=== PATIENT | male | born 1945 | race Caucasian/White ===

== ENCOUNTER 2017-02-19 13:39 | Emergency (ER) | payer OTHER ==
[~2017-02-19] VITALS: Ht 172.7 cm; Wt 68.8 kg
[2017-02-19 14:01] VITALS: TEMP 36.7; Ht 172.7 cm; Wt 68.8 kg
[2017-02-19] MEDS ORDERED: SODIUM CHLORIDE 0.9% 1000ML 1,000 ML IV STA (14:40)
[2017-02-19] MEDS ORDERED: OPTIRAY 320 IV PRN (15:00)
[2017-02-19 15:07] LABS: BASO % 0.2 %; BASO ABS # 0.03 K/uL (0-0.2); COMPLETE YES; EOS % 0.7 %; HEMATOCRIT 40.8 % (42-52); IG% 0.3 %; LYMPH % 10.8 %; LYMPH ABS # 1.54 K/uL (1.2-3.4); MEAN CELL VOLUME 79.7 fL (80-100); MEAN CORPUSCULAR HEMOGLOBIN 27.5 pg (25-34); MEAN CORPUSCULAR HGB CONC 34.6 g/dl (32-36); MEAN PLATELET VOLUME 8.5 fL (7.4-10.4); MONO % 6.1 %; NEUT % 81.9 %; PLATELET COUNT 393 K/uL (130-400); RED BLOOD COUNT 5.12 M/uL (4.7-6.1); WHITE BLOOD COUNT 14.32 K/uL (4.8-10.8)
--- NOTE | 2017-02-19 15:07 | DIAGNOSTIC IMAGING REPORT ---
CHEST ONE VIEW PORTABLE CLINICAL HISTORY: 71 years-old Male presenting with EVALUATE ALTERED MENTAL STATUS/WEAKNESS. TECHNIQUE: Portable upright AP view of the chest was obtained. COMPARISON: None. FINDINGS: Cardiomediastinal silhouette normal. Rounded opacity in the left upper lung measuring over 8 cm in diameter. Abnormal elevation of the left hemidiaphragm. No large pleural effusion or pneumothorax. Osseous structures normal. Upper abdomen normal. IMPRESSION: 1. 8 cm masslike opacity in the left upper lung. A vascular etiology is not excluded. Further evaluation with contrast-enhanced chest CT recommended. The report will be called/faxed according to standard departmental protocol. Electronically signed by: Pipe Alvarado M.D. 02/19/2017 3:06 PM Dictated Date/Time: 02/19/2017 3:04 PM
[2017-02-19] MEDS ORDERED: GLC/500 PO (15:12)
[2017-02-19] MEDS ORDERED: ATOR10TA82 PO (15:12)
[2017-02-19 15:17] LABS: INR 1.1 (0.9-1.1); PARTIAL THROMBOPLASTIN RATIO 1.2
[2017-02-19 15:25] LABS: ALT/SGPT 43 U/L (12-78); BLOOD UREA NITROGEN 15 mg/dl (7-18); BUN/CREATININE RATIO 14.8 (10-20); CALCIUM 9.7 mg/dl (8.5-10.1); CARBON DIOXIDE 29 mmol/L (21-32); CHLORIDE 96 mmol/L (98-107); CREATININE 0.98 mg/dl (0.60-1.40); GLUCOSE 133 mg/dl (70-99); MAGNESIUM 2.1 mg/dl (1.8-2.4); POTASSIUM 3.3 mmol/L (3.5-5.1); SODIUM 133 mmol/L (136-145)
[2017-02-19] MEDS ORDERED: PATIENT'S ALLERGY INFO NEEDS ENTERED SCH (15:30)
[2017-02-19 15:34] LABS: ALKALINE PHOSPHATASE 123 U/L (45-117); AST/SGOT 32 U/L (15-37); CKMB/CK RATIO 0.5 (0-3.0)
[2017-02-19 15:38] LABS: URINE APPEARANCE CLOUDY (CLEAR); URINE BILIRUBIN NEG (NEG); URINE COLOR YELLOW; URINE NITRITE NEG (NEG); URINE PH 7.5 (4.5-7.5); UROBILINOGEN NEG (NEG); ZZUR CULT IF INDIC CLEAN CATCH NO
[2017-02-19 15:39] LABS: MANUAL MICROSCOPIC REQUIRED? NO; REVIEW REQ? YES
--- NOTE | 2017-02-19 16:19 | DIAGNOSTIC IMAGING REPORT ---
(CHEST FOR PE) ANGIO WITH CLINICAL HISTORY: 71 years-old Male presenting with ^cough, sob, smoker, weakness. TECHNIQUE: Multidetector CT angiography of the chest was performed after administration of intravenous contrast. 3-D volumetric and/or maximum intensity projection (MIP) images were subsequently reconstructed for review. IV contrast: 94 mL of Optiray 320. A dose lowering technique was used consistent with the principles of ALARA (as low as reasonably achievable). COMPARISON: Chest x-ray performed earlier the same day. CT DOSE (mGy.cm): The estimated cumulative dose is 289.23 mGy.cm. 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 Pulmonary vasculature: The study is adequate for assessment of the pulmonary vascular tree. No filling defect within the pulmonary arteries to suggest embolus. Compression of the anterior branch of the left upper lobe pulmonary artery as it traverses the large left upper lobe mass. Main pulmonary artery is not enlarged. No flattening of the interventricular septum. No intracardiac intracardiac filling defect. No reflux of contrast into the hepatic veins. Remaining chest: On soft tissue windows, normal thyroid and thoracic inlet. Multiple enlarged mediastinal lymph nodes in the aortopulmonary, prevascular, and subcarinal regions. Suspected enlarged bilateral hilar lymph nodes. Atherosclerosis of the aorta. Normal heart size. Coronary artery calcification. Trace left pleural effusion. No pericardial effusion. Upper abdomen normal. On lung windows, 8.2 cm mass in the left upper lobe. This abuts the overlying anterior pleura resulting in a bulging margin. This abuts the major fissure. This encases and narrows the anterior branch of the left upper lobe. This abuts the mediastinum and appears to directly invade the pericardial fat. This abuts the right hilum and obstructs the left upper lobe bronchus and narrows the lingular bronchus. Background moderate apical predominant emphysema. Mild diffuse bronchial wall thickening. No additional pulmonary nodule or mass. Dependent changes in the bilateral lower lobes likely atelectasis. On bone windows, normal osseous structures. IMPRESSION: 1. A 8.2 cm left upper lobe mass, which may invade the overlying pleura, mediastinum, and left hilum. Mediastinal and potentially bilateral hilar lymphadenopathy. No additional sites of disease in the lungs. Further details including bronchial and arterial obstruction as above. 2. No evidence of pulmonary embolus. Electronically signed by: Pipe Alvarado M.D. 02/19/2017 4:18 PM Dictated Date/Time: 02/19/2017 4:09 PM
--- NOTE | 2017-02-19 16:49 | EMERGENCY ROOM VISIT NOTE ---
History Report prepared by Ruth: Sundeep Mckeon Under the Supervision of: Dr. Jone Quiroz D.O. First contact with patient: 14:29 Chief Complaint: WEAKNESS Stated Complaint: WEAK, TIRED, LOSS OF APPETITE Nursing Triage Summary: patient c/o generalized tiredness, decreased appetite for past month. patient went to PCP for high blood pressure last week. PCP gave him another BP med. unsure what pill. family states he has lost about 10 pounds within this last month History of Present Illness The patient is a 71 year old male who presents to the Emergency Room with complaints of generalized weakness, fatigue, loss of appetite, and cough that began 1 month ago. He states that he quit smoking 1 month ago. Per the patient' s friend, the patient has had low energy, left shoulder pain, and a recent 10 lb weight loss within a time span of month. The patient states he is concerned for Lyme Disease because he has been hunting recently and knows several friends with Lyme Disease. Of note, the patient has a history of diabetes mellitus. Source of History: patient Onset: 1 month ago Position: other (global) Timing: constant Associated Symptoms: + cough, + fatigue, + weakness Note: Pt reports left shoulder pain, loss of appetite, and 10 lb weight loss. Review of Systems See HPI for pertinent positives & negatives. A total of 10 systems reviewed and were otherwise negative. Past Medical & Surgical Medical Problems: (1) Diabetes Social History Smoking Status: Current Every Day Smoker Housing Status: lives with friends Current/Historical Medications Scheduled Atorvastatin (Lipitor), 10 MG PO DAILY Metformin Hcl (Glucophage), Unknown Dose PO BID Physical Exam Vital Signs Date Time Temp Pulse Resp B/P (MAP) Pulse Ox O2 Delivery O2 Flow Rate FiO2 02/19/17 16:19 97 26 150/77 94 Room Air 02/19/17 15:30 97 30 158/81 94 Room Air 02/19/17 15:07 104 02/19/17 14:55 103 22 162/88 93 Room Air 02/19/17 14:34 114 18 161/107 96 Room Air 02/19/17 14:01 36.7 124 22 155/82 96 Room Air Physical Exam CONSTITUTIONAL/VITAL SIGNS: Reviewed / noted above. GENERAL: Non-toxic in appearance. INTEGUMENTARY: Warm, dry, and [place]. HEAD: Normocephalic. EYES: without scleral icterus or trauma. ENT/OROPHARYNX: clear and moist. LYMPHADENOPATHY/NECK: Is supple without lymphadenopathy or meningismus. RESPIRATORY: Lungs clear and equal. CARDIOVASCULAR: Regular rate and rhythm. GI/ABDOMEN: Soft and nontender. No organomegaly or pulsatile mass. No rebound or guarding. Normal bowel sounds. EXTREMITIES: Warm and well perfused. BACK: No CVA tenderness. NEUROLOGICAL: Intact without focal deficits. PSYCHIATRIC: normal affect. MUSCULOSKELETAL: Normally developed with good muscle tone. Medical Decision & Procedures ER Provider Diagnostic Interpretation: Radiology results as stated below per my review and radiologist interpretation: CHEST ONE VIEW PORTABLE CLINICAL HISTORY: 71 years-old Male presenting with EVALUATE ALTERED MENTAL STATUS/WEAKNESS. TECHNIQUE: Portable upright AP view of the chest was obtained. COMPARISON: None. FINDINGS: Cardiomediastinal silhouette normal. Rounded opacity in the left upper lung measuring over 8 cm in diameter. Abnormal elevation of the left hemidiaphragm. No large pleural effusion or pneumothorax. Osseous structures normal. Upper abdomen normal. IMPRESSION: 1. 8 cm masslike opacity in the left upper lung. A vascular etiology is not excluded. Further evaluation with contrast-enhanced chest CT recommended. The report will be called/faxed according to standard departmental protocol. Electronically signed by: Pipe Alvarado M.D. 02/19/2017 3:06 PM Dictated Date/Time: 02/19/2017 3:04 PM (CHEST FOR PE) ANGIO WITH CLINICAL HISTORY: 71 years-old Male presenting with ^cough, sob, smoker, weakness. TECHNIQUE: Multidetector CT angiography of the chest was performed after administration of intravenous contrast. 3-D volumetric and/or maximum intensity projection (MIP) images were subsequently reconstructed for review. IV contrast: 94 mL of Optiray 320. A dose lowering technique was used consistent with the principles of ALARA (as low as reasonably achievable). COMPARISON: Chest x-ray performed earlier the same day. CT DOSE (mGy.cm): The estimated cumulative dose is 289.23 mGy.cm. 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 Pulmonary vasculature: The study is adequate for assessment of the pulmonary vascular tree. No filling defect within the pulmonary arteries to suggest embolus. Compression of the anterior branch of the left upper lobe pulmonary artery as it traverses the large left upper lobe mass. Main pulmonary artery is not enlarged. No flattening of the interventricular septum. No intracardiac intracardiac filling defect. No reflux of contrast into the hepatic veins. Remaining chest: On soft tissue windows, normal thyroid and thoracic inlet. Multiple enlarged mediastinal lymph nodes in the aortopulmonary, prevascular, and subcarinal regions. Suspected enlarged bilateral hilar lymph nodes. Atherosclerosis of the aorta. Normal heart size. Coronary artery calcification. Trace left pleural effusion. No pericardial effusion. Upper abdomen normal. On lung windows, 8.2 cm mass in the left upper lobe. This abuts the overlying anterior pleura resulting in a bulging margin. This abuts the major fissure. This encases and narrows the anterior branch of the left upper lobe. This abuts the mediastinum and appears to directly invade the pericardial fat. This abuts the right hilum and obstructs the left upper lobe bronchus and narrows the lingular bronchus. Background moderate apical predominant emphysema. Mild diffuse bronchial wall thickening. No additional pulmonary nodule or mass. Dependent changes in the bilateral lower lobes likely atelectasis. On bone windows, normal osseous structures. IMPRESSION: 1. A 8.2 cm left upper lobe mass, which may invade the overlying pleura, mediastinum, and left hilum. Mediastinal and potentially bilateral hilar lymphadenopathy. No additional sites of disease in the lungs. Further details including bronchial and arterial obstruction as above. 2. No evidence of pulmonary embolus. Electronically signed by: Pipe Alvarado M.D. 02/19/2017 4:18 PM Dictated Date/Time: 02/19/2017 4:09 PM Laboratory Results 02/19/17 14:52 Red Blood Count 5.12, Mean Corpuscular Volume 79.7, Mean Corpuscular Hemoglobin 27.5, Mean Corpuscular Hemoglobin Concent 34.6, Mean Platelet Volume 8.5, Neutrophils (%) (Auto) 81.9, Lymphocytes (%) (Auto) 10.8, Monocytes (%) (Auto) 6.1, Eosinophils (%) (Auto) 0.7, Basophils (%) (Auto) 0.2, Neutrophils # (Auto) 11.74, Lymphocytes # (Auto) 1.54, Monocytes # (Auto) 0.87, Eosinophils # (Auto) 0.10, Basophils # (Auto) 0.03 02/19/17 14:52 Test 02/19/17 14:48 12/25/17 14:52 Urine Color YELLOW Urine Appearance CLOUDY (CLEAR) Urine pH 7.5 (4.5-7.5) Urine Specific [place] 1.020 (1.000-1.030) Urine Protein NEG (NEG) Urine Glucose (UA) NEG (NEG) Urine Ketones NEG (NEG) Urine Occult Blood 2+ (NEG) Urine Nitrite NEG (NEG) Urine Bilirubin NEG (NEG) Urine Urobilinogen NEG (NEG) Urine Leukocyte Esterase NEG (NEG) Urine WBC (Auto) 1-5 /hpf (0-5) Urine RBC (Auto) 10-30 /hpf (0-4) Urine Hyaline Casts (Auto) 1-5 /lpf (0-5) Urine Epithelial Cells (Auto) 10-20 /lpf (0-5) Urine Bacteria (Auto) NEG (NEG) Urine Crystals CALCIUM OXALATE (NONE White Blood Count 14.32 K/uL (4.8-10.8) Red Blood Count 5.12 M/uL (4.7-6.1) Hemoglobin 14.1 g/dL (14.0-18.0) Hematocrit 40.8 % (42-52) Mean Corpuscular Volume 79.7 fL (80-100) Mean Corpuscular Hemoglobin 27.5 pg (25-34) Mean Corpuscular Hemoglobin Concent 34.6 g/dl (32-36) Platelet Count 393 K/uL (130-400) Mean Platelet Volume 8.5 fL (7.4-10.4) Neutrophils (%) (Auto) 81.9 % Lymphocytes (%) (Auto) 10.8 % Monocytes (%) (Auto) 6.1 % Eosinophils (%) (Auto) 0.7 % Basophils (%) (Auto) 0.2 % Neutrophils # (Auto) 11.74 K/uL (1.4-6.5) Lymphocytes # (Auto) 1.54 K/uL (1.2-3.4) Monocytes # (Auto) 0.87 K/uL (0.11-0.59) Eosinophils # (Auto) 0.10 K/uL (0-0.5) Basophils # (Auto) 0.03 K/uL (0-0.2) RDW Standard Deviation 39.8 fL (36.4-46.3) RDW Coefficient of Variation 13.8 % (11.5-14.5) Immature Granulocyte % (Auto) 0.3 % Immature Granulocyte # (Auto) 0.04 K/uL (0.00-0.02) Prothrombin Time 12.0 SECONDS (9.0-12.0) Prothromb Time International Ratio 1.1 (0.9-1.1) Activated Partial Thromboplast Time 31.5 SECONDS (21.0-31.0) Partial Thromboplastin Ratio 1.2 Anion Gap 8.0 mmol/L (3-11) Est Creatinine Clear Calc Drug Dose 65.9 ml/min Estimated GFR () 88.9 Estimated GFR (Non- 76.7 BUN/Creatinine Ratio 14.8 (10-20) Calcium Level 9.7 mg/dl (8.5-10.1) Magnesium Level 2.1 mg/dl (1.8-2.4) Total Bilirubin 0.5 mg/dl (0.2-1) Direct Bilirubin 0.2 mg/dl (0-0.2) Aspartate Amino Transf (AST/SGOT) 32 U/L (15-37) Alanine Aminotransferase (ALT/SGPT) 43 U/L (12-78) Alkaline Phosphatase 123 U/L (45-117) Total Creatine Kinase 309 U/L (39-308) Creatine Kinase MB 1.4 ng/ml (0.5-3.6) Creatine Kinase MB Ratio 0.5 (0-3.0) Troponin I < 0.015 ng/ml (0-0.045) Total Protein 7.8 gm/dl (6.4-8.2) Albumin 3.2 gm/dl (3.4-5.0) Lipase 97 U/L (73-393) Thyroid Stimulating Hormone (TSH) 2.490 uIu/ml (0.300-4.500) Laboratory results as stated above per my review. Medications Administered Medications (Trade) Dose Ordered Sig/Vicenta Route Start Time Stop Time Status Last Admin Dose Admin Sodium Chloride 1,000 ml @ 999 mls/hr Q1H1M STAT IV 02/19/17 14:40 02/19/17 15:40 DC 02/19/17 15:05 999 MLS/HR ECG Indication: weakness Rate (beats per minute): 106 Rhythm: sinus tachycardia Findings: no ectopy, other (no acute injury) ED Course 1429: Previous medical records were reviewed. The patient was evaluated in room B8. A complete history and physical examination was performed. 1440: Sodium Chloride 1000 ml @ 999 mls/hr IV. 1500: Optiray 320 100 ml IV. 1641: On reevaluation, the patient is doing well. I discussed the results and findings with the patient. He verbalized agreement of the treatment plan. The patient was discharged home. Medical Decision Differential includes acute coronary syndrome, myocardial infarction, CVA, TIA, anemia, infection, pneumonia, UTI, pyelonephritis, poor nutrition, dehydration, electrolyte disturbance,hypoglycemia. This is a 71-year-old male who presents to the ED with a chief complaint of feeling tired, decreased appetite, nonproductive cough for the past month. The patient has also noticed some weight loss of about 10 pounds over the last month. He came in for evaluation with his friend. The patient states that he lives alone. His physical exam was unremarkable. He does report being a previous smoker but quit about 5 weeks ago. A chest x-ray and CT scan of the chest reveals a 8.2 cm left upper lung mass. Complete metabolic panel was unremarkable. Troponin was negative. White blood cell count was 14. Patient is not significantly anemic. The patient also did report some left shoulder pain. His symptoms are likely related to the left upper lung mass which could be related to cancer as the patient is a smoker. The patient was referred back to his PCP for outpatient follow-up and referral for further evaluation of the mass in the left upper lung. Clinically appears to be stable and I don't feel he needs admitted to the hospital at this time. Medication Reconcilliation Current Medication List: was personally reviewed by me Blood Pressure Screening Patient's blood pressure: Elevated blood pressure Blood pressure disposition: Referred to PCP Impression Primary Impression: Mass of left lung Additional Impression: Weakness Scribe Attestation The scribe's documentation has been prepared under my direction and personally reviewed by me in its entirety. I confirm that the note above accurately reflects all work, treatment, procedures, and medical decision making performed by me. Departure Information Dispostion Home / Self-Care Referrals Nathaniel Dawson M.D. (PCP) Patient Instructions My [facility] Additional Instructions Follow-up with your family doctor this week for recheck. You have a mass in the left upper lung that is likely the cause of your symptoms. Further evaluation is needed of this by specialist in order to determine the nature of the mass. Call tomorrow for an appointment. Follow-up with your doctor for further care and evaluation in 1-2 days. Return to the emergency department for worsening or new symptoms or any concerns. You have been examined and treated today on an emergency basis only. This is not a substitute for, or an effort to provide, complete comprehensive medical care. It is impossible to recognize and treat all injuries or illnesses in a single emergency department visit. It is therefore important that you follow up closely with your doctor. Call as soon as possible for an appointment. Problem Qualifiers
[2017-02-19 17:06] VITALS: BP 159/85; PULSE 99; O2SAT 95
[2017-02-19] MEDS ORDERED: bp medication PO (17:17)
== END 2017-02-19 17:05 | disposition home or self-care (01) ==
LOC: C.EDB 13:41
DX: R53.1 Weakness (principal); R91.8 Other nonspecific abnormal finding of lung field; R00.0 Tachycardia, unspecified; E11.9 Type 2 diabetes mellitus without complications; F17.200 Nicotine dependence, unspecified, uncomplicated; Z79.84 Long term (current) use of oral hypoglycemic drugs; Z79.899 Other long term (current) drug therapy

== ENCOUNTER → 2017-03-02 | Outpatient (CLI) | payer OTHER ==
[~2017-03-02] MED LIST: ATOR10TA82 PO; GADAVIST IV PRN; GLC/500 PO; bp medication PO
[2017-03-02 10:24] LABS: INR 1.1 (0.9-1.1); PTT PATIENT 33.6 SECONDS (21.0-31.0)
--- NOTE | 2017-03-02 10:42 | DIAGNOSTIC IMAGING REPORT ---
BRAIN COMBO CLINICAL HISTORY: 71 years-old Male presenting with R91.8 Lung [id number]. TECHNIQUE: Multisequence, multiplanar MR imaging of the brain was performed before and after the administration of intravenous contrast. IV contrast: 6.5 mL of Gadavist. COMPARISON: None. FINDINGS: Proportional ventricular and sulcal prominence, likely age-related parenchymal volume loss. Limited periventricular and subcortical white matter T2/FLAIR hyperintensity, nonspecific but likely indicative of chronic small vessel ischemic change. Old lacunar infarct in the left basal ganglia suspected. No mass effect or midline shift. No restricted diffusion to suggest acute ischemia. No hemorrhage. No extra-axial fluid collection. T2 skull base flow voids preserved. No abnormal parenchymal enhancement. Bone marrow signal intensity within the calvarium within normal limits. IMPRESSION: 1. No acute intracranial pathology. No abnormal enhancement. Electronically signed by: Pipe Alvarado M.D. 03/02/2017 10:41 AM Dictated Date/Time: 03/02/2017 10:35 AM
== END | disposition home or self-care (01) ==
LOC: C.MRI 09:23
PROVIDERS: ATTEND Surgery
DX: R91.8 Other nonspecific abnormal finding of lung field (principal)

== ENCOUNTER → 2017-03-05 | Day surgery (SDC) | payer OTHER ==
[2017-03-05] VITALS (7 sets, daily range): BP systolic 102–133; BP diastolic 67–81; PULSE 92–105; TEMP 36.2–36.7; O2SAT 95–98; Ht 170.2 cm; Wt 68.3 kg
[~2017-03-05] VITALS: Ht 170.2 cm; Wt 68.3 kg
[~2017-03-05] MED LIST changes: +ACETAMINOPHEN 500 MG TAB PO PRN; -GADAVIST IV PRN
--- NOTE | 2017-03-05 11:55 | Discharge Instructions ---
Discharge Instructions Procedure Procedure Date: Mar 05, 2017. Reason for visit: Left Lung Mass. Discharge Discharge Date: Mar 05, 2017. Discharge Diagnosis: same Instructions Activity Recommendations: No limitations Return to School/Work: no limitations Recommended Home Diet: Resume Previous Diet Provider Instructions: ACTIVITY RECOMMENDATIONS: * Rest today. * Resume regular activity in one day. MEDICATIONS: * May take Tylenol or Ibuprofen as needed for pain. DIET: * Resume previous diet. SPECIAL CARE INSTRUCTIONS: Call your doctor if: * Temperature above 101 degrees F. * Pain not relieved by pain medicine ordered. * Increased drainage or redness from incision. * Notify your doctor with any questions or concerns. Call your doctor or go to the nearest Emergency Department if you experience: * Increased chest pain or shortness of breath. FOLLOW UP VISIT: Follow-up with Referring Physician as scheduled. Allergies Uncoded Allergies: UNKNOWN ABX (Allergy, Unknown, RASH, 02/19/17) Elizabeth Diaz Recommendations: Call your doctor if: * Temperature above 101 degrees * Pain not relieved by pain medicine ordered * There is increased drainage or redness from any incision * You have any unanswered questions or concerns. Your Doctors Instructions noted above were prepared by provider Mitchel Tellez. Patient Signature Section: Patient Instructions Signature Page Lisbeth Villegas Patient (or Guardian) Signature/Date: I have read and understand the instructions given to me by my caregivers. Caregiver/RN/Doctor Signature/Date: The above-named patient and/or guardian has received patient instructions on this date. + Original Patient Signature Page (only) stays with chart. Please make copy for patient.
--- NOTE | 2017-03-05 12:11 | DIAGNOSTIC IMAGING REPORT ---
CT-GUIDED FINE-NEEDLE ASPIRATION OF A LEFT UPPER LOBE LUNG MASS CLINICAL HISTORY: Left upper lobe mass. PROCEDURE: Written informed consent was obtained. Preliminary imaging of the left upper chest was performed to determine a safe needle needle entry site. The left upper chest was prepped and draped in the usual sterile fashion. 1% lidocaine was used for local anesthesia. A total of 2 passes using 22-gauge x 9 cm Enmanuel needle were made through the left upper lobe mass using CT guidance. Specimens were given to the on-site pathologist who determined adequate tissue for diagnosis. Post procedure imaging showed no immediate complications. Specifically, no pneumothorax. The patient tolerated the procedure well. IMPRESSION: CT-guided fine-needle aspiration of a left upper lobe mass with specimens given to pathology. No immediate complications. Electronically signed by: Mitchel Tellez M.D. 03/05/2017 12:10 PM Dictated Date/Time: 03/05/2017 12:07 PM
--- NOTE | 2017-03-05 12:32 | DIAGNOSTIC IMAGING REPORT ---
CHEST INSPIRAT/EXPIRAT HISTORY: left lung mass post biopsy COMPARISON: Chest 02/19/2017. FINDINGS: The 8 cm left upper lobe mass is again noted. No pneumothorax. No pleural effusions. The heart is normal in size. The right lung is clear. IMPRESSION: Redemonstration of the 8 cm left upper lobe mass. No pneumothorax. Electronically signed by: Mitchel Tellez M.D. 03/05/2017 12:31 PM Dictated Date/Time: 03/05/2017 12:30 PM
== END | disposition home or self-care (01) ==
LOC: C.ACU 08:03
PROVIDERS: ATTEND Surgery
DX: C34.12 Malignant neoplasm of upper lobe, left bronchus or lung (principal)

== ENCOUNTER → 2017-03-07 | Outpatient (CLI) | payer OTHER ==
[~2017-03-07] MED LIST changes: -ACETAMINOPHEN 500 MG TAB PO PRN
--- NOTE | 2017-03-07 10:02 | DIAGNOSTIC IMAGING REPORT ---
PET/CT CLINICAL HISTORY: Pulmonary lesion. COMPARISON STUDY: Chest CT dated 02/19/2017. TECHNIQUE: One hour following the IV administration of 13.94 mCi of F-18 FDG, PET/CT examination was performed from the orbital meatal line through the bony pelvis. Noncontrast CT is performed for the purposes of anatomic correlation and attenuation correction. Note that this does not reflect a diagnostic CT examination. Images were reviewed on a separate [employer] independent workstation. Fused images were obtained. Standard uptake values reported are maximum values within the region of interest expressed in gm/mL. FINDINGS: PET FINDINGS: Head and neck: There is expected physiologic activity within the visualized brain parenchyma at the skull base and the salivary glands. Thorax: Evaluation of the thorax demonstrates expected physiologic myocardial activity. There is an approximately 8 x 7 x 7 cm mass lesion in the left suprahilar region. This abuts and appears to invade the left hilum and the mediastinum, and abuts the thoracic aorta. Foci of central low-attenuation within the mass suggests central necrosis. This mass lesion is markedly FDG avid with a maximum SUV of 21.9. No additional pulmonary lesion is clearly identified. At least 2 enlarged prevascular nodes are seen on image #81. These measure up to 1.3 cm in short axis. These demonstrate only faint FDG activity with a maximum SUV of 2.2. Abdomen and pelvis: There is expected activity within the liver, spleen, kidneys, renal collecting system, and bladder. Low-level bowel activity is likely within physical limits. Unenhanced CT images: Partially imaged brain parenchyma the skull base is within normal limits. The bony orbits are intact and the orbital contents are normal as imaged. The visualized paranasal sinuses are clear. A small left mastoid effusion is noted. The salivary and thyroid glands are normal in appearance. No cervical lymphadenopathy is seen. There is atherosclerotic calcification of the thoracic aorta which is normal in caliber. The heart is normal in size and there is trace pericardial effusion. The coronary arteries are calcified. Emphysema is observed. There is no airspace consolidation typical for pneumonia or pleural effusion. See above under PET findings for assessment of a pulmonary mass lesion. There is no right hilar or axillary lymphadenopathy. The unenhanced liver, gallbladder, spleen, adrenal glands, and pancreas are grossly normal. The kidneys demonstrate cortical atrophy and are without hydronephrosis. There are left renal calculi which measure up to 10 mm. There is advanced atherosclerotic calcification of the abdominal aorta. An aneurysm of the distal abdominal aorta measures 4.2 x 4.4 cm. There is ectasia of the iliac arteries which measure up to 1.8 cm. No bowel obstruction is identified. A normal appendix is identified. No intraperitoneal free air or abdominal ascites is seen. There is no abdominal, pelvic, retroperitoneal, or inguinal lymphadenopathy. The prostate gland is enlarged and heterogeneous, measuring up to 5.5 cm in transverse diameter. There are bladder calculi. The bladder wall is thickened and trabeculated consistent with chronic outlet obstruction. The skeletal structures are osteopenic. Degenerative change is noted throughout the spine. Postoperative change is present in the lumbar region. No lytic or blastic lesion is clearly seen. IMPRESSION: 1. There is approximately 8 cm FDG avid mass in the left suprahilar region as detailed above. This should be considered lung cancer until proven otherwise. 2. There are pathologically enlarged and minimally FDG avid prevascular lymph nodes. These are highly concerning for metastatic involvement. 3. There is no evidence of extrathoracic metastatic disease. 4. Emphysema. 5. There is a 4.2 x 4.4 cm infrarenal abdominal aortic aneurysm. 6. Left-sided nephrolithiasis. 7. Additional findings as above. Electronically signed by: Riley Wheeler M.D. 03/07/2017 10:00 AM Dictated Date/Time: 03/07/2017 9:49 AM
== END | disposition home or self-care (01) ==
LOC: C.PET 07:00
PROVIDERS: ATTEND Surgery
DX: R91.1 Solitary pulmonary nodule (principal); I71.4 Abdominal aortic aneurysm, without rupture; N20.0 Calculus of kidney

== ENCOUNTER 2017-04-09 06:43 | Day surgery (SDC) | payer OTHER ==
[2017-04-05 10:56] VITALS: BMI 21.0
[~2017-04-09] VITALS: Ht 167.6 cm; Wt 60.0 kg
[~2017-04-09 06:43] MED LIST changes: +ATOR-24 PO; -ATOR10TA82 PO; +CEFAZOLIN IV 2,000 MG in SYRINGE 0 ML IV SCH; +DXM/4 PO; +LACTATED RINGER'S 1000ML 1,000 ML IV SCH; +LATA0.5S OPR; +LISI-729 PO; +ONDA8TAB6 PO; +PATIENT'S HEIGHT AND/OR WEIGHT NEEDED SCH; +PROC1TAB5 PO; +TRAM-10 PO; -bp medication PO
[2017-04-09 07:19] VITALS: BP 128/70; PULSE 111; TEMP 36.4; O2SAT 96; Ht 167.6 cm; Wt 60.0 kg
[2017-04-09] MEDS ORDERED: FENTANYL CITRATE INJ 50 MCG/1 ML 2 ML VIAL ONE (07:39)
[2017-04-09] MEDS ORDERED: MIDAZOLAM HCL 1 MG/ML 2ML VIAL ONE (07:39)
[2017-04-09] MEDS ORDERED: CEFAZOLIN SOD 2000MG/15 ML IV PUSH IV ONE (07:44)
--- NOTE | 2017-04-09 07:56 | History & Physical Bridge Note ---
H&P Re-Evaluation Bridge Note: I have examined the patient, reviewed the History & Physical and in the interval since the performance of the History & Physical I have noted the following changes of clinical significance: No changes noted
[2017-04-09] MEDS ORDERED: EpHEDrine SULFATE INJ 50 MG/ML AMP IV PRN (08:00)
[2017-04-09] MEDS ORDERED: ATROPINE SULFATE 0.1 MG/ML 5ML SYR IV PRN (08:00)
[2017-04-09] MEDS ORDERED: LIDOCAINE HCL 1% 20 ML VIAL ONE (08:07)
[2017-04-09] MEDS ORDERED: ONDANSETRON INJ 2 MG/ML 2 ML VIAL ONE (08:50)
[2017-04-09] MEDS ORDERED: PROPOFOL IV EMULSION 10 MG/ML 20 ML VIAL IV ONE (08:50)
[2017-04-09] MEDS ORDERED: SODIUM CHLORIDE 0.9% 1000ML 1,000 ML IV SCH (09:16)
--- NOTE | 2017-04-09 09:16 | [facility] Post Operative Brief Note ---
Immediate Operative Summary Operative Date Apr 09, 2017. 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 Adolph Steele Technical Aid Surgeon(s) none Estimated Blood Loss 5ml Findings Consistent with Post-Op Diagnosis Specimens none per surgeon Drains None Anesthesia Type MAC Complication(s) none
--- NOTE | 2017-04-09 09:20 | Discharge Instructions ---
Discharge Instructions Date of Service Apr 09, 2017. Admission Reason for Admission: Circulatory System Disorder Discharge Discharge Diagnosis / Problem: Same Discharge Goals Goal(s): Improve disease control Activity Recommendations Activity Limitations: per Instructions/Follow-up section Lifting Limitations: no more than 10 pounds (with left arm for 7 days) MEDICATIONS: Resume previous medications unless instructed otherwise by your surgeon. * Ibuprofen 600 mg every 6 hours with food * Tylenol 650 mg every 4 hours, as needed for pain SPECIAL CARE INSTRUCTIONS: * Your A-port may be used immediately. * May shower in 24 hours. Let water run over area and pat dry. * Leave op-site dressing on for 3 days and then remove. * Call the surgeon's office with any questions or concerns - (ex. temperature higher than 101 degrees F, excessive bleeding or pain). FOLLOW UP VISIT: If not already scheduled, please call the office to schedule a two week follow- up appointment. Office number . Current Hospital Diet Patient's current hospital diet: Discharge Diet Recommended Diet: Regular Diet Procedures Procedures Performed: Placement of A-Port Tunneled Central Venous Catheter with Port, Right Subclavian Vein Pending Studies Studies pending at discharge: no Medical Emergencies . Who to Call and When: Medical Emergencies: If at any time you feel your situation is an emergency, please call 911 immediately. . Non-Emergent Contact Non-Emergency issues call your: Primary Care Provider, Surgeon Call Non-Emergent contact if: your pain is worsening, wound has increased redness, wound has increased pain . "Provider Documentation" section prepared by Adolph Steele. . VTE Core Measure Inpt VTE Proph given/why not?: Treatment not indicated
[2017-04-09] MEDS ORDERED: OXYCODONE/ACETAMINOPHEN 5-325 TAB PO PRN (09:30)
[2017-04-09] MEDS ORDERED: ONDANSETRON INJ 2 MG/ML 2 ML VIAL IV PRN (09:30)
--- NOTE | 2017-04-09 09:55 | DIAGNOSTIC IMAGING REPORT ---
CHEST ONE VIEW PORTABLE HISTORY: s/p placement of Aport COMPARISON: Chest 03/05/2017. FINDINGS: Interval placement of a right subclavian Port-A-Cath. The tip terminates in the expected location of the right brachiocephalic/SVC junction. The right lung remains clear. No pneumothorax. No pleural effusions. Stable volume loss within the left hemithorax. The heart is normal in size. Left upper lobe mass is again noted. This demonstrates a small area of central cavitation. IMPRESSION: 1. Interval placement of a right subclavian Port-A-Cath. The tip terminates in the expected location of the brachiocephalic/SVC junction. No pneumothorax. 2. Left upper lobe mass is again noted and demonstrates a small area of central cavitation. Electronically signed by: Mitchel Tellez M.D. 04/09/2017 9:54 AM Dictated Date/Time: 04/09/2017 9:52 AM
[2017-04-09 10:00] VITALS: BP 84/62; PULSE 99; TEMP 36.7; O2SAT 99
--- NOTE | 2017-04-09 10:14 | OPERATIVE REPORT ---
DATE OF OPERATION: 04/09/2017 PREOPERATIVE DIAGNOSIS: Need for long-term central venous access. POSTOPERATIVE DIAGNOSIS: Same. PROCEDURE: Placement of A-port, tunneled central venous access catheter with port. SURGEON: Adolph Steele MD FINDINGS: The tip of the catheter was placed near the junction of the right atrium and the superior vena cava. There was good blood return and it was easily flushed without leaking. TECHNIQUE: The patient was given intravenous sedation and the area was prepped and draped in the usual sterile fashion. The skin and subcutaneous tissue in the right infraclavicular area were anesthetized with 1% Xylocaine without epinephrine. The right subclavian vein was entered on the first attempt; however, in passing the wire, I could not get it to enter the superior vena cava. It continued to traverse superiorly into the right internal jugular. The wire was removed. A more lateral approach was then taken and the vein was again entered on the first attempt. At this time, the wire was passed with ease with the tip entering the right atrium as confirmed by fluoroscopy. A small incision was made at the exit site of the wire and a subcutaneous pocket was performed to create a soft turn in the catheter. The site for the port was chosen and the skin and subcutaneous tissue superior to that area were anesthetized with 1% Xylocaine without epinephrine. A skin incision was made and was carried down through the subcutaneous tissue to the prepectoral fascia. A prepectoral pocket was created inferior to the incision and the port fit nicely. The introducer sheath device was then passed over the wire under fluoroscopic guidance. The introducer and wire were removed and the catheter was passed through the sheath. The tip of the catheter was seen to enter the right atrium. The sheath was peeled. The catheter was then tunneled and using fluoroscopy, it was sized. The catheter was then cut and attached to the port with ease. The port was accessed and there was good blood return and it was easily flushed. The port was secured to the prepectoral fascia using interrupted 2-0 Prolene sutures. The port incision was closed with a running 2-0 Vicryl in the deep subcutaneous tissue, running 3-0 Vicryl in the superficial subcutaneous tissue and a running 4-0 Monocryl in a subcuticular fashion for the skin. The infraclavicular incision was closed with an interrupted subcuticular suture of 4-0 Monocryl. The skin was cleansed, dried, benzoin placed, Steri-Strips applied. A dressing was placed. The estimated blood loss was 5 mL. Sponge, needle and instrument counts were correct prior to closure. The patient tolerated the surgical procedure without complication and was transferred to recovery. I attest to the content of the Intraoperative Record and any orders documented therein. Any exception s are noted below.
[2017-04-09 10:20] VITALS: BP 110/76; PULSE 111; TEMP 36.7; O2SAT 99
[2017-04-09 10:35] VITALS: BP 112/75; PULSE 94; TEMP 36.7; O2SAT 96
--- NOTE | 2017-04-09 10:57 | Anesthesiology Progress Note ---
Anesthesia Post Op Note Date & Time Apr 09, 2017 at 10:56 Vital Signs Pain Intensity: 0 Vital Signs Past 12 Hours Date Time Temp Pulse Resp B/P (MAP) Pulse Ox O2 Delivery O2 Flow Rate FiO2 04/09/17 09:50 36.2 90 16 93/65 95 Room Air 04/09/17 09:35 36.2 91 16 101/70 95 Room Air 04/09/17 09:25 91 14 122/74 98 Oxymask 7 04/09/17 09:17 36.7 94 14 120/75 98 Oxymask 7 04/09/17 07:19 36.4 111 22 128/70 (89) 96 Room Air Notes Mental Status: alert / awake / arousable, participated in evaluation Pt Amnestic to Procedure: Yes Nausea / Vomiting: adequately controlled Pain: adequately controlled Airway Patency, RR, SpO2: stable & adequate BP & HR: stable & adequate Hydration State: stable & adequate Anesthetic Complications: no major complications apparent
[2017-04-09] MEDS ORDERED: IBUPROFEN 600 MG TAB PO SCH (13:00)
== END 2017-04-09 10:55 | disposition home or self-care (01) ==
LOC: C.ACU 06:43
PROVIDERS: ATTEND Surgery
DX: C34.92 Malignant neoplasm of unspecified part of left bronchus or lung (principal); E11.9 Type 2 diabetes mellitus without complications; E78.5 Hyperlipidemia, unspecified; Z79.84 Long term (current) use of oral hypoglycemic drugs; Z79.899 Other long term (current) drug therapy; Z87.891 Personal history of nicotine dependence

== ENCOUNTER 2017-04-12 12:05 | Emergency (ER) | payer OTHER ==
[~2017-04-12] VITALS: Ht 167.6 cm; Wt 60.0 kg
[~2017-04-12 12:05] MED LIST changes: -DOCU-94 PO
[2017-04-12 12:09] VITALS: TEMP 36.4; Ht 167.6 cm; Wt 60.0 kg
[2017-04-12] MEDS ORDERED: SODIUM CHLORIDE 0.9% 1000ML 1,000 ML IV STA (12:30)
[2017-04-12] MEDS ORDERED: SODIUM CHLORIDE 0.9% 500ML 500 ML IV STA (12:52)
--- NOTE | 2017-04-12 13:11 | DIAGNOSTIC IMAGING REPORT ---
CHEST ONE VIEW PORTABLE CLINICAL HISTORY: Weakness. COMPARISON STUDY: PET CT March 07, 2017 and chest radiograph April 09, 2017. FINDINGS: A right subclavian [id number] is in place. Left upper lobe mass is again noted. Possible focus of cavitation within this lesion is again noted. Elevation of the left hemidiaphragm is unchanged. There is no evidence for pulmonary edema. A 1.8 cm nodular density within right midlung is noted. IMPRESSION: 1. Redemonstration of a large left upper lobe mass with possible focus of cavitation. 2. Elevation of the left hemidiaphragm which could be related to phrenic nerve involvement. 3. 1.8 cm nodular density within the right midlung. Electronically signed by: Gregorio Green M.D. 04/12/2017 1:09 PM Dictated Date/Time: 04/12/2017 1:06 PM
[2017-04-12 13:16] LABS: EOS % 0.1 %; EOS ABS # 0.01 K/uL (0-0.5); HEMATOCRIT 36.4 % (42-52); HEMOGLOBIN 12.5 g/dL (14.0-18.0); LYMPH % 4.4 %; LYMPH ABS # 0.88 K/uL (1.2-3.4); MEAN CORPUSCULAR HEMOGLOBIN 27.1 pg (25-34); MEAN CORPUSCULAR HGB CONC 34.3 g/dl (32-36); MEAN PLATELET VOLUME 8.8 fL (7.4-10.4); MONO % 4.2 %; MONO ABS # 0.84 K/uL (0.11-0.59); NEUT % 90.8 %; NEUT ABS # 18.04 K/uL (1.4-6.5); PLATELET COUNT 400 K/uL (130-400); RED CELL DISTRIBUTION WIDTH SD 42.7 fL (36.4-46.3); WHITE BLOOD COUNT 19.87 K/uL (4.8-10.8)
[2017-04-12 13:31] LABS: INR 1.1 (0.9-1.1); PTT PATIENT 31.5 SECONDS (21.0-31.0)
[2017-04-12 13:32] LABS: ALBUMIN 2.5 gm/dl (3.4-5.0); ALT/SGPT 63 U/L (12-78); BLOOD UREA NITROGEN 18 mg/dl (7-18); CALCIUM 9.9 mg/dl (8.5-10.1); CARBON DIOXIDE 25 mmol/L (21-32); CREATININE 0.86 mg/dl (0.60-1.40); GLUCOSE 139 mg/dl (70-99); POTASSIUM 3.8 mmol/L (3.5-5.1); SODIUM 128 mmol/L (136-145)
[2017-04-12] MEDS ORDERED: DOCU-94 PO (13:38)
[2017-04-12 13:43] LABS: ALKALINE PHOSPHATASE 104 U/L (45-117); AST/SGOT 26 U/L (15-37); TOTAL PROTEIN 6.7 gm/dl (6.4-8.2)
[2017-04-12 15:05] VITALS: O2SAT 98
[2017-04-12 16:52] VITALS: PULSE 97
[2017-04-12 17:36] VITALS: BP 131/83; O2SAT 98
--- NOTE | 2017-04-12 22:05 | EMERGENCY ROOM VISIT NOTE ---
History Report prepared by Ruth: Eran Guzmán Under the Supervision of: Dr. Chema Diggs M.D. First contact with patient: 12:29 Chief Complaint: SYNCOPE (NEAR SYNCOPE) Stated Complaint: ALMOST [facility]ASS[facility] OUT, DIZZ[facility] History of Present Illness The patient is a 72 year old male who presents to the Emergency Room with complaints of a resolved near syncopal episode that occurred this morning. The patient states has been doing chemotherapy for his history of lung cancer, with his last treatment two days ago. The patient is accompanied his son who states the patient has been nauseous for a couple of days. He reports that he gave the patient Compazine for his nausea this morning. He reports that he went in for an x-ray today for a sniff test. His son states that after the test, the patient experienced tachycardia and dizziness causing him to experience a near- syncopal episode. The patient states that he is not back to normal at this moment, but states he is better than he previously was. His son states the patient has been eating and drinking normal some days, but admits the patient has had days where has had not been keeping up with food and fluids. The patient reports that he has also been experiencing a mild cough. The patient denies LOC, headache, fevers, chills, diaphoresis, visual changes, neck pain, chest pain, breathing difficulties, nausea, vomiting, abdominal pain, back pain , leg pain or swelling, melena, hematochezia, urinary symptoms, numbness, weakness, lymphadenopathy, rash, or other complaints. Source of History: patient, family Onset: this morning Position: other (global) Quality: other (global) Timing: resolved Associated Symptoms: + cough, + nausea Review of Systems See HPI for pertinent positives and negatives. A total of ten systems were reviewed and were otherwise negative. Past Medical & Surgical Medical Problems: (1) AAA (abdominal aortic aneurysm) (2) Diabetes (3) Glaucoma Family History Patient reports no known family medical history. Social History Smoking Status: Former Smoker Housing Status: lives with friends Occupation Status: retired Current/Historical Medications Scheduled Atorvastatin (Lipitor), 40 TAB PO HS Dexamethasone (Decadron), 4 TAB PO UD Docusate Sodium (Colace), 1 CAP PO QAM Latanoprost (Xalatan 0.005% Oph Benita), 1 DROPS OPR HS Lisinopril (Zestril), 5 MG PO HS Metformin Hcl (Glucophage), 500 MG PO BID Prochlorperazine Maleate (Compazine), 10 MG PO Q6H Scheduled PRN Ondansetron Hcl (Zofran), 8 MG PO Q8 PRN for Nausea Tramadol (Ultram), 50 MG PO Q6 PRN for Pain Allergies Coded Allergies: Clindamycin (Verified Allergy, Intermediate, Rash all over body , 04/12/17) Physical Exam Vital Signs Date Time Temp Pulse Resp B/P (MAP) Pulse Ox O2 Delivery O2 Flow Rate FiO2 04/12/17 17:36 131/83 98 04/12/17 16:52 97 04/12/17 16:01 95 20 104/93 96 Room Air 04/12/17 16:00 95 97 Room Air 112 04/12/17 15:05 98 Room Air 04/12/17 14:18 90 116/74 108 105/63 115 101/58 04/12/17 13:27 101 115/67 04/12/17 12:45 108 04/12/17 12:09 36.4 121 20 116/67 94 Room Air Physical Exam GENERAL: Awake, alert, well-appearing, in no distress HENT: Normocephalic, atraumatic. Dry mucous membranes. EYES: Normal conjunctiva. Sclera non-icteric. NECK: Supple. No nuchal rigidity. FROM. No masses. RESPIRATORY: Clear to auscultation. No wheezes. CARDIAC: Borderline tachycardic. Normal rhythm. No murmurs. No rubs. Extremities warm and well perfused. Pulses equal. No JVD. GI: Soft, non-distended. No tenderness to palpation. No rebound or guarding. No masses. RECTAL: Deferred. MUSCULOSKELETAL: Atraumatic. Chest examination reveals no tenderness. Port in right upper chest. Port in right upper chest. The back is symmetrical on inspection without obvious abnormality. There is no CVA tenderness to palpation. No joint edema. LOWER EXTREMITIES: Calves are equal size bilaterally and non-tender. No edema. No discoloration. NEURO: Normal sensorium. No sensory or motor deficits noted. SKIN: No rash or jaundice noted. Medical Decision & Procedures ER Provider Diagnostic Interpretation: X-ray: Per my interpretation, radiologist review. CHEST ONE VIEW PORTABLE CLINICAL HISTORY: Weakness. COMPARISON STUDY: PET CT March 07, 2017 and chest radiograph April 09, 2017. FINDINGS: A right subclavian [id number] is in place. Left upper lobe mass is again noted. Possible focus of cavitation within this lesion is again noted. Elevation of the left hemidiaphragm is unchanged. There is no evidence for pulmonary edema. A 1.8 cm nodular density within right midlung is noted. IMPRESSION: 1. Redemonstration of a large left upper lobe mass with possible focus of cavitation. 2. Elevation of the left hemidiaphragm which could be related to phrenic nerve involvement. 3. 1.8 cm nodular density within the right midlung. Electronically signed by: Gregorio Green M.D. 04/12/2017 1:09 PM Dictated Date/Time: 04/12/2017 1:06 PM Laboratory Results 04/12/17 12:40 Red Blood Count 4.61, Mean Corpuscular Volume 79.0, Mean Corpuscular Hemoglobin 27.1, Mean Corpuscular Hemoglobin Concent 34.3, Mean Platelet Volume 8.8, Neutrophils (%) (Auto) 90.8, Lymphocytes (%) (Auto) 4.4, Monocytes (%) (Auto) 4.2, Eosinophils (%) (Auto) 0.1, Basophils (%) (Auto) 0.0, Neutrophils # (Auto) 18.04, Lymphocytes # (Auto) 0.88, Monocytes # (Auto) 0.84, Eosinophils # (Auto) 0.01, Basophils # (Auto) 0.00 04/12/17 12:40 Test 04/12/17 12:40 04/12/17 14:52 White Blood Count 19.87 K/uL (4.8-10.8) Red Blood Count 4.61 M/uL (4.7-6.1) Hemoglobin 12.5 g/dL (14.0-18.0) Hematocrit 36.4 % (42-52) Mean Corpuscular Volume 79.0 fL (80-100) Mean Corpuscular Hemoglobin 27.1 pg (25-34) Mean Corpuscular Hemoglobin Concent 34.3 g/dl (32-36) Platelet Count 400 K/uL (130-400) Mean Platelet Volume 8.8 fL (7.4-10.4) Neutrophils (%) (Auto) 90.8 % Lymphocytes (%) (Auto) 4.4 % Monocytes (%) (Auto) 4.2 % Eosinophils (%) (Auto) 0.1 % Basophils (%) (Auto) 0.0 % Neutrophils # (Auto) 18.04 K/uL (1.4-6.5) Lymphocytes # (Auto) 0.88 K/uL (1.2-3.4) Monocytes # (Auto) 0.84 K/uL (0.11-0.59) Eosinophils # (Auto) 0.01 K/uL (0-0.5) Basophils # (Auto) 0.00 K/uL (0-0.2) RDW Standard Deviation 42.7 fL (36.4-46.3) RDW Coefficient of Variation 15.0 % (11.5-14.5) Immature Granulocyte % (Auto) 0.5 % Immature Granulocyte # (Auto) 0.10 K/uL (0.00-0.02) Prothrombin Time 11.4 SECONDS (9.0-12.0) Prothromb Time International Ratio 1.1 (0.9-1.1) Activated Partial Thromboplast Time 31.5 SECONDS (21.0-31.0) Partial Thromboplastin Ratio 1.2 Anion Gap 11.0 mmol/L (3-11) Est Creatinine Clear Calc Drug Dose 64.9 ml/min Estimated GFR () 99.7 Estimated GFR (Non- 86.0 BUN/Creatinine Ratio 20.6 (10-20) Calcium Level 9.9 mg/dl (8.5-10.1) Magnesium Level 2.1 mg/dl (1.8-2.4) Total Bilirubin 0.7 mg/dl (0.2-1) Direct Bilirubin 0.2 mg/dl (0-0.2) Aspartate Amino Transf (AST/SGOT) 26 U/L (15-37) Alanine Aminotransferase (ALT/SGPT) 63 U/L (12-78) Alkaline Phosphatase 104 U/L (45-117) Total Creatine Kinase 35 U/L (39-308) Creatine Kinase MB 1.0 ng/ml (0.5-3.6) Creatine Kinase MB Ratio 2.9 (0-3.0) Troponin I < 0.015 ng/ml (0-0.045) Total Protein 6.7 gm/dl (6.4-8.2) Albumin 2.5 gm/dl (3.4-5.0) Thyroid Stimulating Hormone (TSH) 3.200 uIu/ml (0.300-4.500) Urine Color YELLOW Urine Appearance CLEAR (CLEAR) Urine pH 7.0 (4.5-7.5) Urine Specific Floyd 1.013 (1.000-1.030) Urine Protein NEG (NEG) Urine Glucose (UA) NEG (NEG) Urine Ketones NEG (NEG) Urine Occult Blood 2+ (NEG) Urine Nitrite NEG (NEG) Urine Bilirubin NEG (NEG) Urine Urobilinogen NEG (NEG) Urine Leukocyte Esterase NEG (NEG) Urine WBC (Auto) 1-5 /hpf (0-5) Urine RBC (Auto) >30 /hpf (0-4) Urine Hyaline Casts (Auto) 1-5 /lpf (0-5) Urine Epithelial Cells (Auto) 10-20 /lpf (0-5) Urine Bacteria (Auto) NEG (NEG) Laboratory results reviewed by me Medications Administered Medications (Trade) Dose Ordered Sig/Vicenta Route Start Time Stop Time Status Last Admin Dose Admin Sodium Chloride 1,000 ml @ 125 mls/hr Q8H STAT IV 04/12/17 12:30 04/12/17 18:05 DC 04/12/17 13:40 125 MLS/HR Sodium Chloride 500 ml @ 999 mls/hr Q31M STAT IV 04/12/17 12:52 04/12/17 13:22 DC 04/12/17 13:21 999 MLS/HR ECG Per My Interpretation Indication: syncope (near) Rate (beats per minute): 100 Rhythm: normal sinus Findings: no acute ischemic change, no ectopy, other (Normal intervals) ED Course 1230: Ordered Sodium Chloride 1000 ml @ 125 mls/hr IV. 1247: The patient was evaluated in room B09. A complete history and physical exam was performed. 1252: Ordered Sodium Chloride 500 ml @ 999 mls/hr IV. 1602: I reevaluated the patient and he passed ambulatory trial. I will page his oncologist. 1645: I discussed the patients case with Dr. Wagner, [facility]. He suggests that the patient follows up with him tomorrow. 1705: I reevaluated the patient. Discussed results and discharge instructions: He verbalized understanding and agreement. The patient is ready for discharge. Medical Decision Prior records/ancillary studies reviewed and summarized above. Nursing notes reviewed and agree them. Additional history obtained from family.. The patient's history was concerning for near syncope and recent treatment for cancer Differential diagnosis: Etiologies such as dehydration, complication of chemotherapy, metabolic, infection, hypo/hyperglycemia, electrolyte abnormalities, cardiac sources, intracerebral event, toxicologic, neurologic, complication of his cancer, pulmonary sources as well as others were entertained. Physical examination: As above. ER treatment provided: IV Lock Saline hydration On reassessment the patient felt better. The patient was ambulated and did well. Diagnostics interpretation by me: ECG: No acute ischemia or dysrhythmia. The labs revealed a moderate leukocytosis on CBC. This was increased slightly from outpatient testing( which was almost 15k prior to the chemotherapy and steroids). Of note the patient had received several rounds of Decadron with his chemotherapy. This would likely account for the findings per oncology. Chemistry panel and other blood work was unremarkable he said for mild dehydration and hyponatremia. His hyponatremia is slightly worse than his outpatient testing five days ago. Urinalysis negative. Imaging studies: Chest x-ray as above. Left upper lobe mass. Noted on prior. Slight cavitation noted which was present on prior. Consultation: A consultation was placed with the oncologist controller operations and hr manager, Dr. Wagner. Reviewed the patient's findings, presentation, and diagnostic results. He agreed with conservative management and outpatient follow-up. He asked for the patient to contact the clinic tomorrow morning at 8:30 and a recheck and repeat blood work would be performed. The patient was ambulated. He did well with this. He had no return of his symptoms. The patient and family felt comfortable. By the evaluation outlined above other emergent etiologies such as those listed in the differential, as well as others, were deemed relatively unlikely. The patient was educated about the findings as listed above. All questions were answered and the patient was pleased with the treatment. Return instructions were outlined and the patient was discharged in stable condition. The patient was referred oncology tomorrow morning for follow-up for a recheck of the current condition. Medication Reconcilliation Current Medication List: was personally reviewed by me Blood Pressure Screening Patient's blood pressure: Normal blood pressure Consults Time Called: 1604 Consulting Physician: Dr. Wagner, [facility] Returned Call: [phone] I discussed the patients case with Dr. Wagner, [facility]. He suggests that the patient follows up with him tomorrow. Impression Primary Impression: Near syncope Additional Impressions: Hyponatremia Primary cancer of left upper lobe of lung Scribe Attestation The scribe's documentation has been prepared under my direction and personally reviewed by me in its entirety. I confirm that the note above accurately reflects all work, treatment, procedures, and medical decision making performed by me. Departure Information Dispostion Home / Self-Care Referrals Nathaniel Dawson M.D. (PCP) Forms HOME CARE DOCUMENTATION FORM, IMPORTANT VISIT INFORMATION Patient Instructions My [facility] Additional Instructions Continue current medications. Increase salt in your diet. Rest and drink plenty fluids. Call Dr. Marx's office tomorrow at oncology for an appointment for a recheck of your labs. Your sodium was low today in the Emergency Room and Dr. Wagner was aware. He recommended calling tomorrow morning at 8:30 to set an appointment. Return to the ER for pain, weakness, headache, passing out, difficulty breathing , fevers, numbness, tingling, worsening of your condition, or as needed. Problem Qualifiers
== END 2017-04-12 17:39 | disposition home or self-care (01) ==
LOC: C.EDB 12:07
DX: R55 Syncope and collapse (principal); E87.1 Hypo-osmolality and hyponatremia; C34.12 Malignant neoplasm of upper lobe, left bronchus or lung; I71.4 Abdominal aortic aneurysm, without rupture; E11.9 Type 2 diabetes mellitus without complications; H40.9 Unspecified glaucoma; Z79.84 Long term (current) use of oral hypoglycemic drugs; Z95.828 Presence of other vascular implants and grafts

== ENCOUNTER → 2017-04-12 | Outpatient (CLI) | payer OTHER ==
[~2017-04-12] MED LIST changes: -CEFAZOLIN IV 2,000 MG in SYRINGE 0 ML IV SCH; +DOCU-94 PO; -LACTATED RINGER'S 1000ML 1,000 ML IV SCH; -PATIENT'S HEIGHT AND/OR WEIGHT NEEDED SCH
--- NOTE | 2017-04-13 09:31 | DIAGNOSTIC IMAGING REPORT ---
SNIFF TEST CLINICAL HISTORY: 72 years-old Male presenting with C34.90 Non-small cell lung [id number]. TECHNIQUE: Video fluoroscopic evaluation of the hemidiaphragms was performed (sniff chest). COMPARISON: 03/02/2017. FINDINGS: A Mediport is visualized with the tip in the SVC. Elevation of the left hemidiaphragm. At rest, the right hemidiaphragm is at the T9 posterior rib level. The left hemidiaphragm is at the T8 posterior rib level. Upon forced inspiration, expected excursion of the right hemidiaphragm. On for aspiration, the right hemidiaphragm is located at the T10 posterior rib level. No significant downward excursion of the left hemidiaphragm, which remains at the T8 posterior rib level. Fluoroscopy dosage (mGy): Not available. Fluoroscopy time: 0.1 minutes. Number of fluoroscopic spot images: 0. IMPRESSION: 1. Absence of normal movement of the left hemidiaphragm consistent with findings on prior exam. 2. Normal excursion of the right hemidiaphragm with inspiration. Electronically signed by: Pipe Alvarado M.D. 04/13/2017 9:30 AM Dictated Date/Time: 04/13/2017 9:02 AM
== END | disposition home or self-care (01) ==
LOC: C.RAD 04-09 07:08
PROVIDERS: ATTEND Physician Assistant
DX: C34.90 Malignant neoplasm of unspecified part of unspecified bronchus or lung (principal)

== ENCOUNTER 2017-05-06 23:58 | Inpatient (IN) | payer OTHER ==
[~2017-05-06] VITALS: Ht 167.6 cm; Wt 55.2 kg
[~2017-05-06 23:58] MED LIST changes: +DOCU-94 PO; +FNTTP25; +ONDA-170 PO; -ONDA8TAB6 PO
[2017-05-07] VITALS (8 sets, daily range): BP systolic 98–121; BP diastolic 60–71; PULSE 77–117; TEMP 36.2–37.2; O2SAT 95–99; Ht 167.6 cm; Wt 55.2 kg
--- NOTE | 2017-05-07 00:26 | EMERGENCY ROOM VISIT NOTE ---
History Report prepared by Ruth: Nils Alfaro Under the Supervision of: Dr. Pinky Land D.O. First contact with patient: 00:14 Chief Complaint: FLANK PAIN Stated Complaint: PAIN IN SIDE/BACK, LEFT SIDE ABOVE HIP History of Present Illness The patient is a 72 year old male who presents to the Emergency Room with complaints of constant left flank pain beginning at 2100 tonight. The patient states that his pain is located under his ribs on his left side. He notes that he has not experienced similar pain before. Per son, the patient experienced abdominal pain last night. He reports that the patient was given Zofran and compazine before going to sleep. He states that the patient woke up this morning and felt fine. He notes that the patient was able to eat normally today. The patient reports that he fell down today in the kitchen because he felt weak and dizzy. He states that he fell forward but did not hit his abdomen on the ground. The patient denies any SOB, nausea, vomiting, CP, and changes to his bowel movements. He notes that his last bowel movement was today and that it was normal. The patient reports that he was diagnosed with lung cancer two months ago and is currently being treated with chemotherapy and radiation. He denies any history of abdominal surgery. Per son, the patient was given tramadol at 2230 this evening. Source of History: patient Onset: 2100 tonight Position: other (left flank pain) Timing: constant Modifying Factors (Relieving): other (Zofran and compazine) Associated Symptoms: No chest pain, No SOB, No nausea, No vomiting Note: The patient denies any changes to his bowel movements. Review of Systems See HPI for pertinent positives & negatives. A total of 10 systems reviewed and were otherwise negative. Past Medical & Surgical Medical Problems: (1) AAA (abdominal aortic aneurysm) (2) Diabetes (3) Glaucoma (4) Lung cancer (5) Primary cancer of left upper lobe of lung (6) Sacral decubitus ulcer, stage II (7) Ureteral colic Surgical Problems: (1) History of back surgery (2) History of tonsillectomy (3) Status post right knee surgery Family History Cancer Diabetes mellitus Gallbladder disease Heart disease Social History Smoking Status: Former Smoker Marital Status: Housing Status: lives with friends Occupation Status: retired Current/Historical Medications Scheduled Atorvastatin (Lipitor), 40 MG PO HS Dexamethasone (Decadron), 4 TAB PO UD Docusate Sodium (Colace), 1 CAP PO QAM Dronabinol (Dronabinol), 2.5 MG PO BID Fentanyl (Fentanyl), PATCH Q72H Latanoprost (Xalatan 0.005% Oph Benita), 1 DROPS OPR HS Lisinopril (Zestril), 5 MG PO HS Metformin Hcl (Glucophage), 500 MG PO BID Prochlorperazine Maleate (Compazine), 10 MG PO Q6H Scheduled PRN Glipizide (Glipizide), 10 MG PO DAILY PRN for decadron use with chemo Ondansetron Hcl (Zofran), 8 MG PO Q8 PRN for Nausea Tramadol (Ultram), 50 MG PO Q6 PRN for Pain Allergies Coded Allergies: Clindamycin (Verified Allergy, Intermediate, Rash all over body , 05/07/17) Physical Exam Vital Signs Date Time Temp Pulse Resp B/P (MAP) Pulse Ox O2 Delivery O2 Flow Rate FiO2 05/07/17 03:31 84 17 114/71 93 Room Air 05/07/17 01:38 83 16 107/63 98 Room Air 05/07/17 00:03 36.4 108 20 89/56 98 Room Air Physical Exam HEENT: Head - normocephalic and atraumatic Pupils are equal, round, and reactive to light. Extraocular eye muscles are intact, and sclera are anicteric. Nose - moist nasal mucosa without discharge. Mouth - moist buccal mucosa. Oropharynx is nonerythematous and there is no tonsillar exudate or edema noted. Neck: Supple; no JVD, nuchal rigidity, cervical lymphadenopathy. Heart: Regular rate and rhythm. There is a normal S1 and S2 with no murmurs, clicks, or gallops appreciated. Lungs: Clear to auscultation bilaterally with no wheezes, rales, or rhonchi. Abdomen: Soft, nondistended, with good bowel sounds. There are no palpable pulsatile masses or hepatosplenomegaly. There is no guarding, rigidity, or rebound noted. Pain to palpation in LUQ. Extremities: No evidence of cyanosis, clubbing, or edema. There are easily palpable peripheral pulses. Skin: warm and dry with poor turgor and no rashes, pale Medical Decision & Procedures ER Provider Diagnostic Interpretation: Radiology results as stated below per my review and the radiologist's interpretation: CT ABDOMEN & PELVIS With Contrast: The infrared abdominal aorta measures up to 3.6cm with 40% noncalcified mural thrombus. Severe atherosclerosis of the remaining visualized vessels. Moderate hydronephrosis secondary to a 1cm stone in the mid ureter. Right collecting system is unremarkable. No suspicious osseous lesions. Appendix is normal. No bowel obstruction. Radiologist: David Ruiz MD. Laboratory Results 05/07/17 00:30 Red Blood Count 3.85, Mean Corpuscular Volume 80.0, Mean Corpuscular Hemoglobin 27.0, Mean Corpuscular Hemoglobin Concent 33.8, Mean Platelet Volume 8.5, Neutrophils (%) (Auto) 83.9, Lymphocytes (%) (Auto) 6.8, Monocytes (%) (Auto) 7.9, Eosinophils (%) (Auto) 0.8, Basophils (%) (Auto) 0.3, Neutrophils # (Auto) 2.98, Lymphocytes # (Auto) 0.24, Monocytes # (Auto) 0.28, Eosinophils # (Auto) 0.03, Basophils # (Auto) 0.01 Test 05/07/17 00:30 05/07/17 03:25 White Blood Count 3.55 K/uL (4.8-10.8) Red Blood Count 3.85 M/uL (4.7-6.1) Hemoglobin 10.4 g/dL (14.0-18.0) Hematocrit 30.8 % (42-52) Mean Corpuscular Volume 80.0 fL (80-100) Mean Corpuscular Hemoglobin 27.0 pg (25-34) Mean Corpuscular Hemoglobin Concent 33.8 g/dl (32-36) Platelet Count 254 K/uL (130-400) Mean Platelet Volume 8.5 fL (7.4-10.4) Neutrophils (%) (Auto) 83.9 % Lymphocytes (%) (Auto) 6.8 % Monocytes (%) (Auto) 7.9 % Eosinophils (%) (Auto) 0.8 % Basophils (%) (Auto) 0.3 % Neutrophils # (Auto) 2.98 K/uL (1.4-6.5) Lymphocytes # (Auto) 0.24 K/uL (1.2-3.4) Monocytes # (Auto) 0.28 K/uL (0.11-0.59) Eosinophils # (Auto) 0.03 K/uL (0-0.5) Basophils # (Auto) 0.01 K/uL (0-0.2) RDW Standard Deviation 45.1 fL (36.4-46.3) RDW Coefficient of Variation 15.9 % (11.5-14.5) Immature Granulocyte % (Auto) 0.3 % Immature Granulocyte # (Auto) 0.01 K/uL (0.00-0.02) Est Creatinine Clear Calc Drug Dose 52.5 ml/min Total Bilirubin 0.5 mg/dl (0.2-1) Direct Bilirubin 0.2 mg/dl (0-0.2) Aspartate Amino Transf (AST/SGOT) 16 U/L (15-37) Alanine Aminotransferase (ALT/SGPT) 31 U/L (12-78) Alkaline Phosphatase 113 U/L (45-117) Total Protein 6.1 gm/dl (6.4-8.2) Albumin 2.2 gm/dl (3.4-5.0) Lipase 119 U/L (73-393) Urine Color YELLOW Urine Appearance CLEAR (CLEAR) Urine pH 6.0 (4.5-7.5) Urine Specific [place] 1.037 (1.000-1.030) Urine Protein NEG (NEG) Urine Glucose (UA) NEG (NEG) Urine Ketones NEG (NEG) Urine Occult Blood 2+ (NEG) Urine Nitrite NEG (NEG) Urine Bilirubin NEG (NEG) Urine Urobilinogen NEG (NEG) Urine Leukocyte Esterase NEG (NEG) Urine WBC (Auto) 1-5 /hpf (0-5) Urine RBC (Auto) >30 /hpf (0-4) Urine Hyaline Casts (Auto) 1-5 /lpf (0-5) Urine Epithelial Cells (Auto) 10-20 /lpf (0-5) Urine Bacteria (Auto) NEG (NEG) Laboratory results per my review. Medications Administered Medications (Trade) Dose Ordered Sig/Vicenta Route Start Time Stop Time Status Last Admin Dose Admin Sodium Chloride 1,000 ml @ 999 mls/hr Q1H1M STAT IV 05/07/17 01:36 05/07/17 02:36 DC 05/07/17 01:42 999 MLS/HR Hydromorphone HCl (Dilaudid Inj) 0.5 mg NOW STAT IV 05/07/17 01:40 05/07/17 01:41 DC 05/07/17 01:45 0.5 MG Hydromorphone HCl (Dilaudid Inj) 0.5 mg NOW STAT IV 05/07/17 02:35 05/07/17 02:36 DC 05/07/17 02:42 0.5 MG Sodium Chloride 1,000 ml @ 125 mls/hr Q8H IV 05/07/17 03:30 05/07/17 19:29 05/07/17 05:10 125 MLS/HR Procedure 0136: Sodium Chloride 1000 ml @ 999 mls/hr IV. 0140: Dilaudid Inj 0.5mg IV 0235: Dilaudid Inj 0.5mg IV ED Course 0016: The patient was evaluated in room A9. A complete history and physical examination were performed. Nursing notes and previous electronic medical records were reviewed. IV lock was established and labs were drawn as above. 0136: Sodium Chloride 1000 ml @ 999 mls/hr IV. 0140: Dilaudid Inj 0.5mg IV. The patient went for CT scan of the abdomen/ pelvis which showed an obvious left sided ureteral stone and hydronephrosis. 0234: I rechecked the patient. He states that the Dilaudid helped with his pain for a little, but notes that he is having more pain. 0235: Dilaudid Inj 0.5mg IV 0236: Upon reevaluation, I discussed findings and results with him. He verbalized agreement of the treatment plan. I spoke with Dr. Marquez of the [facility]. The patient will be evaluated for further management and care. Medical Decision The patient is a 72 year old male who presents to the Emergency Room with complaints of constant left flank pain beginning at 2100 tonight. Differential diagnoses include: metastatic cancer, SBO, colitis, gastritis, and ulcerative disease. Lab Results Show: White blood cells 3.5. Hemoglobin 10.4. BUN 23. Creatinine 0.9. Sodium low at 129. Glucose 167. LFTs and lipase are normal. This is a 72-year-old male patient with a history of lung cancer who is receiving chemotherapy and radiation. The patient developed a sudden onset of left-sided flank pain. CT scan confirms there is a 1 cm left mid ureteral stone with hydronephrosis. This most likely represents the cause of his pain. I was concerned about the patient's low sodium level. This could be the cause of the patient's increased weakness and increased falls. I discussed the case with the [facility] Hospitalist and they will evaluate for further management. Medication Reconcilliation Current Medication List: was personally reviewed by me Blood Pressure Screening Patient's blood pressure: Normal blood pressure Blood pressure disposition: Did not require urgent referral Consults Time Called: 0235 [facility] Returned Call: [phone] Discussed the patient's case. The patient will be evaluated for further management. Impression Primary Impression: Left ureteral calculus Additional Impressions: Hyponatremia Dehydration Scribe Attestation The scribe's documentation has been prepared under my direction and personally reviewed by me in its entirety. I confirm that the note above accurately reflects all work, treatment, procedures, and medical decision making performed by me. Departure Information Dispostion Being Evaluated By Hospitalist Referrals No Doctor, Assigned (PCP) Patient Instructions My [facility] Problem Qualifiers
[2017-05-07] MEDS ORDERED: OPTIRAY 320 IV PRN (00:45)
[2017-05-07 01:05] LABS: BASO % 0.3 %; BASO ABS # 0.01 K/uL (0-0.2); EOS % 0.8 %; EOS ABS # 0.03 K/uL (0-0.5); HEMATOCRIT 30.8 % (42-52); HEMOGLOBIN 10.4 g/dL (14.0-18.0); IG# 0.01 K/uL (0.00-0.02); LYMPH % 6.8 %; LYMPH ABS # 0.24 K/uL (1.2-3.4); MEAN CORPUSCULAR HGB CONC 33.8 g/dl (32-36); MEAN PLATELET VOLUME 8.5 fL (7.4-10.4); MONO % 7.9 %; MONO ABS # 0.28 K/uL (0.11-0.59); NEUT % 83.9 %; NEUT ABS # 2.98 K/uL (1.4-6.5); PLATELET COUNT 254 K/uL (130-400); RED CELL DISTRIBUTION WIDTH CV 15.9 % (11.5-14.5); RED CELL DISTRIBUTION WIDTH SD 45.1 fL (36.4-46.3); WHITE BLOOD COUNT 3.55 K/uL (4.8-10.8)
[2017-05-07 01:24] LABS: ALBUMIN 2.2 gm/dl (3.4-5.0); CALCIUM 8.7 mg/dl (8.5-10.1); CREATININE 0.99 mg/dl (0.60-1.40); POTASSIUM 3.5 mmol/L (3.5-5.1)
[2017-05-07 01:27] LABS: TOTAL PROTEIN 6.1 gm/dl (6.4-8.2)
[2017-05-07] MEDS ORDERED: SODIUM CHLORIDE 0.9% 1000ML 1,000 ML IV STA (01:36)
[2017-05-07] MEDS ORDERED: HYDROmorphone INJ 0.5 MG/0.5 ML SYR IV STA ×3 (01:40→03:50)
[2017-05-07] MEDS ORDERED: GLUCOSE 40% GEL 15 GM TUBE PO PRN (03:30)
[2017-05-07] MEDS ORDERED: TAMSULOSIN HCL 0.4 MG CAP PO ONE (03:30)
[2017-05-07] MEDS ORDERED: DEXTROSE 50% 50 ML SYR IV PRN (03:30)
[2017-05-07] MEDS ORDERED: ONDANSETRON INJ 2 MG/ML 2 ML VIAL IV PRN (03:30)
[2017-05-07] MEDS ORDERED: POLYETHYLENE (MIRALAX) 17 GM PACK PO PRN (03:30)
[2017-05-07] MEDS ORDERED: GLUCOSE 10 TABS/TUBE PO PRN (03:30)
[2017-05-07] MEDS ORDERED: ACETAMINOPHEN 325 MG TAB PO PRN (03:30)
[2017-05-07] MEDS ORDERED: GLUCAGON FOR INJ 1 MG VIAL SQ PRN (03:30)
[2017-05-07] MEDS ORDERED: GLC5 PO (03:36)
[2017-05-07] MEDS ORDERED: DRON2.5C10 PO (03:36)
[2017-05-07] MEDS ORDERED: LPT40 PO (03:38)
[2017-05-07] MEDS ORDERED: PROCHLORPERAZINE MALEATE 10 MG TAB PO PRN (03:45)
[2017-05-07] MEDS ORDERED: TRAMADOL HCL 50 MG TAB PO PRN (03:45)
--- NOTE | 2017-05-07 04:00 | History and Physical ---
History & Physical Date & Time of Service: May 07, 2017 at 03:39 Chief Complaint: Pain In Side/Back, Left Side Above Hip Primary Care Physician: Nathaniel Dawson M.D. History of Present Illness Source: patient, family, clinic records, hospital records The patient is a 72-year-old man with lung cancer currently on chemotherapy and radiation who presents to the ER with constant left flank pain beginning around 9 PM tonight. The patient did note some abdominal pain 24 hours prior to that but I taken some Zofran, Compazine before going to bed, woke up. He was able to eat normally today. He did note that he was weak and fell in his kitchen without any loss of consciousness or hitting anything. He has reported some weakness and dizziness patient denies any shortness of breath, nausea, vomiting , chest pain, changes to his bowel movements. He does note some chronic coughing and was a smoker up until 3 months ago with no changes reported in coughing or sputum production or shortness of breath. Denies any sick contacts. He was diagnosed with lung cancer 2 months ago and is currently on chemotherapy with the last dose of paclitaxel and carboplatin on 05/01. He is on daily radiation under the care of Dr. Benson Wagner. In the ER he was slightly hypotensive with a systolic pressure of 89 which responded well to 1 L of fluids. Workup with CT scan of the abdomen reveals a 1 cm mid ureteral stone on the left side with hydronephrosis. Urinalysis is currently pending. Patient denies any UTI symptoms. The patient denies any history of ureteral stones in the past. The patient does report that he is not drinking enough water and his son corroborates this who is at bedside. He does also note a sacral ulcer for which she is seeing wound care. Past Medical/Surgical History Medical Problems: (1) AAA (abdominal aortic aneurysm) Status: Chronic (2) Diabetes Status: Chronic (3) Glaucoma Status: Chronic (4) Primary cancer of left upper lobe of lung Permanent Comment: Weakness and fatigue Finding of a left upper lobe lung mass Status post bronchoscopy and biopsy 03/05/2017 Non-small cell lung cancer Clinical stage T4 N2 M0 Status: Chronic (5) Sacral decubitus ulcer, stage II Status: Chronic Surgical Problems: (1) History of back surgery Status: Chronic (2) Status post right knee surgery Status: Chronic Family History Cancer Diabetes mellitus Gallbladder disease Heart disease Social History Smoking Status: Former Smoker (Quit 3 months ago) Smokeless Tobacco Use: Unknown Alcohol Use: none Drug Use: none Marital Status: Housing status: lives with family (Lives with daughter) Occupational Status: retired Allergies Coded Allergies: Clindamycin (Verified Allergy, Intermediate, Rash all over body , 05/07/17) Home Medications Scheduled Atorvastatin (Lipitor), 40 MG PO HS Dexamethasone (Decadron), 4 TAB PO UD Docusate Sodium (Colace), 1 CAP PO QAM Dronabinol (Dronabinol), 2.5 MG PO BID Fentanyl (Fentanyl), PATCH Q72H Latanoprost (Xalatan 0.005% Oph Benita), 1 DROPS OPR HS Lisinopril (Zestril), 5 MG PO HS Metformin Hcl (Glucophage), 500 MG PO BID Prochlorperazine Maleate (Compazine), 10 MG PO Q6H Scheduled PRN Glipizide (Glipizide), 10 MG PO DAILY PRN for decadron use with chemo Ondansetron Hcl (Zofran), 8 MG PO Q8 PRN for Nausea Tramadol (Ultram), 50 MG PO Q6 PRN for Pain Review of Systems At least 10 systems reviewed and negative except as indicated in HPI Physical Exam Vital Signs Date Time Temp Pulse Resp B/P (MAP) Pulse Ox O2 Delivery O2 Flow Rate FiO2 05/07/17 03:31 84 17 114/71 93 Room Air 05/07/17 01:38 83 16 107/63 98 Room Air 05/07/17 00:03 36.4 108 20 89/56 98 Room Air General Appearance: no apparent distress, + cachetic Head: normocephalic, atraumatic Eyes: normal inspection, PERRL, sclerae normal ENT: TMs normal, pharynx normal, + pertinent finding (Mucous membranes dry) Neck: supple, trachea midline Respiratory/Chest: chest non-tender, normal breath sounds, no respiratory distress, no accessory muscle use, + rhonchi (Coarse rhonchi throughout all lung bowen, no wheezing) Cardiovascular: regular rate, rhythm, no edema, no gallop, no JVD, no murmur, normal peripheral pulses Abdomen/GI: normal bowel sounds, non tender, soft, no organomegaly Back: normal inspection, + left CVA tenderness Extremities/Musculoskelatal: normal inspection, no calf tenderness, no pedal edema, normal range of motion Neurologic/Psych: 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 tested, alert, normal mood/affect, oriented x 3 Skin: + pertinent finding (Stage II sacral decubitus ulcer present on arrival) Diagnostics Laboratory Results 05/07/17 00:30 Red Blood Count 3.85, Mean Corpuscular Volume 80.0, Mean Corpuscular Hemoglobin 27.0, Mean Corpuscular Hemoglobin Concent 33.8, Mean Platelet Volume 8.5, Neutrophils (%) (Auto) 83.9, Lymphocytes (%) (Auto) 6.8, Monocytes (%) (Auto) 7.9, Eosinophils (%) (Auto) 0.8, Basophils (%) (Auto) 0.3, Neutrophils # (Auto) 2.98, Lymphocytes # (Auto) 0.24, Monocytes # (Auto) 0.28, Eosinophils # (Auto) 0.03, Basophils # (Auto) 0.01 05/07/17 00:30 Test 05/07/17 00:30 05/07/17 03:25 05/07/17 03:26 White Blood Count 3.55 K/uL (4.8-10.8) Red Blood Count 3.85 M/uL (4.7-6.1) Hemoglobin 10.4 g/dL (14.0-18.0) Hematocrit 30.8 % (42-52) Mean Corpuscular Volume 80.0 fL (80-100) Mean Corpuscular Hemoglobin 27.0 pg (25-34) Mean Corpuscular Hemoglobin Concent 33.8 g/dl (32-36) Platelet Count 254 K/uL (130-400) Mean Platelet Volume 8.5 fL (7.4-10.4) Neutrophils (%) (Auto) 83.9 % Lymphocytes (%) (Auto) 6.8 % Monocytes (%) (Auto) 7.9 % Eosinophils (%) (Auto) 0.8 % Basophils (%) (Auto) 0.3 % Neutrophils # (Auto) 2.98 K/uL (1.4-6.5) Lymphocytes # (Auto) 0.24 K/uL (1.2-3.4) Monocytes # (Auto) 0.28 K/uL (0.11-0.59) Eosinophils # (Auto) 0.03 K/uL (0-0.5) Basophils # (Auto) 0.01 K/uL (0-0.2) RDW Standard Deviation 45.1 fL (36.4-46.3) RDW Coefficient of Variation 15.9 % (11.5-14.5) Immature Granulocyte % (Auto) 0.3 % Immature Granulocyte # (Auto) 0.01 K/uL (0.00-0.02) Anion Gap 12.0 mmol/L (3-11) Est Creatinine Clear Calc Drug Dose 52.5 ml/min Estimated GFR () 87.2 Estimated GFR (Non- 75.2 BUN/Creatinine Ratio 23.1 (10-20) Calcium Level 8.7 mg/dl (8.5-10.1) Total Bilirubin 0.5 mg/dl (0.2-1) Direct Bilirubin 0.2 mg/dl (0-0.2) Aspartate Amino Transf (AST/SGOT) 16 U/L (15-37) Alanine Aminotransferase (ALT/SGPT) 31 U/L (12-78) Alkaline Phosphatase 113 U/L (45-117) Total Protein 6.1 gm/dl (6.4-8.2) Albumin 2.2 gm/dl (3.4-5.0) Lipase 119 U/L (73-393) Results Past 24 Hours Test 05/07/17 00:30 05/07/17 02:36 05/07/17 03:26 Range/Units White Blood Count 3.55 4.8-10.8 K/uL Red Blood Count 3.85 4.7-6.1 M/uL Hemoglobin 10.4 14.0-18.0 g/dL Hematocrit 30.8 42-52 % Mean Corpuscular Volume 80.0 80-100 fL Mean Corpuscular Hemoglobin 27.0 25-34 pg Mean Corpuscular Hemoglobin Concent 33.8 32-36 g/dl Platelet Count 254 130-400 K/uL Mean Platelet Volume 8.5 7.4-10.4 fL Neutrophils (%) (Auto) 83.9 % Lymphocytes (%) (Auto) 6.8 % Monocytes (%) (Auto) 7.9 % Eosinophils (%) (Auto) 0.8 % Basophils (%) (Auto) 0.3 % Neutrophils # (Auto) 2.98 1.4-6.5 K/uL Lymphocytes # (Auto) 0.24 1.2-3.4 K/uL Monocytes # (Auto) 0.28 0.11-0.59 K/uL Eosinophils # (Auto) 0.03 0-0.5 K/uL Basophils # (Auto) 0.01 0-0.2 K/uL RDW Standard Deviation 45.1 36.4-46.3 fL RDW Coefficient of Variation 15.9 11.5-14.5 % Immature Granulocyte % (Auto) 0.3 % Immature Granulocyte # (Auto) 0.01 0.00-0.02 K/uL Sodium Level 129 136-145 mmol/L Potassium Level 3.5 3.5-5.1 mmol/L Chloride Level 94 98-107 mmol/L Carbon Dioxide Level 23 21-32 mmol/L Anion Gap 12.0 3-11 mmol/L Blood Urea Nitrogen 23 7-18 mg/dl Creatinine 0.99 0.60-1.40 mg/dl Est Creatinine Clear Calc Drug Dose 52.5 ml/min Estimated GFR () 87.2 Estimated GFR (Non- 75.2 BUN/Creatinine Ratio 23.1 10-20 Random Glucose 167 70-99 mg/dl Calcium Level 8.7 8.5-10.1 mg/dl Total Bilirubin 0.5 0.2-1 mg/dl Direct Bilirubin 0.2 0-0.2 mg/dl Aspartate Amino Transf (AST/SGOT) 16 15-37 U/L Alanine Aminotransferase (ALT/SGPT) 31 12-78 U/L Alkaline Phosphatase 113 45-117 U/L Total Protein 6.1 6.4-8.2 gm/dl Albumin 2.2 3.4-5.0 gm/dl Lipase 119 73-393 U/L Diagnostic Radiology CT abdomen and pelvis with contrast: The infrarenal abdominal aorta measures moderate hydronephrosis secondary to 1 cm stone in the mid ureter; no bowel obstruction EKG EKG pending Impression Assessment and Plan 72-year-old male presents with left flank pain and is status post fall without consciousness secondary to weakness and dizziness. 1. Ureteral colic in mid ureter, constant left flank pain with positive CVA tenderness. Urinalysis is pending without UTI symptoms. Start Flomax, and consult urology, continue IV fluids as patient not keeping up with p.o. fluid intake. 2. Weakness and dizziness-likely secondary to dehydrated, cachectic state while undergoing chemotherapy and radiation. Patient also has coarse rhonchi in lungs. Chest x-ray is pending and flu PCR also pending. Continue IV fluids and supportive care. PT/OT ordered. Hypotension on admission to ER therefore will hold lisinopril for now. 3. Hypertension-hold lisinopril as above 4. Non-small cell lung cancer-currently on paclitaxel, carboplatin, XRT. Last chemo dose was 05/01. Daily radiation due tomorrow. Will consult radiation oncology to discuss with patient about continuing therapy while inpatient. 5. AAA-40% noncalcified mural thrombus. Discussed with hematology regarding management. DVT prophylaxis with Lovenox for now. 6. Diabetes type 2-A1c ordered, continue insulin sliding scale with carb coverage and Lantus 5 units twice daily while inpatient. Hold metformin. 7. History of smoking 8. Chronic pain-continue fentanyl patch 9. Repeat PRP after IV fluid administration 10. Anemia-likely secondary to chemo 11. Leukopenia-likely secondary to chemo 12. Stage II decubitus ulcer-Aquacel and OPTi foam in place, wound care consulted. DVT prophylaxis-Lovenox Full code as discussed with patient and his son on admission Disposition-Leigh Marquez DO [facility] hospitalist Resuscitation Status VTE Prophylaxis Will order VTE Prophylaxis: Yes
[2017-05-07] MEDS: SODIUM CHLORIDE 0.9% 1000ML 1,000 ML IV SCH ×2 (05:10→12:50)
[2017-05-07 05:33] LABS: INFLUENZA A PCR Neg for Influ A (NEG); INFLUENZA B PCR Neg for Influ B (NEG)
[2017-05-07] MEDS ORDERED: INFLUENZA VIRUS QUAD VACCINE 0.5 ML SYR IM. ONE (06:00)
[2017-05-07] MEDS ORDERED: INFLUENZA ADMINISTRATION CHARGE ONE (06:00)
[2017-05-07 06:45] LABS: CALCIUM 8.6 mg/dl (8.5-10.1); CREATININE 1.02 mg/dl (0.60-1.40); POTASSIUM 3.7 mmol/L (3.5-5.1)
[2017-05-07 06:46] LABS: INR 1.1 (0.9-1.1)
--- NOTE | 2017-05-07 06:52 | DIAGNOSTIC IMAGING REPORT ---
CHEST ONE VIEW PORTABLE CLINICAL HISTORY: coarse rhonchi on lung exam, h/o lung ca, prior smoker, no hypox dyspnea COMPARISON STUDY: 04/12/2017 FINDINGS: Unchanging left apical mass. Unchanging nodular density right midlung. No focal infiltrate. Central catheter in superior vena cava. Chronic elevation left hemidiaphragm. IMPRESSION: Chronic change. Unchanging parenchymal nodularity and masslike change as discussed. No acute process. The above report was generated using voice recognition software. It may contain grammatical, syntax or spelling errors. Electronically signed by: Adolph Smart M.D. 05/07/2017 6:51 AM Dictated Date/Time: 05/07/2017 6:50 AM
--- NOTE | 2017-05-07 07:12 | DIAGNOSTIC IMAGING REPORT ---
CT OF THE ABDOMEN AND PELVIS WITH CONTRAST CLINICAL HISTORY: Left upper quadrant abdominal pain. History of lung cancer. COMPARISON STUDY: Head CT March 07, 2017 per TECHNIQUE: Following IV administration of 92 mL of Optiray-320, axial images of the abdomen and pelvis were obtained from the lung bases to the proximal femurs. Images were reviewed in the axial, sagittal, and coronal planes. IV contrast was administered without complication. A dose lowering technique was utilized adhering to the principles of ALARA. CT DOSE: 286.28 mGy.cm FINDINGS: Visualized portions of the lower lungs demonstrate an ill-defined 1.7 cm right lower lobe nodular opacity shown on image 26 of 471. There is also an ill-defined 8 mm subpleural nodule within the right lower lobe shown on image 33 and an additional 5 mm right lower lobe subpleural nodule. These are new since PET/CT of March 07, 2017. The liver, spleen, adrenal glands and pancreas are unremarkable. Note is made of moderate left hydronephrosis due to a 1.4 x 1 cm proximal left ureteral calculus. There is mild left perinephric fluid. A few left lower pole renal calculi measure up to 4 mm. There is a small bladder calculus. A 4.3 cm infrarenal abdominal aortic aneurysm is unchanged since prior PET/CT of March 07, 2017. There is no evidence for rupture. This extensive atherosclerotic plaque. There is no right hydronephrosis. No abdominal or pelvic lymphadenopathy is present. No suspicious osseous lesions are noted. There is no evidence for a bowel obstruction. A 1.1 cm left adrenal nodule is likely similar to prior PET/CT. A 1 cm lesion within the upper pole the right kidney is too small to characterize. There are postoperative findings within the spine. IMPRESSION: 1. Moderate left hydronephrosis due to a 1.4 x 1 cm proximal left ureteral calculus. 2. Several right lower lobe ill-defined pulmonary nodules which measure up to 1.7 cm. These are new since PET/CT of March 07, 2017 and may be infectious or neoplastic in etiology. A chest CT in one month is recommended. 3. Left-sided nephrolithiasis and small bladder calculi. 4. No change in a 4.3 cm infrarenal abdominal aortic aneurysm since prior PET/CT. No rupture. 5. Indeterminate 1 cm right renal lesion which is too small to characterize. Electronically signed by: Gregorio Green M.D. 05/07/2017 7:10 AM Dictated Date/Time: 05/07/2017 6:52 AM
[2017-05-07] MEDS: HYDROmorphone INJ 0.5 MG/0.5 ML SYR IV PRN (07:15)
[2017-05-07] MEDS: FENTANYL PATCH REMOVE & WASTE SCH (08:59)
--- NOTE | 2017-05-07 09:04 | Progress Note ---
Medicine Progress Note Date & Time of Visit: May 07, 2017 at 08:55. Subjective seen resting in bed, sleeping, easily rousable tired from all the events yesterday states he feels slightly better PRN analgesics relieving left flank pain no problems with urination denies fever/chills, nausea no dyspnea, increased cough, sputum no other symptoms Objective Last 8 Hrs Date Time Temp Pulse Resp B/P (MAP) Pulse Ox O2 Delivery O2 Flow Rate FiO2 05/07/17 07:58 36.4 78 18 111/67 (82) 96 Room Air 05/07/17 04:40 36.4 77 18 121/68 95 Room Air 05/07/17 04:23 56 20 101/57 95 Room Air 05/07/17 03:31 84 17 114/71 93 Room Air 05/07/17 01:38 83 16 107/63 98 Room Air Physical Exam: General- oriented x 3, not in distress, speaks in sentences with no effort Head- atraumatic Eyes- anicteric ENT- oropharynx clear Neck- supple, no JVD, no adenopathy, no thyromegaly Lungs- clear breath sounds bilaterally no rales/wheezes Heart- regular rhythm; no murmur, normal rate Abdomen- normal bowel sounds, soft, nontender no CVA tenderness Extremities- no pretibial edema, no calf tenderness; peripheral pulses intact Neuro- alert, oriented x 3; PERRL, EOMI; no facial palsy; no dysarthria; motor 5 /5 bilaterally; sensation 100% no other gross focal deficits Skin- warm & dry Laboratory Results: Last 24 Hours Test 05/07/17 00:30 05/07/17 03:25 05/07/17 04:20 05/07/17 06:06 White Blood Count 3.55 K/uL Red Blood Count 3.85 M/uL Hemoglobin 10.4 g/dL Hematocrit 30.8 % Mean Corpuscular Volume 80.0 fL Mean Corpuscular Hemoglobin 27.0 pg Mean Corpuscular Hemoglobin Concent 33.8 g/dl Platelet Count 254 K/uL Mean Platelet Volume 8.5 fL Neutrophils (%) (Auto) 83.9 % Lymphocytes (%) (Auto) 6.8 % Monocytes (%) (Auto) 7.9 % Eosinophils (%) (Auto) 0.8 % Basophils (%) (Auto) 0.3 % Neutrophils # (Auto) 2.98 K/uL Lymphocytes # (Auto) 0.24 K/uL Monocytes # (Auto) 0.28 K/uL Eosinophils # (Auto) 0.03 K/uL Basophils # (Auto) 0.01 K/uL RDW Standard Deviation 45.1 fL RDW Coefficient of Variation 15.9 % Immature Granulocyte % (Auto) 0.3 % Immature Granulocyte # (Auto) 0.01 K/uL Sodium Level 129 mmol/L Potassium Level 3.5 mmol/L Chloride Level 94 mmol/L Carbon Dioxide Level 23 mmol/L Anion Gap 12.0 mmol/L Blood Urea Nitrogen 23 mg/dl Creatinine 0.99 mg/dl Est Creatinine Clear Calc Drug Dose 52.5 ml/min Estimated GFR () 87.2 Estimated GFR (Non- 75.2 BUN/Creatinine Ratio 23.1 Random Glucose 167 mg/dl Calcium Level 8.7 mg/dl Total Bilirubin 0.5 mg/dl Direct Bilirubin 0.2 mg/dl Aspartate Amino Transf (AST/SGOT) 16 U/L Alanine Aminotransferase (ALT/SGPT) 31 U/L Alkaline Phosphatase 113 U/L Total Protein 6.1 gm/dl Albumin 2.2 gm/dl Lipase 119 U/L Urine Color YELLOW Urine Appearance CLEAR Urine pH 6.0 Urine Specific [place] 1.037 Urine Protein NEG Urine Glucose (UA) NEG Urine Ketones NEG Urine Occult Blood 2+ Urine Nitrite NEG Urine Bilirubin NEG Urine Urobilinogen NEG Urine Leukocyte Esterase NEG Urine WBC (Auto) 1-5 /hpf Urine RBC (Auto) >30 /hpf Urine Hyaline Casts (Auto) 1-5 /lpf Urine Epithelial Cells (Auto) 10-20 /lpf Urine Bacteria (Auto) NEG Influenza Type A (RT-PCR) Neg for Influ A Influenza Type B (RT-PCR) Neg for Influ B Prothrombin Time 11.3 SECONDS Prothromb Time International Ratio 1.1 Test 05/07/17 06:07 05/07/17 07:47 Sodium Level 127 mmol/L Potassium Level 3.7 mmol/L Chloride Level 95 mmol/L Carbon Dioxide Level 26 mmol/L Anion Gap 6.0 mmol/L Blood Urea Nitrogen 20 mg/dl Creatinine 1.02 mg/dl Est Creatinine Clear Calc Drug Dose 51.9 ml/min Estimated GFR () 84.1 Estimated GFR (Non- 72.6 BUN/Creatinine Ratio 19.8 Random Glucose 172 mg/dl Estimated Average Glucose 154 mg/dl Hemoglobin A1c 7.0 % Calcium Level 8.6 mg/dl Magnesium Level 1.8 mg/dl Hepatitis C Antibody Screen NEG Bedside Glucose 151 mg/dl Assessment & Plan 72-year-old male presents with left flank pain and is status post fall without consciousness secondary to weakness and dizziness. 1. LEFT URETERAL CALCULUS WITH HYDRONEPHROSIS - renal function stable UA not indicative of UTI Urine cultures pending - Flomax started IV NSS - Urology consulted PRN Dilaudid 2. s/p Fall secondary Weakness and dizziness - BP marginal on admission poor oral intake the past few days - BP improving on IV fluids Lisinopril held 3. Hypertension-hold lisinopril as above 4. Non-small cell lung cancer -currently on paclitaxel, carboplatin, XRT. - Last chemo dose was 05/01. - 4 more days of radiation therapy pending recommend to hold off on radiation therapy today due to patient's dehydration , marginal BP--> discussed with Dr. Benson Wagner patient scheduled for chemo tomorrow, will inform Dr. Marx 5. AAA-40% noncalcified mural thrombus. Discussed with hematology regarding management. DVT prophylaxis with Lovenox for now. 6. Diabetes type 2-A1c 7.1 - continue insulin sliding scale with carb coverage and Lantus 5 units twice daily while inpatient. Hold metformin. 7. History of smoking 8. Chronic pain-continue fentanyl patch 9. Repeat PRP after IV fluid administration 10. Anemia-likely secondary to chemo 11. Leukopenia-likely secondary to chemo 12. Stage II decubitus ulcer-Aquacel and OPTi foam in place, wound care consulted. DVT prophylaxis-Lovenox Full code as discussed with patient and his son on admission Disposition anticipate d/c home when medically stable PT/OT Current Inpatient Medications: Current Inpatient Medications Medications (Trade) Dose Ordered Sig/Vicenta Route Start Time Stop Time Status Last Admin Dose Admin Ioversol (Optiray 320) 100 ml UD PRN IV 05/07/17 00:45 05/11/17 00:44 Enoxaparin Sodium (Lovenox Inj) 40 mg DAILY@0800 SQ 05/07/17 08:00 06/06/17 07:59 Acetaminophen (Tylenol Tab) 650 mg Q4H PRN PO 05/07/17 03:30 06/06/17 03:29 Polyethylene (Miralax Powder Packet) 17 gm DAILY PRN PO 05/07/17 03:30 06/06/17 03:29 Ondansetron HCl (Zofran Inj) 4 mg Q6H PRN IV 05/07/17 03:30 06/06/17 03:29 Insulin Glargine (Lantus Solostar Pen) 5 units Q12 SC 05/07/17 09:00 06/06/17 08:59 Insulin Aspart (novoLOG ASPART) SLIDING SCALE If C... ACHS SC 05/07/17 06:30 06/06/17 06:59 Glucose (Glucose 40% Gel) 15-30 GRAMS 15 GRAMS... UD PRN PO 05/07/17 03:30 06/06/17 03:29 Glucose (Glucose Chew Tab) 4-8 Tablets 4 Tabl... UD PRN PO 05/07/17 03:30 06/06/17 03:29 Dextrose (Dextrose 50% 50ML Syringe) 25-50ML OF 50% DW IV FOR... UD PRN IV 05/07/17 03:30 06/06/17 03:29 Glucagon (Glucagon Inj) 1 mg UD PRN SQ 05/07/17 03:30 06/06/17 03:29 Sodium Chloride 1,000 ml @ 125 mls/hr Q8H IV 05/07/17 03:30 05/07/17 19:29 05/07/17 05:10 125 MLS/HR Tamsulosin HCl (Flomax Cap) 0.4 mg HS PO 05/07/17 21:00 06/06/17 20:59 Docusate Sodium (coLACE CAP) 100 mg QAM PO 05/07/17 08:00 06/06/17 08:59 Dronabinol (Marinol Cap) 2.5 mg BID PO 05/07/17 08:00 06/06/17 08:59 Fentanyl (Duragesic Patch) 25 mcg Q72H TD 05/07/17 09:00 05/21/17 08:59 Latanoprost (Xalatan Oph Soln) 1 drops HS OPR 05/07/17 21:00 06/06/17 20:59 Ondansetron HCl (Zofran Tab) 8 mg Q8 PRN PO 05/07/17 03:45 06/06/17 03:44 Prochlorperazine Maleate (Compazine Tab) 10 mg Q6H PRN PO 05/07/17 03:45 06/06/17 03:44 Tramadol HCl (Ultram Tab) 50 mg Q6 PRN PO 05/07/17 03:45 06/06/17 03:44 Atorvastatin Calcium (Lipitor Tab) 40 mg HS PO 05/07/17 21:00 06/06/17 20:59 Oxycodone HCl (Roxicodone Immediate Rel Tab) 5 mg Q4H PRN PO 05/07/17 04:00 05/21/17 03:59 Hydromorphone HCl (Dilaudid Inj) 0.5 mg Q4H PRN IV 05/07/17 04:00 05/21/17 03:59 05/07/17 07:15 0.5 MG Miscellaneous (Fentanyl Patch Remove & Waste) 1 ea Q3D@0859 N/A 05/07/17 08:59 06/06/17 08:58 Miscellaneous Information (Check Fentanyl Patch Placement) 1 ea QS N/A 05/07/17 08:00 06/06/17 07:59
[2017-05-07] MEDS: CHECK FENTANYL PATCH PLACEMENT SCH ×3 (09:28→20:26)
[2017-05-07] MEDS: FENTANYL 25 MCG/HR TDSY TD SCH (09:28)
[2017-05-07] MEDS: DRONABINOL 2.5 MG CAP PO SCH ×2 (09:29→20:24)
[2017-05-07] MEDS: DOCUSATE SODIUM 100 MG CAP PO SCH (09:30)
[2017-05-07] MEDS: BOOST VANILLA PO SCH ×3 (09:30→13:46)
[2017-05-07] MEDS: ENOXAPARIN 40 MG/0.4 ML SYR SQ SCH (09:30)
[2017-05-07] MEDS: ONDANSETRON 8 MG TAB PO PRN (09:31)
[2017-05-07] MEDS: INSULIN ASPART 100 UNITS/ML 3 ML PEN SC SCH ×4 (09:32→20:26)
[2017-05-07] MEDS: OXYCODONE HCL IR 5 MG TAB (IMMEDIATE RELEASE) PO PRN ×2 (09:37→20:43)
[2017-05-07] MEDS: INSULIN GLARGINE SOLOSTAR 100 UNITS/ML 3 ML PEN SC SCH ×2 (09:37→20:26)
--- NOTE | 2017-05-07 16:52 | Radiation Oncology Progress Nt ---
Radiation Oncology Progress Nt Date of Service Date of Service: May 07, 2017. Reason For Admission Dehydration/Poor Oral Intake Kidney stone Requesting Physician Dr. Sibley Diagnosis (1) Primary cancer of left upper lobe of lung Weakness and fatigue Finding of a left upper lobe lung mass Status post bronchoscopy and biopsy 03/05/2017 Non-small cell lung cancer Clinical stage T4 N2 M0 Last Edited By: Linda Hill on Mar 27, 2017 11:33 Subjective Pt evaluation today including: conversation with inpatient team, chart review, lab review, review of studies, review of inpatient medication list Radiation Therapy Has patient started Radiation: Yes Number of Treatments Received: 19 Number of Treatments Planned: 23 Current Chemotherapy: Yes Objective Vital Signs Date Time Temp Pulse Resp B/P (MAP) Pulse Ox O2 Delivery O2 Flow Rate FiO2 05/07/17 15:56 36.2 101 18 107/66 (80) 99 Room Air 05/07/17 15:46 36.3 85 20 116/71 (86) 98 Room Air 05/07/17 11:22 36.4 91 22 98/60 (73) 99 Room Air 05/07/17 09:00 Room Air 05/07/17 07:58 36.4 78 18 111/67 (82) 96 Room Air 05/07/17 04:40 36.4 77 18 121/68 95 Room Air 05/07/17 04:23 56 20 101/57 95 Room Air 05/07/17 03:31 84 17 114/71 93 Room Air 05/07/17 01:38 83 16 107/63 98 Room Air 05/07/17 00:03 36.4 108 20 89/56 98 Room Air Laboratory Results Last 24 Hours Test 05/07/17 00:30 05/07/17 03:25 05/07/17 04:20 05/07/17 06:06 White Blood Count 3.55 K/uL Red Blood Count 3.85 M/uL Hemoglobin 10.4 g/dL Hematocrit 30.8 % Mean Corpuscular Volume 80.0 fL Mean Corpuscular Hemoglobin 27.0 pg Mean Corpuscular Hemoglobin Concent 33.8 g/dl Platelet Count 254 K/uL Mean Platelet Volume 8.5 fL Neutrophils (%) (Auto) 83.9 % Lymphocytes (%) (Auto) 6.8 % Monocytes (%) (Auto) 7.9 % Eosinophils (%) (Auto) 0.8 % Basophils (%) (Auto) 0.3 % Neutrophils # (Auto) 2.98 K/uL Lymphocytes # (Auto) 0.24 K/uL Monocytes # (Auto) 0.28 K/uL Eosinophils # (Auto) 0.03 K/uL Basophils # (Auto) 0.01 K/uL RDW Standard Deviation 45.1 fL RDW Coefficient of Variation 15.9 % Immature Granulocyte % (Auto) 0.3 % Immature Granulocyte # (Auto) 0.01 K/uL Sodium Level 129 mmol/L Potassium Level 3.5 mmol/L Chloride Level 94 mmol/L Carbon Dioxide Level 23 mmol/L Anion Gap 12.0 mmol/L Blood Urea Nitrogen 23 mg/dl Creatinine 0.99 mg/dl Est Creatinine Clear Calc Drug Dose 52.5 ml/min Estimated GFR () 87.2 Estimated GFR (Non- 75.2 BUN/Creatinine Ratio 23.1 Random Glucose 167 mg/dl Calcium Level 8.7 mg/dl Total Bilirubin 0.5 mg/dl Direct Bilirubin 0.2 mg/dl Aspartate Amino Transf (AST/SGOT) 16 U/L Alanine Aminotransferase (ALT/SGPT) 31 U/L Alkaline Phosphatase 113 U/L Total Protein 6.1 gm/dl Albumin 2.2 gm/dl Lipase 119 U/L Urine Color YELLOW Urine Appearance CLEAR Urine pH 6.0 Urine Specific [place] 1.037 Urine Protein NEG Urine Glucose (UA) NEG Urine Ketones NEG Urine Occult Blood 2+ Urine Nitrite NEG Urine Bilirubin NEG Urine Urobilinogen NEG Urine Leukocyte Esterase NEG Urine WBC (Auto) 1-5 /hpf Urine RBC (Auto) >30 /hpf Urine Hyaline Casts (Auto) 1-5 /lpf Urine Epithelial Cells (Auto) 10-20 /lpf Urine Bacteria (Auto) NEG Influenza Type A (RT-PCR) Neg for Influ A Influenza Type B (RT-PCR) Neg for Influ B Prothrombin Time 11.3 SECONDS Prothromb Time International Ratio 1.1 Test 05/07/17 06:07 05/07/17 07:47 05/07/17 10:20 05/07/17 11:45 Sodium Level 127 mmol/L 129 mmol/L Potassium Level 3.7 mmol/L Chloride Level 95 mmol/L Carbon Dioxide Level 26 mmol/L Anion Gap 6.0 mmol/L Blood Urea Nitrogen 20 mg/dl Creatinine 1.02 mg/dl Est Creatinine Clear Calc Drug Dose 51.9 ml/min Estimated GFR () 84.1 Estimated GFR (Non- 72.6 BUN/Creatinine Ratio 19.8 Random Glucose 172 mg/dl Estimated Average Glucose 154 mg/dl Hemoglobin A1c 7.0 % Calcium Level 8.6 mg/dl Magnesium Level 1.8 mg/dl Hepatitis C Antibody Screen NEG Bedside Glucose 151 mg/dl 177 mg/dl Assessment and Plan We have discussed the patients care with the primary hospital service. The patients reason for admission is unrelated to radiation therapy. The primary hospital service has recommended the patient's treatment be held today due to dehydration. The primary team will communicate with us when it is safe to restart radiation therapy based on how he is doing. Please call us with any further questions or concerns or if the patients condition changes during her hospital admission.
[2017-05-07] MEDS: TAMSULOSIN HCL 0.4 MG CAP PO SCH (20:24)
[2017-05-07] MEDS: ATORVASTATIN 40 MG TAB PO SCH (20:24)
[2017-05-07] MEDS: BOOST GLUCOSE CONTROL PO SCH (20:27)
[2017-05-07] MEDS: LATANOPROST 0.005% OP SOLN 2.5 ML BTL OPR SCH (20:29)
[2017-05-08] VITALS (15 sets, daily range): BP systolic 107–141; BP diastolic 61–80; PULSE 79–112; TEMP 36.3–37.2; O2SAT 91–100
[2017-05-08] MEDS: HYDROmorphone INJ 0.5 MG/0.5 ML SYR IV PRN (03:00)
[2017-05-08] MEDS: DOCUSATE SODIUM 100 MG CAP PO SCH (08:45)
[2017-05-08] MEDS: ENOXAPARIN 40 MG/0.4 ML SYR SQ SCH (08:46)
[2017-05-08] MEDS: CHECK FENTANYL PATCH PLACEMENT SCH ×2 (08:47→16:00)
[2017-05-08] MEDS: INSULIN ASPART 100 UNITS/ML 3 ML PEN SC SCH ×4 (08:48→21:39)
[2017-05-08] MEDS: DRONABINOL 2.5 MG CAP PO SCH ×2 (08:55→20:59)
[2017-05-08] MEDS: BOOST GLUCOSE CONTROL PO SCH ×3 (08:56→20:59)
[2017-05-08] MEDS: INSULIN GLARGINE SOLOSTAR 100 UNITS/ML 3 ML PEN SC SCH ×2 (08:57→21:39)
[2017-05-08 09:45] LABS: BASO % 0.2 %; BASO ABS # 0.01 K/uL (0-0.2); EOS % 0.2 %; EOS ABS # 0.01 K/uL (0-0.5); HEMATOCRIT 26.3 % (42-52); HEMOGLOBIN 8.9 g/dL (14.0-18.0); IG# 0.02 K/uL (0.00-0.02); LYMPH % 4.3 %; LYMPH ABS # 0.23 K/uL (1.2-3.4); MEAN CELL VOLUME 79.2 fL (80-100); MEAN CORPUSCULAR HEMOGLOBIN 26.8 pg (25-34); MEAN CORPUSCULAR HGB CONC 33.8 g/dl (32-36); MEAN PLATELET VOLUME 8.1 fL (7.4-10.4); MONO % 5.6 %; NEUT % 89.3 %; NEUT ABS # 4.79 K/uL (1.4-6.5); PLATELET COUNT 197 K/uL (130-400); RED CELL DISTRIBUTION WIDTH CV 16.4 % (11.5-14.5); RED CELL DISTRIBUTION WIDTH SD 45.5 fL (36.4-46.3); WHITE BLOOD COUNT 5.36 K/uL (4.8-10.8)
[2017-05-08 09:48] LABS: CREATININE 0.89 mg/dl (0.60-1.40); POTASSIUM 3.6 mmol/L (3.5-5.1)
[2017-05-08 09:49] LABS: CALCIUM 8.6 mg/dl (8.5-10.1)
[2017-05-08] MEDS: SODIUM CHLORIDE 0.9% 1000ML 1,000 ML IV SCH (10:56)
--- NOTE | 2017-05-08 11:41 | Progress Note ---
Medicine Progress Note Date & Time of Visit: May 08, 2017 at 11:31. Subjective seen resting in bed, comfortable states he feels slightly better than yesterday states he has been coughing a little bit more than normal, no sputum was noted to be somewhat confused earlier today, oriented x 3, answers appropriately for me on my exam left sided flank pain improving denies hematuria appetite improving tolerating diet no other symptoms Objective Last 8 Hrs Date Time Temp Pulse Resp B/P (MAP) Pulse Ox O2 Delivery O2 Flow Rate FiO2 05/08/17 11:25 36.6 84 16 110/71 (84) 96 Room Air 05/08/17 07:36 36.9 100 17 116/62 (80) 98 Room Air Physical Exam: General- oriented x 3, not in distress, speaks in sentences with no effort Eyes- anicteric ENT- oropharynx clear Neck- supple, no JVD Lungs- clear breath sounds bilaterally , no rales, no wheezing Heart- regular rhythm; no murmur, normal rate Abdomen- normal bowel sounds, soft, nontender no CVA tenderness Extremities- no pretibial edema, no calf tenderness Neuro- alert, oriented x 3; no gross focal deficits Skin- warm & dry Laboratory Results: Last 24 Hours Test 05/07/17 11:45 05/07/17 16:37 05/07/17 20:14 05/08/17 07:55 Bedside Glucose 177 mg/dl 140 mg/dl 164 mg/dl 127 mg/dl Test 05/08/17 09:19 05/08/17 09:22 05/08/17 11:15 Sodium Level 129 mmol/L Potassium Level 3.6 mmol/L Chloride Level 95 mmol/L Carbon Dioxide Level 27 mmol/L Anion Gap 7.0 mmol/L Blood Urea Nitrogen 10 mg/dl Creatinine 0.89 mg/dl Est Creatinine Clear Calc Drug Dose 58.4 ml/min Estimated GFR () 98.3 Estimated GFR (Non- 84.8 BUN/Creatinine Ratio 11.2 Random Glucose 181 mg/dl Calcium Level 8.6 mg/dl White Blood Count 5.36 K/uL Red Blood Count 3.32 M/uL Hemoglobin 8.9 g/dL Hematocrit 26.3 % Mean Corpuscular Volume 79.2 fL Mean Corpuscular Hemoglobin 26.8 pg Mean Corpuscular Hemoglobin Concent 33.8 g/dl Platelet Count 197 K/uL Mean Platelet Volume 8.1 fL Neutrophils (%) (Auto) 89.3 % Lymphocytes (%) (Auto) 4.3 % Monocytes (%) (Auto) 5.6 % Eosinophils (%) (Auto) 0.2 % Basophils (%) (Auto) 0.2 % Neutrophils # (Auto) 4.79 K/uL Lymphocytes # (Auto) 0.23 K/uL Monocytes # (Auto) 0.30 K/uL Eosinophils # (Auto) 0.01 K/uL Basophils # (Auto) 0.01 K/uL RDW Standard Deviation 45.5 fL RDW Coefficient of Variation 16.4 % Immature Granulocyte % (Auto) 0.4 % Immature Granulocyte # (Auto) 0.02 K/uL Toxic Granulation 1+ Acanthocytes 1+ Assessment & Plan 72-year-old male presents with left flank pain and is status post fall without consciousness secondary to weakness and dizziness. 1. LEFT URETERAL CALCULUS WITH HYDRONEPHROSIS - renal function stable UA not indicative of UTI Urine cultures pending - Flomax started IV NSS - Urology consulted hold PRN Dilaudid as patient was reported to have some confusion this morning 2. s/p Fall secondary Weakness and dizziness - BP marginal on admission poor oral intake the past few days - BP improving on IV fluids Lisinopril held - PT/OT r/o PNEUMONIA - Lung CA patient on chemo, radiation - reports slight increased in cough check CXR, Procalcitonin 3. Hypertension-hold lisinopril as above 4. Non-small cell lung cancer -currently on paclitaxel, carboplatin, XRT. - Last chemo dose was 05/01. - 4 more days of radiation therapy pending recommend to hold off on radiation therapy due to patient's status--> r/o Pneumonia, also fo possible Ureteral Stent Placement today patient scheduled for chemo, will inform Dr. Marx 5. AAA -40% noncalcified mural thrombus. Discussed with hematology regarding management. DVT prophylaxis with Lovenox for now. - not seen on CT 6. Diabetes type 2-A1c 7.1 - continue insulin sliding scale with carb coverage and Lantus 5 units twice daily while inpatient. Hold metformin. 7. History of smoking 8. Chronic pain-continue fentanyl patch 10. Anemia-likely secondary to chemo 11. Leukopenia-likely secondary to chemo 12. Stage II decubitus ulcer -Aquacel and OPTi foam in place, wound care consulted. DVT prophylaxis-Lovenox Full code as discussed with patient and his son on admission Disposition anticipate d/c home when medically stable PT/OT Current Inpatient Medications: Current Inpatient Medications Medications (Trade) Dose Ordered Sig/Vicenta Route Start Time Stop Time Status Last Admin Dose Admin Ioversol (Optiray 320) 100 ml UD PRN IV 05/07/17 00:45 05/11/17 00:44 Enoxaparin Sodium (Lovenox Inj) 40 mg DAILY@0800 SQ 05/07/17 08:00 06/06/17 07:59 05/08/17 08:46 40 MG Acetaminophen (Tylenol Tab) 650 mg Q4H PRN PO 05/07/17 03:30 06/06/17 03:29 Polyethylene (Miralax Powder Packet) 17 gm DAILY PRN PO 05/07/17 03:30 06/06/17 03:29 Ondansetron HCl (Zofran Inj) 4 mg Q6H PRN IV 05/07/17 03:30 06/06/17 03:29 05/07/17 12:14 4 MG Insulin Glargine (Lantus Solostar Pen) 5 units Q12 SC 05/07/17 09:00 06/06/17 08:59 05/08/17 08:57 5 UNITS Insulin Aspart (novoLOG ASPART) SLIDING SCALE If C... ACHS SC 05/07/17 06:30 06/06/17 06:59 Glucose (Glucose 40% Gel) 15-30 GRAMS 15 GRAMS... UD PRN PO 05/07/17 03:30 06/06/17 03:29 Glucose (Glucose Chew Tab) 4-8 Tablets 4 Tabl... UD PRN PO 05/07/17 03:30 06/06/17 03:29 Dextrose (Dextrose 50% 50ML Syringe) 25-50ML OF 50% DW IV FOR... UD PRN IV 05/07/17 03:30 06/06/17 03:29 Glucagon (Glucagon Inj) 1 mg UD PRN SQ 05/07/17 03:30 06/06/17 03:29 Tamsulosin HCl (Flomax Cap) 0.4 mg HS PO 05/07/17 21:00 06/06/17 20:59 05/07/17 20:24 0.4 MG Docusate Sodium (coLACE CAP) 100 mg QAM PO 05/07/17 08:00 06/06/17 08:59 05/08/17 08:45 100 MG Dronabinol (Marinol Cap) 2.5 mg BID PO 05/07/17 08:00 06/06/17 08:59 05/08/17 08:55 2.5 MG Fentanyl (Duragesic Patch) 25 mcg Q72H TD 05/07/17 09:00 05/21/17 08:59 05/07/17 09:28 25 MCG Latanoprost (Xalatan Oph Soln) 1 drops HS OPR 05/07/17 21:00 06/06/17 20:59 Ondansetron HCl (Zofran Tab) 8 mg Q8 PRN PO 05/07/17 03:45 06/06/17 03:44 05/07/17 09:31 8 MG Prochlorperazine Maleate (Compazine Tab) 10 mg Q6H PRN PO 05/07/17 03:45 06/06/17 03:44 Tramadol HCl (Ultram Tab) 50 mg Q6 PRN PO 05/07/17 03:45 06/06/17 03:44 Atorvastatin Calcium (Lipitor Tab) 40 mg HS PO 05/07/17 21:00 06/06/17 20:59 05/07/17 20:24 40 MG Oxycodone HCl (Roxicodone Immediate Rel Tab) 5 mg Q4H PRN PO 05/07/17 04:00 05/21/17 03:59 05/07/17 20:43 5 MG Miscellaneous (Fentanyl Patch Remove & Waste) 1 ea Q3D@0859 N/A 05/07/17 08:59 06/06/17 08:58 Miscellaneous Information (Check Fentanyl Patch Placement) 1 ea QS N/A 05/07/17 08:00 06/06/17 07:59 05/08/17 08:47 1 EA Enteral Nutritional Formula (Boost Glucose Control) 1 can TID PO 05/07/17 20:00 06/06/17 19:59 05/08/17 08:56 1 CAN Sodium Chloride 1,000 ml @ 75 mls/hr [id number] IV 05/08/17 10:15 06/07/17 10:14 05/08/17 10:56 75 MLS/HR Ipratropium [place] (Atrovent 0.02% 0.5MG/2.5ML Neb) 0.5 mg QIDR INH 05/08/17 12:00 06/07/17 11:59 Levalbuterol (Xopenex 1.25MG/ 0.5ML Neb) 1.25 mg QIDR INH 05/08/17 12:00 06/07/17 11:59
--- NOTE | 2017-05-08 11:59 | DIAGNOSTIC IMAGING REPORT ---
CHEST ONE VIEW PORTABLE HISTORY: 72 years-old Male R/O PNEUMONIA acute cough with history of lung cancer. COMPARISON: Chest radiograph 05/07/2017, 04/12/2017, 04/09/2017, PET CT 03/07/2017 TECHNIQUE: Portable AP view of the chest FINDINGS: Right internal jugular Ofqojf-[id number] catheter appears unchanged. Mass of the left upper lobe with adjacent linear interstitial opacities appears unchanged. Mass measures up to approximately 4.4 cm in length. Left hemidiaphragmatic elevation is unchanged. The right lung is generally clear. No pneumothorax, pleural effusion or new focal airspace consolidation. Degenerative changes noted throughout the shoulders and spine. IMPRESSION: 1. Unchanged masslike opacity of the left upper lobe. 2. No acute process identified. The above report was generated using voice recognition software. It may contain grammatical, syntax or spelling errors. Electronically signed by: Kilo Kim M.D. 05/08/2017 11:57 AM Dictated Date/Time: 05/08/2017 11:55 AM
[2017-05-08] MEDS ORDERED: LEVALBUTEROL/IPRATROPIUM NEB INH SCH (12:00)
--- NOTE | 2017-05-08 13:14 | Urology Consultation ---
History General Date of Service: May 08, 2017. Chief Complaint: left flank pain Primary Care Physician: Nathaniel Dawson M.D. Pt seen a urologist before?: No History of Present Illness 72 yo male with lung cancer admitted for left flank pain. Pt found to have a 1.4cm proximal left ureteral stone on CT. Denies ever passing a stone in the past. Does not recall every seeing a urologist previously as well. He reports his pain has improved today. Pt denies dysuria or hematuria. He does c/o nausea, but currently receiving chemo for his lung cancer. He is currently afebrile. White count has normalized since admission. Cr is 0.89 today. Imaging Imaging: CT Laboratory Last 24 Hours Test 05/07/17 16:37 05/07/17 20:14 05/08/17 07:55 05/08/17 09:19 Bedside Glucose 140 mg/dl 164 mg/dl 127 mg/dl Sodium Level 129 mmol/L Potassium Level 3.6 mmol/L Chloride Level 95 mmol/L Carbon Dioxide Level 27 mmol/L Anion Gap 7.0 mmol/L Blood Urea Nitrogen 10 mg/dl Creatinine 0.89 mg/dl Est Creatinine Clear Calc Drug Dose 58.4 ml/min Estimated GFR () 98.3 Estimated GFR (Non- 84.8 BUN/Creatinine Ratio 11.2 Random Glucose 181 mg/dl Calcium Level 8.6 mg/dl Test 05/08/17 09:22 05/08/17 11:37 05/08/17 11:44 White Blood Count 5.36 K/uL Red Blood Count 3.32 M/uL Hemoglobin 8.9 g/dL Hematocrit 26.3 % Mean Corpuscular Volume 79.2 fL Mean Corpuscular Hemoglobin 26.8 pg Mean Corpuscular Hemoglobin Concent 33.8 g/dl Platelet Count 197 K/uL Mean Platelet Volume 8.1 fL Neutrophils (%) (Auto) 89.3 % Lymphocytes (%) (Auto) 4.3 % Monocytes (%) (Auto) 5.6 % Eosinophils (%) (Auto) 0.2 % Basophils (%) (Auto) 0.2 % Neutrophils # (Auto) 4.79 K/uL Lymphocytes # (Auto) 0.23 K/uL Monocytes # (Auto) 0.30 K/uL Eosinophils # (Auto) 0.01 K/uL Basophils # (Auto) 0.01 K/uL RDW Standard Deviation 45.5 fL RDW Coefficient of Variation 16.4 % Immature Granulocyte % (Auto) 0.4 % Immature Granulocyte # (Auto) 0.02 K/uL Toxic Granulation 1+ Acanthocytes 1+ Procalcitonin 0.14 ng/ml Bedside Glucose 164 mg/dl Problem List Medical Problems: (1) Dehydration Status: Acute (2) Hyponatremia Status: Acute (3) Left ureteral calculus Status: Acute (4) Mass of left lung Status: Acute (5) Weakness Status: Acute Past History cancer - lung, diabetes, other (AAA, glaucoma ) Past Surgical History: orthopedic surgery (right knee surgery), spinal surgery Family History Cancer Diabetes mellitus Gallbladder disease Heart disease Social History Hx Tobacco Use In Past Year?: Yes (cigarettes 1 ppd x 40-50 years) Smoking: other (former smoker- quit 3 months ago) Alcohol: never Drug use: none Marital status: Housing status: lives with family (Lives with daughter) Occupation status: retired History of MDRO No Allergies Coded Allergies: Clindamycin (Verified Allergy, Intermediate, Rash all over body , 05/07/17) Medications Home Medications: Home Meds and Scripts Medications Dose Route/Sig Max Daily Dose Days Date Category Dose Instructions Lipitor (Atorvastatin Calcium) 40 Mg Tab 40 Mg PO HS 05/07/17 Reported Dronabinol 2.5 Mg Cap 2.5 Mg PO BID 05/07/17 Reported Glipizide 5 Mg Tab 10 Mg PO DAILY PRN 05/07/17 Reported Fentanyl 25 Mcg Tdsy Patch Q72H 04/30/17 Reported Colace (Docusate Sodium) 100 Mg Cap 1 Cap PO QAM 04/12/17 Reported Xalatan 0.005% Oph Benita (Latanoprost) 0.005 % Benita 1 Drops OPR HS 03/27/17 Reported Decadron (Dexamethasone) 4 Mg Tab 4 Tab PO UD 03/27/17 Reported 3 tablets night before and morning of chemo Zofran (Ondansetron HCl) 8 Mg Tab 8 Mg PO Q8 PRN 03/27/17 Reported Compazine (Prochlorperazine Maleate) 10 Mg Tab 10 Mg PO Q6H 03/27/17 Reported Ultram (Tramadol HCl) 50 Mg Tab 50 Mg PO Q6 PRN 03/27/17 Reported Glucophage (Metformin Hcl) 500 Mg Tab 500 Mg PO BID 03/27/17 Reported Zestril (Lisinopril) 5 Mg Tab 5 Mg PO HS 03/27/17 Reported Inpatient Medications: Current Inpatient Medications Medications (Trade) Dose Ordered Sig/Vicenta Route Start Time Stop Time Status Last Admin Dose Admin Ioversol (Optiray 320) 100 ml UD PRN IV 05/07/17 00:45 05/11/17 00:44 Enoxaparin Sodium (Lovenox Inj) 40 mg DAILY@0800 SQ 05/07/17 08:00 06/06/17 07:59 05/08/17 08:46 40 MG Acetaminophen (Tylenol Tab) 650 mg Q4H PRN PO 05/07/17 03:30 06/06/17 03:29 Polyethylene (Miralax Powder Packet) 17 gm DAILY PRN PO 05/07/17 03:30 06/06/17 03:29 Ondansetron HCl (Zofran Inj) 4 mg Q6H PRN IV 05/07/17 03:30 06/06/17 03:29 05/07/17 12:14 4 MG Insulin Glargine (Lantus Solostar Pen) 5 units Q12 SC 05/07/17 09:00 06/06/17 08:59 05/08/17 08:57 5 UNITS Insulin Aspart (novoLOG ASPART) SLIDING SCALE If C... ACHS SC 05/07/17 06:30 06/06/17 06:59 Glucose (Glucose 40% Gel) 15-30 GRAMS 15 GRAMS... UD PRN PO 05/07/17 03:30 06/06/17 03:29 Glucose (Glucose Chew Tab) 4-8 Tablets 4 Tabl... UD PRN PO 05/07/17 03:30 06/06/17 03:29 Dextrose (Dextrose 50% 50ML Syringe) 25-50ML OF 50% DW IV FOR... UD PRN IV 05/07/17 03:30 06/06/17 03:29 Glucagon (Glucagon Inj) 1 mg UD PRN SQ 05/07/17 03:30 06/06/17 03:29 Tamsulosin HCl (Flomax Cap) 0.4 mg HS PO 05/07/17 21:00 06/06/17 20:59 05/07/17 20:24 0.4 MG Docusate Sodium (coLACE CAP) 100 mg QAM PO 05/07/17 08:00 06/06/17 08:59 05/08/17 08:45 100 MG Dronabinol (Marinol Cap) 2.5 mg BID PO 05/07/17 08:00 06/06/17 08:59 05/08/17 08:55 2.5 MG Fentanyl (Duragesic Patch) 25 mcg Q72H TD 05/07/17 09:00 05/21/17 08:59 05/07/17 09:28 25 MCG Latanoprost (Xalatan Oph Soln) 1 drops HS OPR 05/07/17 21:00 06/06/17 20:59 Ondansetron HCl (Zofran Tab) 8 mg Q8 PRN PO 05/07/17 03:45 06/06/17 03:44 05/07/17 09:31 8 MG Prochlorperazine Maleate (Compazine Tab) 10 mg Q6H PRN PO 05/07/17 03:45 06/06/17 03:44 Tramadol HCl (Ultram Tab) 50 mg Q6 PRN PO 05/07/17 03:45 06/06/17 03:44 Atorvastatin Calcium (Lipitor Tab) 40 mg HS PO 05/07/17 21:00 06/06/17 20:59 05/07/17 20:24 40 MG Oxycodone HCl (Roxicodone Immediate Rel Tab) 5 mg Q4H PRN PO 05/07/17 04:00 05/21/17 03:59 05/07/17 20:43 5 MG Miscellaneous (Fentanyl Patch Remove & Waste) 1 ea Q3D@0859 N/A 05/07/17 08:59 06/06/17 08:58 Miscellaneous Information (Check Fentanyl Patch Placement) 1 ea QS N/A 05/07/17 08:00 06/06/17 07:59 05/08/17 08:47 1 EA Enteral Nutritional Formula (Boost Glucose Control) 1 can TID PO 05/07/17 20:00 06/06/17 19:59 05/08/17 08:56 1 CAN Sodium Chloride 1,000 ml @ 75 mls/hr [id number] IV 05/08/17 10:15 06/07/17 10:14 05/08/17 10:56 75 MLS/HR Ipratropium [place] (Atrovent 0.02% 0.5MG/2.5ML Neb) 0.5 mg QIDR INH 05/08/17 12:00 06/07/17 11:59 Levalbuterol (Xopenex 1.25MG/ 0.5ML Neb) 1.25 mg QIDR INH 05/08/17 12:00 06/07/17 11:59 Review of Systems Review of Systems Constitutional: No fever, No chills Eyes: No double vision Neurological: No dizzy Endocrine: No excessive thirst Gastrointestinal: + nausea, No abdominal pain, No vomiting Cardiovascular: No chest pain Respiratory: No shortness of breath Skin: No rash Musculoskeletal: + arthritis Male : No painful urination, No blood in urine Physical Exam Vital Signs: Vital Signs Past 12 Hours Date Time Temp Pulse Resp B/P (MAP) Pulse Ox O2 Delivery O2 Flow Rate FiO2 05/08/17 11:25 36.6 84 16 110/71 (84) 96 Room Air 05/08/17 08:20 Room Air 05/08/17 07:36 36.9 100 17 116/62 (80) 98 Room Air 05/08/17 03:12 36.6 112 20 107/66 (80) 97 Room Air Physical Exam: General Appearance: no apparent distress Eyes: bilateral eyes normal inspection ENT: hearing grossly normal Neck: no JVD Respiratory/Chest: no respiratory distress, no accessory muscle use Cardiovascular: no JVD Extremities: normal inspection Neurologic/Psychiatric: alert, normal mood/affect, oriented x 3 Skin: normal color Assessment & Plan Assessment & Plan Treatment Planned: cystoscopy w/ stent A/P: 1.4cm proximal left ureteral stone AFVSS. Stone too large to pass on own. I have recommend cysto with left ureteral stent placement today. Risks and benefits of the procedure discussed with the pt and his son. All questions answered. Will plan for definitive stone management as an outpatient. Thanks for the consult. Will continue to follow along with primary service.
[2017-05-08] MEDS ORDERED: CIPROFLOXACIN 400MG / 200ML D5W IV ONE (13:15)
[2017-05-08] MEDS: IPRATROPIUM BROMIDE NEB SOLN 0.02% 2.5 ML VIAL INH SCH ×2 (15:28→19:20)
[2017-05-08] MEDS: LEVALBUTEROL 1.25MG/0.5ML NEB INH SCH ×2 (15:29→19:20)
[2017-05-08] MEDS ORDERED: ATROPINE SULFATE 0.1 MG/ML 5ML SYR IV PRN (15:45)
[2017-05-08] MEDS ORDERED: FENTANYL CITRATE INJ 50 MCG/1 ML 2 ML VIAL IV PRN (15:45)
[2017-05-08] MEDS ORDERED: EpHEDrine SULFATE INJ 50 MG/ML AMP IV PRN (15:45)
[2017-05-08] MEDS ORDERED: PROPOFOL IV EMULSION 10 MG/ML 20 ML VIAL IV ONE (16:58)
[2017-05-08] MEDS ORDERED: MIDAZOLAM HCL 1 MG/ML 2ML VIAL ONE (16:58)
[2017-05-08] MEDS ORDERED: FENTANYL CITRATE INJ 50 MCG/1 ML 2 ML VIAL ONE (16:58)
[2017-05-08] MEDS ORDERED: LIDOCAINE HCL 2% 2 ML VIAL (20MG/ML) ONE (16:58)
[2017-05-08] MEDS ORDERED: Cysto-Conray II 17.2% 250ML BOTTLE ONE (17:18)
--- NOTE | 2017-05-08 17:54 | [facility] Operative Report ---
Operative Report Operative Date May 08, 2017. Pre-Operative Diagnosis Nephrolithiasis, hydronephrosis Post-Operative Diagnosis Nephrolithiasis, hydronephrosis Procedure(s) Performed Cystoscopy, left ureteral stent placement6 British by 2232 cm Surgeon [employer] Supervisor Surgeon(s) None Estimated Blood Loss 0 cc Findings Left ureteral stone poorly visualized under fluoroscopy Anesthesia Type MAC Complication(s) none Disposition yes Recovery Room / PACU (Stable) Indications Left flank pain and hydronephrosis Description of Procedure The patient was identified in the preoperative holding area, appropriate informed consents reviewed and completed and he was transported to the operating suite. Upon arrival he received appropriate preoperative antibiotics in the form of ciprofloxacin. Adequate sedation was achieved, and he was placed in dorsal lithotomy position where he was sterilely prepped and draped in standard fashion. I began the case by passing a 22 British cystoscope and 30 lens. Inspection of the urethra revealed no abnormalities. His prostate was small. Inspection of the bladder revealed healthy appearing bladder without mucosal abnormalities. Ureteral orifices were in orthotopic position. I then cannulated the left ureteral orifice and advanced a sensor wire to the level of the kidney. Of note, his stone was not well visualized under fluoroscopy although resistance was felt just above the top level of his prior spinal surgery and implants. Subsequently placed a 6 British by 22-32 cm double-J ureteral stent seeing a good curl in the kidney as well as the bladder. Bladder subsequently decompressed and the case concluded. He was taken to the PACU in stable condition. I attest to the content of the Intraoperative Record and any orders documented therein. Any exceptions are noted below.
[2017-05-08] MEDS ORDERED: ESMOLOL HCL 10 MG/ML 10 ML VIAL ONE (18:03)
[2017-05-08] MEDS ORDERED: ONDANSETRON INJ 2 MG/ML 2 ML VIAL ONE (18:03)
--- NOTE | 2017-05-08 19:33 | DIAGNOSTIC IMAGING REPORT ---
RETROGRADE INCLUDES KUB HISTORY: LT CYSTO/STENT FLUOROSCOPY TIME: 5 seconds. FINDINGS: 4 fluoroscopic spot images were submitted for review. Initial images demonstrate a ureteroscope in the bladder and cannulation of the left ureteral orifice. A guidewire is placed in the left ureter. This is followed by placement of a left ureteral stent. The proximal portion of the stent is in good position. The distal stent is not identified. Posterior fusion hardware noted within the lower lumbar spine. IMPRESSION: Fluoroscopy provided for left ureteral stent placement. Electronically signed by: Mitchel Tellez M.D. 05/08/2017 7:32 PM Dictated Date/Time: 05/08/2017 7:30 PM
--- NOTE | 2017-05-08 19:48 | Anesthesiology Progress Note ---
Anesthesia Post Op Note Date & Time May 08, 2017 at 19:48 Vital Signs Pain Intensity: 0.0 Vital Signs Past 12 Hours Date Time Temp Pulse Resp B/P (MAP) Pulse Ox O2 Delivery O2 Flow Rate FiO2 05/08/17 19:45 36.8 102 18 141/80 (100) 99 Nasal Cannula 2.0 05/08/17 19:20 82 16 96 Room Air 05/08/17 19:07 36.3 79 18 110/64 (79) 100 Nasal Cannula 2.0 05/08/17 19:00 95 Nasal Cannula 3.0 05/08/17 18:48 95 Nasal Cannula 3.0 05/08/17 18:35 36.8 80 18 110/72 (85) 95 Nasal Cannula 3.0 05/08/17 18:15 36.6 95 18 117/67 97 Nasal Cannula 3 05/08/17 18:05 105 18 102/65 99 Oxymask 8 05/08/17 17:58 36.7 95 16 90/57 99 Oxymask 8 05/08/17 15:54 37.2 101 95 135/74 (94) 95 Room Air 05/08/17 15:41 80 20 129/74 (92) 99 Room Air 05/08/17 15:29 79 16 95 Room Air 05/08/17 15:22 37.0 103 17 126/77 (93) 91 Room Air 05/08/17 11:25 36.6 84 16 110/71 (84) 96 Room Air 05/08/17 08:20 Room Air Notes Mental Status: alert / awake / arousable, participated in evaluation Pt Amnestic to Procedure: Yes Nausea / Vomiting: adequately controlled Pain: adequately controlled Airway Patency, RR, SpO2: stable & adequate BP & HR: stable & adequate Hydration State: stable & adequate Anesthetic Complications: no major complications apparent
[2017-05-08] MEDS: TAMSULOSIN HCL 0.4 MG CAP PO SCH (20:58)
[2017-05-08] MEDS: ATORVASTATIN 40 MG TAB PO SCH (20:58)
[2017-05-08] MEDS: LATANOPROST 0.005% OP SOLN 2.5 ML BTL OPR SCH (21:00)
[2017-05-09] VITALS (14 sets, daily range): BP systolic 98–123; BP diastolic 62–72; PULSE 88–100; TEMP 36.3–36.9; O2SAT 95–99
[2017-05-09] MEDS: SODIUM CHLORIDE 0.9% 1000ML 1,000 ML IV SCH (01:32)
[2017-05-09 05:59] LABS: BASO % 0.2 %; BASO ABS # 0.01 K/uL (0-0.2); EOS % 0.4 %; EOS ABS # 0.02 K/uL (0-0.5); HEMATOCRIT 23.6 % (42-52); HEMOGLOBIN 8.1 g/dL (14.0-18.0); IG# 0.02 K/uL (0.00-0.02); LYMPH % 6.3 %; LYMPH ABS # 0.29 K/uL (1.2-3.4); MEAN CELL VOLUME 79.2 fL (80-100); MEAN CORPUSCULAR HEMOGLOBIN 27.2 pg (25-34); MEAN CORPUSCULAR HGB CONC 34.3 g/dl (32-36); MEAN PLATELET VOLUME 7.9 fL (7.4-10.4); MONO % 6.9 %; MONO ABS # 0.32 K/uL (0.11-0.59); NEUT % 85.8 %; NEUT ABS # 3.98 K/uL (1.4-6.5); PLATELET COUNT 165 K/uL (130-400); RED CELL DISTRIBUTION WIDTH CV 16.4 % (11.5-14.5); RED CELL DISTRIBUTION WIDTH SD 45.5 fL (36.4-46.3); WHITE BLOOD COUNT 4.64 K/uL (4.8-10.8)
[2017-05-09] MEDS: INSULIN ASPART 100 UNITS/ML 3 ML PEN SC SCH ×4 (06:30→20:44)
[2017-05-09 06:33] LABS: CREATININE 0.58 mg/dl (0.60-1.40); POTASSIUM 3.3 mmol/L (3.5-5.1)
[2017-05-09] MEDS: LEVALBUTEROL 1.25MG/0.5ML NEB INH SCH ×4 (07:07→18:52)
[2017-05-09] MEDS: IPRATROPIUM BROMIDE NEB SOLN 0.02% 2.5 ML VIAL INH SCH ×4 (07:07→18:51)
[2017-05-09] MEDS: CHECK FENTANYL PATCH PLACEMENT SCH ×3 (08:00→16:00)
[2017-05-09] MEDS: DOCUSATE SODIUM 100 MG CAP PO SCH (08:23)
[2017-05-09] MEDS: BOOST GLUCOSE CONTROL PO SCH ×3 (08:23→20:43)
[2017-05-09] MEDS: DRONABINOL 2.5 MG CAP PO SCH ×2 (08:24→20:43)
[2017-05-09] MEDS: ENOXAPARIN 40 MG/0.4 ML SYR SQ SCH (08:27)
[2017-05-09] MEDS: ONDANSETRON 8 MG TAB PO PRN (08:28)
[2017-05-09] MEDS: INSULIN GLARGINE SOLOSTAR 100 UNITS/ML 3 ML PEN SC SCH ×2 (08:54→20:46)
--- NOTE | 2017-05-09 09:14 | Progress Note ---
Subjective Date of Service: May 09, 2017. Subjective Pt evaluation today including: conversation w/ patient, chart review, lab review Voiding: no voiding problems 72 yo male s/p left ureteral stent placement for 1.4cm left ureteral stone. Pt denies pain this morning. Denies dysuria, hematuria, or difficulty voiding. He continues to c/o nausea. UC&S pending. Problem List Medical Problems: (1) Dehydration Status: Acute (2) Hyponatremia Status: Acute (3) Left ureteral calculus Status: Acute (4) Mass of left lung Status: Acute (5) Weakness Status: Acute Review of Systems Constitutional: No fever, No chills Respiratory: No shortness of breath Cardiac: No chest pain Abdomen: + nausea, No pain, No vomiting Male : No dysuria, No hematuria Heme: No abnormal bleeding/bruising Objective Vital Signs Date Time Temp Pulse Resp B/P (MAP) Pulse Ox O2 Delivery O2 Flow Rate FiO2 05/09/17 07:44 98 Room Air 05/09/17 07:30 36.6 98 18 122/72 (89) 98 Room Air 05/09/17 07:07 92 16 95 Room Air 05/09/17 04:00 36.8 99 18 117/70 (86) 95 Room Air 05/09/17 00:00 99 Room Air 05/08/17 23:20 37.2 112 20 119/67 (84) 94 Room Air 05/08/17 20:45 36.8 106 18 116/61 (79) 99 Room Air 05/08/17 19:45 36.8 102 18 141/80 (100) 99 Nasal Cannula 2.0 05/08/17 19:20 82 16 96 Room Air 05/08/17 19:07 36.3 79 18 110/64 (79) 100 Nasal Cannula 2.0 05/08/17 19:00 95 Nasal Cannula 3.0 05/08/17 18:48 95 Nasal Cannula 3.0 05/08/17 18:35 36.8 80 18 110/72 (85) 95 Nasal Cannula 3.0 05/08/17 18:15 36.6 95 18 117/67 97 Nasal Cannula 3 05/08/17 18:05 105 18 102/65 99 Oxymask 8 05/08/17 17:58 36.7 95 16 90/57 99 Oxymask 8 05/08/17 15:54 37.2 101 95 135/74 (94) 95 Room Air 05/08/17 15:41 80 20 129/74 (92) 99 Room Air 05/08/17 15:29 79 16 95 Room Air 05/08/17 15:22 37.0 103 17 126/77 (93) 91 Room Air 05/08/17 11:25 36.6 84 16 110/71 (84) 96 Room Air Physical Exam General Appearance: no apparent distress Eyes: normal inspection ENT: hearing grossly normal Neck: no JVD Respiratory/Chest: no respiratory distress, no accessory muscle use Cardiovascular: no JVD Extremities: normal inspection Neurologic/Psychiatric: alert, normal mood/affect, oriented x 3 Skin: normal color Laboratory Results Last 24 Hours Test 05/08/17 09:19 05/08/17 09:22 05/08/17 11:37 05/08/17 11:44 Sodium Level 129 mmol/L Potassium Level 3.6 mmol/L Chloride Level 95 mmol/L Carbon Dioxide Level 27 mmol/L Anion Gap 7.0 mmol/L Blood Urea Nitrogen 10 mg/dl Creatinine 0.89 mg/dl Est Creatinine Clear Calc Drug Dose 58.4 ml/min Estimated GFR () 98.3 Estimated GFR (Non- 84.8 BUN/Creatinine Ratio 11.2 Random Glucose 181 mg/dl Calcium Level 8.6 mg/dl White Blood Count 5.36 K/uL Red Blood Count 3.32 M/uL Hemoglobin 8.9 g/dL Hematocrit 26.3 % Mean Corpuscular Volume 79.2 fL Mean Corpuscular Hemoglobin 26.8 pg Mean Corpuscular Hemoglobin Concent 33.8 g/dl Platelet Count 197 K/uL Mean Platelet Volume 8.1 fL Neutrophils (%) (Auto) 89.3 % Lymphocytes (%) (Auto) 4.3 % Monocytes (%) (Auto) 5.6 % Eosinophils (%) (Auto) 0.2 % Basophils (%) (Auto) 0.2 % Neutrophils # (Auto) 4.79 K/uL Lymphocytes # (Auto) 0.23 K/uL Monocytes # (Auto) 0.30 K/uL Eosinophils # (Auto) 0.01 K/uL Basophils # (Auto) 0.01 K/uL RDW Standard Deviation 45.5 fL RDW Coefficient of Variation 16.4 % Immature Granulocyte % (Auto) 0.4 % Immature Granulocyte # (Auto) 0.02 K/uL Toxic Granulation 1+ Acanthocytes 1+ Procalcitonin 0.14 ng/ml Bedside Glucose 164 mg/dl Test 05/08/17 18:00 05/08/17 20:14 05/09/17 05:42 05/09/17 07:32 Bedside Glucose 185 mg/dl 246 mg/dl 141 mg/dl White Blood Count 4.64 K/uL Red Blood Count 2.98 M/uL Hemoglobin 8.1 g/dL Hematocrit 23.6 % Mean Corpuscular Volume 79.2 fL Mean Corpuscular Hemoglobin 27.2 pg Mean Corpuscular Hemoglobin Concent 34.3 g/dl Platelet Count 165 K/uL Mean Platelet Volume 7.9 fL Neutrophils (%) (Auto) 85.8 % Lymphocytes (%) (Auto) 6.3 % Monocytes (%) (Auto) 6.9 % Eosinophils (%) (Auto) 0.4 % Basophils (%) (Auto) 0.2 % Neutrophils # (Auto) 3.98 K/uL Lymphocytes # (Auto) 0.29 K/uL Monocytes # (Auto) 0.32 K/uL Eosinophils # (Auto) 0.02 K/uL Basophils # (Auto) 0.01 K/uL RDW Standard Deviation 45.5 fL RDW Coefficient of Variation 16.4 % Immature Granulocyte % (Auto) 0.4 % Immature Granulocyte # (Auto) 0.02 K/uL Toxic Granulation 1+ Anisocytosis PRESENT Sodium Level 130 mmol/L Potassium Level 3.3 mmol/L Chloride Level 97 mmol/L Carbon Dioxide Level 27 mmol/L Anion Gap 7.0 mmol/L Blood Urea Nitrogen 8 mg/dl Creatinine 0.58 mg/dl Est Creatinine Clear Calc Drug Dose 89.2 ml/min Estimated GFR () 117.2 Estimated GFR (Non- 101.1 BUN/Creatinine Ratio 13.0 Random Glucose 128 mg/dl Calcium Level 8.0 mg/dl Assessment and Plan POD #1 s/p left ureteral stent placement AFVSS. Pt doing well post-op. Will plan for definitive stone management as an outpatient. Stone not well visualized on fluoroscopy during stent placement. May not be a candidate for ESWL. Will recheck a KUB today. Pt may need outpatient URS. Pt OK to proceed with chemo for lung cancer as per primary service. No further management at this time. Will arrange for outpatient f/u with Dr. Wood. Recall PRN issues. Thanks for allowing us to participate in this pt 's care.
[2017-05-09] MEDS ORDERED: DOCUSATE SODIUM/SENNA 50/8.6MG TAB PO SCH (09:45)
--- NOTE | 2017-05-09 09:45 | Progress Note ---
Medicine Progress Note Date & Time of Visit: May 09, 2017 at 09:38. Subjective seen resting in bed states he feels nauseated this morning, worsened with eating a few bites/small sips this morning given Zofran PO and Marinol no left flank pain, hematuria no fever/chills no chest pain, shortness of breath, cough no other symptoms Objective Last 8 Hrs Date Time Temp Pulse Resp B/P (MAP) Pulse Ox O2 Delivery O2 Flow Rate FiO2 05/09/17 07:44 98 Room Air 05/09/17 07:30 36.6 98 18 122/72 (89) 98 Room Air 05/09/17 07:07 92 16 95 Room Air 05/09/17 04:00 36.8 99 18 117/70 (86) 95 Room Air Physical Exam: General- oriented x 3, not in distress, speaks in sentences with no effort Eyes- anicteric ENT- oropharynx clear Neck- no JVD Lungs- mild rhonchi b/l bases Heart- regular rhythm; no murmur, normal rate Abdomen- normal bowel sounds, soft, nontender no CVA tenderness Extremities- no pretibial edema, no calf tenderness Neuro- alert, oriented x 3; no gross focal deficits Skin- warm & dry Laboratory Results: Last 24 Hours Test 05/08/17 11:37 05/08/17 11:44 05/08/17 18:00 05/08/17 20:14 Procalcitonin 0.14 ng/ml Bedside Glucose 164 mg/dl 185 mg/dl 246 mg/dl Test 05/09/17 05:42 05/09/17 07:32 05/09/17 09:19 White Blood Count 4.64 K/uL Red Blood Count 2.98 M/uL Hemoglobin 8.1 g/dL Hematocrit 23.6 % Mean Corpuscular Volume 79.2 fL Mean Corpuscular Hemoglobin 27.2 pg Mean Corpuscular Hemoglobin Concent 34.3 g/dl Platelet Count 165 K/uL Mean Platelet Volume 7.9 fL Neutrophils (%) (Auto) 85.8 % Lymphocytes (%) (Auto) 6.3 % Monocytes (%) (Auto) 6.9 % Eosinophils (%) (Auto) 0.4 % Basophils (%) (Auto) 0.2 % Neutrophils # (Auto) 3.98 K/uL Lymphocytes # (Auto) 0.29 K/uL Monocytes # (Auto) 0.32 K/uL Eosinophils # (Auto) 0.02 K/uL Basophils # (Auto) 0.01 K/uL RDW Standard Deviation 45.5 fL RDW Coefficient of Variation 16.4 % Immature Granulocyte % (Auto) 0.4 % Immature Granulocyte # (Auto) 0.02 K/uL Toxic Granulation 1+ Anisocytosis PRESENT Sodium Level 130 mmol/L Potassium Level 3.3 mmol/L Chloride Level 97 mmol/L Carbon Dioxide Level 27 mmol/L Anion Gap 7.0 mmol/L Blood Urea Nitrogen 8 mg/dl Creatinine 0.58 mg/dl Est Creatinine Clear Calc Drug Dose 89.2 ml/min Estimated GFR () 117.2 Estimated GFR (Non- 101.1 BUN/Creatinine Ratio 13.0 Random Glucose 128 mg/dl Calcium Level 8.0 mg/dl Bedside Glucose 141 mg/dl Date/Time Source Procedure Growth Status 05/08/17 23:10 Urine , Clean Catch Urine Culture Pending Received Assessment & Plan 72-year-old male presents with left flank pain and is status post fall without consciousness secondary to weakness and dizziness. 1. LEFT URETERAL CALCULUS WITH HYDRONEPHROSIS - renal function stable UA not indicative of UTI Urine cultures pending - Flomax started IV NSS - Urology consulted s/p Left Ureteral Stent placement by Dr. Wood 05/08/[address] Wood as outpatient for definitive stone management 2. s/p Fall secondary Weakness and dizziness - BP marginal on admission poor oral intake the past few days - BP improving on IV fluids Lisinopril held - PT/OT: recommend return home PNEUMONIA ruled out - Lung CA patient on chemo, radiation - cxr: no pneumonia procalcitonin negative 3. (+) NAUSEA - from anesthesia, stent placement? constipation? - (+) flatus no BM x 2 days - PRN antiemetics start Senokot S ANEMIA likely from Chemo Hg 8 monitor, maintain Hg > 8 Hypertension-hold lisinopril as above Non-small cell lung cancer -currently on paclitaxel, carboplatin, XRT. - Last chemo dose was 05/01. - 4 more days of radiation therapy pending recommend to hold off on radiation therapy due to patient's status--> nausea, has not had breakfast this morning patient scheduled for chemo, will inform Dr. Marx AAA -40% noncalcified mural thrombus. Discussed with hematology regarding management. DVT prophylaxis with Lovenox for now. - not seen on CT Diabetes type 2-A1c 7.1 - continue insulin sliding scale with carb coverage and Lantus 5 units twice daily while inpatient. Hold metformin. History of smoking Chronic pain-continue fentanyl patch Leukopenia-likely secondary to chemo Stage II decubitus ulcer -Aquacel and OPTi foam in place, wound care consulted. DVT prophylaxis-Lovenox Full code as discussed with patient and his son on admission Disposition anticipate d/c home when medically stable Current Inpatient Medications: Current Inpatient Medications Medications (Trade) Dose Ordered Sig/Vicenta Route Start Time Stop Time Status Last Admin Dose Admin Ioversol (Optiray 320) 100 ml UD PRN IV 05/07/17 00:45 05/11/17 00:44 Enoxaparin Sodium (Lovenox Inj) 40 mg DAILY@0800 SQ 05/07/17 08:00 06/06/17 07:59 05/09/17 08:27 40 MG Acetaminophen (Tylenol Tab) 650 mg Q4H PRN PO 05/07/17 03:30 06/06/17 03:29 Polyethylene (Miralax Powder Packet) 17 gm DAILY PRN PO 05/07/17 03:30 06/06/17 03:29 Ondansetron HCl (Zofran Inj) 4 mg Q6H PRN IV 05/07/17 03:30 06/06/17 03:29 05/07/17 12:14 4 MG Insulin Glargine (Lantus Solostar Pen) 5 units Q12 SC 05/07/17 09:00 06/06/17 08:59 05/09/17 08:54 5 UNITS Insulin Aspart (novoLOG ASPART) SLIDING SCALE If C... ACHS SC 05/07/17 06:30 06/06/17 06:59 05/08/17 21:39 1 UNITS Glucose (Glucose 40% Gel) 15-30 GRAMS 15 GRAMS... UD PRN PO 05/07/17 03:30 06/06/17 03:29 Glucose (Glucose Chew Tab) 4-8 Tablets 4 Tabl... UD PRN PO 05/07/17 03:30 06/06/17 03:29 Dextrose (Dextrose 50% 50ML Syringe) 25-50ML OF 50% DW IV FOR... UD PRN IV 05/07/17 03:30 06/06/17 03:29 Glucagon (Glucagon Inj) 1 mg UD PRN SQ 05/07/17 03:30 06/06/17 03:29 Tamsulosin HCl (Flomax Cap) 0.4 mg HS PO 05/07/17 21:00 06/06/17 20:59 05/08/17 20:58 0.4 MG Docusate Sodium (coLACE CAP) 100 mg QAM PO 05/07/17 08:00 06/06/17 08:59 05/09/17 08:23 100 MG Dronabinol (Marinol Cap) 2.5 mg BID PO 05/07/17 08:00 06/06/17 08:59 05/09/17 08:24 2.5 MG Fentanyl (Duragesic Patch) 25 mcg Q72H TD 05/07/17 09:00 05/21/17 08:59 05/07/17 09:28 25 MCG Latanoprost (Xalatan Oph Soln) 1 drops HS OPR 05/07/17 21:00 06/06/17 20:59 05/08/17 21:00 1 DROPS Ondansetron HCl (Zofran Tab) 8 mg Q8 PRN PO 05/07/17 03:45 06/06/17 03:44 05/09/17 08:28 8 MG Prochlorperazine Maleate (Compazine Tab) 10 mg Q6H PRN PO 05/07/17 03:45 06/06/17 03:44 Tramadol HCl (Ultram Tab) 50 mg Q6 PRN PO 05/07/17 03:45 06/06/17 03:44 Atorvastatin Calcium (Lipitor Tab) 40 mg HS PO 05/07/17 21:00 06/06/17 20:59 05/08/17 20:58 40 MG Oxycodone HCl (Roxicodone Immediate Rel Tab) 5 mg Q4H PRN PO 05/07/17 04:00 05/21/17 03:59 05/07/17 20:43 5 MG Miscellaneous (Fentanyl Patch Remove & Waste) 1 ea Q3D@0859 N/A 05/07/17 08:59 06/06/17 08:58 Miscellaneous Information (Check Fentanyl Patch Placement) 1 ea QS N/A 05/07/17 08:00 06/06/17 07:59 05/09/17 08:00 1 EA Enteral Nutritional Formula (Boost Glucose Control) 1 can TID PO 05/07/17 20:00 06/06/17 19:59 05/09/17 08:23 1 CAN Sodium Chloride 1,000 ml @ 75 mls/hr [id number] IV 05/08/17 10:15 06/07/17 10:14 05/09/17 01:32 75 MLS/HR Ipratropium [place] (Atrovent 0.02% 0.5MG/2.5ML Neb) 0.5 mg QIDR INH 05/08/17 12:00 06/07/17 11:59 05/09/17 07:07 0.5 MG Levalbuterol (Xopenex 1.25MG/ 0.5ML Neb) 1.25 mg QIDR INH 05/08/17 12:00 06/07/17 11:59 05/09/17 07:07 1.25 MG Potassium Chloride (Klor-Con M10) 40 meq 1000 ONCE PO 05/09/17 10:00 05/09/17 10:01
[2017-05-09] MEDS ORDERED: POTASSIUM CHLORIDE 10 MEQ TABCR PO ONE (10:00)
--- NOTE | 2017-05-09 11:43 | DIAGNOSTIC IMAGING REPORT ---
[facility]UB CLINICAL HISTORY: stent placement stent position COMPARISON STUDY: No previous studies for comparison. FINDINGS: Left ureteral stent placed in good position. The calculus produces described is now at the mid ureteral level. It measures 1.3 x 0.5 cm. It is at the level of L4 of the lumbar spine. IMPRESSION: Left ureteral stent placement in good position. 1.3 x 0.5 cm calculus immediately adjacent to the left ureteral stent at the level of L4. The above report was generated using voice recognition software. It may contain grammatical, syntax or spelling errors. Electronically signed by: Adolph Smart M.D. 05/09/2017 11:41 AM Dictated Date/Time: 05/09/2017 11:40 AM
[2017-05-09] MEDS: NSS + 20MEQ KCL 1000ML 1,000 ML IV SCH (11:44)
--- NOTE | 2017-05-09 12:09 | Clinical Documentation Query ---
AINSLEY Guo : CLINICAL DOCUMENTATION QUERY Patient is a 72 year old male admitted for evaluation of left flank pain. Patient currently undergoing chemotherapy and radiation for lung cancer diagnosed two months ago. Per EMR documentation, body weight 03/02/17 was 68 kg. Weight this a.m. of 55.6 kg. Loss of 12.4 kg over this interval represents > 18% of his initial body weight. He has been complaining of nausea with poor oral intake, vomiting, and early satiety, and has been treated with IVF, dietary consultation, Boost/Muscle milk supplements, Marinol and Zofran. In your clinical opinion is this patient being managed for: ( ) Severe protein-calorie malnutrition ( ) Not Agree ( ) Other explanation of clinical findings (Please Explain) ( ) Unable to determine (Please Define) (X ) Need to Discuss: Can we refer this case to the nutrionist to verify if the patient meets the criteria for the definition of severe protein calorie malnutrition? Thanks The medical record reflects the following clinical findings, treatment, and risk factors. Clinical Indicators: As above Treatment: As above Risk Factors: Cancer, chemotherapy, medications Please clarify and document your clinical opinion in the progress notes and discharge summary. Terms such as "probable", "suspected", "likely", "questionable", "possible", or "still to be ruled out" are acceptable. IF IN AGREEMENT, YOU MUST DOCUMENT ABOVE DIAGNOSTIC STATEMENT IN DAILY PROGRESS NOTES AND DISCHARGE SUMMARY. This document is not part of the patient's record. Thank You, Jason Roy, MESHA [phone]
[2017-05-09] MEDS: TAMSULOSIN HCL 0.4 MG CAP PO SCH (20:44)
[2017-05-09] MEDS: LATANOPROST 0.005% OP SOLN 2.5 ML BTL OPR SCH (20:44)
[2017-05-10] VITALS (7 sets, daily range): BP systolic 111–132; BP diastolic 63–83; PULSE 93–117; TEMP 36.3–36.9; O2SAT 96–99
[2017-05-10] MEDS: NSS + 20MEQ KCL 1000ML 1,000 ML IV SCH (00:10)
[2017-05-10] MEDS: CHECK FENTANYL PATCH PLACEMENT SCH ×3 (00:10→17:20)
[2017-05-10 05:52] LABS: EOS % 0.8 %; EOS ABS # 0.02 K/uL (0-0.5); HEMATOCRIT 23.8 % (42-52); HEMOGLOBIN 7.9 g/dL (14.0-18.0); IG# 0.01 K/uL (0.00-0.02); LYMPH % 7.6 %; MEAN CELL VOLUME 81.2 fL (80-100); MEAN CORPUSCULAR HGB CONC 33.2 g/dl (32-36); MEAN PLATELET VOLUME 7.8 fL (7.4-10.4); MONO % 9.8 %; MONO ABS # 0.26 K/uL (0.11-0.59); NEUT % 81.4 %; NEUT ABS # 2.15 K/uL (1.4-6.5); PLATELET COUNT 186 K/uL (130-400); RED CELL DISTRIBUTION WIDTH CV 16.8 % (11.5-14.5); RED CELL DISTRIBUTION WIDTH SD 47.9 fL (36.4-46.3); WHITE BLOOD COUNT 2.64 K/uL (4.8-10.8)
[2017-05-10 06:29] LABS: CALCIUM 8.1 mg/dl (8.5-10.1); CREATININE 0.56 mg/dl (0.60-1.40); POTASSIUM 3.6 mmol/L (3.5-5.1)
[2017-05-10] MEDS: LEVALBUTEROL 1.25MG/0.5ML NEB INH SCH (07:39)
[2017-05-10] MEDS: IPRATROPIUM BROMIDE NEB SOLN 0.02% 2.5 ML VIAL INH SCH (07:39)
[2017-05-10] MEDS: DOCUSATE SODIUM 100 MG CAP PO SCH (08:13)
[2017-05-10] MEDS: DOCUSATE SODIUM/SENNA 50/8.6MG TAB PO SCH (08:13)
[2017-05-10] MEDS: ENOXAPARIN 40 MG/0.4 ML SYR SQ SCH (08:14)
[2017-05-10] MEDS: DRONABINOL 2.5 MG CAP PO SCH ×2 (08:26→21:39)
[2017-05-10] MEDS: FENTANYL 25 MCG/HR TDSY TD SCH (08:27)
[2017-05-10] MEDS: FENTANYL PATCH REMOVE & WASTE SCH (08:28)
[2017-05-10] MEDS: BOOST GLUCOSE CONTROL PO SCH ×3 (08:28→21:41)
[2017-05-10] MEDS: INSULIN ASPART 100 UNITS/ML 3 ML PEN SC SCH ×4 (08:33→21:42)
[2017-05-10] MEDS: INSULIN GLARGINE SOLOSTAR 100 UNITS/ML 3 ML PEN SC SCH ×2 (08:34→21:51)
--- NOTE | 2017-05-10 09:40 | Clinical Documentation Query ---
Dr. HAYNES, [facility] : CLINICAL DOCUMENTATION QUERY Patient is a 72 year old male admitted for evaluation of left flank pain. Patient currently undergoing chemotherapy and radiation for lung cancer diagnosed two months ago. Per EMR documentation, body weight 03/02/17 was 68 kg. Weight this a.m.of 55.6 kg. Loss of 12.4 kg over this interval represents > 18% of his initial body weight. He has been complaining of nausea with poor oral intake, vomiting, and early satiety, and has been treated with IVF, dietary consultation, Boost/Muscle milk supplements, Marinol and Zofran. In your clinical opinion is this patient being managed for: ( x ) Severe protein-calorie malnutrition ( ) Not Agree ( ) Other explanation of clinical findings (Please Explain) ( ) Unable to determine (Please Define) ( ) Need to Discuss The medical record reflects the following clinical findings, treatment, and risk factors. Clinical Indicators: As above Treatment: As above Risk Factors: Cancer, chemotherapy, medications Please clarify and document your clinical opinion in the progress notes and discharge summary. Terms such as "probable", "suspected", "likely", "questionable", "possible", or "still to be ruled out" are acceptable. IF IN AGREEMENT, YOU MUST DOCUMENT ABOVE DIAGNOSTIC STATEMENT IN DAILY PROGRESS NOTES AND DISCHARGE SUMMARY. This document is not part of the patient's record. Thank You, Jason Roy RN [phone]
--- NOTE | 2017-05-10 10:14 | Progress Note ---
Medicine Progress Note Date & Time of Visit: May 10, 2017 at 10:05. Subjective seen resting in bed, comfortable states he feels better today able to tolerate breakfast well no nausea, abdominal pain ambulates in the room with no problems denies other symptoms sates he is ok for radiation today Objective Last 8 Hrs Date Time Temp Pulse Resp B/P (MAP) Pulse Ox O2 Delivery O2 Flow Rate FiO2 05/10/17 07:39 36.4 95 20 132/83 (99) 96 Room Air 05/10/17 07:39 93 16 98 Room Air 05/10/17 03:54 36.6 95 20 126/72 (90) 98 Room Air Physical Exam: General- oriented x 3, not in distress, speaks in sentences with no effort Eyes- anicteric Neck- no JVD Lungs- mild rhonchi right base, clear on the left, no wheezintg Heart- regular rhythm; no murmur, normal rate Abdomen- normal bowel sounds, soft, nontender no CVA tenderness Extremities- no pretibial edema, no calf tenderness Neuro- alert, oriented x 3; no gross focal deficits Skin- warm & dry Laboratory Results: Last 24 Hours Test 05/09/17 11:18 05/09/17 16:44 05/09/17 20:25 05/10/17 05:36 Bedside Glucose 182 mg/dl 160 mg/dl 129 mg/dl White Blood Count 2.64 K/uL Red Blood Count 2.93 M/uL Hemoglobin 7.9 g/dL Hematocrit 23.8 % Mean Corpuscular Volume 81.2 fL Mean Corpuscular Hemoglobin 27.0 pg Mean Corpuscular Hemoglobin Concent 33.2 g/dl Platelet Count 186 K/uL Mean Platelet Volume 7.8 fL Neutrophils (%) (Auto) 81.4 % Lymphocytes (%) (Auto) 7.6 % Monocytes (%) (Auto) 9.8 % Eosinophils (%) (Auto) 0.8 % Basophils (%) (Auto) 0.0 % Neutrophils # (Auto) 2.15 K/uL Lymphocytes # (Auto) 0.20 K/uL Monocytes # (Auto) 0.26 K/uL Eosinophils # (Auto) 0.02 K/uL Basophils # (Auto) 0.00 K/uL RDW Standard Deviation 47.9 fL RDW Coefficient of Variation 16.8 % Immature Granulocyte % (Auto) 0.4 % Immature Granulocyte # (Auto) 0.01 K/uL Toxic Granulation 1+ Large Platelets 1+ Sodium Level 132 mmol/L Potassium Level 3.6 mmol/L Chloride Level 99 mmol/L Carbon Dioxide Level 26 mmol/L Anion Gap 7.0 mmol/L Blood Urea Nitrogen 5 mg/dl Creatinine 0.56 mg/dl Est Creatinine Clear Calc Drug Dose 95.5 ml/min Estimated GFR () 118.9 Estimated GFR (Non- 102.6 BUN/Creatinine Ratio 8.2 Random Glucose 140 mg/dl Calcium Level 8.1 mg/dl Test 05/10/17 07:50 Bedside Glucose 141 mg/dl Assessment & Plan 72-year-old male presents with left flank pain and is status post fall without consciousness secondary to weakness and dizziness. LEFT URETERAL CALCULUS WITH HYDRONEPHROSIS - renal function stable UA not indicative of UTI Urine cultures negative - Flomax started IV NSS given - Urology Dr. Wood s/p Left Ureteral Stent placement by Dr. Wood 05/08/[address] Wood as outpatient for definitive stone management - d/c on Flomax encourage to increase daily fluid intake s/p Fall secondary Weakness and dizziness - BP marginal on admission poor oral intake at home prior to admission - BP improved after IV fluids Lisinopril held - PT/OT: recommend return home PNEUMONIA ruled out - Lung CA patient on chemo, radiation - cxr: no pneumonia procalcitonin negative NAUSEA, RESOLVED - from anesthesia, stent placement? - (+) flatus no BM X 3 DAYS - PRN antiemetics started Senokot S add Lactulose PRN ANEMIA likely from Chemo Hg 7.9 asymptomatic monitor, maintain Hg~ 8 Hypertension -hold lisinopril as above Non-small cell lung cancer -currently on paclitaxel, carboplatin, XRT. - Last chemo dose was 05/01. - 4 more days of radiation therapy left radiation held during admission due to weakness, dehydration, nausea feeling better today, may proceed with Radiation, discussed with Dr. Wagner patient scheduled for chemo, informed Dr. Marx AAA -40% noncalcified mural thrombus. Discussed with hematology regarding management. DVT prophylaxis with Lovenox for now. - not seen on CT abdomen Diabetes type 2-A1c 7.1 - continue insulin sliding scale with carb coverage and Lantus 5 units twice daily while inpatient. Hold metformin. History of smoking Chronic pain-continue fentanyl patch Leukopenia-likely secondary to chemo Stage II decubitus ulcer -Aquacel and OPTi foam in place, wound care consulted. DVT prophylaxis-Lovenox Full code as discussed with patient and his son on admission Disposition anticipate d/c home tomorrow after radiation therapy ff up with PCP in 3-5 days ff up with Urologist Dr. Wood in 1 week for Ureteral Stent management ff up with Radiation Oncology as scheduled ff up with Dr. Marx for Chemo as scheduled Current Inpatient Medications: Current Inpatient Medications Medications (Trade) Dose Ordered Sig/Vicenta Route Start Time Stop Time Status Last Admin Dose Admin Ioversol (Optiray 320) 100 ml UD PRN IV 05/07/17 00:45 05/11/17 00:44 Enoxaparin Sodium (Lovenox Inj) 40 mg DAILY@0800 SQ 05/07/17 08:00 06/06/17 07:59 05/10/17 08:14 40 MG Acetaminophen (Tylenol Tab) 650 mg Q4H PRN PO 05/07/17 03:30 06/06/17 03:29 Polyethylene (Miralax Powder Packet) 17 gm DAILY PRN PO 05/07/17 03:30 06/06/17 03:29 Ondansetron HCl (Zofran Inj) 4 mg Q6H PRN IV 05/07/17 03:30 06/06/17 03:29 05/07/17 12:14 4 MG Insulin Glargine (Lantus Solostar Pen) 5 units Q12 SC 05/07/17 09:00 06/06/17 08:59 05/10/17 08:34 5 UNITS Insulin Aspart (novoLOG ASPART) SLIDING SCALE If C... ACHS SC 05/07/17 06:30 06/06/17 06:59 05/10/17 08:33 1 UNITS Glucose (Glucose 40% Gel) 15-30 GRAMS 15 GRAMS... UD PRN PO 05/07/17 03:30 06/06/17 03:29 Glucose (Glucose Chew Tab) 4-8 Tablets 4 Tabl... UD PRN PO 05/07/17 03:30 06/06/17 03:29 Dextrose (Dextrose 50% 50ML Syringe) 25-50ML OF 50% DW IV FOR... UD PRN IV 05/07/17 03:30 06/06/17 03:29 Glucagon (Glucagon Inj) 1 mg UD PRN SQ 05/07/17 03:30 06/06/17 03:29 Tamsulosin HCl (Flomax Cap) 0.4 mg HS PO 05/07/17 21:00 06/06/17 20:59 05/09/17 20:44 0.4 MG Docusate Sodium (coLACE CAP) 100 mg QAM PO 05/07/17 08:00 06/06/17 08:59 05/10/17 08:13 100 MG Dronabinol (Marinol Cap) 2.5 mg BID PO 05/07/17 08:00 06/06/17 08:59 05/10/17 08:26 2.5 MG Fentanyl (Duragesic Patch) 25 mcg Q72H TD 05/07/17 09:00 05/21/17 08:59 05/10/17 08:27 25 MCG Latanoprost (Xalatan Oph Soln) 1 drops HS OPR 05/07/17 21:00 06/06/17 20:59 05/09/17 20:44 1 DROPS Ondansetron HCl (Zofran Tab) 8 mg Q8 PRN PO 05/07/17 03:45 06/06/17 03:44 05/09/17 08:28 8 MG Prochlorperazine Maleate (Compazine Tab) 10 mg Q6H PRN PO 05/07/17 03:45 06/06/17 03:44 Tramadol HCl (Ultram Tab) 50 mg Q6 PRN PO 05/07/17 03:45 06/06/17 03:44 Oxycodone HCl (Roxicodone Immediate Rel Tab) 5 mg Q4H PRN PO 05/07/17 04:00 05/21/17 03:59 05/07/17 20:43 5 MG Miscellaneous (Fentanyl Patch Remove & Waste) 1 ea Q3D@0859 N/A 05/07/17 08:59 06/06/17 08:58 05/10/17 08:28 1 EA Miscellaneous Information (Check Fentanyl Patch Placement) 1 ea QS N/A 05/07/17 08:00 06/06/17 07:59 05/10/17 08:29 1 EA Enteral Nutritional Formula (Boost Glucose Control) 1 can TID PO 05/07/17 20:00 06/06/17 19:59 05/10/17 08:28 1 CAN Ipratropium [place] (Atrovent 0.02% 0.5MG/2.5ML Neb) 0.5 mg QIDR INH 05/08/17 12:00 06/07/17 11:59 05/10/17 07:39 0.5 MG Levalbuterol (Xopenex 1.25MG/ 0.5ML Neb) 1.25 mg QIDR INH 05/08/17 12:00 06/07/17 11:59 05/10/17 07:39 1.25 MG Senna/Docusate Sodium (Senokot S Tab) 1 tab QAM PO 05/10/17 08:00 06/09/17 07:59 05/10/17 08:13 1 TAB Senna/Docusate Sodium (Senokot S Tab) 1 tab ONE PO 05/09/17 09:45 06/08/17 09:44 Potassium Chloride/Sodium Chloride 1,000 ml @ 75 mls/hr [id number] IV 05/09/17 10:00 06/08/17 09:59 05/10/17 00:10 75 MLS/HR Heparin Sodium (Porcine) (Heparin 100 Unit/ml 5ml Flush) 5 ml PRN PRN FLUSH 05/09/17 20:30 06/08/17 20:29
[2017-05-10] MEDS ORDERED: LACTULOSE SYRUP 10 GM/15 ML BTL 473 ML PO PRN (10:15)
[2017-05-10] MEDS ORDERED: LEVALBUTEROL 1.25MG/0.5ML NEB INH PRN (10:30)
[2017-05-10] MEDS ORDERED: IPRATROPIUM BROMIDE NEB SOLN 0.02% 2.5 ML VIAL INH PRN (10:30)
[2017-05-10] MEDS: IPRATROPIUM BROMIDE HFA INHALER INH SCH ×2 (17:21→21:42)
[2017-05-10] MEDS: LEValbuterol HFA 15GM INHALER INH SCH ×2 (17:21→21:42)
[2017-05-10] MEDS: TAMSULOSIN HCL 0.4 MG CAP PO SCH (21:41)
[2017-05-10] MEDS: LATANOPROST 0.005% OP SOLN 2.5 ML BTL OPR SCH (21:43)
[2017-05-11] VITALS (7 sets, daily range): BP systolic 110–128; BP diastolic 64–84; PULSE 89–120; TEMP 36.4–36.9; O2SAT 92–100
[2017-05-11] MEDS: CHECK FENTANYL PATCH PLACEMENT SCH ×2 (00:01→07:54)
[2017-05-11 05:56] LABS: BASO % 0.8 %; BASO ABS # 0.02 K/uL (0-0.2); EOS % 1.3 %; EOS ABS # 0.03 K/uL (0-0.5); HEMATOCRIT 24.9 % (42-52); HEMOGLOBIN 8.5 g/dL (14.0-18.0); LYMPH % 10.4 %; LYMPH ABS # 0.25 K/uL (1.2-3.4); MEAN CELL VOLUME 80.1 fL (80-100); MEAN CORPUSCULAR HEMOGLOBIN 27.3 pg (25-34); MEAN CORPUSCULAR HGB CONC 34.1 g/dl (32-36); MONO % 11.3 %; MONO ABS # 0.27 K/uL (0.11-0.59); NEUT % 76.2 %; NEUT ABS # 1.83 K/uL (1.4-6.5); PLATELET COUNT 182 K/uL (130-400); RED CELL DISTRIBUTION WIDTH CV 16.9 % (11.5-14.5); RED CELL DISTRIBUTION WIDTH SD 47.7 fL (36.4-46.3)
[2017-05-11] MEDS: INSULIN ASPART 100 UNITS/ML 3 ML PEN SC SCH ×2 (06:30→11:00)
[2017-05-11 06:37] LABS: CALCIUM 8.2 mg/dl (8.5-10.1); CREATININE 0.45 mg/dl (0.60-1.40); POTASSIUM 3.3 mmol/L (3.5-5.1)
[2017-05-11] MEDS: IPRATROPIUM BROMIDE HFA INHALER INH SCH ×2 (07:49→11:40)
[2017-05-11] MEDS: LEValbuterol HFA 15GM INHALER INH SCH ×2 (07:51→11:38)
[2017-05-11] MEDS: DRONABINOL 2.5 MG CAP PO SCH (07:55)
[2017-05-11] MEDS: BOOST GLUCOSE CONTROL PO SCH ×2 (07:55→13:44)
[2017-05-11] MEDS: DOCUSATE SODIUM/SENNA 50/8.6MG TAB PO SCH (07:56)
[2017-05-11] MEDS: ENOXAPARIN 40 MG/0.4 ML SYR SQ SCH (07:58)
[2017-05-11] MEDS: INSULIN GLARGINE SOLOSTAR 100 UNITS/ML 3 ML PEN SC SCH (08:04)
[2017-05-11] MEDS: ONDANSETRON 8 MG TAB PO PRN (09:05)
[2017-05-11] MEDS ORDERED: POTASSIUM CHLORIDE 10 MEQ TABCR PO STA (12:04)
--- NOTE | 2017-05-11 12:31 | Progress Note ---
Internal Med Progress Note Date of Service: May 11, 2017. Provider Documentation: SUBJECTIVE: Seen and examined at bedside Had radiation therapy today No new complaints Family at bedside Denies SOB, chest pain, dizziness OBJECTIVE: Vital Signs-as noted below Physical Exam: General Appearance:thin, no apparent distress Head: normocephalic, Atraumatic Eyes: normal inspection, EOMI, PERRL Neck: supple, Trachea midline Respiratory/Chest: Normal breath sounds, scattered rhonchi Cardiovascular: S1, S2, No murmur, +Tachycardia Abdomen/GI:Soft, Non tender, Bowel sounds present Extremities/Musculoskelatal:normal inspection, no edema Neurologic/Psych:AAOX3, grossly no focal neurological deficits Skin: normal color, warm Lab data as noted below. ASSESSMENT & PLAN: Patient is a 72 yr male presents with left flank pain and is status post fall without consciousness secondary to weakness and dizziness. L Ureteral Calculus with Hydronephrosis s/p Left Ureteral Stent placement by Dr. Wood 05/08/17 Normal renal function Urine culture:negative Continue Flomax IV fluids discontinued Appreciate Urology Dr. Wood help needs follow up with Urology as outpatient Encouraged to increase oral fluid intake s/p Fall secondary Weakness and dizziness poor oral intake at home prior to admission Lisinopril held PT/OT: recommend return home PNEUMONIA ruled out Lung CA patient on chemo, radiation cxr: no pneumonia procalcitonin negative Anemia likely from Chemo, anemia of chronic disease Hg 8.5 today asymptomatic Hypokalemia: Replace and Monitor HTN: lisinopril held Non-small cell lung cancer currently on paclitaxel, carboplatin, XRT. Last chemo dose was 05/01. 3 more days of radiation therapy left radiation held during admission due to weakness, dehydration, nausea Had radiation therapy yesterday and today Patient scheduled for chemo with Dr. Marx as outpatient AAA 40% noncalcified mural thrombus. Discussed with hematology regarding management. DVT prophylaxis with Lovenox for now. not seen on CT abdomen DM II: A1C: 7.1 continue ISS, Lantus 5 units BID Hold metformin. History of smoking Chronic pain-continue fentanyl patch Leukopenia-likely secondary to chemo Stage II decubitus ulcer Aquacel and Opti foam in place wound care following DVT px: Lovenox SQ Code Status: Full code Disposition Plan to discharge home today Follow up with your PCP on 05/17/17 at 1:00pm Follow up with your Urologist as scheduled Follow up with your Oncologist for Chemotherapy Follow up with your Radiation Oncologist for radiation therapy Seek immediate medical attention if your symptoms reoccur or worsen Vital Signs: Date Time Temp Pulse Resp B/P (MAP) Pulse Ox O2 Delivery O2 Flow Rate FiO2 05/11/17 11:33 36.6 108 16 110/68 (82) 100 Room Air 05/11/17 08:16 92 Room Air 05/11/17 07:46 36.4 120 16 128/84 (99) 92 Room Air 05/11/17 04:44 36.6 102 18 117/74 (88) 96 Room Air 05/11/17 00:05 36.9 89 18 114/64 (81) 96 Room Air 05/11/17 00:00 Room Air 05/10/17 20:00 Room Air 05/10/17 19:26 36.9 95 18 111/63 (79) 96 Room Air 05/10/17 16:31 Room Air 05/10/17 14:07 36.4 117 20 122/82 99 Lab Results: Results Past 24 Hours Test 05/10/17 16:37 05/10/17 20:13 05/11/17 05:38 05/11/17 07:31 Range/Units Bedside Glucose 124 163 140 70-99 mg/dl White Blood Count 2.40 4.8-10.8 K/uL Red Blood Count 3.11 4.7-6.1 M/uL Hemoglobin 8.5 14.0-18.0 g/dL Hematocrit 24.9 42-52 % Mean Corpuscular Volume 80.1 80-100 fL Mean Corpuscular Hemoglobin 27.3 25-34 pg Mean Corpuscular Hemoglobin Concent 34.1 32-36 g/dl Platelet Count 182 130-400 K/uL Mean Platelet Volume 8.0 7.4-10.4 fL Neutrophils (%) (Auto) 76.2 % Lymphocytes (%) (Auto) 10.4 % Monocytes (%) (Auto) 11.3 % Eosinophils (%) (Auto) 1.3 % Basophils (%) (Auto) 0.8 % Neutrophils # (Auto) 1.83 1.4-6.5 K/uL Lymphocytes # (Auto) 0.25 1.2-3.4 K/uL Monocytes # (Auto) 0.27 0.11-0.59 K/uL Eosinophils # (Auto) 0.03 0-0.5 K/uL Basophils # (Auto) 0.02 0-0.2 K/uL RDW Standard Deviation 47.7 36.4-46.3 fL RDW Coefficient of Variation 16.9 11.5-14.5 % Immature Granulocyte % (Auto) 0.0 % Immature Granulocyte # (Auto) 0.00 0.00-0.02 K/uL Acanthocytes 1+ Sodium Level 132 136-145 mmol/L Potassium Level 3.3 3.5-5.1 mmol/L Chloride Level 99 98-107 mmol/L Carbon Dioxide Level 26 21-32 mmol/L Anion Gap 7.0 3-11 mmol/L Blood Urea Nitrogen 4 7-18 mg/dl Creatinine 0.45 0.60-1.40 mg/dl Est Creatinine Clear Calc Drug Dose 117.7 ml/min Estimated GFR () 130.1 Estimated GFR (Non- 112.3 BUN/Creatinine Ratio 9.4 10-20 Random Glucose 126 70-99 mg/dl Calcium Level 8.2 8.5-10.1 mg/dl Test 05/11/17 11:28 Range/Units Bedside Glucose 196 70-99 mg/dl
[2017-05-11] MEDS ORDERED: FLM4 PO (12:33)
[2017-05-11] MEDS ORDERED: MRLP17X PO (12:33)
--- NOTE | 2017-05-11 12:35 | Discharge Summary ---
Discharge Summary Date of Service May 11, 2017. Discharge Summary Admission Date: May 07, 2017 at 03:33 Discharge Date: May 11, 2017 Discharge Disposition: Home Principal Diagnosis: Ureteral Colic Procedures: CT ABD: 1. Moderate left hydronephrosis due to a 1.4 x 1 cm proximal left ureteral calculus. 2. Several right lower lobe ill-defined pulmonary nodules which measure up to 1.7 cm. These are new since PET/CT of March 07, 2017 and may be infectious or neoplastic in etiology. A chest CT in one month is recommended. 3. Left-sided nephrolithiasis and small bladder calculi. 4. No change in a 4.3 cm infrarenal abdominal aortic aneurysm since prior PET/CT. No rupture. 5. Indeterminate 1 cm right renal lesion which is too small to characterize. CXR: Chronic change. Unchanging parenchymal nodularity and masslike change as discussed. No acute process Retrograde Pyelogram: Fluoroscopy provided for left ureteral stent placement. Consultations: Urology, Radiation Oncology Pending Studies/Follow-Up: Follow up with your PCP on 05/17/17 at 1:00pm Follow up with your Urologist as scheduled Follow up with your Oncologist for Chemotherapy Follow up with your Radiation Oncologist for radiation therapy Seek immediate medical attention if your symptoms reoccur or worsen Medication Reconciliation New Medications: Polyethylene (Miralax) 17 Gm Pow 17 GM PO DAILY PRN for Constipation for 14 Days, #14 EA Tamsulosin HCl (Tamsulosin HCl) 0.4 Mg Cap 0.4 MG PO HS for 30 Days, #30 CAP 1 Refill Continued Medications: Atorvastatin (Lipitor) 40 Mg Tab 40 MG PO HS, TAB Dexamethasone (Decadron) 4 Mg Tab 4 TAB PO UD 3 tablets night before and morning of chemo Docusate Sodium (Colace) 100 Mg Cap 1 CAP PO QAM Dronabinol (Dronabinol) 2.5 Mg Cap 2.5 MG PO BID, CAP Fentanyl (Fentanyl) 25 Mcg Tdsy PATCH Q72H Glipizide (Glipizide) 5 Mg Tab 10 MG PO DAILY PRN for decadron use with chemo Latanoprost (Xalatan 0.005% Oph Benita) 0.005 % Benita 1 DROPS OPR HS Lisinopril (Zestril) 5 Mg Tab 5 MG PO HS Metformin Hcl (Glucophage) 500 Mg Tab 500 MG PO BID Ondansetron Hcl (Zofran) 8 Mg Tab 8 MG PO Q8 PRN for Nausea Prochlorperazine Maleate (Compazine) 10 Mg Tab 10 MG PO Q6H Tramadol (Ultram) 50 Mg Tab 50 MG PO Q6 PRN for Pain Admission Information HPI (per Admitting provider): The patient is a 72-year-old man with lung cancer currently on chemotherapy and radiation who presents to the ER with constant left flank pain beginning around 9 PM tonight. The patient did note some abdominal pain 24 hours prior to that but I taken some Zofran, Compazine before going to bed, woke up. He was able to eat normally today. He did note that he was weak and fell in his kitchen without any loss of consciousness or hitting anything. He has reported some weakness and dizziness patient denies any shortness of breath, nausea, vomiting , chest pain, changes to his bowel movements. He does note some chronic coughing and was a smoker up until 3 months ago with no changes reported in coughing or sputum production or shortness of breath. Denies any sick contacts. He was diagnosed with lung cancer 2 months ago and is currently on chemotherapy with the last dose of paclitaxel and carboplatin on 05/01. He is on daily radiation under the care of Dr. Benson Wagner. In the ER he was slightly hypotensive with a systolic pressure of 89 which responded well to 1 L of fluids. Workup with CT scan of the abdomen reveals a 1 cm mid ureteral stone on the left side with hydronephrosis. Urinalysis is currently pending. Patient denies any UTI symptoms. The patient denies any history of ureteral stones in the past. The patient does report that he is not drinking enough water and his son corroborates this who is at bedside. He does also note a sacral ulcer for which she is seeing wound care. Physical Exam (per Admitting): General Appearance: no apparent distress, + cachetic Head: normocephalic, atraumatic Eyes: normal inspection, PERRL, sclerae normal ENT: TMs normal, pharynx normal, + pertinent finding (Mucous membranes dry) Neck: supple, trachea midline Respiratory/Chest: chest non-tender, normal breath sounds, no respiratory distress, no accessory muscle use, + rhonchi (Coarse rhonchi throughout all lung bowen, no wheezing) Cardiovascular: regular rate, rhythm, no edema, no gallop, no JVD, no murmur , normal peripheral pulses Abdomen/GI: normal bowel sounds, non tender, soft, no organomegaly Back: normal inspection, + left CVA tenderness Extremities/Musculoskelatal: normal inspection, no calf tenderness, no pedal edema, normal range of motion Neurologic/Psych: plant pathologist II-XII nml as tested, alert, normal mood/affect, oriented x 3 Skin: + pertinent finding (Stage II sacral decubitus ulcer present on arrival) Hospital Course Patient is a 72 yr male presents with left flank pain and is status post fall without consciousness secondary to weakness and dizziness. L Ureteral Calculus with Hydronephrosis s/p Left Ureteral Stent placement by Dr. Wood 05/08/17 Normal renal function Urine culture:negative Continue Flomax IV fluids discontinued Appreciate Urology Dr. Wood help needs follow up with Urology as outpatient Encouraged to increase oral fluid intake s/p Fall secondary Weakness and dizziness poor oral intake at home prior to admission Lisinopril held PT/OT: recommend return home PNEUMONIA ruled out Lung CA patient on chemo, radiation cxr: no pneumonia procalcitonin negative Anemia likely from Chemo, anemia of chronic disease Hg 8.5 today asymptomatic Hypokalemia: Replace and Monitor HTN: lisinopril held Non-small cell lung cancer currently on paclitaxel, carboplatin, XRT. Last chemo dose was 3/6. 3 more days of radiation therapy left radiation held during admission due to weakness, dehydration, nausea Had radiation therapy yesterday and today Patient scheduled for chemo with Dr. Marx as outpatient AAA 40% noncalcified mural thrombus. Discussed with hematology regarding management. DVT prophylaxis with Lovenox for now. not seen on CT abdomen DM II: A1C: 7.1 continue ISS, Lantus 5 units BID Hold metformin. History of smoking Chronic pain-continue fentanyl patch Leukopenia-likely secondary to chemo Stage II decubitus ulcer Aquacel and Opti foam in place wound care following DVT px: Lovenox SQ Code Status: Full code Disposition Plan to discharge home today Follow up with your PCP on 05/17/17 at 1:00pm Follow up with your Urologist as scheduled Follow up with your Oncologist for Chemotherapy Follow up with your Radiation Oncologist for radiation therapy Seek immediate medical attention if your symptoms reoccur or worsen Total time spent on discharge = 36 minutes This includes examination of the patient, discharge planning, medication reconciliation, and communication with other providers. Discharge Instructions Discharge Instructions Date of Service May 11, 2017. Admission Reason for Admission: Ureteral Colic Discharge Discharge Diagnosis / Problem: Ureteral Colic Discharge Goals Goal(s): Decrease discomfort, Improve function Activity Recommendations Activity Limitations: resume your previous activity Exercise/Sports Limitations: as tolerated . Instructions / Follow-Up Instructions / Follow-Up Follow up with your PCP on 05/17/17 at 1:00pm Follow up with your Urologist as scheduled Follow up with your Oncologist for Chemotherapy Follow up with your Radiation Oncologist for radiation therapy Seek immediate medical attention if your symptoms reoccur or worsen Current Hospital Diet Patient's current hospital diet: Regular Diet Discharge Diet Recommended Diet: Regular Diet Procedures Procedures Performed: Cystoscopy, left ureteral stent placement6 Latvian by 2232 cm Pending Studies Studies pending at discharge: no Laboratory Results Hemoglobin A1c Test 05/07/17 06:07 Range/Units Estimated Average Glucose 154 mg/dl Hemoglobin A1c 7.0 H 4.5-5.6 % Medical Emergencies . Who to Call and When: Medical Emergencies: If at any time you feel your situation is an emergency, please call 911 immediately. . Non-Emergent Contact Non-Emergency issues call your: Primary Care Provider, Oncologist, Urologist Call Non-Emergent contact if: you have a fever, your pain is not controlled, your pain is worsening, your pain is unusual for you, your pain is concerning you, you have any medication questions Seek immediate medical attention if your symptoms reoccur or worsen . . "Provider Documentation" section prepared by Luisito Reyes. . <Electronically signed by Luisito Reyes MD> Signed: 05/11/17 0556 Signed: The status of this report is Signed * If report status is Draft, the document has not been finalized by the responsible provider.
[2017-05-12] MEDS ORDERED: TAMS0.4C38 PO (23:36)
[2017-05-12] MEDS ORDERED: POLY335019 PO (23:37)
== END 2017-05-11 14:48 | disposition home or self-care (01) | DRG 694 ==
LOC: C.EDB 05-07 → C.4E 05-07 03:33 → EDBEDREQ 05-07 03:39 → ENRESERV 05-07 03:56
PROVIDERS: ADMIT Hospitalist; ATTEND Internal Medicine
PROC: 0T778DZ Dilation of Left Ureter with Intraluminal Device, Via Natural or Artificial Opening Endoscopic (ICD-10-PCS; principal; 2017-05-08 17:00)
DX: N13.2 Hydronephrosis with renal and ureteral calculous obstruction (principal); C34.12 Malignant neoplasm of upper lobe, left bronchus or lung; E87.1 Hypo-osmolality and hyponatremia; L89.152 Pressure ulcer of sacral region, stage 2; E11.9 Type 2 diabetes mellitus without complications; E86.0 Dehydration; I10 Essential (primary) hypertension; R42 Dizziness and giddiness; R53.1 Weakness; G89.29 Other chronic pain; D70.1 Agranulocytosis secondary to cancer chemotherapy; D64.81 Anemia due to antineoplastic chemotherapy; I71.4 Abdominal aortic aneurysm, without rupture; Z79.84 Long term (current) use of oral hypoglycemic drugs; Z79.899 Other long term (current) drug therapy; Z87.891 Personal history of nicotine dependence; Z88.1 Allergy status to other antibiotic agents; Z92.3 Personal history of irradiation; Z91.81 History of falling; T45.1X5A Adverse effect of antineoplastic and immunosuppressive drugs, initial encounter

== ENCOUNTER 2017-05-12 23:03 | Inpatient (IN) | payer OTHER ==
[~2017-05-12] VITALS: Ht 167.6 cm; Wt 54.5 kg
[~2017-05-12 23:03] MED LIST changes: -ATOR-24 PO; +DRON2.5C10 PO; +FLM4 PO; +GLC5 PO; +LPT40 PO; +MRLP17X PO
[2017-05-12] MEDS ORDERED: TAMS0.4C38 PO (23:36)
[2017-05-12] MEDS ORDERED: POLY335019 PO (23:37)
[2017-05-13] VITALS (15 sets, daily range): BP systolic 80–109; BP diastolic 52–62; PULSE 89–137; TEMP 36.3–36.8; O2SAT 93–100; Ht 167.6 cm; Wt 54.5 kg
[2017-05-13 00:17] LABS: HEMATOCRIT 27.7 % (42-52); HEMOGLOBIN 9.5 g/dL (14.0-18.0); MEAN CORPUSCULAR HEMOGLOBIN 27.8 pg (25-34); MEAN CORPUSCULAR HGB CONC 34.3 g/dl (32-36); MEAN PLATELET VOLUME 7.8 fL (7.4-10.4); PLATELET COUNT 190 K/uL (130-400); RED CELL DISTRIBUTION WIDTH CV 17.1 % (11.5-14.5); RED CELL DISTRIBUTION WIDTH SD 48.4 fL (36.4-46.3); WHITE BLOOD COUNT 4.65 K/uL (4.8-10.8)
[2017-05-13] MEDS ORDERED: SODIUM CHLORIDE 0.9% 500ML 500 ML IV STA (00:32)
[2017-05-13 00:41] LABS: ALKALINE PHOSPHATASE 92 U/L (45-117); ALT/SGPT 34 U/L (12-78); AST/SGOT 19 U/L (15-37); BLOOD UREA NITROGEN 11 mg/dl (7-18); CALCIUM 8.4 mg/dl (8.5-10.1); CARBON DIOXIDE 25 mmol/L (21-32); CREATININE 0.94 mg/dl (0.60-1.40); GLUCOSE 132 mg/dl (70-99); POTASSIUM 3.3 mmol/L (3.5-5.1); SODIUM 132 mmol/L (136-145); TOTAL PROTEIN 5.6 gm/dl (6.4-8.2)
[2017-05-13 00:46] LABS: BASO % 0.2 %; BASO ABS # 0.01 K/uL (0-0.2); IG# 0.03 K/uL (0.00-0.02); LYMPH % 9.2 %; LYMPH ABS # 0.43 K/uL (1.2-3.4); MONO % 9.2 %; MONO ABS # 0.43 K/uL (0.11-0.59); NEUT % 80.8 %; NEUT ABS # 3.75 K/uL (1.4-6.5)
[2017-05-13] MEDS ORDERED: OPTIRAY 320 IV PRN (02:00)
[2017-05-13] MEDS ORDERED: SODIUM CHLORIDE 0.9% 1000ML 1,000 ML IV STA (02:48)
[2017-05-13] MEDS ORDERED: HEPARIN 25000 UNIT/500 ML D5W ONE (02:59)
[2017-05-13] MEDS ORDERED: HEPARIN SOD 5000 UNIT/0.5 ML CARP ONE (03:00)
[2017-05-13] MEDS ORDERED: POTASSIUM CHLORIDE 10 MEQ TABCR PO STA ×2 (03:02→21:18)
[2017-05-13 03:22] LABS: LIPASE 65 U/L (73-393)
[2017-05-13] MEDS: HEPARIN 25,000 UNIT/500ML D5W 500 ML IV SCH (03:30)
[2017-05-13 03:32] LABS: INR 1.2 (0.9-1.1); PTT PATIENT 35.4 SECONDS (21.0-31.0)
[2017-05-13] MEDS ORDERED: LEVALBUTEROL/IPRATROPIUM NEB INH STA (04:23)
[2017-05-13] MEDS ORDERED: HEPARIN IV LOW DOSE NO BOLUS STA (04:28)
[2017-05-13] MEDS ORDERED: LEVALBUTEROL/IPRATROPIUM NEB INH PRN (04:30)
[2017-05-13] MEDS ORDERED: GLUCOSE 10 TABS/TUBE PO PRN (04:45)
[2017-05-13] MEDS ORDERED: GLUCAGON FOR INJ 1 MG VIAL SQ PRN (04:45)
[2017-05-13] MEDS ORDERED: GLUCOSE 40% GEL 15 GM TUBE PO PRN (04:45)
[2017-05-13] MEDS ORDERED: DEXTROSE 50% 50 ML SYR IV PRN (04:45)
[2017-05-13] MEDS ORDERED: FENTANYL 25 MCG/HR TDSY TD SCH (04:45)
[2017-05-13] MEDS ORDERED: NSS + 20MEQ KCL 1000ML 1,000 ML IV ONE ×3 (04:45→22:00)
[2017-05-13] MEDS ORDERED: TRAMADOL HCL 50 MG TAB PO PRN (04:45)
[2017-05-13] MEDS ORDERED: METHYLPREDNISOLONE IV 20 MG in SYRINGE 0 ML IV STA (04:48)
[2017-05-13] MEDS ORDERED: LEVALBUTEROL 1.25MG/0.5ML NEB INH STA (04:50)
[2017-05-13] MEDS ORDERED: IPRATROPIUM BROMIDE NEB SOLN 0.02% 2.5 ML VIAL INH STA (04:50)
--- NOTE | 2017-05-13 05:11 | EMERGENCY ROOM VISIT NOTE ---
History Report prepared by Ruth: Dee Grant Under the Supervision of: Dr. Pinky Land D.O. First contact with patient: 23:06 Chief Complaint: SHORTNESS OF BREATH Stated Complaint: SOB,TROUBLE WALKING,STOMACH ISSUE History of Present Illness The patient is a 72 year old male who presents to the Emergency Room with complaints of worsening shortness of breath starting last night. The patient's son states that as the day went on today it got worse and worse. He states that the patient does not normally wear oxygen at home. The son states that they were just discharged yesterday. The patient's son complains of the patient coughing and not eating well. The patient denies abdominal pain. The son notes that the patient was supposed to have chemo Sunday, but missed it since he was admitted. The patient was discharged yesterday from the hospital for ureteral colic. Source of History: patient Onset: last night Position: other (global) Quality: other (shortness of breath) Timing: worsening Associated Symptoms: + cough, No abdominal pain Note: The patient's son complains of the patient not eating well. Review of Systems See HPI for pertinent positives & negatives. A total of 10 systems reviewed and were otherwise negative. Past Medical & Surgical Medical Problems: (1) AAA (abdominal aortic aneurysm) (2) Diabetes (3) Glaucoma (4) Lung cancer (5) Primary cancer of left upper lobe of lung (6) Respiratory failure, acute (7) Sacral decubitus ulcer, stage II (8) Ureteral colic Surgical Problems: (1) History of back surgery (2) History of tonsillectomy (3) Status post right knee surgery Family History Cancer Diabetes mellitus Gallbladder disease Heart disease Social History Smoking Status: Former Smoker Drug Use: none Marital Status: Housing Status: lives with friends Occupation Status: retired Current/Historical Medications Scheduled Atorvastatin (Lipitor), 40 MG PO HS Dexamethasone (Decadron), 4 TAB PO UD Docusate Sodium (Colace), 100 MG PO QAM Dronabinol (Dronabinol), 2.5 MG PO BID Fentanyl (Fentanyl), PATCH Q72H Latanoprost (Xalatan 0.005% Oph Benita), 1 DROPS OPR HS Lisinopril (Zestril), 5 MG PO HS Metformin Hcl (Glucophage), 500 MG PO BID Prochlorperazine Maleate (Compazine), 10 MG PO Q6H Tamsulosin Hcl (Flomax), 0.4 MG PO HS Scheduled PRN Glipizide (Glipizide), 10 MG PO DAILY PRN for decadron use with chemo Ondansetron Hcl (Zofran), 8 MG PO Q8 PRN for Nausea Polyethylene Glycol 3350 (Miralax), 17 GM PO DAILY PRN for Constipation Tramadol (Ultram), 50 MG PO Q6 PRN for Pain Allergies Coded Allergies: Clindamycin (Verified Allergy, Intermediate, Rash all over body , 05/07/17) Physical Exam Vital Signs Date Time Temp Pulse Resp B/P (MAP) Pulse Ox O2 Delivery O2 Flow Rate FiO2 05/13/17 00:31 37.0 125 30 90/59 95 Nasal Cannula 3.0 05/12/17 23:34 90 Room Air 05/12/17 23:30 125 05/12/17 23:14 36.8 90 24 71/46 96 Room Air Physical Exam HEENT: Head - normocephalic and atraumatic Pupils are equal, round, and reactive to light. Extraocular eye muscles are intact, and sclera are anicteric. Nose - moist nasal mucosa without discharge. Mouth - dry buccal mucosa. Oropharynx is nonerythematous and there is no tonsillar exudate or edema noted. Neck: Supple; no JVD, nuchal rigidity, cervical lymphadenopathy. Heart: Tachycardic rate and regular rhythm. There is a normal S1 and S2 with no murmurs, clicks, or gallops appreciated. Lungs: Diminished breath sounds at the left lung base. Clear to auscultation bilaterally with no wheezes, rales, or rhonchi. Abdomen: Soft, completely nontender, nondistended, with good bowel sounds. There are no palpable pulsatile masses or hepatosplenomegaly. There is no guarding, rigidity, or rebound noted. Extremities: No evidence of cyanosis, clubbing, or edema. There are easily palpable peripheral pulses. Skin: Pale, hot and dry with poor turgor and no rashes. Medical Decision & Procedures ER Provider Diagnostic Interpretation: Radiology results as stated below per my review and the radiologist's interpretation: CHEST X-RAY: The results were interpreted by me. Left upper lobe mass with some mild vascular congestion. No pleural effusions. CTA CHEST: Irregular soft tissue gas concerning for malignancy involving the area of the AP window. This extends the adjacent residual left upper lobe anteriorly with cavitary component. There is marked narrowing of the left main pulmonary artery by the mass which potentially invades the left main pulmonary artery, Intraluminal embolus either representing bland or tumor thrombus in the proximal pulmonary artery branch associated with the left. Lower lobe for example in image 95 series 2. Centrilobular emphysema most prominent at the right upper lobe. Cavitary nodule at the posterior aspect of the right lower lobe measuring 2 cm. Several confluent nodules involving the right upper and lower lobe. Differential includes infection or tumor. Radiologist: Alex Desai MD Study ready at 02:29 and initial results transmitted at 02:46. Laboratory Results 05/13/17 00:07 Red Blood Count 3.42, Mean Corpuscular Volume 81.0, Mean Corpuscular Hemoglobin 27.8, Mean Corpuscular Hemoglobin Concent 34.3, Mean Platelet Volume 7.8, Neutrophils (%) (Auto) 80.8, Lymphocytes (%) (Auto) 9.2, Monocytes (%) (Auto) 9.2, Eosinophils (%) (Auto) 0.0, Basophils (%) (Auto) 0.2, Neutrophils # (Auto) 3.75, Lymphocytes # (Auto) 0.43, Monocytes # (Auto) 0.43, Eosinophils # (Auto) 0.00, Basophils # (Auto) 0.01 05/13/17 00:07 Test 05/13/17 00:07 05/13/17 01:56 05/13/17 04:39 White Blood Count 4.65 K/uL (4.8-10.8) Red Blood Count 3.42 M/uL (4.7-6.1) Hemoglobin 9.5 g/dL (14.0-18.0) Hematocrit 27.7 % (42-52) Mean Corpuscular Volume 81.0 fL (80-100) Mean Corpuscular Hemoglobin 27.8 pg (25-34) Mean Corpuscular Hemoglobin Concent 34.3 g/dl (32-36) Platelet Count 190 K/uL (130-400) Mean Platelet Volume 7.8 fL (7.4-10.4) Neutrophils (%) (Auto) 80.8 % Lymphocytes (%) (Auto) 9.2 % Monocytes (%) (Auto) 9.2 % Eosinophils (%) (Auto) 0.0 % Basophils (%) (Auto) 0.2 % Neutrophils # (Auto) 3.75 K/uL (1.4-6.5) Lymphocytes # (Auto) 0.43 K/uL (1.2-3.4) Monocytes # (Auto) 0.43 K/uL (0.11-0.59) Eosinophils # (Auto) 0.00 K/uL (0-0.5) Basophils # (Auto) 0.01 K/uL (0-0.2) RDW Standard Deviation 48.4 fL (36.4-46.3) RDW Coefficient of Variation 17.1 % (11.5-14.5) Immature Granulocyte % (Auto) 0.6 % Immature Granulocyte # (Auto) 0.03 K/uL (0.00-0.02) Acanthocytes 1+ Prothrombin Time 12.8 SECONDS (9.0-12.0) Prothromb Time International Ratio 1.2 (0.9-1.1) Activated Partial Thromboplast Time 35.4 SECONDS (21.0-31.0) Partial Thromboplastin Ratio 1.4 Anion Gap 10.0 mmol/L (3-11) Est Creatinine Clear Calc Drug Dose 56.7 ml/min Estimated GFR () 92.9 Estimated GFR (Non- 80.1 BUN/Creatinine Ratio 11.8 (10-20) Calcium Level 8.4 mg/dl (8.5-10.1) Magnesium Level 1.7 mg/dl (1.8-2.4) Total Bilirubin 0.4 mg/dl (0.2-1) Aspartate Amino Transf (AST/SGOT) 19 U/L (15-37) Alanine Aminotransferase (ALT/SGPT) 34 U/L (12-78) Alkaline Phosphatase 92 U/L (45-117) Troponin I < 0.015 ng/ml (0-0.045) Pro-B-Type Natriuretic Peptide 924 pg/ml (0-900) Total Protein 5.6 gm/dl (6.4-8.2) Albumin 2.0 gm/dl (3.4-5.0) Globulin 3.6 gm/dl (2.5-4.0) Albumin/Globulin Ratio 0.6 (0.9-2) Lipase 65 U/L (73-393) Urine Color RED Urine Appearance TURBID (CLEAR) Urine pH 6.0 (4.5-7.5) Urine Specific Ransom 1.017 (1.000-1.030) Urine Protein 3+ (NEG) Urine Glucose (UA) NEG (NEG) Urine Ketones NEG (NEG) Urine Occult Blood 2+ (NEG) Urine Nitrite NEG (NEG) Urine Bilirubin NEG (NEG) Urine Urobilinogen NEG (NEG) Urine Leukocyte Esterase SMALL (NEG) Urine WBC (Auto) 10-30 /hpf (0-5) Urine RBC (Auto) >30 /hpf (0-4) Urine Hyaline Casts (Auto) 5-10 /lpf (0-5) Urine Epithelial Cells (Auto) >30 /lpf (0-5) Urine Bacteria (Auto) NEG (NEG) Urine Renal Epithelial Cells /lpf (0-5) Urine Yeast (Auto) (NONE PRSENT) Arterial Blood pH 7.44 (7.35-7.45) Arterial Blood Partial Pressure CO2 37 mmHg (35-46) Arterial Blood Partial Pressure O2 111 mm/Hg (80-95) Arterial Blood HCO3 25 mmol/L (19-24) Arterial Blood Oxygen Saturation 97.2 % (90-95) Arterial Blood Base Excess 0.6 mEq/L (-9-1.8) Arterial Blood Gas Delivery 3L Marcus Test POS (POS) Lactic Acid Level 0.7 mmol/L (0.4-2.0) Laboratory results per my review. Medications Administered Medications (Trade) Dose Ordered Sig/Vicenta Route Start Time Stop Time Status Last Admin Dose Admin Sodium Chloride 500 ml @ 999 mls/hr Q31M STAT IV 05/13/17 00:32 05/13/17 01:02 DC 05/13/17 00:44 999 MLS/HR Sodium Chloride 1,000 ml @ 125 mls/hr Q8H STAT IV 05/13/17 02:48 05/13/17 10:47 05/13/17 02:48 125 MLS/HR Heparin Sodium/ Dextrose (Heparin 25,000 Unit/500ml D5W) 25,000 unit STK-MED ONCE .ROUTE 05/13/17 02:59 05/13/17 03:00 DC 05/13/17 03:06 25,000 UNIT Heparin Sodium (Porcine) (Heparin Sq 5000 Unit/0.5ml) 5,000 unit STK-MED ONCE .ROUTE 05/13/17 03:00 05/13/17 03:01 DC 05/13/17 03:00 5,000 UNIT Potassium Chloride (Klor-Con M10) 40 meq NOW STAT PO 05/13/17 03:02 05/13/17 03:05 DC 05/13/17 04:57 40 MEQ Methylprednisolone Sodium Succinate 20 mg/Syringe 0.32 ml @ 1.5 mls/min NOW STAT IV 05/13/17 04:48 05/13/17 04:50 DC 05/13/17 04:57 1.5 MLS/MIN Procedure 0032: Ordered NSS 500 ml @ 999 mls/hr IV. 0247: Ordered Heparin Sodium/Dextrose 1 ea IV. 0248: Ordered NSS 1000 ml @ 125 mls/hr IV. ECG Per My Interpretation Indication: SOB/dyspnea Rate (beats per minute): 140 Rhythm: sinus tachycardia Findings: no acute ischemic change (no obvious), other (poor basleine due to artifact) ED Course 2343: Past medical records reviewed. The patient was evaluated in room A3. A complete history and physical exam was performed. The patient was observed on a drawer in plain loom and pulse oximeter. He had a 12-lead EKG as described above. His port was accessed. 0030: I reevaluated the patient and his repeat blood pressure is 90/59. 0032: Ordered NSS 500 ml @ 999 mls/hr IV. 0138: I reevaluated the patient and he was sleeping. I let him know about the need for a CTA. 0247: Ordered Heparin Sodium/Dextrose 1 ea IV. 0248: I reevaluated the patient and updated him on his test results. 0248: Ordered NSS 1000 ml @ 125 mls/hr IV. 0250: Discussed the patient's case with Dr. Lazaro Gerardo Hospitalist. The patient will be evaluated for further management. Medical Decision The patient is a 72 year old male who presents to the Emergency Room with complaints of worsening shortness of breath starting last night. Differential diagnoses include pneumothorax, pleural effusion, pneumonia, CHF, PE. LABS: White count 4.6 Hemoglobin 9.5 which is baseline Platelet count 190 Normal renal function Glucose 132 INR 1.2 PTT 35.4 This is a 72-year-old male patient presents to the emergency department with worsening shortness of breath since earlier today. Patient has a history of lung cancer. He was recently discharged from the hospital after a kidney stone on the left. The patient's son denies a previous history of shortness of breath or the need for oxygen. Patient went for CT scan of the chest which revealed evidence of a left-sided pulmonary embolism which was thought to be thrombus versus tumor thrombus. O2 saturations remained stable while here in the emergency department. The patient was given a heparin bolus and started on IV heparin drip. Medication Reconcilliation Current Medication List: was personally reviewed by me Blood Pressure Screening Patient's blood pressure: Low blood pressure Will be further monitored by the hospitalist. Consults Time Called: 024 Consulting Physician: Dr. Lazaro Gerardo Hospitalist Returned Call: 0250 Discussed the patient's case with Dr. Lazaro Gerardo [facility]. The patient will be evaluated for further management. Impression Primary Impression: Pulmonary embolism Scribe Attestation The scribe's documentation has been prepared under my direction and personally reviewed by me in its entirety. I confirm that the note above accurately reflects all work, treatment, procedures, and medical decision making performed by me. Departure Information Dispostion Being Evaluated By Hospitalist Nathaniel Self M.D. (PCP) Patient Instructions My [facility] Problem Qualifiers Primary Impression: Pulmonary embolism Pulmonary embolism type: other Chronicity: acute Acute cor pulmonale presence: without acute cor pulmonale Qualified Codes: I26.99 - Other pulmonary embolism without acute cor pulmonale
[2017-05-13 05:58] LABS: HEMATOCRIT 26.3 % (42-52); HEMOGLOBIN 8.8 g/dL (14.0-18.0)
--- NOTE | 2017-05-13 06:00 | DIAGNOSTIC IMAGING REPORT ---
CHEST 2 VIEWS ROUTINE HISTORY: 72 years-old Male sob acute shortness of breath COMPARISON: Chest radiograph 05/08/2017, CTA chest of same day TECHNIQUE: AP and lateral views of the chest FINDINGS: Left hemidiaphragmatic elevation redemonstrated. Masslike opacity of the medial left upper lobe redemonstrated suggestive medial cavitation measuring up to 5.5 cm in craniocaudal dimension. Right internal jugular [id number] catheter is unchanged. Atherosclerosis of the aorta. Cardiac silhouette is within normal limits. Emphysema with chronic interstitial coarsening. There is a 1.8 cm cavitary lesion of the right midlung. Bones of the chest appear grossly intact. Fusion hardware of the lumbar spine partially imaged. IMPRESSION: 1. Masslike opacity of the medial left upper lobe redemonstrated with central cavitation. Additionally, there is a cavitary nodule of the right midlung. These findings are better seen and discussed on CTA chest of same day. 2. Emphysema. The above report was generated using voice recognition software. It may contain grammatical, syntax or spelling errors. Electronically signed by: Kilo Kim M.D. 05/13/2017 5:59 AM Dictated Date/Time: 05/13/2017 5:56 AM
--- NOTE | 2017-05-13 06:14 | HISTORY & PHYSICAL EXAMINATION ---
DATE OF ADMISSION: 05/13/2017 PRIMARY CARE PHYSICIAN: Nathaniel Dawson MD. CHIEF COMPLAINT: Shortness of breath. HISTORY OF PRESENT ILLNESS: History obtained from patient, son, and records. Medical history significant for nonsmall cell lung cancer stage IIIB, ongoing chemoradiation, hypertension, AAA, DM2 on oral meds, past tobacco abuse, urolithiasis, chronic anemia (baseline hemoglobin 8-12), chronic cancer pain on Fentanyl patch. Chronic hyponatremia. Recent confinement last week for L ureteral colic. CT showed moderate left hydronephrosis, 1.4 x 1 cm proximal left ureter calculus, several right lower lobe. Recent pulmonary nodules measuring 1.7 cm new since PET CT February 2017. Patient underwent cystoscopy with left ureteral stent placement by [facility] last May 08. As per operative note, stone was not well visualized under fluoroscopy although resistance was felt just above the spinal surgery implants. Since discharge, persistent hematuria, no unusual flank pain, no fever no chills. At home, blood pressure noted to be kind of low. About 2 nights ago, the patient noted increasing shortness of breath, no cough symptoms. No chest pain, no hemoptysis, no leg pain. At the Emergency Room, CT angio initial read showed left-sided pulmonary embolism, new, greater narrowing of the left main pulmonary artery associated tumor, interval multiple pulmonary nodules involving the upper right lung suspicious for metastatic disease, intraluminal tumor thrombus proximal pulmonary artery, emphysema right upper lobe, cavitary nodule right lower lobe. IV heparin started in the ER. MEDICAL HISTORY: As above. Lung cancer found January 2017. SURGERIES: He has had A-port placement, tonsillectomy, adenectomy, knee cartilage. HOME MEDICATIONS: Lisinopril , atorvastatin, latanoprost, metformin, Compazine, MiraLax, Zofran, Glucophage, Xalatan, tramadol, Flomax, fentanyl patch, glipizide, dronabinol, Colace, Decadron, Lipitor. ALLERGIES: CLINDAMYCIN. FAMILY HISTORY: Cancer and heart disease. PERSONAL AND SOCIAL HISTORY: Past tobacco abuse. No chronic intake of alcoholic beverages. 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 REVIEW OF SYSTEMS: As per HPI. All 10 systems reviewed. All other ROS negative. PHYSICAL EXAMINATION: VITAL SIGNS: Blood pressure was noted to be 71/46, later 100/70, pulse rate 125, RR 30, temperature 36.7, sats 90 on room air, later 95 on 3 liters. GENERAL: Noted to be in respiratory distress. Chronically ill. SKIN: Pallor, warm. HEENT: Alopecia. Pale palpebral conjunctiva.. No ptosis. Dry mucosa. NECK: Supple, nontender. CHEST: Expiratory wheezes. No tenderness. A-port in place on the right. HEART: Tachycardic. No murmur. ABDOMEN: Soft, nontender. EXTREMITIES: No edema, no tenderness. No gross deformity. NEUROLOGIC: Coherent. No gross focality. LABORATORY DATA: Hemoglobin was noted to be 9.5, hematocrit 37.7, white cell count 4.6, platelets 190. Sodium 132, potassium 3.3, chloride 97, CO2 of 25, BUN 11, creatinine 0.9, glucose was noted to be 132. Hemoglobin A1c from April [address] as above. EKG as per my interpretation, rate 140, sinus tachycardia, T wave flattening inferior leads. ASSESSMENT: 1. Acute hypoxemic respiratory failure multifactorial : chronic obstructive pulmonary disease exacerbation (emphysematous lungs on CT, past tobacco abuse, no previous COPD diagnosis) secondary to to acute pulmonary embolism. hx NSCLC ongoing chemoradiation. (progressive disease on recent imaging) ro LE DVT source 2. Hypertension, blood pressure has been on the lower side at home secondary to hypovolemia ro right ventricular strain BP improved after IV fluids in the ER. 3. Hypokalemia secondary to home DM med 4. Recent urologic stent placement. Persistent hematuria since procedure. 5. Chronic cancer pain on narcotics 6. DM2 on oral meds, well controlled as of recent A1c. 7. PVD 8. Chronic hyponatremia, possible SIADH 9. anemia, possibly due to chemo Hg improved from recent confinement PLAN: PCU baseline ABG. nebs, steroids for COPD exacerbation. low dose IV heparin for PE given hematuria. LE Venous Dopplers TTE RE hypotension, RV strain from PE Hematology consult RE recommendations for long-term anticoagulation, hx active malignancy. (Patient known to Dr. Marx.) Urology consult RE persistent postop hematuria, follow up evaluation (Patient known to Dr. Wood.) IVF, continue to hold home ACEI for now given low BP; hold/decrease Fentanyl patch dose if with troublesome hypotension replace potassium ISS BG goal 140-180. DVT prophylaxis, Heparin. Full code. Patient's son Kal Villegas requesting updated from providers at [phone]. Case discussed with Dr. Garland ([facility] urologist business travel consultant). Okay with heparin for now. May need to stop Heparin if bleeding continues causing hemodynamic instability. Possible IVC filter placement if pharmacologic anticoagulation to be held. [facility]
[2017-05-13] MEDS ORDERED: INSULIN GLARGINE SOLOSTAR 100 UNITS/ML 3 ML PEN SC ONE ×2 (06:30→19:52)
[2017-05-13] MEDS ORDERED: INSULIN ASPART 100 UNITS/ML 3 ML PEN SC ONE (06:30)
[2017-05-13] MEDS ORDERED: POLYETHYLENE (MIRALAX) 17 GM PACK PO PRN (06:30)
[2017-05-13] MEDS: LEVALBUTEROL 1.25MG/0.5ML NEB INH SCH ×3 (06:59→19:09)
[2017-05-13] MEDS: IPRATROPIUM BROMIDE NEB SOLN 0.02% 2.5 ML VIAL INH SCH ×3 (06:59→19:09)
[2017-05-13] MEDS ORDERED: MAGNESIUM SULFATE 1GM / D5W 1 GM in PREMIXED IN D5W 100 ML IV ONE ×2 (07:00→21:30)
--- NOTE | 2017-05-13 08:39 | Progress Note ---
Internal Med Progress Note Date of Service: May 13, 2017. Provider Documentation: SUBJECTIVE: Seen and examined at bedside Denies chest pain, SOB, dizziness Feels tired Nausea improved Still has hematuria Reports chronic cough No other complaints BP better while on IV fluids Family at bedside Poor historian, most information obtained from patient's son OBJECTIVE: Vital Signs-as noted below Physical Exam: General Appearance:chronic ill appearing, thin, no apparent distress Head: normocephalic, Atraumatic Eyes: normal inspection, EOMI, PERRL Neck: supple, Trachea midline Respiratory/Chest: Normal breath sounds, scattered wheezes Cardiovascular: S1, S2, +Tachycardia, No murmur Abdomen/GI:Soft, Non tender, Bowel sounds present Extremities/Musculoskelatal:normal inspection, no edema Neurologic/Psych:AAOX3, grossly no focal neurological deficits Skin: normal color, warm Lab data as noted below. ASSESSMENT & PLAN: Acute Pulmonary Embolism Acute Hypoxic respiratory failure Possible COPD exacerbation CTA:pending CXR: suggestive of emphysematous changes Masslike opacity of the medial left upper lobe redemonstrated with central cavitation. Additionally, there is a cavitary nodule of the right midlung Continue IV heparin ECHO pending Venous doppler pending Oxygen support PRN Continue Nebs, Prednisone Monitor Hb closely given h/o hematuria Transfuse PRBCs as needed Needs terminal operator anticoagulation IV fluids PRN May need IVC filter if bleeding is persistent Hypokalemia: Hypomagnesemia: Poor oral intake replace and monitor Non-small cell lung cancer currently on paclitaxel, carboplatin, XRT. Last chemo dose was 05/01. Had radiation therapy during prior admission Oncology Consulted H/O AAA 40% noncalcified mural thrombus. monitor Leukopenia: Likely secondary to chemo Stage II decubitus ulcer wound care consulted H/O HTN: Currently Hypotensive Hold Lisinopril IV fluids PRN Fentanyl on hold Hematuria: s/p Left Ureteral Stent placement by Dr. Wood 05/08/17 Monitor Hb Urology Consulted DM II: Last A1C:7.0 Hold PO meds Continue ISS, Lantus Monitor BGs Chronic Anemia: Multifactorial: Anemia of chronic disease, Secondary to Chemo, hematuria Monitor Hb Transfuse PRBCs PRN Chronic cancer pain on narcotics Will resume Fentanyl when BP improves DVT Px: on IV Heparin Code Status: Full code. Disposition: Monitor in Telemetry Patient's son Kal Villegas requesting updated from providers at [phone]. Vital Signs: Date Time Temp Pulse Resp B/P (MAP) Pulse Ox O2 Delivery O2 Flow Rate FiO2 05/13/17 06:59 103 20 95 Nasal Cannula 3.0 05/13/17 06:03 100 20 97 Nasal Cannula 3.0 05/13/17 05:30 129 22 117/91 97 05/13/17 05:20 36.4 137 20 80/52 95 Nasal Cannula 3.0 05/13/17 00:31 37.0 125 30 90/59 95 Nasal Cannula 3.0 05/12/17 23:34 90 Room Air 05/12/17 23:30 125 05/12/17 23:14 36.8 90 24 71/46 96 Room Air Lab Results: Results Past 24 Hours Test 05/13/17 00:07 05/13/17 01:56 05/13/17 04:39 05/13/17 05:46 Range/Units White Blood Count 4.65 4.8-10.8 K/uL Red Blood Count 3.42 4.7-6.1 M/uL Hemoglobin 9.5 8.8 14.0-18.0 g/dL Hematocrit 27.7 26.3 42-52 % Mean Corpuscular Volume 81.0 80-100 fL Mean Corpuscular Hemoglobin 27.8 25-34 pg Mean Corpuscular Hemoglobin Concent 34.3 32-36 g/dl Platelet Count 190 130-400 K/uL Mean Platelet Volume 7.8 7.4-10.4 fL Neutrophils (%) (Auto) 80.8 % Lymphocytes (%) (Auto) 9.2 % Monocytes (%) (Auto) 9.2 % Eosinophils (%) (Auto) 0.0 % Basophils (%) (Auto) 0.2 % Neutrophils # (Auto) 3.75 1.4-6.5 K/uL Lymphocytes # (Auto) 0.43 1.2-3.4 K/uL Monocytes # (Auto) 0.43 0.11-0.59 K/uL Eosinophils # (Auto) 0.00 0-0.5 K/uL Basophils # (Auto) 0.01 0-0.2 K/uL RDW Standard Deviation 48.4 36.4-46.3 fL RDW Coefficient of Variation 17.1 11.5-14.5 % Immature Granulocyte % (Auto) 0.6 % Immature Granulocyte # (Auto) 0.03 0.00-0.02 K/uL Acanthocytes 1+ Prothrombin Time 12.8 9.0-12.0 SECONDS Prothromb Time International Ratio 1.2 0.9-1.1 Activated Partial Thromboplast Time 35.4 21.0-31.0 SECONDS Partial Thromboplastin Ratio 1.4 Sodium Level 132 136-145 mmol/L Potassium Level 3.3 3.5-5.1 mmol/L Chloride Level 97 98-107 mmol/L Carbon Dioxide Level 25 21-32 mmol/L Anion Gap 10.0 3-11 mmol/L Blood Urea Nitrogen 11 7-18 mg/dl Creatinine 0.94 0.60-1.40 mg/dl Est Creatinine Clear Calc Drug Dose 56.7 ml/min Estimated GFR () 92.9 Estimated GFR (Non- 80.1 BUN/Creatinine Ratio 11.8 10-20 Random Glucose 132 70-99 mg/dl Calcium Level 8.4 8.5-10.1 mg/dl Magnesium Level 1.7 1.8-2.4 mg/dl Total Bilirubin 0.4 0.2-1 mg/dl Aspartate Amino Transf (AST/SGOT) 19 15-37 U/L Alanine Aminotransferase (ALT/SGPT) 34 12-78 U/L Alkaline Phosphatase 92 45-117 U/L Troponin I < 0.015 0-0.045 ng/ml Pro-B-Type Natriuretic Peptide 924 0-900 pg/ml Total Protein 5.6 6.4-8.2 gm/dl Albumin 2.0 3.4-5.0 gm/dl Globulin 3.6 2.5-4.0 gm/dl Albumin/Globulin Ratio 0.6 0.9-2 Lipase 65 73-393 U/L Urine Color RED Urine Appearance TURBID CLEAR Urine pH 6.0 4.5-7.5 Urine Specific [place] 1.017 1.000-1.030 Urine Protein 3+ NEG Urine Glucose (UA) NEG NEG Urine Ketones NEG NEG Urine Occult Blood 2+ NEG Urine Nitrite NEG NEG Urine Bilirubin NEG NEG Urine Urobilinogen NEG NEG Urine Leukocyte Esterase SMALL NEG Urine WBC (Auto) 10-30 0-5 /hpf Urine RBC (Auto) >30 0-4 /hpf Urine Hyaline Casts (Auto) 5-10 0-5 /lpf Urine Epithelial Cells (Auto) >30 0-5 /lpf Urine Bacteria (Auto) NEG NEG Urine Renal Epithelial Cells 0-5 /lpf Urine Yeast (Auto) NONE PRSENT Arterial Blood pH 7.44 7.35-7.45 Arterial Blood Partial Pressure CO2 37 35-46 mmHg Arterial Blood Partial Pressure O2 111 80-95 mm/Hg Arterial Blood HCO3 25 19-24 mmol/L Arterial Blood Oxygen Saturation 97.2 90-95 % Arterial Blood Base Excess 0.6 -9-1.8 mEq/L Arterial Blood Gas Delivery 3L Marcus Test POS POS Lactic Acid Level 0.7 0.4-2.0 mmol/L Test 05/13/17 06:25 05/13/17 06:47 Range/Units Procalcitonin 0.09 0-0.5 ng/ml Bedside Glucose 162 70-99 mg/dl Microbiology Results 05/13/17 Blood Culture, Received Pending 05/13/17 Blood Culture, Received Pending 05/13/17 Urine Culture, Received Pending
[2017-05-13] MEDS ORDERED: LEVALBUTEROL/IPRATROPIUM NEB INH SCH (09:00)
--- NOTE | 2017-05-13 09:25 | ECHOCARDIOGRAM REPORT ---
*NOTICE TO RECEIVING CONSTITUTION PARTY AGENCY This information is strictly Confidential and protected under [place] law. [place] law prohibits you from making any further disclosure of this information unless further disclosure is expressly permitted by the written consent of the person to whom it pertains or is authorized by law. A general authorization for the release of medical or other information is not sufficient for this purpose. Hospital accepts no responsibility if the information is made available to any other person, INCLUDING THE PATIENT. Interpretation Summary * Name: SONIDO WATKINS Study Date: 05/13/2017 07:27 AM BP: 117/91 mmHg * Patient Location: [id number].2E\[id number]\E206\S\1 HR: 129 * : 1945 (M/d/yyyy) Gender: Male Height: 66 in * Age: 72 yrs Ethnicity: CA Weight: 126 lb * Ordering Physician: Sina Rodriguez * Referring Physician: Self, Referred * Performed By: Sina Jesus RDCS * * Reason For Study: PE RO RV STRAIN * BSA: 1.6 m2 * The study was technically adequate. * There is no comparison study available. * -- Conclusions -- * The left ventricle is hyperdynamic. * Ejection Fraction = >70 %. * The right ventricular cavity size is normal (basal dimension <4.2 cm in right ventricular apical 4-chamber view). * The right ventricular systolic function is normal as assessed by tricuspid annular plane systolic excursion (TAPSE) (normal >1.5 cm). * There is trace tricuspid regurgitation. * The estimated systolic PAP is 38mmhg. Procedure Details * A complete two-dimensional transthoracic echocardiogram was performed (2D, M-mode, Doppler and color flow Doppler). * The study was technically adequate. Left Ventricle * The left ventricle is normal in size. * There is no thrombus. * There is normal left ventricular wall thickness. * The left ventricle is hyperdynamic. * Ejection Fraction = >70 %. * The left ventricular wall motion is normal. Right Ventricle * The right ventricular cavity size is normal (basal dimension <4.2 cm in right ventricular apical 4-chamber view). * The right ventricular systolic function is normal as assessed by tricuspid annular plane systolic excursion (TAPSE) (normal >1.5 cm). Atria * The left atrial size is normal. * Right atrial size is normal. * There is no evidence of atrial septal defect, but resolution does not allow assessment for a patent foramen ovale. Mitral Valve * The mitral valve is normal. * There is no mitral valve stenosis. * Significant mitral regurgitation is absent. Tricuspid Valve * The tricuspid valve is normal. * There is no tricuspid stenosis. * There is trace tricuspid regurgitation. * The estimated systolic PAP is 38mmhg. Aortic Valve * The aortic valve is trileaflet. * Aortic stenosis is absent. * There is no significant aortic regurgitation. Pulmonic Valve * The pulmonary valve is not well seen, but the Doppler examination is normal without significant regurgitation or stenosis. Great Vessels * The aortic root is normal size. Pericardium/Pleural * There is no pericardial effusion. Great Vessels * Normal inferior vena cava size and collapsability with sniff indicates a normal right atrial pressure of 3 mmHg Left Ventricular Diastolic Function * Pulse wave TDI of the anterior and posterior mitral annulas demonstrates normal LV relaxation MMode 2D Measurements and Calculations IVSd 0.99 cm IVSs 1.3 cm LVIDd 3.7 cm LVIDs 2.7 cm LVPWd 0.90 cm LVPWs 1.3 cm IVS/LVPW 1.1 FS 27.2 % EDV(Teich) 57.6 ml ESV(Teich) 26.6 ml EF(Teich) 53.8 % EDV(cubed) 50.1 ml ESV(cubed) 19.3 ml EF(cubed) 61.5 % % IVS thick 28.4 % % LVPW thick 40.4 % LV mass(C)d 103.1 grams LV mass(C)dI 62.7 grams/m\S\2 LV mass(C)s 102.6 grams LV mass(C)sI 62.4 grams/m\S\2 SV(Teich) 31.0 ml SI(Teich) 18.9 ml/m\S\2 SV(cubed) 30.8 ml SI(cubed) 18.7 ml/m\S\2 EPSS 0.45 cm Ao root diam 3.1 cm Ao root area 7.6 cm\S\2 ACS 1.8 cm LA dimension 2.7 cm asc Aorta Diam 3.3 cm LA/Ao 0.87 LVOT diam 2.0 cm LVOT area 3.2 cm\S\2 LVAd ap4 18.2 cm\S\2 LVLd ap4 7.5 cm EDV(MOD-sp4) 36.8 ml EDV(sp4-el) 37.6 ml LVAs ap4 8.6 cm\S\2 LVLs ap4 6.6 cm ESV(MOD-sp4) 9.6 ml ESV(sp4-el) 9.4 ml EF(MOD-sp4) 73.8 % EF(sp4-el) 74.9 % LVAd ap2 22.4 cm\S\2 LVLd ap2 7.9 cm EDV(MOD-sp2) 52.3 ml EDV(sp2-el) 54.2 ml LVAs ap2 10.5 cm\S\2 LVLs ap2 6.1 cm ESV(MOD-sp2) 16.3 ml ESV(sp2-el) 15.3 ml EF(MOD-sp2) 68.9 % EF(sp2-el) 71.7 % LVLd %diff 5.2 % EDV(MOD-bp) 44.7 ml LVLs %diff -8.63 % ESV(MOD-bp) 12.9 ml EF(MOD-bp) 71.2 % SV(MOD-sp4) 27.1 ml SI(MOD-sp4) 16.5 ml/m\S\2 SV(MOD-sp2) 36.0 ml SI(MOD-sp2) 21.9 ml/m\S\2 SV(MOD-bp) 31.8 ml SI(MOD-bp) 19.4 ml/m\S\2 SV(sp4-el) 28.2 ml SI(sp4-el) 17.2 ml/m\S\2 SV(sp2-el) 38.9 ml SI(sp2-el) 23.7 ml/m\S\2 Doppler Measurements and Calculations MV E max allison 137.5 cm/sec MV dec time 0.09 sec Ao V2 max 139.8 cm/sec Ao max PG 7.8 mmHg Ao max PG (full) 3.1 mmHg JUSTIN(V,A) 2.5 cm\S\2 JUSTIN(V,D) 2.5 cm\S\2 LV V1 max PG 4.7 mmHg LV V1 max 108.1 cm/sec PA V2 max 89.9 cm/sec PA max PG 3.2 mmHg PA acc slope 565.2 cm/sec\S\2 PA acc time 0.16 sec TR max allison 297.6 cm/sec PA pr(Accel) 8.2 mmHg
[2017-05-13 09:30] LABS: PTT PATIENT 52.7 SECONDS (21.0-31.0)
--- NOTE | 2017-05-13 09:33 | DIAGNOSTIC IMAGING REPORT ---
(CHEST FOR PE) ANGIO WITH CT DOSE: 302.56 mGy.cm HISTORY: 72 years-old Male with presents with acute shortness of breath with history of known lung cancer. TECHNIQUE: Multiple CTA images of the chest were obtained after the intravenous administration of 92 ml Optiray 320. Coronal and sagittal MIPS were obtained from the axial data set and were submitted for review. A dose lowering technique was utilized adhering to the principles of ALARA. COMPARISON: Chest radiographs of same day, PET CT 03/07/2017, CTA chest 02/19/2017, CT abdomen and pelvis 05/07/2017 FINDINGS: Large irregular spiculated invasive mass with central cavitation involves the left upper lobe measuring up to 6.1 x 5.1 cm in AP and transverse dimension, previously measuring up to 7.2 x 5.[address] study dated 09/04/2017. This lesion may have slightly decreased in size, however the central cavitation component has progressed. The mass invades the adjacent mediastinum and encases the proximal left subclavian and left common carotid arteries which are patent. The mass also encases invades the left main pulmonary artery which is severely narrowed with only minimal contrast opacification seen within the vessel as noted on image 244 of series 4. Thrombus within the left lower lobe are, segmental and subsegmental branches noted as seen on images 241 through 196 of series 4. The mass abuts the anterior pleura there is loss of normal subpleural fat plane suggesting pleural invasion. Mass also abuts the left major fissure and there is pleural nodular thickening of the major fissure as seen on image 248 of series 4. Additionally, there is high-grade narrowing of the left upper lobe bronchus, image 235 series 4 secondary to mass invasion. Heart is normal in size with small pericardial effusion. Coronary arterial disease. Thoracic aorta is trace moderate to extensive mixed atheromatous and atherosclerotic plaquing. There is less than 50% narrowing at the origin of the left subclavian artery. No aortic aneurysm or dissection. No evidence of right-sided pulmonary thromboembolic disease. Right internal jugular [id number] catheter terminates within the mid SVC. There is no pneumothorax or pleural effusion. Moderate upper lobe predominant emphysema. Cavitary pleural-based 1.8 x 1.57 m nodule of the superior segment right lower lobe is noted on image 184 series 4, new from prior PET. Evaluation of the lungs is limited secondary to respiratory motion. Additionally there is a 10 mm nodule the super segment right lower lobe. There is mild bilateral bronchial wall thickening with areas of mucoid impaction within the lung bases and right middle lobe. There are multiple nodular opacities throughout the bilateral lungs including a 12 x 9 mm irregular nodule of the right lower lobe on image 135 series 4. 8 mm nodule of the lateral right lung base on image 118 series 4. Millimeter nodule of the right upper lobe. Areas of tree-in-bud nodularity are present within the left lung base. Mildly enlarged right hilar lymph nodes are seen measuring up to 1.3 x 1.0 cm. No acute amount of the imaged upper abdomen. Soft tissues are unremarkable. No suspicious lytic or blastic bony lesions identified to suggest bony metastasis. Multilevel degenerative changes about the spine. IMPRESSION: 1. Large irregular spiculated invasive mass of the left upper lobe measuring up to 6.1 cm invades the mediastinum as above with encasement and invasion of the left main pulmonary artery resulting in severe luminal stenosis with emboli involving the lobar, segmental and subsegmental branches of the left lower lobe, likely tumor emboli. 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 These findings are compatible with progression of disease. 2. Multiple multilobar distribution of pulmonary nodules as above including a centrally cavitary 1.8 cm nodule of the superior segment right lower lobe suggesting pulmonary metastasis. 3. Emphysema with mild bilateral bronchial wall thickening and tree-in-bud nodularity of the lung bases, left greater than right suggest a superimposed infectious or inflammatory bronchiolitis with bronchitis. The above report was generated using voice recognition software. It may contain grammatical, syntax or spelling errors. Electronically signed by: Kilo Kim M.D. 05/13/2017 9:31 AM Dictated Date/Time: 05/13/2017 8:09 AM
[2017-05-13] MEDS ORDERED: SODIUM CHLORIDE 0.9% 1000ML 500 ML IV ONE (11:00)
[2017-05-13] MEDS: DRONABINOL 2.5 MG CAP PO SCH ×2 (11:08→20:39)
[2017-05-13] MEDS: DOCUSATE SODIUM 100 MG CAP PO SCH (11:08)
[2017-05-13 12:05] LABS: HEMOGLOBIN 8.1 g/dL (14.0-18.0)
[2017-05-13] MEDS: INSULIN ASPART 100 UNITS/ML 3 ML PEN SC SCH ×3 (12:16→20:16)
--- NOTE | 2017-05-13 13:45 | GENITOURINARY CONSULTATION ---
DATE OF CONSULTATION: 05/13/2017 REASON FOR THE CONSULT: History of right stent placement with some gross hematuria and need for heparin following pulmonary embolus ____ patient's admission and previous hospital course and hospital situation. HISTORY OF PRESENT ILLNESS: The patient is a 72-year-old male with advancing lung cancer who on last admission was found to have a proximal mid left ureteral stone. He had a stent placed in preparation for a subsequent treatment. He also has lung cancer and has not been started on treatment for this. He was discharged after being admitted with problems from both the lung cancer and the stone and recently came back last night with significant shortness of breath, was diagnosed with a pulmonary embolus and advancing lung cancer and because he has had ongoing pink urine and reddish urine without significant number of clots, I was consulted because he is going to be started on heparin and there is concern that this hematuria may worsen. I agree with this situation of this assessment. Given the patient's shortness of breath and overall medical condition, he is not a great surgical candidate. Also, he does not complain of any calf pain. It is unclear where the embolus is coming from. Please review the review of system from the Emergency Room and previous past medical history. PHYSICAL EXAMINATION: GENERAL: He is extremely thin male with no obvious distress. HEENT: Unremarkable. He does appear to be somewhat dehydrated with his mucous membranes. RESPIRATORY: No respiratory distress is visible. ABDOMEN: Soft. He does not have a Ocasio catheter and has not urinated since he has been here just to assess his urine. EXTREMITIES: Unremarkable. No calf pain or tenderness or swelling of his cast. NEUROLOGIC: He is alert and oriented without any focal sensory deficits. ASSESSMENT AND PLAN: I did explain to the patient that he may need to be assessed with a Doppler of his lower extremities to see if he has a deep venous thrombosis. If he does have a deep venous thrombosis and the heparin causes ongoing bleeding, consideration for a filter might be given. Otherwise, we would at this time treat him symptomatically by increasing his fluid intake and transfusing if his hematuria gets worse. At some point, the direction of his overall care with regard to his prognosis must be presented to this patient first to understand where he is going and how aggressive we need to be with the stone. At this juncture today, we do not think that there is any indication for anything, but to treat his pulmonary embolus and given him blood if necessary. Also, we can get a Doppler to rule out a deep venous thrombosis of his lower extremities and to try to understand where the emboli may be coming from. TABBY
[2017-05-13] MEDS ORDERED: BOOST GLUCOSE CONTROL PO SCH (16:45)
[2017-05-13] MEDS: IPRATROPIUM BROMIDE NEB SOLN 0.02% 2.5 ML VIAL INH PRN (17:11)
[2017-05-13] MEDS: LEVALBUTEROL 1.25MG/0.5ML NEB INH PRN (17:11)
[2017-05-13 18:27] LABS: HEMATOCRIT 25.4 % (42-52); HEMOGLOBIN 8.3 g/dL (14.0-18.0)
[2017-05-13] MEDS ORDERED: SODIUM CHLORIDE 0.9% 500ML 500 ML IV ONE (20:00)
[2017-05-13] MEDS: LATANOPROST 0.005% OP SOLN 2.5 ML BTL OPR SCH (20:10)
[2017-05-13] MEDS: TAMSULOSIN HCL 0.4 MG CAP PO SCH (20:12)
[2017-05-13] MEDS: ATORVASTATIN 40 MG TAB PO SCH (20:12)
[2017-05-13 21:15] LABS: CALCIUM 8.3 mg/dl (8.5-10.1); CREATININE 0.73 mg/dl (0.60-1.40); POTASSIUM 3.4 mmol/L (3.5-5.1)
--- NOTE | 2017-05-13 22:19 | Progress Note ---
Internal Med Progress Note Date of Service: May 13, 2017. Provider Documentation: Doxycycline added to regimen for bronchitis symptoms. Vital Signs: Date Time Temp Pulse Resp B/P (MAP) Pulse Ox O2 Delivery O2 Flow Rate FiO2 05/14/17 12:03 36.7 97 18 109/59 (76) 98 Nasal Cannula 3.0 05/14/17 12:00 97 Nasal Cannula 3.0 05/14/17 08:23 36.5 104 28 110/60 (77) 92 05/14/17 08:00 97 Nasal Cannula 3.0 05/14/17 07:11 96 16 98 Nasal Cannula 3.0 05/14/17 04:00 Nasal Cannula 3.0 05/14/17 03:31 36.6 112 23 122/65 (84) 96 Nasal Cannula 3.0 05/14/17 00:53 97 16 98 Nasal Cannula 3.0 05/14/17 00:00 Nasal Cannula 3.0 05/13/17 23:40 36.4 94 22 109/62 (78) 93 Nasal Cannula 3.0 05/13/17 23:00 36.5 100 24 95/54 100 3.0 05/13/17 22:00 36.4 102 22 94/60 99 3.0 05/13/17 21:40 36.5 110 22 102/55 98 3.0 05/13/17 21:25 36.3 104 22 93/53 99 3.0 05/13/17 21:10 36.5 100 22 99/58 98 3.0 05/13/17 20:00 Nasal Cannula 3.0 05/13/17 19:26 36.5 107 18 92/53 (66) 96 Nasal Cannula 3.0 05/13/17 19:09 99 20 98 Nasal Cannula 3.0 05/13/17 17:11 93 22 96 Nasal Cannula 3.0 05/13/17 16:00 Nasal Cannula 3.0 05/13/17 15:17 36.5 105 26 92/58 (69) 97 Nasal Cannula 3.0 05/13/17 14:09 94 20 95 Nasal Cannula 3.0 Lab Results: Results Past 24 Hours Test 05/13/17 16:18 05/13/17 18:16 05/13/17 20:06 05/13/17 20:45 Range/Units Bedside Glucose 227 215 70-99 mg/dl Hemoglobin 8.3 14.0-18.0 g/dL Hematocrit 25.4 42-52 % Sodium Level 135 136-145 mmol/L Potassium Level 3.4 3.5-5.1 mmol/L Chloride Level 102 98-107 mmol/L Carbon Dioxide Level 28 21-32 mmol/L Anion Gap 5.0 3-11 mmol/L Blood Urea Nitrogen 10 7-18 mg/dl Creatinine 0.73 0.60-1.40 mg/dl Est Creatinine Clear Calc Drug Dose 71.4 ml/min Estimated GFR () 106.7 Estimated GFR (Non- 92.0 BUN/Creatinine Ratio 13.1 10-20 Random Glucose 190 70-99 mg/dl Lactic Acid Level 2.2 0.4-2.0 mmol/L Calcium Level 8.3 8.5-10.1 mg/dl Magnesium Level 1.9 1.8-2.4 mg/dl Test 05/13/17 23:08 05/14/17 00:14 05/14/17 04:19 05/14/17 06:58 Range/Units Bedside Glucose 201 120 70-99 mg/dl Lactic Acid Level 2.5 1.4 0.4-2.0 mmol/L White Blood Count 4.32 4.8-10.8 K/uL Red Blood Count 3.25 4.7-6.1 M/uL Hemoglobin 8.7 14.0-18.0 g/dL Hematocrit 26.5 42-52 % Mean Corpuscular Volume 81.5 80-100 fL Mean Corpuscular Hemoglobin 26.8 25-34 pg Mean Corpuscular Hemoglobin Concent 32.8 32-36 g/dl Platelet Count 176 130-400 K/uL Mean Platelet Volume 7.8 7.4-10.4 fL Neutrophils (%) (Auto) 84.7 % Lymphocytes (%) (Auto) 7.2 % Monocytes (%) (Auto) 7.9 % Eosinophils (%) (Auto) 0.0 % Basophils (%) (Auto) 0.0 % Neutrophils # (Auto) 3.66 1.4-6.5 K/uL Lymphocytes # (Auto) 0.31 1.2-3.4 K/uL Monocytes # (Auto) 0.34 0.11-0.59 K/uL Eosinophils # (Auto) 0.00 0-0.5 K/uL Basophils # (Auto) 0.00 0-0.2 K/uL RDW Standard Deviation 47.9 36.4-46.3 fL RDW Coefficient of Variation 16.6 11.5-14.5 % Immature Granulocyte % (Auto) 0.2 % Immature Granulocyte # (Auto) 0.01 0.00-0.02 K/uL Acanthocytes 1+ Activated Partial Thromboplast Time 49.2 21.0-31.0 SECONDS Partial Thromboplastin Ratio 1.9 Sodium Level 137 136-145 mmol/L Potassium Level 3.8 3.5-5.1 mmol/L Chloride Level 105 98-107 mmol/L Carbon Dioxide Level 26 21-32 mmol/L Anion Gap 6.0 3-11 mmol/L Blood Urea Nitrogen 6 7-18 mg/dl Creatinine 0.53 0.60-1.40 mg/dl Est Creatinine Clear Calc Drug Dose 98.3 ml/min Estimated GFR () 121.7 Estimated GFR (Non- 105.0 BUN/Creatinine Ratio 12.2 10-20 Random Glucose 131 70-99 mg/dl Calcium Level 8.4 8.5-10.1 mg/dl Phosphorus Level 2.4 2.5-4.9 mg/dl Magnesium Level 2.2 1.8-2.4 mg/dl Iron Level 23 35-175 mcg/dl Total Iron Binding Capacity 137 250-450 mcg/dl Transferrin 109 200-360 mg/dl Transferrin % Saturation 15 20-50 % C-Reactive Protein 9.50 0-0.29 mg/dl Prealbumin 6.3 20-40 mg/dl Vitamin B12 Level 677 211-911 pg/mL 25-Hydroxy Vitamin D Total 24.2 30-100 ng/ml Test 05/14/17 11:29 Range/Units Bedside Glucose 132 70-99 mg/dl
[2017-05-13] MEDS ORDERED: DOXYCYCLINE IV 100 MG in DEXTROSE 5% 100ML 100 ML IV ONE (22:45)
[2017-05-14] VITALS (13 sets, daily range): BP systolic 102–122; BP diastolic 59–72; PULSE 70–112; TEMP 36.5–37.1; O2SAT 92–98
[2017-05-14] MEDS: IPRATROPIUM BROMIDE NEB SOLN 0.02% 2.5 ML VIAL INH SCH ×4 (00:53→19:24)
[2017-05-14] MEDS: LEVALBUTEROL 1.25MG/0.5ML NEB INH SCH ×4 (00:53→19:24)
[2017-05-14] MEDS ORDERED: NSS + 20MEQ KCL 1000ML 1,000 ML IV ONE (01:30)
[2017-05-14] MEDS: LORAZEPAM 2 MG/ML 1 ML VIAL IV PRN (03:06)
[2017-05-14 04:30] LABS: HEMATOCRIT 26.5 % (42-52); HEMOGLOBIN 8.7 g/dL (14.0-18.0); MEAN CELL VOLUME 81.5 fL (80-100); MEAN CORPUSCULAR HEMOGLOBIN 26.8 pg (25-34); MEAN CORPUSCULAR HGB CONC 32.8 g/dl (32-36); MEAN PLATELET VOLUME 7.8 fL (7.4-10.4); PLATELET COUNT 176 K/uL (130-400); RED CELL DISTRIBUTION WIDTH CV 16.6 % (11.5-14.5); RED CELL DISTRIBUTION WIDTH SD 47.9 fL (36.4-46.3); WHITE BLOOD COUNT 4.32 K/uL (4.8-10.8)
[2017-05-14 04:49] LABS: CALCIUM 8.4 mg/dl (8.5-10.1); CREATININE 0.53 mg/dl (0.60-1.40); POTASSIUM 3.8 mmol/L (3.5-5.1)
[2017-05-14 04:52] LABS: PHOSPHORUS 2.4 mg/dl (2.5-4.9); PTT PATIENT 49.2 SECONDS (21.0-31.0)
[2017-05-14 04:54] LABS: IG# 0.01 K/uL (0.00-0.02); LYMPH % 7.2 %; LYMPH ABS # 0.31 K/uL (1.2-3.4); MONO % 7.9 %; MONO ABS # 0.34 K/uL (0.11-0.59); NEUT % 84.7 %; NEUT ABS # 3.66 K/uL (1.4-6.5)
[2017-05-14] MEDS ORDERED: POTASSIUM PHOS 3 MMOL/1 ML INFUSION IV STA (05:07)
[2017-05-14] MEDS ORDERED: POTASSIUM PHOSPHATE INJ 9 MMOL in SODIUM CHLORIDE 0.9% 250ML 250 ML IV ONE (05:30)
--- NOTE | 2017-05-14 07:13 | DIAGNOSTIC IMAGING REPORT ---
BILATERAL LOWER EXTREMITY VENOUS DOPPLER HISTORY: Pulmonary embolus. Assess for DVT. COMPARISON STUDY: None. FINDINGS: There is normal compressibility, flow, and augmentation within the bilateral lower extremity deep venous systems. IMPRESSION: No DVT within the right or left lower extremity. Electronically signed by: Mitchel Tellez M.D. 05/14/2017 7:11 AM Dictated Date/Time: 05/14/2017 7:11 AM
[2017-05-14] MEDS: BOOST GLUCOSE CONTROL PO SCH ×3 (08:08→16:45)
[2017-05-14] MEDS: INSULIN ASPART 100 UNITS/ML 3 ML PEN SC SCH ×4 (08:16→21:00)
[2017-05-14] MEDS: DRONABINOL 2.5 MG CAP PO SCH ×2 (08:17→21:55)
[2017-05-14] MEDS: DOXYCYCLINE HYCLATE 100 MG CAP PO SCH ×2 (08:17→21:56)
[2017-05-14] MEDS: DOCUSATE SODIUM 100 MG CAP PO SCH (08:17)
[2017-05-14] MEDS: INSULIN GLARGINE SOLOSTAR 100 UNITS/ML 3 ML PEN SC SCH (08:19)
--- NOTE | 2017-05-14 08:36 | Progress Note ---
Internal Med Progress Note Date of Service: May 14, 2017. Provider Documentation: SUBJECTIVE: Seen and examined at bedside Had 1 unit PRBC overnight Has minimal Hematuria Continues to have sinus tachycardia Also has dry cough Denies chest pain, SOB, dizziness Feels tired No other complaints OBJECTIVE: Vital Signs-as noted below Physical Exam: General Appearance:chronic ill appearing, thin, no apparent distress Head: normocephalic, Atraumatic Eyes: normal inspection, EOMI, PERRL Neck: supple, Trachea midline Respiratory/Chest: Normal breath sounds, scattered wheezes Cardiovascular: S1, S2, +Tachycardia, No murmur Abdomen/GI:Soft, Non tender, Bowel sounds present Extremities/Musculoskelatal:normal inspection, no edema Neurologic/Psych:AAOX3, grossly no focal neurological deficits Skin: normal color, warm Lab data as noted below. ASSESSMENT & PLAN: Acute Pulmonary Embolism: Likely due to lung malignancy Acute Hypoxic respiratory failure Possible COPD exacerbation CTA:as below suggestive of metastatic disease CXR: suggestive of emphysematous changes Masslike opacity of the medial left upper lobe redemonstrated with central cavitation. Additionally, there is a cavitary nodule of the right midlung Continue IV heparin ECHO as below Venous doppler:No DVT within the right or left lower extremity. Oxygen support PRN Continue Nebs, Prednisone, Doxycycline Blood/Urine Cultures:pending Monitor Hb closely given h/o hematuria Transfuse PRBCs as needed: S/P 1 unit PRBC on 05/13/17 May need residential anticoagulation, await Input from Oncology IV fluids PRN Oncology consulted Hypokalemia: Hypomagnesemia: Hypophosphatemia: Poor oral intake replace and monitor as needed Non-small cell lung cancer: Has progressively worsening currently on paclitaxel, carboplatin, XRT. Last chemo dose was 05/01. 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 monitor Leukopenia: Likely secondary to chemo monitor Stage II decubitus ulcer wound care consulted continue wound care H/O HTN: Relative Hypotension since admission Hold Lisinopril for now IV fluids PRN Fentanyl on hold Hematuria: s/p Left Ureteral Stent placement by Dr. Wood 05/08/17 Monitor Hb Appreciate Urology Input DM II: Last A1C:7.0 Hold PO meds Continue ISS, Lantus Monitor BGs Chronic Anemia: Multifactorial: Anemia of chronic disease, Iron deficiency, Secondary to Chemo, hematuria Monitor Hb Transfuse PRBCs PRN Started on Iron supplements B 12 levels pending S/P 1 unit PRBC on 05/13/17 Chronic cancer pain on narcotics Will resume Fentanyl when BP improves Severe Protein Calorie Malnutrition: BMI:19.9 Net C Developer consulted DVT Px: on IV Heparin Code Status: Full code for now Disposition: Monitor in Telemetry Patient's son Kal Villegas requesting updated from providers at [phone]. PROCEDURES: ECHO: * The left ventricle is hyperdynamic. * Ejection Fraction = >70 %. * The right ventricular cavity size is normal (basal dimension <4.2 cm in right ventricular apical 4-chamber view). * The right ventricular systolic function is normal as assessed by tricuspid annular plane systolic excursion (TAPSE) (normal >1.5 cm). * There is trace tricuspid regurgitation. * The estimated systolic PAP is 38mmhg. CTA: 1. Large irregular spiculated invasive mass of the left upper lobe measuring up to 6.1 cm invades the mediastinum as above with encasement and invasion of the left main pulmonary artery resulting in severe luminal stenosis with emboli involving the lobar, segmental and subsegmental branches of the left lower lobe, likely tumor emboli. 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 These findings are compatible with progression of disease. 2. Multiple multilobar distribution of pulmonary nodules as above including a centrally cavitary 1.8 cm nodule of the superior segment right lower lobe suggesting pulmonary metastasis. 3. Emphysema with mild bilateral bronchial wall thickening and tree-in-bud nodularity of the lung bases, left greater than right suggest a superimposed infectious or inflammatory bronchiolitis with bronchitis. Vital Signs: Date Time Temp Pulse Resp B/P (MAP) Pulse Ox O2 Delivery O2 Flow Rate FiO2 05/14/17 16:00 97 Nasal Cannula 3.0 05/14/17 15:35 36.5 104 24 102/67 (79) 97 Nasal Cannula 3.0 05/14/17 14:10 70 16 94 Nasal Cannula 3.0 05/14/17 12:03 36.7 97 18 109/59 (76) 98 Nasal Cannula 3.0 05/14/17 12:00 97 Nasal Cannula 3.0 05/14/17 08:23 36.5 104 28 110/60 (77) 92 05/14/17 08:00 97 Nasal Cannula 3.0 05/14/17 07:11 96 16 98 Nasal Cannula 3.0 05/14/17 04:00 Nasal Cannula 3.0 05/14/17 03:31 36.6 112 23 122/65 (84) 96 Nasal Cannula 3.0 05/14/17 00:53 97 16 98 Nasal Cannula 3.0 05/14/17 00:00 Nasal Cannula 3.0 05/13/17 23:40 36.4 94 22 109/62 (78) 93 Nasal Cannula 3.0 05/13/17 23:00 36.5 100 24 95/54 100 3.0 05/13/17 22:00 36.4 102 22 94/60 99 3.0 05/13/17 21:40 36.5 110 22 102/55 98 3.0 05/13/17 21:25 36.3 104 22 93/53 99 3.0 05/13/17 21:10 36.5 100 22 99/58 98 3.0 05/13/17 20:00 Nasal Cannula 3.0 05/13/17 19:26 36.5 107 18 92/53 (66) 96 Nasal Cannula 3.0 05/13/17 19:09 99 20 98 Nasal Cannula 3.0 Lab Results: Results Past 24 Hours Test 05/13/17 18:16 05/13/17 20:06 05/13/17 20:45 05/13/17 23:08 Range/Units Hemoglobin 8.3 14.0-18.0 g/dL Hematocrit 25.4 42-52 % Bedside Glucose 215 201 70-99 mg/dl Sodium Level 135 136-145 mmol/L Potassium Level 3.4 3.5-5.1 mmol/L Chloride Level 102 98-107 mmol/L Carbon Dioxide Level 28 21-32 mmol/L Anion Gap 5.0 3-11 mmol/L Blood Urea Nitrogen 10 7-18 mg/dl Creatinine 0.73 0.60-1.40 mg/dl Est Creatinine Clear Calc Drug Dose 71.4 ml/min Estimated GFR () 106.7 Estimated GFR (Non- 92.0 BUN/Creatinine Ratio 13.1 10-20 Random Glucose 190 70-99 mg/dl Lactic Acid Level 2.2 0.4-2.0 mmol/L Calcium Level 8.3 8.5-10.1 mg/dl Magnesium Level 1.9 1.8-2.4 mg/dl Test 05/14/17 00:14 05/14/17 04:19 05/14/17 06:58 05/14/17 11:29 Range/Units Lactic Acid Level 2.5 1.4 0.4-2.0 mmol/L White Blood Count 4.32 4.8-10.8 K/uL Red Blood Count 3.25 4.7-6.1 M/uL Hemoglobin 8.7 14.0-18.0 g/dL Hematocrit 26.5 42-52 % Mean Corpuscular Volume 81.5 80-100 fL Mean Corpuscular Hemoglobin 26.8 25-34 pg Mean Corpuscular Hemoglobin Concent 32.8 32-36 g/dl Platelet Count 176 130-400 K/uL Mean Platelet Volume 7.8 7.4-10.4 fL Neutrophils (%) (Auto) 84.7 % Lymphocytes (%) (Auto) 7.2 % Monocytes (%) (Auto) 7.9 % Eosinophils (%) (Auto) 0.0 % Basophils (%) (Auto) 0.0 % Neutrophils # (Auto) 3.66 1.4-6.5 K/uL Lymphocytes # (Auto) 0.31 1.2-3.4 K/uL Monocytes # (Auto) 0.34 0.11-0.59 K/uL Eosinophils # (Auto) 0.00 0-0.5 K/uL Basophils # (Auto) 0.00 0-0.2 K/uL RDW Standard Deviation 47.9 36.4-46.3 fL RDW Coefficient of Variation 16.6 11.5-14.5 % Immature Granulocyte % (Auto) 0.2 % Immature Granulocyte # (Auto) 0.01 0.00-0.02 K/uL Acanthocytes 1+ Activated Partial Thromboplast Time 49.2 21.0-31.0 SECONDS Partial Thromboplastin Ratio 1.9 Sodium Level 137 136-145 mmol/L Potassium Level 3.8 3.5-5.1 mmol/L Chloride Level 105 98-107 mmol/L Carbon Dioxide Level 26 21-32 mmol/L Anion Gap 6.0 3-11 mmol/L Blood Urea Nitrogen 6 7-18 mg/dl Creatinine 0.53 0.60-1.40 mg/dl Est Creatinine Clear Calc Drug Dose 98.3 ml/min Estimated GFR () 121.7 Estimated GFR (Non- 105.0 BUN/Creatinine Ratio 12.2 10-20 Random Glucose 131 70-99 mg/dl Calcium Level 8.4 8.5-10.1 mg/dl Phosphorus Level 2.4 2.5-4.9 mg/dl Magnesium Level 2.2 1.8-2.4 mg/dl Iron Level 23 35-175 mcg/dl Total Iron Binding Capacity 137 250-450 mcg/dl Transferrin 109 200-360 mg/dl Transferrin % Saturation 15 20-50 % C-Reactive Protein 9.50 0-0.29 mg/dl Prealbumin 6.3 20-40 mg/dl Vitamin B12 Level 677 211-911 pg/mL 25-Hydroxy Vitamin D Total 24.2 30-100 ng/ml Bedside Glucose 120 132 70-99 mg/dl Test 05/14/17 13:56 05/14/17 16:37 Range/Units Hemoglobin 8.7 14.0-18.0 g/dL Hematocrit 25.8 42-52 % Bedside Glucose 196 70-99 mg/dl
[2017-05-14] MEDS: FERROUS SULFATE 325 MG TAB PO SCH (09:34)
--- NOTE | 2017-05-14 10:32 | Progress Note ---
Subjective Date of Service: May 14, 2017. Subjective Pt evaluation today including: conversation w/ patient, chart review, lab review Voiding: no voiding problems Urine is link colored this morning. Pt denies pain or difficulty voiding. Slightly confused about PE, but is aware of gross hematuria and that his urine has been collected and is being stored in his room for the past few days to compare. H&H of 8.7 and 26.5 this morning. Problem List Medical Problems: (1) Dehydration Status: Acute (2) Left ureteral calculus Status: Acute (3) Mass of left lung Status: Acute (4) Pulmonary embolism Status: Acute (5) Weakness Status: Acute Review of Systems Constitutional: No fever, No chills Respiratory: No shortness of breath Cardiac: No chest pain Abdomen: No pain, No nausea, No vomiting Male : + hematuria Heme: No abnormal bleeding/bruising Objective Vital Signs Date Time Temp Pulse Resp B/P (MAP) Pulse Ox O2 Delivery O2 Flow Rate FiO2 05/14/17 08:23 36.5 104 28 110/60 (77) 92 05/14/17 08:00 97 Nasal Cannula 3.0 05/14/17 07:11 96 16 98 Nasal Cannula 3.0 05/14/17 04:00 Nasal Cannula 3.0 05/14/17 03:31 36.6 112 23 122/65 (84) 96 Nasal Cannula 3.0 05/14/17 00:53 97 16 98 Nasal Cannula 3.0 05/14/17 00:00 Nasal Cannula 3.0 05/13/17 23:40 36.4 94 22 109/62 (78) 93 Nasal Cannula 3.0 05/13/17 23:00 36.5 100 24 95/54 100 3.0 05/13/17 22:00 36.4 102 22 94/60 99 3.0 05/13/17 21:40 36.5 110 22 102/55 98 3.0 05/13/17 21:25 36.3 104 22 93/53 99 3.0 05/13/17 21:10 36.5 100 22 99/58 98 3.0 05/13/17 20:00 Nasal Cannula 3.0 05/13/17 19:26 36.5 107 18 92/53 (66) 96 Nasal Cannula 3.0 05/13/17 19:09 99 20 98 Nasal Cannula 3.0 05/13/17 17:11 93 22 96 Nasal Cannula 3.0 05/13/17 16:00 Nasal Cannula 3.0 05/13/17 15:17 36.5 105 26 92/58 (69) 97 Nasal Cannula 3.0 05/13/17 14:09 94 20 95 Nasal Cannula 3.0 05/13/17 12:00 Nasal Cannula 3.0 05/13/17 11:54 36.8 89 20 99/52 (68) 93 Physical Exam General Appearance: no apparent distress Eyes: normal inspection ENT: hearing grossly normal Neck: no JVD Respiratory/Chest: no respiratory distress, no accessory muscle use Cardiovascular: no JVD Extremities: normal inspection Neurologic/Psychiatric: alert, normal mood/affect, oriented x 3 Skin: normal color Laboratory Results Last 24 Hours Test 05/13/17 11:17 05/13/17 11:48 05/13/17 16:18 05/13/17 18:16 Bedside Glucose 231 mg/dl 227 mg/dl Hemoglobin 8.1 g/dL 8.3 g/dL Hematocrit 25.0 % 25.4 % Test 05/13/17 20:06 05/13/17 20:45 05/13/17 23:08 05/14/17 00:14 Bedside Glucose 215 mg/dl 201 mg/dl Sodium Level 135 mmol/L Potassium Level 3.4 mmol/L Chloride Level 102 mmol/L Carbon Dioxide Level 28 mmol/L Anion Gap 5.0 mmol/L Blood Urea Nitrogen 10 mg/dl Creatinine 0.73 mg/dl Est Creatinine Clear Calc Drug Dose 71.4 ml/min Estimated GFR () 106.7 Estimated GFR (Non- 92.0 BUN/Creatinine Ratio 13.1 Random Glucose 190 mg/dl Lactic Acid Level 2.2 mmol/L 2.5 mmol/L Calcium Level 8.3 mg/dl Magnesium Level 1.9 mg/dl Test 05/14/17 04:19 05/14/17 06:58 White Blood Count 4.32 K/uL Red Blood Count 3.25 M/uL Hemoglobin 8.7 g/dL Hematocrit 26.5 % Mean Corpuscular Volume 81.5 fL Mean Corpuscular Hemoglobin 26.8 pg Mean Corpuscular Hemoglobin Concent 32.8 g/dl Platelet Count 176 K/uL Mean Platelet Volume 7.8 fL Neutrophils (%) (Auto) 84.7 % Lymphocytes (%) (Auto) 7.2 % Monocytes (%) (Auto) 7.9 % Eosinophils (%) (Auto) 0.0 % Basophils (%) (Auto) 0.0 % Neutrophils # (Auto) 3.66 K/uL Lymphocytes # (Auto) 0.31 K/uL Monocytes # (Auto) 0.34 K/uL Eosinophils # (Auto) 0.00 K/uL Basophils # (Auto) 0.00 K/uL RDW Standard Deviation 47.9 fL RDW Coefficient of Variation 16.6 % Immature Granulocyte % (Auto) 0.2 % Immature Granulocyte # (Auto) 0.01 K/uL Acanthocytes 1+ Activated Partial Thromboplast Time 49.2 SECONDS Partial Thromboplastin Ratio 1.9 Sodium Level 137 mmol/L Potassium Level 3.8 mmol/L Chloride Level 105 mmol/L Carbon Dioxide Level 26 mmol/L Anion Gap 6.0 mmol/L Blood Urea Nitrogen 6 mg/dl Creatinine 0.53 mg/dl Est Creatinine Clear Calc Drug Dose 98.3 ml/min Estimated GFR () 121.7 Estimated GFR (Non- 105.0 BUN/Creatinine Ratio 12.2 Random Glucose 131 mg/dl Lactic Acid Level 1.4 mmol/L Calcium Level 8.4 mg/dl Phosphorus Level 2.4 mg/dl Magnesium Level 2.2 mg/dl Iron Level 23 mcg/dl Total Iron Binding Capacity 137 mcg/dl Transferrin 109 mg/dl Transferrin % Saturation 15 % C-Reactive Protein 9.50 mg/dl Prealbumin 6.3 mg/dl Vitamin B12 Level 677 pg/mL 25-Hydroxy Vitamin D Total 24.2 ng/ml Bedside Glucose 120 mg/dl Assessment and Plan A/P: Gross hematuria s/p left ureteral stent placement for 1.4cm left ureteral stone Gross hematuria after stent placement expected. Continue anticoagulation for PE per primary service. Continue to observe hematuria and H&H. Supportive management with transfusions PRN. The pt is scheduled to f/u with Dr. Wood as an outpatient on 05/23. Will keep as scheduled. Will discuss definitive outpatient management of stone at that time. Unfortunately may need to push back any intervention until cleared from PE and finished with chemo for lung cancer. Will discuss further at his outpatient appt. Will continue to follow along with primary service intermittently.
--- NOTE | 2017-05-14 10:59 | Clinical Documentation Query ---
CLINICAL DOCUMENTATION QUERY 72 year old male with hx of nonsmall cell lung cancer which is worsening by Chest CT who presents with PE's. Chest CT reads, "Large irregular spiculated invasive mass of the left upper lobe measuring up to 6.1 cm invades the mediastinum as above with encasement and invasion of the left main pulmonary artery resulting in severe luminal stenosis with emboli involving the lobar, segmental and subsegmental branches of the left lower lobe, likely tumor emboli." In your clinical opinion is this patient being managed for: ( X ) Likely PE due to underlying lung cancer. ( ) Not Agree Please clarify and document your clinical opinion in the progress notes and discharge summary. Terms such as "probable", "suspected", "likely", "questionable", "possible", or "still to be ruled out" are acceptable. IF IN AGREEMENT, YOU MUST DOCUMENT ABOVE DIAGNOSTIC STATEMENT IN DAILY PROGRESS NOTES AND DISCHARGE SUMMARY. This document is not part of the patient's record. Thank You, Otilio Syed, RN [phone]
[2017-05-14] MEDS: HEPARIN 25,000 UNIT/500ML D5W 500 ML IV SCH (13:20)
[2017-05-14 14:11] LABS: HEMATOCRIT 25.8 % (42-52); HEMOGLOBIN 8.7 g/dL (14.0-18.0)
--- NOTE | 2017-05-14 16:26 | Radiation Oncology Progress Nt ---
Radiation Oncology Progress Nt Date of Service Date of Service: May 14, 2017. Reason For Admission DVT/Pulmonary Embolus (PE) Requesting Physician Luisito Reyes MD Subjective Pt evaluation today including: conversation with hospitalist, conversation with inpatient team, chart review, lab review, review of studies, review of inpatient medication list Objective Vital Signs Date Time Temp Pulse Resp B/P (MAP) Pulse Ox O2 Delivery O2 Flow Rate FiO2 05/14/17 15:35 36.5 104 24 102/67 (79) 97 Nasal Cannula 3.0 05/14/17 14:10 70 16 94 Nasal Cannula 3.0 05/14/17 12:03 36.7 97 18 109/59 (76) 98 Nasal Cannula 3.0 05/14/17 12:00 97 Nasal Cannula 3.0 05/14/17 08:23 36.5 104 28 110/60 (77) 92 05/14/17 08:00 97 Nasal Cannula 3.0 05/14/17 07:11 96 16 98 Nasal Cannula 3.0 05/14/17 04:00 Nasal Cannula 3.0 05/14/17 03:31 36.6 112 23 122/65 (84) 96 Nasal Cannula 3.0 05/14/17 00:53 97 16 98 Nasal Cannula 3.0 05/14/17 00:00 Nasal Cannula 3.0 05/13/17 23:40 36.4 94 22 109/62 (78) 93 Nasal Cannula 3.0 05/13/17 23:00 36.5 100 24 95/54 100 3.0 05/13/17 22:00 36.4 102 22 94/60 99 3.0 05/13/17 21:40 36.5 110 22 102/55 98 3.0 05/13/17 21:25 36.3 104 22 93/53 99 3.0 05/13/17 21:10 36.5 100 22 99/58 98 3.0 05/13/17 20:00 Nasal Cannula 3.0 05/13/17 19:26 36.5 107 18 92/53 (66) 96 Nasal Cannula 3.0 05/13/17 19:09 99 20 98 Nasal Cannula 3.0 05/13/17 17:11 93 22 96 Nasal Cannula 3.0 Radiological Studies (CHEST FOR PE) ANGIO WITH - 05/13/17 CT DOSE: 302.56 mGy.cm HISTORY: 72 years-old Male with presents with acute shortness of breath with history of known lung cancer. TECHNIQUE: Multiple CTA images of the chest were obtained after the intravenous administration of 92 ml Optiray 320. Coronal and sagittal MIPS were obtained from the axial data set and were submitted for review. A dose lowering technique was utilized adhering to the principles of ALARA. COMPARISON: Chest radiographs of same day, PET CT 03/07/2017, CTA chest 2016, CT abdomen and pelvis 05/07/2017 FINDINGS: Large irregular spiculated invasive mass with central cavitation involves the left upper lobe measuring up to 6.1 x 5.1 cm in AP and transverse dimension, previously measuring up to 7.2 x 5.[address] study dated 09/04/2017. This lesion may have slightly decreased in size, however the central cavitation component has progressed. The mass invades the adjacent mediastinum and encases the proximal left subclavian and left common carotid arteries which are patent. The mass also encases invades the left main pulmonary artery which is severely narrowed with only minimal contrast opacification seen within the vessel as noted on image 244 of series 4. Thrombus within the left lower lobe are, segmental and subsegmental branches noted as seen on images 241 through 196 of series 4. The mass abuts the anterior pleura there is loss of normal subpleural fat plane suggesting pleural invasion. Mass also abuts the left major fissure and there is pleural nodular thickening of the major fissure as seen on image 248 of series 4. Additionally, there is high-grade narrowing of the left upper lobe bronchus, image 235 series 4 secondary to mass invasion. Heart is normal in size with small pericardial effusion. Coronary arterial disease. Thoracic aorta is trace moderate to extensive mixed atheromatous and atherosclerotic plaquing. There is less than 50% narrowing at the origin of the left subclavian artery. No aortic aneurysm or dissection. No evidence of right- sided pulmonary thromboembolic disease. Right internal jugular [id number] catheter terminates within the mid SVC. There is no pneumothorax or pleural effusion. Moderate upper lobe predominant emphysema. Cavitary pleural-based 1.8 x 1.57 m nodule of the superior segment right lower lobe is noted on image 184 series 4, new from prior PET. Evaluation of the lungs is limited secondary to respiratory motion. Additionally there is a 10 mm nodule the super segment right lower lobe. There is mild bilateral bronchial wall thickening with areas of mucoid impaction within the lung bases and right middle lobe. There are multiple nodular opacities throughout the bilateral lungs including a 12 x 9 mm irregular nodule of the right lower lobe on image 135 series 4. 8 mm nodule of the lateral right lung base on image 118 series 4. Millimeter nodule of the right upper lobe. Areas of tree-in-bud nodularity are present within the left lung base. Mildly enlarged right hilar lymph nodes are seen measuring up to 1.3 x 1.0 cm. No acute amount of the imaged upper abdomen. Soft tissues are unremarkable. No suspicious lytic or blastic bony lesions identified to suggest bony metastasis. Multilevel degenerative changes about the spine. IMPRESSION: 1. Large irregular spiculated invasive mass of the left upper lobe measuring up to 6.1 cm invades the mediastinum as above with encasement and invasion of the left main pulmonary artery resulting in severe luminal stenosis with emboli involving the lobar, segmental and subsegmental branches of the left lower lobe , likely tumor emboli. 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 These findings are compatible with progression of disease. 2. Multiple multilobar distribution of pulmonary nodules as above including a centrally cavitary 1.8 cm nodule of the superior segment right lower lobe suggesting pulmonary metastasis. 3. Emphysema with mild bilateral bronchial wall thickening and tree-in-bud nodularity of the lung bases, left greater than right suggest a superimposed infectious or inflammatory bronchiolitis with bronchitis The above report was generated using voice recognition software. It may contain grammatical, syntax or spelling errors. Laboratory Results Last 24 Hours Test 05/13/17 18:16 05/13/17 20:06 05/13/17 20:45 05/13/17 23:08 Hemoglobin 8.3 g/dL Hematocrit 25.4 % Bedside Glucose 215 mg/dl 201 mg/dl Sodium Level 135 mmol/L Potassium Level 3.4 mmol/L Chloride Level 102 mmol/L Carbon Dioxide Level 28 mmol/L Anion Gap 5.0 mmol/L Blood Urea Nitrogen 10 mg/dl Creatinine 0.73 mg/dl Est Creatinine Clear Calc Drug Dose 71.4 ml/min Estimated GFR () 106.7 Estimated GFR (Non- 92.0 BUN/Creatinine Ratio 13.1 Random Glucose 190 mg/dl Lactic Acid Level 2.2 mmol/L Calcium Level 8.3 mg/dl Magnesium Level 1.9 mg/dl Test 05/14/17 00:14 05/14/17 04:19 05/14/17 06:58 05/14/17 11:29 Lactic Acid Level 2.5 mmol/L 1.4 mmol/L White Blood Count 4.32 K/uL Red Blood Count 3.25 M/uL Hemoglobin 8.7 g/dL Hematocrit 26.5 % Mean Corpuscular Volume 81.5 fL Mean Corpuscular Hemoglobin 26.8 pg Mean Corpuscular Hemoglobin Concent 32.8 g/dl Platelet Count 176 K/uL Mean Platelet Volume 7.8 fL Neutrophils (%) (Auto) 84.7 % Lymphocytes (%) (Auto) 7.2 % Monocytes (%) (Auto) 7.9 % Eosinophils (%) (Auto) 0.0 % Basophils (%) (Auto) 0.0 % Neutrophils # (Auto) 3.66 K/uL Lymphocytes # (Auto) 0.31 K/uL Monocytes # (Auto) 0.34 K/uL Eosinophils # (Auto) 0.00 K/uL Basophils # (Auto) 0.00 K/uL RDW Standard Deviation 47.9 fL RDW Coefficient of Variation 16.6 % Immature Granulocyte % (Auto) 0.2 % Immature Granulocyte # (Auto) 0.01 K/uL Acanthocytes 1+ Activated Partial Thromboplast Time 49.2 SECONDS Partial Thromboplastin Ratio 1.9 Sodium Level 137 mmol/L Potassium Level 3.8 mmol/L Chloride Level 105 mmol/L Carbon Dioxide Level 26 mmol/L Anion Gap 6.0 mmol/L Blood Urea Nitrogen 6 mg/dl Creatinine 0.53 mg/dl Est Creatinine Clear Calc Drug Dose 98.3 ml/min Estimated GFR () 121.7 Estimated GFR (Non- 105.0 BUN/Creatinine Ratio 12.2 Random Glucose 131 mg/dl Calcium Level 8.4 mg/dl Phosphorus Level 2.4 mg/dl Magnesium Level 2.2 mg/dl Iron Level 23 mcg/dl Total Iron Binding Capacity 137 mcg/dl Transferrin 109 mg/dl Transferrin % Saturation 15 % C-Reactive Protein 9.50 mg/dl Prealbumin 6.3 mg/dl Vitamin B12 Level 677 pg/mL 25-Hydroxy Vitamin D Total 24.2 ng/ml Bedside Glucose 120 mg/dl 132 mg/dl Test 05/14/17 13:56 Hemoglobin 8.7 g/dL Hematocrit 25.8 % Assessment and Plan I have spoken with Dr. Reyes. The patient is currently admitted to the hospital due to a PE. Repeat imaging studies have shown potential progression of disease. I will review these imaging studies at our tumor board tomorrow to determine the best course of action for the patient. We will hold on radiation therapy for now. I will discuss management with primary team following discussion results from tumor board. Appreciate input from medical oncology.
--- NOTE | 2017-05-14 18:40 | Medical Consult ---
Consultation Date of Consultation: May 14, 2017. Attending Physician: Luisito Reyes MD History of Present Illness Hematology/Oncology consult: Evaluation and management of new diagnosis of pulmonary embolism in in known case of locally advanced non-small cell lung cancer. Date of consultation: 05/14/2017 HPI: 72-year-old the male, a case of stage IIIB non-small cell lung cancer, earlier he was seen in follow-up by Dr. Marx, I am covering for her during this week. Earlier in January, he was noticed to have large left suprahilar soft tissue mass with some prevascular lymph raman involvement, Pathology: (03/05/2017) -Left upper lobe FNA--> positive for malignant cells, non-small cell lung cancer , possibility of adenocarcinoma versus squamous cell carcinoma, -PD L1 expression --> 0%. He then received combined chemotherapy with weekly paclitaxel and carboplatin along with radiation treatment, so far she received 4 cycles of chemotherapy between 04/10/2017-05/01/2017. Recently he was admitted at [facility] for symptomatic left hydronephrosis related to the left ureteric stone, S/P a stent placement. (05/08) Now he is admitted at [facility] (05/13/2017) because of increasing shortness of breath, ongoing mild hematuria. Imaging study showed left lower lobe pulmonary embolism possible tumor emboli, no evidence of DVT noted in the both lower extremity Doppler evaluation, presently he is receiving IV heparin infusion. I saw him at bedside, his son was also at bedside, having mild shortness of breath, he is on oxygen therapy, no increasing chest pain, cough with scanty white expectant present, no hemoptysis, feeling weak and tired, fair appetite, weight loss present, at home he was not on any oxygen therapy. He denies any increasing leg edema, no leg pain. REVIEW OF SYSTEMS: GENERAL: Weight loss present, feeling weak and tired, no fever or chills. SKIN: No skin rash, no bruising. HEAD: No new headache, some dizziness present. EYES: No recent change in the vision, no diplopia, EARS: No earache no tinnitus, NOSE: No epistaxis, No nasal discharge or stuffiness, MOUTH: No sores, no dysphagia, no hoarseness of voice, NECK: No lumps, No swelling in thyroid area. No stiffness. PULMONARY: As described in HPI. CARDIOVASCULAR: No anginal chest pain, no PND, no orthopnea. No palpitation, no leg edema. No syncope. GASTROINTESTINAL: No abdominal pain, no nausea or vomiting. No diarrhea, No constipation. No blood in stool or black tarry stools. No abdominal distention. UROLOGIC: No burning urination. Mild hematuria present. MUSCULOSKELETAL: Nonspecific pain present.. HEMATOLOGIC: Mild anemia noted, no bleeding disorder, No bruising. NEUROLOGIC: No seizures, no focal weakness, no speech difficulty, No memory disturbances. No tingling or numbness of the extremities. PSYCHIATRIC: No depression. Anxiety present. No psychosis. SLEEP: No sleep disorder. Past medical and surgical history: -diabetes mellitus, hypertension. -he has right-sided port. -S/P tonsillectomy. Social history: -history of smoking in the past. No alcohol abuse. Family history: Not significant Medications: Please review his chart for detailed list of medications. Allergies: Clindamycin. On exam: - Alert and oriented x3, thin built man, not in any distress. - HEENT: no icterus, mild pallor noted, Throat: Normal. - Neck: No palpable cervical lymphadenopathy. - Chest: Emphysematous chest noted. - Abdomen: soft, nontender, no hepatomegaly, no splenomegaly. - No focal neuro deficit. - Extremities: no finger clubbing, no leg edema. Lab: -WBC 3500, H&H of 10.4/30.8, Platelet count of 254,000 (05/07/2017) -WBC 4600, H&H of 9.5/27.7, Platelet count of 190,000 (05/13/2017) -Vitamin B12 677, vitamin-D--> 24.2 (05/14/2017) -BUN/Creat: 6/0.5, calcium 8.4, serum iron 23, TIBC 137, iron saturation 15%, C -reactive protein 9.5 (05/14/2017) - AST 19, ALT 34, alkaline phosphatase 92, Total bilirubin: 0.4 (05/13/2017) Imaging: -PET-CT scan done on 03/07/2017--> 8 cm FDG avid left suprahilar mass, abuts and appears to invade the left hilum and the mediastinum, and abuts the thoracic aorta. Pathological enlarged minimally FDG avid prevascular lymph node. No evidence of extrathoracic metastatic disease noted. AAA measuring 4.2 x 4.4 cm noted. Left-sided nephrolithiasis noted. -CT scan of the abdomen and pelvis done on 05/07/2017--> moderate left hydronephrosis with 1.4 x 1 cm left ureteral calculus noted, multiple lung nodules noted in the right lower lobe, left-sided nephrolithiasis, 4.3 cm AAA noted. 1 cm right kidney lesion which is too small to characterize. -CT scan of the chest done with PE protocol on 05/13/2017--> large irregular spiculated mass in the left upper lobe measuring about 6.1 cm which is invading the mediastinum and encasing and invasion of the left main pulmonary artery resulting in severe luminal narrowing with emboli involving the left lower lobe , likely tumor emboli. Additionally evidence of pleural metastasis within the left hemithorax noted. Multiple multilobar distribution of lung nodules with some cavitations the, largest one measuring 1.8 cm in the right lower lobe noted. Emphysematous changes noted. -Bilateral lower extremity Doppler evaluation--> no evidence of DVT (05/14/2017) ASSESSMENT AND PLAN: 72-year-old the male, a case of left suprahilar non-small cell lung cancer, adenocarcinoma versus squamous cell carcinoma, large primary tumor with some cavitation, involving the mediastinal structures at that time the diagnosis in early February,, no evidence of distant metastatic disease noted, PD L1 expression 0%, I did not see EGFR or ALK mutation testing done in his case, he was treated under the guidance of Dr. Marx with combined chemotherapy (weekly paclitaxel/carboplatin) L with radiation treatment, so far received 4 cycles of chemotherapy, recently he was admitted for symptomatic left ureteric calculus causing hydronephrosis and hematuria, S/P a stent placement, now admitted for increasing shortness of breath, found to have new left lower lobe pulmonary embolism, possible tumor emboli, he slight reduction recently noted left suprahilar mass noted but it is encasing the surrounding vascular structures within narrowing of the left main pulmonary artery, he now also received multiple as bilateral lung nodules with 1 lesion shows cavitations which has raised the possibility of metastatic lesions involving the lungs. It is also possible that he may have excess thoracic metastatic disease. Presently he is receiving IV heparin therapy and will continue that and watch for bleeding (he has ongoing mild hematuria related to the left nephrolithiasis) . He may require blood transfusion support. When he is ready for discharge, he should consider changing schools Lovenox he had a therapeutic does. I would consider for long-term anticoagulant treatment if it is not contraindicated. He was seen by radiation oncologist Dr. Wagner today, he is planning to discuss his case in the Cancer Conference tomorrow. Because of disease progression, I would consider for discontinuing current combined chemotherapy radiation treatment, we could consider for additional systemic chemotherapy once his clinical condition improves. I am not sure about the role of chemotherapy in his case especially when PD L1 expression 0%. Some response can be achieved in such cases with Nivolumab (Opdivo) but I am not sure whether he will derive that kind of response. I spoke with the patient 's son at bedside, reviewed the blood workup, reviewed the imaging studies in his case, it is possible that in the near future his disease may progress further and may further occlusion of the left main pulmonary artery which can result in significant change in his lung function and clinical condition. Thanks for the consultation. Dr. Ezra Wagner Hem/Onc (This note was completed using the dictation program Fluency Direct. As such, there may be misspellings, word substitutions, or other variations that should not change the essence of the clinical content of this encounter note. If there is need for further clarification, please direct questions to the provider listed above.) Past Medical/Surgical History Medical Problems: (1) Dehydration Status: Acute (2) Left ureteral calculus Status: Acute (3) Mass of left lung Status: Acute (4) Pulmonary embolism Status: Acute (5) Weakness Status: Acute Family History Cancer Diabetes mellitus Gallbladder disease Heart disease Social History Smoking Status: Former Smoker Drug Use: none Marital Status: Housing Status: lives with friends Occupation Status: retired Allergies Coded Allergies: Clindamycin (Verified Allergy, Intermediate, Rash all over body , 05/07/17) Current Inpatient Medications Current Inpatient Medications Medications (Trade) Dose Ordered Sig/Vicenta Route Start Time Stop Time Status Last Admin Dose Admin Ioversol (Optiray 320) 100 ml UD PRN IV 05/13/17 02:00 05/17/17 01:59 Heparin Sodium/ Dextrose 500 ml @ 14 mls/hr Q24H IV 05/13/17 03:30 06/12/17 03:29 05/14/17 13:20 14 MLS/HR Prednisone (PredniSONE TAB) 40 mg DAILY PO 05/13/17 09:00 05/18/17 08:59 05/14/17 08:17 40 MG Acetaminophen (Tylenol Tab) 650 mg Q4H PRN PO 05/13/17 04:45 06/12/17 04:44 Insulin Aspart (novoLOG ASPART) SLIDING SCALE If C... ACHS SC 05/13/17 11:00 06/12/17 10:59 05/14/17 17:03 1 UNITS Glucose (Glucose 40% Gel) 15-30 GRAMS 15 GRAMS... UD PRN PO 05/13/17 04:45 06/12/17 04:44 Glucose (Glucose Chew Tab) 4-8 Tablets 4 Tabl... UD PRN PO 05/13/17 04:45 06/12/17 04:44 Dextrose (Dextrose 50% 50ML Syringe) 25-50ML OF 50% DW IV FOR... UD PRN IV 05/13/17 04:45 06/12/17 04:44 Glucagon (Glucagon Inj) 1 mg UD PRN SQ 05/13/17 04:45 06/12/17 04:44 Insulin Glargine (Lantus Solostar Pen) 5 units DAILY SC 05/14/17 09:00 06/13/17 08:59 05/14/17 08:19 5 UNITS Tramadol HCl (Ultram Tab) not relieved by tylenol @ Q6H PRN PO 05/13/17 04:45 06/12/17 04:44 Prochlorperazine Edisylate 5 mg/ Syringe 5 ml @ 5 mls/min Q6H PRN IV 05/13/17 04:45 06/12/17 04:44 Hydromorphone HCl (Dilaudid Inj) 0.5 mg Q3H PRN IV 05/13/17 04:45 05/27/17 04:44 Atorvastatin Calcium (Lipitor Tab) 40 mg HS PO 05/13/17 21:00 06/12/17 20:59 05/13/17 20:12 40 MG Docusate Sodium (coLACE CAP) 100 mg QAM PO 05/13/17 09:00 06/12/17 08:59 05/14/17 08:17 100 MG Dronabinol (Marinol Cap) 2.5 mg BID PO 05/13/17 09:00 06/12/17 08:59 05/14/17 08:17 2.5 MG Latanoprost (Xalatan Oph Soln) 1 drops HS OPR 05/13/17 21:00 06/12/17 20:59 05/13/17 20:10 1 DROPS Tamsulosin HCl (Flomax Cap) 0.4 mg HS PO 05/13/17 21:00 06/12/17 20:59 05/13/17 20:12 0.4 MG Polyethylene (Miralax Powder Packet) 17 gm DAILY PRN PO 05/13/17 06:30 06/12/17 06:29 Lorazepam (Ativan Inj) 0.25 mg Q4H PRN IV 05/13/17 04:45 06/12/17 04:44 05/14/17 03:06 0.25 MG Ipratropium [place] (Atrovent 0.02% 0.5MG/2.5ML Neb) 0.5 mg Q6R INH 05/13/17 09:00 06/12/17 08:59 05/14/17 14:10 0.5 MG Levalbuterol (Xopenex 1.25MG/ 0.5ML Neb) 1.25 mg Q6R INH 05/13/17 09:00 06/12/17 08:59 05/14/17 14:10 1.25 MG Ipratropium [place] (Atrovent 0.02% 0.5MG/2.5ML Neb) 0.5 mg Q4H PRN INH 05/13/17 05:00 06/12/17 04:59 05/13/17 17:11 0.5 MG Levalbuterol (Xopenex 1.25MG/ 0.5ML Neb) 1.25 mg Q4H PRN INH 05/13/17 05:00 06/12/17 04:59 05/13/17 17:11 1.25 MG Doxycycline Hyclate (Vibramycin Cap) 100 mg BID PO 05/14/17 09:00 05/21/17 08:59 05/14/17 08:17 100 MG Enteral Nutritional Formula (Boost Glucose Control) 1 can TIDM PO 05/14/17 07:30 06/13/17 07:29 05/14/17 12:09 1 CAN Ferrous Sulfate (Feosol Tab) 325 mg QAM PO 05/14/17 09:00 06/13/17 08:59 05/14/17 09:34 325 MG Physical Exam Date Time Temp Pulse Resp B/P (MAP) Pulse Ox O2 Delivery O2 Flow Rate FiO2 05/14/17 16:00 97 Nasal Cannula 3.0 05/14/17 15:35 36.5 104 24 102/67 (79) 97 Nasal Cannula 3.0 05/14/17 14:10 70 16 94 Nasal Cannula 3.0 05/14/17 12:03 36.7 97 18 109/59 (76) 98 Nasal Cannula 3.0 05/14/17 12:00 97 Nasal Cannula 3.0 05/14/17 08:23 36.5 104 28 110/60 (77) 92 05/14/17 08:00 97 Nasal Cannula 3.0 05/14/17 07:11 96 16 98 Nasal Cannula 3.0 05/14/17 04:00 Nasal Cannula 3.0 05/14/17 03:31 36.6 112 23 122/65 (84) 96 Nasal Cannula 3.0 05/14/17 00:53 97 16 98 Nasal Cannula 3.0 05/14/17 00:00 Nasal Cannula 3.0 05/13/17 23:40 36.4 94 22 109/62 (78) 93 Nasal Cannula 3.0 05/13/17 23:00 36.5 100 24 95/54 100 3.0 05/13/17 22:00 36.4 102 22 94/60 99 3.0 05/13/17 21:40 36.5 110 22 102/55 98 3.0 05/13/17 21:25 36.3 104 22 93/53 99 3.0 05/13/17 21:10 36.5 100 22 99/58 98 3.0 05/13/17 20:00 Nasal Cannula 3.0 05/13/17 19:26 36.5 107 18 92/53 (66) 96 Nasal Cannula 3.0 05/13/17 19:09 99 20 98 Nasal Cannula 3.0 Laboratory Results Last 24 Hours Test 3/18/18 20:06 05/13/17 20:45 05/13/17 23:08 05/14/17 00:14 Bedside Glucose 215 mg/dl 201 mg/dl Sodium Level 135 mmol/L Potassium Level 3.4 mmol/L Chloride Level 102 mmol/L Carbon Dioxide Level 28 mmol/L Anion Gap 5.0 mmol/L Blood Urea Nitrogen 10 mg/dl Creatinine 0.73 mg/dl Est Creatinine Clear Calc Drug Dose 71.4 ml/min Estimated GFR () 106.7 Estimated GFR (Non- 92.0 BUN/Creatinine Ratio 13.1 Random Glucose 190 mg/dl Lactic Acid Level 2.2 mmol/L 2.5 mmol/L Calcium Level 8.3 mg/dl Magnesium Level 1.9 mg/dl Test 05/14/17 04:19 05/14/17 06:58 05/14/17 11:29 05/14/17 13:56 White Blood Count 4.32 K/uL Red Blood Count 3.25 M/uL Hemoglobin 8.7 g/dL 8.7 g/dL Hematocrit 26.5 % 25.8 % Mean Corpuscular Volume 81.5 fL Mean Corpuscular Hemoglobin 26.8 pg Mean Corpuscular Hemoglobin Concent 32.8 g/dl Platelet Count 176 K/uL Mean Platelet Volume 7.8 fL Neutrophils (%) (Auto) 84.7 % Lymphocytes (%) (Auto) 7.2 % Monocytes (%) (Auto) 7.9 % Eosinophils (%) (Auto) 0.0 % Basophils (%) (Auto) 0.0 % Neutrophils # (Auto) 3.66 K/uL Lymphocytes # (Auto) 0.31 K/uL Monocytes # (Auto) 0.34 K/uL Eosinophils # (Auto) 0.00 K/uL Basophils # (Auto) 0.00 K/uL RDW Standard Deviation 47.9 fL RDW Coefficient of Variation 16.6 % Immature Granulocyte % (Auto) 0.2 % Immature Granulocyte # (Auto) 0.01 K/uL Acanthocytes 1+ Activated Partial Thromboplast Time 49.2 SECONDS Partial Thromboplastin Ratio 1.9 Sodium Level 137 mmol/L Potassium Level 3.8 mmol/L Chloride Level 105 mmol/L Carbon Dioxide Level 26 mmol/L Anion Gap 6.0 mmol/L Blood Urea Nitrogen 6 mg/dl Creatinine 0.53 mg/dl Est Creatinine Clear Calc Drug Dose 98.3 ml/min Estimated GFR () 121.7 Estimated GFR (Non- 105.0 BUN/Creatinine Ratio 12.2 Random Glucose 131 mg/dl Lactic Acid Level 1.4 mmol/L Calcium Level 8.4 mg/dl Phosphorus Level 2.4 mg/dl Magnesium Level 2.2 mg/dl Iron Level 23 mcg/dl Total Iron Binding Capacity 137 mcg/dl Transferrin 109 mg/dl Transferrin % Saturation 15 % C-Reactive Protein 9.50 mg/dl Prealbumin 6.3 mg/dl Vitamin B12 Level 677 pg/mL 25-Hydroxy Vitamin D Total 24.2 ng/ml Bedside Glucose 120 mg/dl 132 mg/dl Test 05/14/17 16:37 Bedside Glucose 196 mg/dl
[2017-05-14 20:12] LABS: HEMATOCRIT 27.1 % (42-52)
[2017-05-14] MEDS: ATORVASTATIN 40 MG TAB PO SCH (21:56)
[2017-05-14] MEDS: TAMSULOSIN HCL 0.4 MG CAP PO SCH (21:56)
[2017-05-14] MEDS: LATANOPROST 0.005% OP SOLN 2.5 ML BTL OPR SCH (21:57)
[2017-05-15] VITALS (12 sets, daily range): BP systolic 101–134; BP diastolic 66–76; PULSE 99–135; TEMP 36.4–36.8; O2SAT 94–98
[2017-05-15] MEDS: IPRATROPIUM BROMIDE NEB SOLN 0.02% 2.5 ML VIAL INH SCH ×5 (01:55→19:51)
[2017-05-15] MEDS: LEVALBUTEROL 1.25MG/0.5ML NEB INH SCH ×5 (01:56→19:51)
[2017-05-15] MEDS: HEPARIN 25,000 UNIT/500ML D5W 500 ML IV SCH ×2 (04:29→08:31)
[2017-05-15] MEDS: PROCHLORPERAZINE INJ 5 MG in SYRINGE 4 ML IV PRN (05:38)
[2017-05-15] MEDS: LORAZEPAM 2 MG/ML 1 ML VIAL IV PRN (05:38)
[2017-05-15 06:49] LABS: HEMATOCRIT 28.1 % (42-52); HEMOGLOBIN 9.5 g/dL (14.0-18.0); IG# 0.01 K/uL (0.00-0.02); LYMPH % 7.7 %; LYMPH ABS # 0.31 K/uL (1.2-3.4); MEAN CELL VOLUME 81.4 fL (80-100); MEAN CORPUSCULAR HEMOGLOBIN 27.5 pg (25-34); MEAN CORPUSCULAR HGB CONC 33.8 g/dl (32-36); MEAN PLATELET VOLUME 7.8 fL (7.4-10.4); MONO % 6.4 %; MONO ABS # 0.26 K/uL (0.11-0.59); NEUT % 85.7 %; NEUT ABS # 3.47 K/uL (1.4-6.5); PLATELET COUNT 201 K/uL (130-400); RED CELL DISTRIBUTION WIDTH CV 16.9 % (11.5-14.5); RED CELL DISTRIBUTION WIDTH SD 48.8 fL (36.4-46.3); WHITE BLOOD COUNT 4.05 K/uL (4.8-10.8)
[2017-05-15 06:59] LABS: PTT PATIENT 34.3 SECONDS (21.0-31.0)
[2017-05-15 07:23] LABS: CALCIUM 8.6 mg/dl (8.5-10.1); CREATININE 0.57 mg/dl (0.60-1.40); POTASSIUM 3.3 mmol/L (3.5-5.1)
[2017-05-15 07:24] LABS: PHOSPHORUS 2.7 mg/dl (2.5-4.9)
[2017-05-15] MEDS: BOOST GLUCOSE CONTROL PO SCH ×3 (07:30→17:06)
[2017-05-15] MEDS: DOCUSATE SODIUM 100 MG CAP PO SCH (07:34)
[2017-05-15] MEDS: HYDROmorphone INJ 0.5 MG/0.5 ML SYR IV PRN ×2 (07:37→21:53)
[2017-05-15] MEDS: FERROUS SULFATE 325 MG TAB PO SCH (07:39)
[2017-05-15] MEDS: DOXYCYCLINE HYCLATE 100 MG CAP PO SCH ×2 (07:39→21:17)
[2017-05-15] MEDS: INSULIN ASPART 100 UNITS/ML 3 ML PEN SC SCH ×4 (07:43→21:00)
[2017-05-15] MEDS: INSULIN GLARGINE SOLOSTAR 100 UNITS/ML 3 ML PEN SC SCH (07:44)
[2017-05-15] MEDS ORDERED: HEPARIN IV BOLUS 4,000 UNIT in SYRINGE 0 ML IV SCH (08:30)
--- NOTE | 2017-05-15 09:34 | Progress Note ---
Subjective Date of Service: May 15, 2017. Subjective Pt evaluation today including: conversation w/ patient, chart review, lab review Pt with gross hematuria s/p left ureteral stent placement. Admitted with PE and started on heparin. Pt rather groggy this morning. States he is at the hospital, but did not clearly answer my other questions as he had trouble finishing his sentences. Uncertain whether he has had any further hematuria, as he told me he wasn't sure. No urine in the room to visualize. Blood and urine cultures preliminarily negative. Problem List Medical Problems: (1) Dehydration Status: Acute (2) Left ureteral calculus Status: Acute (3) Mass of left lung Status: Acute (4) Pulmonary embolism Status: Acute (5) Weakness Status: Acute Review of Systems Respiratory: No shortness of breath Pt unable to answer many questions. See HPI. Objective Vital Signs Date Time Temp Pulse Resp B/P (MAP) Pulse Ox O2 Delivery O2 Flow Rate FiO2 05/15/17 08:00 95 Nasal Cannula 3.0 05/15/17 08:00 36.5 135 18 134/70 (91) 96 Nasal Cannula 3.0 05/15/17 07:04 119 26 97 Nasal Cannula 3.0 05/15/17 04:16 36.7 104 19 117/72 (87) 95 Nasal Cannula 3.0 05/15/17 04:00 Nasal Cannula 3.0 05/15/17 01:56 102 16 97 Nasal Cannula 3.0 05/15/17 00:01 Nasal Cannula 3.0 05/14/17 23:17 36.7 99 21 121/64 (83) 97 Nasal Cannula 3.0 05/14/17 20:00 Nasal Cannula 3.0 05/14/17 19:24 107 20 94 Nasal Cannula 3.0 05/14/17 19:22 37.1 101 24 110/72 (85) 97 Nasal Cannula 3.0 05/14/17 16:00 97 Nasal Cannula 3.0 05/14/17 15:35 36.5 104 24 102/67 (79) 97 Nasal Cannula 3.0 05/14/17 14:10 70 16 94 Nasal Cannula 3.0 05/14/17 12:03 36.7 97 18 109/59 (76) 98 Nasal Cannula 3.0 05/14/17 12:00 97 Nasal Cannula 3.0 Physical Exam General Appearance: no apparent distress Eyes: normal inspection ENT: hearing grossly normal Neck: no JVD Respiratory/Chest: no respiratory distress, no accessory muscle use Cardiovascular: no JVD Extremities: normal inspection Neurologic/Psychiatric: alert, normal mood/affect, + pertinent finding (Pt responds to stimuli, but is groggy and somewhat lethargic this morning) Skin: normal color Laboratory Results Last 24 Hours Test 05/14/17 11:29 05/14/17 13:56 05/14/17 16:37 05/14/17 19:53 Bedside Glucose 132 mg/dl 196 mg/dl Hemoglobin 8.7 g/dL 9.0 g/dL Hematocrit 25.8 % 27.1 % Test 05/14/17 21:18 05/15/17 06:16 05/15/17 06:28 Bedside Glucose 150 mg/dl 134 mg/dl White Blood Count 4.05 K/uL Red Blood Count 3.45 M/uL Hemoglobin 9.5 g/dL Hematocrit 28.1 % Mean Corpuscular Volume 81.4 fL Mean Corpuscular Hemoglobin 27.5 pg Mean Corpuscular Hemoglobin Concent 33.8 g/dl Platelet Count 201 K/uL Mean Platelet Volume 7.8 fL Neutrophils (%) (Auto) 85.7 % Lymphocytes (%) (Auto) 7.7 % Monocytes (%) (Auto) 6.4 % Eosinophils (%) (Auto) 0.0 % Basophils (%) (Auto) 0.0 % Neutrophils # (Auto) 3.47 K/uL Lymphocytes # (Auto) 0.31 K/uL Monocytes # (Auto) 0.26 K/uL Eosinophils # (Auto) 0.00 K/uL Basophils # (Auto) 0.00 K/uL RDW Standard Deviation 48.8 fL RDW Coefficient of Variation 16.9 % Immature Granulocyte % (Auto) 0.2 % Immature Granulocyte # (Auto) 0.01 K/uL Activated Partial Thromboplast Time 34.3 SECONDS Partial Thromboplastin Ratio 1.3 Sodium Level 135 mmol/L Potassium Level 3.3 mmol/L Chloride Level 100 mmol/L Carbon Dioxide Level 28 mmol/L Anion Gap 8.0 mmol/L Blood Urea Nitrogen 6 mg/dl Creatinine 0.57 mg/dl Est Creatinine Clear Calc Drug Dose 92.2 ml/min Estimated GFR () 118.1 Estimated GFR (Non- 101.9 BUN/Creatinine Ratio 10.9 Random Glucose 123 mg/dl Calcium Level 8.6 mg/dl Phosphorus Level 2.7 mg/dl Magnesium Level 2.0 mg/dl Assessment and Plan A/P: Gross hematuria s/p left ureteral stent placement for 1.4cm left ureteral stone Gross hematuria after stent placement expected. Continue anticoagulation for PE per primary service. Continue to observe hematuria and H&H. Supportive management with transfusions PRN. H&H improved to 9.5 and 28.1 this morning. The pt is scheduled to f/u with Dr. Wood as an outpatient on 05/23. Will keep as scheduled. Will discuss definitive outpatient management of stone at that time. Will likely not be a candidate for ESWL unless he can stop anticoagulation for the procedure. May be a better candidate for URS which can be performed on anticoagulation. Will discuss further as an outpatient. Will continue to follow along with primary service intermittently.
[2017-05-15] MEDS: DRONABINOL 2.5 MG CAP PO SCH ×3 (09:56→21:25)
--- NOTE | 2017-05-15 10:11 | Progress Note ---
Medicine Progress Note Date & Time of Visit: May 15, 2017 at 09:42. Subjective seen resting in bed, comfortable on 3 liter via nasal cannula somewhat drowsy but oriented x 2 states he feels fine denies dyspnea, has intermittent dry cough no abdominal pain, hematuria appetite fair no other symptoms Objective Last 8 Hrs Date Time Temp Pulse Resp B/P (MAP) Pulse Ox O2 Delivery O2 Flow Rate FiO2 05/15/17 08:00 95 Nasal Cannula 3.0 05/15/17 08:00 36.5 135 18 134/70 (91) 96 Nasal Cannula 3.0 05/15/17 07:04 119 26 97 Nasal Cannula 3.0 05/15/17 04:16 36.7 104 19 117/72 (87) 95 Nasal Cannula 3.0 05/15/17 04:00 Nasal Cannula 3.0 05/15/17 01:56 102 16 97 Nasal Cannula 3.0 Physical Exam: General- oriented x 2, not in distress, speaks in sentences with no effort Head- atraumatic Eyes- PERRL, EOMI, anicteric ENT- oropharynx clear but dry Neck- supple, no JVD, no adenopathy, no thyromegaly; carotids +2/2 Lungs- clear breath sounds bilaterally,n o rales/wheezes Heart- regular rhythm; no murmur, normal rate Abdomen- normal bowel sounds, soft, nontender,non distended Extremities- no pretibial edema, no calf tenderness Neuro- alert, oriented x 3; oriented x 2, not in distress Skin- warm & dry Laboratory Results: Last 24 Hours Test 05/14/17 11:29 05/14/17 13:56 05/14/17 16:37 05/14/17 19:53 Bedside Glucose 132 mg/dl 196 mg/dl Hemoglobin 8.7 g/dL 9.0 g/dL Hematocrit 25.8 % 27.1 % Test 05/14/17 21:18 05/15/17 06:16 05/15/17 06:28 Bedside Glucose 150 mg/dl 134 mg/dl White Blood Count 4.05 K/uL Red Blood Count 3.45 M/uL Hemoglobin 9.5 g/dL Hematocrit 28.1 % Mean Corpuscular Volume 81.4 fL Mean Corpuscular Hemoglobin 27.5 pg Mean Corpuscular Hemoglobin Concent 33.8 g/dl Platelet Count 201 K/uL Mean Platelet Volume 7.8 fL Neutrophils (%) (Auto) 85.7 % Lymphocytes (%) (Auto) 7.7 % Monocytes (%) (Auto) 6.4 % Eosinophils (%) (Auto) 0.0 % Basophils (%) (Auto) 0.0 % Neutrophils # (Auto) 3.47 K/uL Lymphocytes # (Auto) 0.31 K/uL Monocytes # (Auto) 0.26 K/uL Eosinophils # (Auto) 0.00 K/uL Basophils # (Auto) 0.00 K/uL RDW Standard Deviation 48.8 fL RDW Coefficient of Variation 16.9 % Immature Granulocyte % (Auto) 0.2 % Immature Granulocyte # (Auto) 0.01 K/uL Activated Partial Thromboplast Time 34.3 SECONDS Partial Thromboplastin Ratio 1.3 Sodium Level 135 mmol/L Potassium Level 3.3 mmol/L Chloride Level 100 mmol/L Carbon Dioxide Level 28 mmol/L Anion Gap 8.0 mmol/L Blood Urea Nitrogen 6 mg/dl Creatinine 0.57 mg/dl Est Creatinine Clear Calc Drug Dose 92.2 ml/min Estimated GFR () 118.1 Estimated GFR (Non- 101.9 BUN/Creatinine Ratio 10.9 Random Glucose 123 mg/dl Calcium Level 8.6 mg/dl Phosphorus Level 2.7 mg/dl Magnesium Level 2.0 mg/dl Assessment & Plan Acute Pulmonary Embolism: Likely due to lung malignancy Acute Hypoxic respiratory failure Possible COPD exacerbation CTA:as below suggestive of metastatic disease CXR: suggestive of emphysematous changes Masslike opacity of the medial left upper lobe redemonstrated with central cavitation. Additionally, there is a cavitary nodule of the right midlung ECHO as below Venous doppler:No DVT within the right or left lower extremity. -- no hematuria Hg stable continue Heparin drip Med Onco consulted, will need Lovenox on discharge -- remains at 3 L via NC blood cultures negative continue Nebs, Doxy, Prednisone taper obtain sputum culture Hypokalemia: Hypomagnesemia: Hypophosphatemia: Poor oral intake replace and monitor as needed increase Marinol to 2.5mg TID Non-small cell lung cancer: Has progressively worsening currently on paclitaxel, carboplatin, XRT. Last chemo dose was 05/01. Had radiation therapy during prior admission -- awaiting further recommendations re: radiation tx will discuss with Dr. Theo Wagner re: chemo H/O AAA 40% noncalcified mural thrombus. monitor Leukopenia: remains at 4 but trending down monitor Stage II decubitus ulcer wound care consulted continue wound care H/O HTN: Relative Hypotension since admission Hold Lisinopril for now IV fluids PRN Hematuria: s/p Left Ureteral Stent placement by Dr. 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 * Ejection Fraction = >70 %. * The right ventricular cavity size is normal (basal dimension <4.2 cm in right ventricular apical 4-chamber view). * The right ventricular systolic function is normal as assessed by tricuspid annular plane systolic excursion (TAPSE) (normal >1.5 cm). * There is trace tricuspid regurgitation. * The estimated systolic PAP is 38mmhg. CTA: 1. Large irregular spiculated invasive mass of the left upper lobe measuring up to 6.1 cm invades the mediastinum as above with encasement and invasion of the left main pulmonary artery resulting in severe luminal stenosis with emboli involving the lobar, segmental and subsegmental branches of the left lower lobe, likely tumor emboli. 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 These findings are compatible with progression of disease. 2. Multiple multilobar distribution of pulmonary nodules as above including a centrally cavitary 1.8 cm nodule of the superior segment right lower lobe suggesting pulmonary metastasis. 3. Emphysema with mild bilateral bronchial wall thickening and tree-in-bud nodularity of the lung bases, left greater than right suggest a superimposed infectious or inflammatory bronchiolitis with bronchitis. Current Inpatient Medications: Current Inpatient Medications Medications (Trade) Dose Ordered Sig/Vicenta Route Start Time Stop Time Status Last Admin Dose Admin Ioversol (Optiray 320) 100 ml UD PRN IV 05/13/17 02:00 05/17/17 01:59 Heparin Sodium/ Dextrose 500 ml @ 16 mls/hr Q24H IV 05/13/17 03:30 06/12/17 03:29 05/15/17 08:31 16 MLS/HR Prednisone (PredniSONE TAB) 40 mg DAILY PO 05/13/17 09:00 05/18/17 08:59 05/15/17 07:39 40 MG Acetaminophen (Tylenol Tab) 650 mg Q4H PRN PO 05/13/17 04:45 06/12/17 04:44 Insulin Aspart (novoLOG ASPART) SLIDING SCALE If C... ACHS SC 05/13/17 11:00 06/12/17 10:59 05/15/17 07:43 1 UNITS Glucose (Glucose 40% Gel) 15-30 GRAMS 15 GRAMS... UD PRN PO 05/13/17 04:45 06/12/17 04:44 Glucose (Glucose Chew Tab) 4-8 Tablets 4 Tabl... UD PRN PO 05/13/17 04:45 06/12/17 04:44 Dextrose (Dextrose 50% 50ML Syringe) 25-50ML OF 50% DW IV FOR... UD PRN IV 05/13/17 04:45 06/12/17 04:44 Glucagon (Glucagon Inj) 1 mg UD PRN SQ 05/13/17 04:45 06/12/17 04:44 Insulin Glargine (Lantus Solostar Pen) 5 units DAILY SC 05/14/17 09:00 06/13/17 08:59 05/15/17 07:44 5 UNITS Tramadol HCl (Ultram Tab) not relieved by tylenol @ Q6H PRN PO 05/13/17 04:45 06/12/17 04:44 Prochlorperazine Edisylate 5 mg/ Syringe 5 ml @ 5 mls/min Q6H PRN IV 05/13/17 04:45 06/12/17 04:44 05/15/17 05:38 5 MLS/MIN Hydromorphone HCl (Dilaudid Inj) 0.5 mg Q3H PRN IV 05/13/17 04:45 05/27/17 04:44 05/15/17 07:37 0.5 MG Atorvastatin Calcium (Lipitor Tab) 40 mg HS PO 05/13/17 21:00 06/12/17 20:59 05/14/17 21:56 40 MG Docusate Sodium (coLACE CAP) 100 mg QAM PO 05/13/17 09:00 06/12/17 08:59 05/14/17 08:17 100 MG Dronabinol (Marinol Cap) 2.5 mg BID PO 05/13/17 09:00 06/12/17 08:59 05/14/17 21:55 2.5 MG Latanoprost (Xalatan Oph Soln) 1 drops HS OPR 05/13/17 21:00 06/12/17 20:59 05/14/17 21:57 1 DROPS Tamsulosin HCl (Flomax Cap) 0.4 mg HS PO 05/13/17 21:00 06/12/17 20:59 05/14/17 21:56 0.4 MG Polyethylene (Miralax Powder Packet) 17 gm DAILY PRN PO 05/13/17 06:30 06/12/17 06:29 Lorazepam (Ativan Inj) 0.25 mg Q4H PRN IV 05/13/17 04:45 06/12/17 04:44 05/15/17 05:38 0.25 MG Ipratropium [place] (Atrovent 0.02% 0.5MG/2.5ML Neb) 0.5 mg Q6R INH 05/13/17 09:00 06/12/17 08:59 05/15/17 07:03 0.5 MG Levalbuterol (Xopenex 1.25MG/ 0.5ML Neb) 1.25 mg Q6R INH 05/13/17 09:00 06/12/17 08:59 05/15/17 07:03 1.25 MG Ipratropium [place] Sal[place] (Atrovent 0.02% 0.5MG/2.5ML Neb) 0.5 mg Q4H PRN INH 05/13/17 05:00 06/12/17 04:59 05/13/17 17:11 0.5 MG Levalbuterol (Xopenex 1.25MG/ 0.5ML Neb) 1.25 mg Q4H PRN INH 05/13/17 05:00 06/12/17 04:59 05/13/17 17:11 1.25 MG Doxycycline Hyclate (Vibramycin Cap) 100 mg BID PO 05/14/17 09:00 05/21/17 08:59 05/15/17 07:39 100 MG Enteral Nutritional Formula (Boost Glucose Control) 1 can TIDM PO 05/14/17 07:30 06/13/17 07:29 05/14/17 12:09 1 CAN Ferrous Sulfate (Feosol Tab) 325 mg QAM PO 05/14/17 09:00 06/13/17 08:59 05/15/17 07:39 325 MG Heparin Sodium (Porcine) 4000 unit/Syringe 4 ml @ 10 mls/min TODAY@0830 IV 05/15/17 08:30 05/15/17 10:00 05/15/17 08:30 10 MLS/MIN Potassium Chloride (Klor-Con M10) 40 meq ONE PO 05/15/17 09:00 06/14/17 08:59 UNV
[2017-05-15] MEDS ORDERED: SODIUM CHLORIDE 0.9% 1000ML 1,000 ML IV SCH (10:15)
[2017-05-15] MEDS ORDERED: POTASSIUM CHLORIDE 10 MEQ TABCR PO ONE (10:45)
[2017-05-15] MEDS: NSS + 20MEQ KCL 1000ML 1,000 ML IV SCH (11:25)
[2017-05-15] MEDS: FENTANYL 25 MCG/HR TDSY TD SCH (11:34)
[2017-05-15 16:21] LABS: PTT PATIENT 39.8 SECONDS (21.0-31.0)
[2017-05-15] MEDS ORDERED: HEPARIN IV BOLUS 4,000 UNIT in SYRINGE 0 ML IV ONE (17:00)
[2017-05-15] MEDS: CHECK FENTANYL PATCH PLACEMENT SCH (17:06)
[2017-05-15] MEDS: LATANOPROST 0.005% OP SOLN 2.5 ML BTL OPR SCH (21:18)
[2017-05-15] MEDS: TAMSULOSIN HCL 0.4 MG CAP PO SCH (21:18)
[2017-05-15] MEDS: ATORVASTATIN 40 MG TAB PO SCH (21:18)
[2017-05-15 23:32] LABS: PTT PATIENT 51.2 SECONDS (21.0-31.0)
[2017-05-16] VITALS (9 sets, daily range): BP systolic 91–135; BP diastolic 61–74; PULSE 98–118; TEMP 36.4–37.2; O2SAT 94–97
[2017-05-16] MEDS: LEVALBUTEROL 1.25MG/0.5ML NEB INH SCH ×2 (01:43→07:04)
[2017-05-16] MEDS: IPRATROPIUM BROMIDE NEB SOLN 0.02% 2.5 ML VIAL INH SCH ×2 (01:43→07:03)
[2017-05-16 05:54] LABS: EOS % 0.3 %; EOS ABS # 0.01 K/uL (0-0.5); HEMATOCRIT 27.9 % (42-52); IG# 0.01 K/uL (0.00-0.02); LYMPH % 10.2 %; LYMPH ABS # 0.32 K/uL (1.2-3.4); MEAN CELL VOLUME 82.1 fL (80-100); MEAN CORPUSCULAR HEMOGLOBIN 26.5 pg (25-34); MEAN CORPUSCULAR HGB CONC 32.3 g/dl (32-36); MONO % 8.3 %; MONO ABS # 0.26 K/uL (0.11-0.59); NEUT % 80.9 %; NEUT ABS # 2.55 K/uL (1.4-6.5); PLATELET COUNT 194 K/uL (130-400); RED CELL DISTRIBUTION WIDTH CV 17.1 % (11.5-14.5); WHITE BLOOD COUNT 3.15 K/uL (4.8-10.8)
[2017-05-16 06:21] LABS: PTT PATIENT 45.8 SECONDS (21.0-31.0)
[2017-05-16] MEDS ORDERED: HEPARIN IV BOLUS 2,000 UNIT in SYRINGE 0 ML IV ONE ×2 (07:00→14:00)
[2017-05-16] MEDS: INSULIN ASPART 100 UNITS/ML 3 ML PEN SC SCH ×4 (07:42→20:57)
[2017-05-16] MEDS: HEPARIN 25,000 UNIT/500ML D5W 500 ML IV SCH ×2 (07:43→14:01)
[2017-05-16] MEDS: BOOST GLUCOSE CONTROL PO SCH ×3 (07:43→17:05)
[2017-05-16] MEDS: FERROUS SULFATE 325 MG TAB PO SCH (07:44)
[2017-05-16] MEDS: DOCUSATE SODIUM 100 MG CAP PO SCH (07:44)
[2017-05-16] MEDS: DOXYCYCLINE HYCLATE 100 MG CAP PO SCH ×2 (07:44→20:52)
[2017-05-16] MEDS: CHECK FENTANYL PATCH PLACEMENT SCH ×3 (07:44→15:31)
[2017-05-16] MEDS: INSULIN GLARGINE SOLOSTAR 100 UNITS/ML 3 ML PEN SC SCH (07:45)
[2017-05-16] MEDS: DRONABINOL 2.5 MG CAP PO SCH ×3 (08:47→21:45)
[2017-05-16 09:14] LABS: CALCIUM 8.5 mg/dl (8.5-10.1); CREATININE 0.62 mg/dl (0.60-1.40); POTASSIUM 4.1 mmol/L (3.5-5.1)
[2017-05-16 13:04] LABS: PTT PATIENT 41.1 SECONDS (21.0-31.0)
[2017-05-16] MEDS: NSS + 20MEQ KCL 1000ML 1,000 ML IV SCH ×2 (13:52)
--- NOTE | 2017-05-16 16:25 | Radiation Oncology Progress Nt ---
Radiation Oncology Progress Nt Date of Service Date of Service: May 16, 2017. Reason For Admission DVT/Pulmonary Embolus, Dehydration/Poor Oral Intake Diagnosis (1) Lung cancer Subjective Pt evaluation today including: conversation w/ patient, conversation w/ family (Son), physical exam, conversation with hospitalist, conversation with inpatient team (Dr. Sibley), chart review, lab review, review of studies, conversation w/ internet marketing consultant (Dr. Ezra Wagner), review of inpatient medication list Radiation Therapy Has patient started Radiation: Yes Number of Treatments Received: 21 Number of Treatments Planned: - 30 Current Chemotherapy: Yes (Chemotherapy held) Objective Vital Signs Date Time Temp Pulse Resp B/P (MAP) Pulse Ox O2 Delivery O2 Flow Rate FiO2 05/16/17 16:00 Nasal Cannula 3.0 05/16/17 15:36 36.7 104 22 129/74 (92) 95 Nasal Cannula 3.0 05/16/17 12:33 36.4 118 20 91/61 (71) 94 05/16/17 12:00 Nasal Cannula 3.0 05/16/17 08:00 Nasal Cannula 3.0 05/16/17 07:22 37.2 98 24 116/62 (80) 96 3.0 05/16/17 07:04 99 20 95 Nasal Cannula 3.0 05/16/17 04:00 94 Nasal Cannula 3.0 05/16/17 03:51 36.6 99 21 121/72 (88) 94 Nasal Cannula 4.0 05/16/17 01:43 101 24 97 Nasal Cannula 3.0 05/15/17 23:59 96 Nasal Cannula 3.0 05/15/17 23:34 36.8 105 22 101/68 (79) 96 Nasal Cannula 4.0 05/15/17 20:01 36.4 108 26 127/76 (93) 98 Nasal Cannula 3.0 05/15/17 20:00 Nasal Cannula 3.0 05/15/17 19:51 99 28 96 Nasal Cannula 3.0 Physical Exam General Appearance: + mild distress, + cachetic Eyes: normal inspection ENT: normal ENT inspection Neck: supple, no adenopathy Respiratory/Chest: chest non-tender, + decreased breath sounds, + accessory muscle use Cardiovascular: regular rate, rhythm, no edema, no gallop, no JVD Neurologic/Psychiatric: 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 TECHNIQUE: Multiple CTA images of the chest were obtained after the intravenous administration of 92 ml Optiray 320. Coronal and sagittal MIPS were obtained from the axial data set and were submitted for review. A dose lowering technique was utilized adhering to the principles of ALARA. COMPARISON: Chest radiographs of same day, PET CT 03/07/2017, CTA chest 2016, CT abdomen and pelvis 05/07/2017 FINDINGS: Large irregular spiculated invasive mass with central cavitation involves the left upper lobe measuring up to 6.1 x 5.1 cm in AP and transverse dimension, previously measuring up to 7.2 x 5.[address] study dated 09/04/2017. This lesion may have slightly decreased in size, however the central cavitation component has progressed. The mass invades the adjacent mediastinum and encases the proximal left subclavian and left common carotid arteries which are patent. The mass also encases invades the left main pulmonary artery which is severely narrowed with only minimal contrast opacification seen within the vessel as noted on image 244 of series 4. Thrombus within the left lower lobe are, segmental and subsegmental branches noted as seen on images 241 through 196 of series 4. The mass abuts the anterior pleura there is loss of normal subpleural fat plane suggesting pleural invasion. Mass also abuts the left major fissure and there is pleural nodular thickening of the major fissure as seen on image 248 of series 4. Additionally, there is high-grade narrowing of the left upper lobe bronchus, image 235 series 4 secondary to mass invasion. Heart is normal in size with small pericardial effusion. Coronary arterial disease. Thoracic aorta is trace moderate to extensive mixed atheromatous and atherosclerotic plaquing. There is less than 50% narrowing at the origin of the left subclavian artery. No aortic aneurysm or dissection. No evidence of right- sided pulmonary thromboembolic disease. Right internal jugular [id number] catheter terminates within the mid SVC. There is no pneumothorax or pleural effusion. Moderate upper lobe predominant emphysema. Cavitary pleural-based 1.8 x 1.57 m nodule of the superior segment right lower lobe is noted on image 184 series 4, new from prior PET. Evaluation of the lungs is limited secondary to respiratory motion. Additionally there is a 10 mm nodule the super segment right lower lobe. There is mild bilateral bronchial wall thickening with areas of mucoid impaction within the lung bases and right middle lobe. There are multiple nodular opacities throughout the bilateral lungs including a 12 x 9 mm irregular nodule of the right lower lobe on image 135 series 4. 8 mm nodule of the lateral right lung base on image 118 series 4. Millimeter nodule of the right upper lobe. Areas of tree-in-bud nodularity are present within the left lung base. Mildly enlarged right hilar lymph nodes are seen measuring up to 1.3 x 1.0 cm. No acute amount of the imaged upper abdomen. Soft tissues are unremarkable. No suspicious lytic or blastic bony lesions identified to suggest bony metastasis. Multilevel degenerative changes about the spine. IMPRESSION: 1. Large irregular spiculated invasive mass of the left upper lobe measuring up to 6.1 cm invades the mediastinum as above with encasement and invasion of the left main pulmonary artery resulting in severe luminal stenosis with emboli involving the lobar, segmental and subsegmental branches of the left lower lobe , likely tumor emboli. 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 These findings are compatible with progression of disease. 2. Multiple multilobar distribution of pulmonary nodules as above including a centrally cavitary 1.8 cm nodule of the superior segment right lower lobe suggesting pulmonary metastasis. 3. Emphysema with mild bilateral bronchial wall thickening and tree-in-bud nodularity of the lung bases, left greater than right suggest a superimposed infectious or inflammatory bronchiolitis with bronchitis. Laboratory Results Last 24 Hours Test 05/15/17 16:25 05/15/17 21:03 05/15/17 22:58 05/16/17 05:15 Bedside Glucose 223 mg/dl 144 mg/dl Activated Partial Thromboplast Time 51.2 SECONDS Partial Thromboplastin Ratio 2.0 Sodium Level 137 mmol/L Potassium Level 4.1 mmol/L Chloride Level 103 mmol/L Carbon Dioxide Level 29 mmol/L Anion Gap 5.0 mmol/L Blood Urea Nitrogen 8 mg/dl Creatinine 0.62 mg/dl Est Creatinine Clear Calc Drug Dose 80.3 ml/min Estimated GFR () 114.1 Estimated GFR (Non- 98.4 BUN/Creatinine Ratio 13.6 Random Glucose 111 mg/dl Calcium Level 8.5 mg/dl Magnesium Level 1.9 mg/dl Test 05/16/17 05:17 05/16/17 06:29 05/16/17 11:22 05/16/17 12:32 White Blood Count 3.15 K/uL Red Blood Count 3.40 M/uL Hemoglobin 9.0 g/dL Hematocrit 27.9 % Mean Corpuscular Volume 82.1 fL Mean Corpuscular Hemoglobin 26.5 pg Mean Corpuscular Hemoglobin Concent 32.3 g/dl Platelet Count 194 K/uL Mean Platelet Volume 8.0 fL Neutrophils (%) (Auto) 80.9 % Lymphocytes (%) (Auto) 10.2 % Monocytes (%) (Auto) 8.3 % Eosinophils (%) (Auto) 0.3 % Basophils (%) (Auto) 0.0 % Neutrophils # (Auto) 2.55 K/uL Lymphocytes # (Auto) 0.32 K/uL Monocytes # (Auto) 0.26 K/uL Eosinophils # (Auto) 0.01 K/uL Basophils # (Auto) 0.00 K/uL RDW Standard Deviation 50.0 fL RDW Coefficient of Variation 17.1 % Immature Granulocyte % (Auto) 0.3 % Immature Granulocyte # (Auto) 0.01 K/uL Activated Partial Thromboplast Time 45.8 SECONDS 41.1 SECONDS Partial Thromboplastin Ratio 1.8 1.6 Bedside Glucose 104 mg/dl 172 mg/dl Assessment and Plan Mr. Villegas is a 72-year-old gentleman with potentially metastatic progressive lung cancer. We did discuss his case at our tumor board on Sunday and the group did agree that, if safe, it may be prudent to biopsy the right lung mass to confirm metastatic disease. Unfortunately, the patient is currently on a heparin drip and his overall condition is slowly improving. I have spoken with Dr. Ezra Wagner from medical oncology regarding Mr. Villegas's care. After reviewing the imaging studies which show potential compression involvement of the left pulmonary artery, we have recommended considering palliative external beam radiation therapy while the patient is in the inpatient setting to prevent further issues including bleeding. I have spoken to the patient's family and patient regarding our recommendation to proceed with palliative external beam radiation therapy and they are in agreement. I have recommended that we deliver an additional 5-9 treatments to potentially reduce compression/invasion of the left pulmonary artery. We will plan to bring the patient down for radiation therapy tomorrow. Please call us with any further questions or concerns.
[2017-05-16] MEDS: IPRATROPIUM BROMIDE HFA INHALER INH SCH (17:04)
[2017-05-16] MEDS: LEValbuterol HFA 15GM INHALER INH SCH (17:04)
--- NOTE | 2017-05-16 19:07 | Progress Note ---
Medicine Progress Note Date & Time of Visit: May 16, 2017 at 19:01. Subjective seen resting in bedside chair, comfortable appears brighter, more alert states he feels better today than yesterday denies shortness of breath, cough appetite improving no bleeding denies other symptoms Objective Last 8 Hrs Date Time Temp Pulse Resp B/P (MAP) Pulse Ox O2 Delivery O2 Flow Rate FiO2 05/16/17 16:00 Nasal Cannula 3.0 05/16/17 15:36 36.7 104 22 129/74 (92) 95 Nasal Cannula 3.0 05/16/17 12:33 36.4 118 20 91/61 (71) 94 05/16/17 12:00 Nasal Cannula 3.0 Physical Exam: General- oriented x 2, not in distress, speaks in sentences with no effort Eyes- anicteric ENT- oropharynx clear Neck- supple, no JVD, no adenopathy Lungs- clear breath sounds bilaterally, no rales/no wheezing Heart- regular rhythm; no murmur,mild tachycardia Abdomen- normal bowel sounds, soft, nontender,non distended Extremities- no pretibial edema, no calf tenderness Neuro- alert, oriented x 3; oriented x 2, not in distress Skin- warm & dry Laboratory Results: Last 24 Hours Test 05/15/17 21:03 05/15/17 22:58 05/16/17 05:15 05/16/17 05:17 Bedside Glucose 144 mg/dl Activated Partial Thromboplast Time 51.2 SECONDS 45.8 SECONDS Partial Thromboplastin Ratio 2.0 1.8 Sodium Level 137 mmol/L Potassium Level 4.1 mmol/L Chloride Level 103 mmol/L Carbon Dioxide Level 29 mmol/L Anion Gap 5.0 mmol/L Blood Urea Nitrogen 8 mg/dl Creatinine 0.62 mg/dl Est Creatinine Clear Calc Drug Dose 80.3 ml/min Estimated GFR () 114.1 Estimated GFR (Non- 98.4 BUN/Creatinine Ratio 13.6 Random Glucose 111 mg/dl Calcium Level 8.5 mg/dl Magnesium Level 1.9 mg/dl White Blood Count 3.15 K/uL Red Blood Count 3.40 M/uL Hemoglobin 9.0 g/dL Hematocrit 27.9 % Mean Corpuscular Volume 82.1 fL Mean Corpuscular Hemoglobin 26.5 pg Mean Corpuscular Hemoglobin Concent 32.3 g/dl Platelet Count 194 K/uL Mean Platelet Volume 8.0 fL Neutrophils (%) (Auto) 80.9 % Lymphocytes (%) (Auto) 10.2 % Monocytes (%) (Auto) 8.3 % Eosinophils (%) (Auto) 0.3 % Basophils (%) (Auto) 0.0 % Neutrophils # (Auto) 2.55 K/uL Lymphocytes # (Auto) 0.32 K/uL Monocytes # (Auto) 0.26 K/uL Eosinophils # (Auto) 0.01 K/uL Basophils # (Auto) 0.00 K/uL RDW Standard Deviation 50.0 fL RDW Coefficient of Variation 17.1 % Immature Granulocyte % (Auto) 0.3 % Immature Granulocyte # (Auto) 0.01 K/uL Test 05/16/17 06:29 05/16/17 11:22 05/16/17 12:32 05/16/17 16:26 Bedside Glucose 104 mg/dl 172 mg/dl 156 mg/dl Activated Partial Thromboplast Time 41.1 SECONDS Partial Thromboplastin Ratio 1.6 Assessment & Plan Acute Pulmonary Embolism: Likely due to lung malignancy Acute Hypoxic respiratory failure Possible COPD exacerbation CTA:as below suggestive of metastatic disease CXR: suggestive of emphysematous changes Masslike opacity of the medial left upper lobe redemonstrated with central cavitation. Additionally, there is a cavitary nodule of the right midlung ECHO as below Venous doppler:No DVT within the right or left lower extremity. -- at baseline 3 L NC -- no hematuria Hg stable continue Heparin drip Med Onco consulted, will need Lovenox on discharge -- blood cultures negative continue Nebs, Doxy, Prednisone taper sputum culture pending Hypokalemia: Hypomagnesemia: Hypophosphatemia: Poor oral intake replace and monitor as needed increase Marinol to 2.5mg TID appetite improved today, monitor Non-small cell lung cancer: currently on paclitaxel, carboplatin, XRT. Last chemo dose was 05/01. Had radiation therapy during prior admission -- CT chest showing lesion encasing L pulmonary artery -- discussed with Dr. Flavia Wagner--> recommend radiation of above tomorrow ideally would need biopsy of R lung nodule/tumor--> but patient currently on heparin for acute PE H/O AAA 40% noncalcified mural thrombus? monitor Leukopenia: trended down to 3 monitor Stage II decubitus ulcer wound care consulted continue wound care H/O HTN: Relative Hypotension since admission Hold Lisinopril for now IV fluids PRN Hematuria: s/p Left Ureteral Stent placement by Dr. Wood 05/08/17 Hg stable outpatient ff up DM II: Last A1C:7.0 Hold PO meds Continue ISS, Lantus Monitor BGs Chronic Anemia: Multifactorial: Anemia of chronic disease, Iron deficiency, Secondary to Chemo, hematuria Monitor Hb Transfuse PRBCs PRN Started on Iron supplements B 12 levels normal S/P 1 unit PRBC on 05/13/17 Chronic cancer pain on narcotics resume Fentanyl Severe Protein Calorie Malnutrition: BMI:19.9 Telemetry Monitor consulted DVT Px: on IV Heparin Code Status: Full code for now Disposition: pending son Kal at bedside updated, discussed case at length with him all questions answered he is comfortable and agreeable with plan of care PROCEDURES: ECHO: * The left ventricle is hyperdynamic. * Ejection Fraction = >70 %. * The right ventricular cavity size is normal (basal dimension <4.2 cm in right ventricular apical 4-chamber view). * The right ventricular systolic function is normal as assessed by tricuspid annular plane systolic excursion (TAPSE) (normal >1.5 cm). * There is trace tricuspid regurgitation. * The estimated systolic PAP is 38mmhg. CTA: 1. Large irregular spiculated invasive mass of the left upper lobe measuring up to 6.1 cm invades the mediastinum as above with encasement and invasion of the left main pulmonary artery resulting in severe luminal stenosis with emboli involving the lobar, segmental and subsegmental branches of the left lower lobe, likely tumor emboli. 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 These findings are compatible with progression of disease. 2. Multiple multilobar distribution of pulmonary nodules as above including a centrally cavitary 1.8 cm nodule of the superior segment right lower lobe suggesting pulmonary metastasis. 3. Emphysema with mild bilateral bronchial wall thickening and tree-in-bud nodularity of the lung bases, left greater than right suggest a superimposed infectious or inflammatory bronchiolitis with bronchitis. Current Inpatient Medications: Current Inpatient Medications Medications (Trade) Dose Ordered Sig/Vicenta Route Start Time Stop Time Status Last Admin Dose Admin Ioversol (Optiray 320) 100 ml UD PRN IV 05/13/17 02:00 05/17/17 01:59 Heparin Sodium/ Dextrose 500 ml @ 20 mls/hr Q24H IV 05/13/17 03:30 06/12/17 03:29 05/16/17 14:01 20 MLS/HR Acetaminophen (Tylenol Tab) 650 mg Q4H PRN PO 05/13/17 04:45 06/12/17 04:44 Insulin Aspart (novoLOG ASPART) SLIDING SCALE If C... ACHS SC 05/13/17 11:00 06/12/17 10:59 05/16/17 17:04 5 UNITS Glucose (Glucose 40% Gel) 15-30 GRAMS 15 GRAMS... UD PRN PO 05/13/17 04:45 06/12/17 04:44 Glucose (Glucose Chew Tab) 4-8 Tablets 4 Tabl... UD PRN PO 05/13/17 04:45 06/12/17 04:44 Dextrose (Dextrose 50% 50ML Syringe) 25-50ML OF 50% DW IV FOR... UD PRN IV 05/13/17 04:45 06/12/17 04:44 Glucagon (Glucagon Inj) 1 mg UD PRN SQ 05/13/17 04:45 06/12/17 04:44 Insulin Glargine (Lantus Solostar Pen) 5 units DAILY SC 05/14/17 09:00 06/13/17 08:59 05/16/17 07:45 5 UNITS Tramadol HCl (Ultram Tab) not relieved by tylenol @ Q6H PRN PO 05/13/17 04:45 06/12/17 04:44 Prochlorperazine Edisylate 5 mg/ Syringe 5 ml @ 5 mls/min Q6H PRN IV 05/13/17 04:45 06/12/17 04:44 05/15/17 05:38 5 MLS/MIN Hydromorphone HCl (Dilaudid Inj) 0.5 mg Q3H PRN IV 05/13/17 04:45 05/27/17 04:44 05/15/17 21:53 0.5 MG Atorvastatin Calcium (Lipitor Tab) 40 mg HS PO 05/13/17 21:00 06/12/17 20:59 05/15/17 21:18 40 MG Docusate Sodium (coLACE CAP) 100 mg QAM PO 05/13/17 09:00 06/12/17 08:59 05/16/17 07:44 100 MG Latanoprost (Xalatan Oph Soln) 1 drops HS OPR 05/13/17 21:00 06/12/17 20:59 05/15/17 21:18 1 DROPS Tamsulosin HCl (Flomax Cap) 0.4 mg HS PO 05/13/17 21:00 06/12/17 20:59 05/15/17 21:18 0.4 MG Polyethylene (Miralax Powder Packet) 17 gm DAILY PRN PO 05/13/17 06:30 06/12/17 06:29 Lorazepam (Ativan Inj) 0.25 mg Q4H PRN IV 05/13/17 04:45 06/12/17 04:44 05/15/17 05:38 0.25 MG Ipratropium [place] (Atrovent 0.02% 0.5MG/2.5ML Neb) 0.5 mg Q4H PRN INH 05/13/17 05:00 06/12/17 04:59 05/13/17 17:11 0.5 MG Levalbuterol (Xopenex 1.25MG/ 0.5ML Neb) 1.25 mg Q4H PRN INH 05/13/17 05:00 06/12/17 04:59 05/13/17 17:11 1.25 MG Doxycycline Hyclate (Vibramycin Cap) 100 mg BID PO 05/14/17 09:00 05/21/17 08:59 05/16/17 07:44 100 MG Enteral Nutritional Formula (Boost Glucose Control) 1 can TIDM PO 05/14/17 07:30 06/13/17 07:29 05/16/17 17:05 1 CAN Ferrous Sulfate (Feosol Tab) 325 mg QAM PO 05/14/17 09:00 06/13/17 08:59 05/16/17 07:44 325 MG Fentanyl (Duragesic Patch) 25 mcg Q72H TD 05/15/17 11:00 05/29/17 10:59 05/15/17 11:34 25 MCG Miscellaneous (Fentanyl Patch Remove & Waste) 1 ea Q3D@1059 N/A 05/18/17 10:59 06/17/17 10:58 Miscellaneous Information (Check Fentanyl Patch Placement) 1 ea QS N/A 05/15/17 16:00 06/14/17 15:59 05/16/17 15:31 1 EA Dronabinol (Marinol Cap) 2.5 mg TID PO 05/15/17 14:00 06/12/17 08:59 05/16/17 13:53 2.5 MG Potassium Chloride/Sodium Chloride 1,000 ml @ 75 mls/hr [id number] IV 05/15/17 11:00 06/14/17 10:14 05/16/17 13:52 75 MLS/HR Prednisone (PredniSONE TAB) 30 mg DAILY PO 05/17/17 09:00 05/18/17 08:59 Ipratropium [place] (Atrovent Hfa Inhaler) 2 puffs Q6 INH 05/16/17 18:00 06/15/17 17:59 05/16/17 17:04 2 PUFFS Levalbuterol (Xopenex Hfa Inhaler) 2 puffs Q6 INH 05/16/17 18:00 06/15/17 17:59 05/16/17 17:04 2 PUFFS
[2017-05-16 20:44] LABS: PTT PATIENT 48.8 SECONDS (21.0-31.0)
[2017-05-16] MEDS: PROCHLORPERAZINE INJ 5 MG in SYRINGE 4 ML IV PRN (20:50)
[2017-05-16] MEDS: ATORVASTATIN 40 MG TAB PO SCH (20:51)
[2017-05-16] MEDS: LATANOPROST 0.005% OP SOLN 2.5 ML BTL OPR SCH (20:52)
[2017-05-16] MEDS: TAMSULOSIN HCL 0.4 MG CAP PO SCH (20:52)
[2017-05-16] MEDS: LORAZEPAM 2 MG/ML 1 ML VIAL IV PRN (21:23)
[2017-05-17] MEDS: LEValbuterol HFA 15GM INHALER INH SCH ×2 (00:08→06:11)
[2017-05-17] MEDS: IPRATROPIUM BROMIDE HFA INHALER INH SCH ×2 (00:09→06:11)
[2017-05-17] MEDS: CHECK FENTANYL PATCH PLACEMENT SCH ×3 (00:11→15:30)
[2017-05-17] MEDS: LORAZEPAM 2 MG/ML 1 ML VIAL IV PRN (01:04)
[2017-05-17] MEDS ORDERED: METOPROLOL TARTRATE 1 MG/ML VIAL IV STA (01:46)
[2017-05-17] MEDS ORDERED: METOPROLOL TARTRATE 1 MG/ML VIAL ONE (01:47)
[2017-05-17] MEDS ORDERED: METOPROLOL TARTRATE 25 MG TAB PO STA (02:39)
[2017-05-17] MEDS: NSS + 20MEQ KCL 1000ML 1,000 ML IV SCH ×2 (03:00→17:21)
[2017-05-17 03:45] VITALS: BP 129/72; PULSE 102; TEMP 37.4; O2SAT 97
[2017-05-17 06:33] LABS: BASO % 0.2 %; BASO ABS # 0.01 K/uL (0-0.2); EOS % 0.2 %; EOS ABS # 0.01 K/uL (0-0.5); HEMATOCRIT 27.3 % (42-52); HEMOGLOBIN 9.1 g/dL (14.0-18.0); IG# 0.02 K/uL (0.00-0.02); LYMPH % 9.9 %; LYMPH ABS # 0.42 K/uL (1.2-3.4); MEAN CELL VOLUME 81.5 fL (80-100); MEAN CORPUSCULAR HEMOGLOBIN 27.2 pg (25-34); MEAN CORPUSCULAR HGB CONC 33.3 g/dl (32-36); MEAN PLATELET VOLUME 7.8 fL (7.4-10.4); MONO ABS # 0.34 K/uL (0.11-0.59); NEUT % 81.2 %; NEUT ABS # 3.43 K/uL (1.4-6.5); PLATELET COUNT 166 K/uL (130-400); RED CELL DISTRIBUTION WIDTH CV 17.2 % (11.5-14.5); RED CELL DISTRIBUTION WIDTH SD 49.7 fL (36.4-46.3); WHITE BLOOD COUNT 4.23 K/uL (4.8-10.8)
[2017-05-17] MEDS: HEPARIN 25,000 UNIT/500ML D5W 500 ML IV SCH ×2 (07:10→07:57)
[2017-05-17 07:30] VITALS: BP 107/61; PULSE 91; TEMP 37; O2SAT 93
[2017-05-17] MEDS: DRONABINOL 2.5 MG CAP PO SCH ×3 (07:54→20:16)
[2017-05-17] MEDS: DOCUSATE SODIUM 100 MG CAP PO SCH (07:55)
[2017-05-17] MEDS: FERROUS SULFATE 325 MG TAB PO SCH (07:55)
[2017-05-17] MEDS: BOOST GLUCOSE CONTROL PO SCH ×3 (07:55→16:45)
[2017-05-17] MEDS: DOXYCYCLINE HYCLATE 100 MG CAP PO SCH ×2 (07:55→20:16)
[2017-05-17] MEDS: INSULIN ASPART 100 UNITS/ML 3 ML PEN SC SCH ×4 (08:07→20:42)
[2017-05-17] MEDS: INSULIN GLARGINE SOLOSTAR 100 UNITS/ML 3 ML PEN SC SCH (08:08)
[2017-05-17 08:50] LABS: CALCIUM 8.5 mg/dl (8.5-10.1); CREATININE 0.56 mg/dl (0.60-1.40); PHOSPHORUS 2.5 mg/dl (2.5-4.9); POTASSIUM 3.6 mmol/L (3.5-5.1)
--- NOTE | 2017-05-17 08:56 | Progress Note ---
Medicine Progress Note Date & Time of Visit: May 17, 2017 at 08:52. Subjective seen resting in bed, comfortable had runs of sinus tach with PACs overnight given Metoprolol IV and PO, now HR in the low 100s denies chest pain, dyspnea, palpitations, dizziness feels good today, able to eat well for breakfast no bleeding no other symptoms Objective Last 8 Hrs Date Time Temp Pulse Resp B/P (MAP) Pulse Ox O2 Delivery O2 Flow Rate FiO2 05/17/17 07:30 37.0 91 18 107/61 (76) 93 Nasal Cannula 3.0 05/17/17 04:00 Nasal Cannula 3.0 05/17/17 03:45 37.4 102 25 129/72 (91) 97 Nasal Cannula 3.0 05/17/17 01:53 145 116/84 Physical Exam: General- oriented x 2, not in distress, speaks in sentences with no effort Eyes- anicteric ENT- oropharynx clear Neck- supple, no JVD, no adenopathy Lungs- clear breath sounds bilaterally, no rales/no wheezing Heart- regular rhythm; no murmur,mild tachycardia Abdomen- normal bowel sounds, soft, nontender,non distended Extremities- no pretibial edema, no calf tenderness Neuro- alert, oriented x 3; oriented x 2, not in distress Skin- warm & dry Laboratory Results: Last 24 Hours Test 05/16/17 11:22 05/16/17 12:32 05/16/17 16:26 05/16/17 19:32 Bedside Glucose 172 mg/dl 156 mg/dl Activated Partial Thromboplast Time 41.1 SECONDS 48.8 SECONDS Partial Thromboplastin Ratio 1.6 1.9 Test 05/16/17 20:26 05/17/17 06:07 05/17/17 06:08 05/17/17 07:04 Bedside Glucose 188 mg/dl 98 mg/dl Sodium Level 135 mmol/L Potassium Level 3.6 mmol/L Chloride Level 102 mmol/L Carbon Dioxide Level 28 mmol/L Anion Gap 6.0 mmol/L Blood Urea Nitrogen 11 mg/dl Creatinine 0.56 mg/dl Est Creatinine Clear Calc Drug Dose 88.9 ml/min Estimated GFR () 118.9 Estimated GFR (Non- 102.6 BUN/Creatinine Ratio 18.7 Random Glucose 104 mg/dl Calcium Level 8.5 mg/dl Phosphorus Level 2.5 mg/dl Magnesium Level 1.8 mg/dl White Blood Count 4.23 K/uL Red Blood Count 3.35 M/uL Hemoglobin 9.1 g/dL Hematocrit 27.3 % Mean Corpuscular Volume 81.5 fL Mean Corpuscular Hemoglobin 27.2 pg Mean Corpuscular Hemoglobin Concent 33.3 g/dl Platelet Count 166 K/uL Mean Platelet Volume 7.8 fL Neutrophils (%) (Auto) 81.2 % Lymphocytes (%) (Auto) 9.9 % Monocytes (%) (Auto) 8.0 % Eosinophils (%) (Auto) 0.2 % Basophils (%) (Auto) 0.2 % Neutrophils # (Auto) 3.43 K/uL Lymphocytes # (Auto) 0.42 K/uL Monocytes # (Auto) 0.34 K/uL Eosinophils # (Auto) 0.01 K/uL Basophils # (Auto) 0.01 K/uL RDW Standard Deviation 49.7 fL RDW Coefficient of Variation 17.2 % Immature Granulocyte % (Auto) 0.5 % Immature Granulocyte # (Auto) 0.02 K/uL Activated Partial Thromboplast Time 85.0 SECONDS Partial Thromboplastin Ratio 3.3 Assessment & Plan Acute Pulmonary Embolism: Likely due to lung malignancy Acute Hypoxic respiratory failure Possible COPD exacerbation CTA:as below suggestive of metastatic disease CXR: suggestive of emphysematous changes Masslike opacity of the medial left upper lobe redemonstrated with central cavitation. Additionally, there is a cavitary nodule of the right midlung ECHO as below Venous doppler: No DVT within the right or left lower extremity. -- at baseline 3 L NC -- no hematuria Hg stable continue Heparin drip Med Onco consulted, will need Lovenox on discharge -- blood cultures negative continue Nebs, Doxy, Prednisone taper sputum culture pending Sinus tachycardia likely from PE -- given Metoprolol overnight -- will monitor may need scheduled Metoprolol 12.5mg po BID Hypokalemia: Hypomagnesemia: Hypophosphatemia: Poor oral intake replace and monitor as needed increased Marinol to 2.5mg TID appetite improving, monitor Non-small cell lung cancer: currently on paclitaxel, carboplatin, XRT. Last chemo dose was 05/01. Had radiation therapy during prior admission -- CT chest showing lesion encasing L pulmonary artery -- discussed with Dr. Flavia Wagner--> recommend radiation of above tomorrow ideally would need biopsy of R lung nodule/tumor--> but patient currently on heparin for acute PE H/O AAA 40% noncalcified mural thrombus? monitor Leukopenia: trended down to 3 monitor Stage II decubitus ulcer wound care consulted continue wound care H/O HTN: Relative Hypotension since admission Hold Lisinopril for now IV fluids PRN Hematuria: s/p Left Ureteral Stent placement by Dr. Wood 05/08/17 Hg stable outpatient ff up DM II: Last A1C:7.0 Hold PO meds Continue ISS, Lantus Monitor BGs Chronic Anemia: Multifactorial: Anemia of chronic disease, Iron deficiency, Secondary to Chemo, hematuria Monitor Hb Transfuse PRBCs PRN Started on Iron supplements B 12 levels normal S/P 1 unit PRBC on 05/13/17 Chronic cancer pain on narcotics resumed Fentanyl Severe Protein Calorie Malnutrition: BMI:19.9 [employer] consulted DVT Px: on IV Heparin Code Status: Full code for now Disposition: pending anticipate d/c home when medically stable son Kal at bedside updated, discussed case at length with him all questions answered he is comfortable and agreeable with plan of care PROCEDURES: ECHO: * The left ventricle is hyperdynamic. * Ejection Fraction = >70 %. * The right ventricular cavity size is normal (basal dimension <4.2 cm in right ventricular apical 4-chamber view). * The right ventricular systolic function is normal as assessed by tricuspid annular plane systolic excursion (TAPSE) (normal >1.5 cm). * There is trace tricuspid regurgitation. * The estimated systolic PAP is 38mmhg. CTA: 1. Large irregular spiculated invasive mass of the left upper lobe measuring up to 6.1 cm invades the mediastinum as above with encasement and invasion of the left main pulmonary artery resulting in severe luminal stenosis with emboli involving the lobar, segmental and subsegmental branches of the left lower lobe, likely tumor emboli. 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 These findings are compatible with progression of disease. 2. Multiple multilobar distribution of pulmonary nodules as above including a centrally cavitary 1.8 cm nodule of the superior segment right lower lobe suggesting pulmonary metastasis. 3. Emphysema with mild bilateral bronchial wall thickening and tree-in-bud nodularity of the lung bases, left greater than right suggest a superimposed infectious or inflammatory bronchiolitis with bronchitis. Current Inpatient Medications: Current Inpatient Medications Medications (Trade) Dose Ordered Sig/Vicenta Route Start Time Stop Time Status Last Admin Dose Admin Heparin Sodium/ Dextrose 500 ml @ 18 mls/hr Q24H IV 05/13/17 03:30 06/12/17 03:29 05/17/17 07:57 18 MLS/HR Acetaminophen (Tylenol Tab) 650 mg Q4H PRN PO 05/13/17 04:45 06/12/17 04:44 Insulin Aspart (novoLOG ASPART) SLIDING SCALE If C... ACHS SC 05/13/17 11:00 06/12/17 10:59 05/17/17 08:07 3 UNITS Glucose (Glucose 40% Gel) 15-30 GRAMS 15 GRAMS... UD PRN PO 05/13/17 04:45 06/12/17 04:44 Glucose (Glucose Chew Tab) 4-8 Tablets 4 Tabl... UD PRN PO 05/13/17 04:45 06/12/17 04:44 Dextrose (Dextrose 50% 50ML Syringe) 25-50ML OF 50% DW IV FOR... UD PRN IV 05/13/17 04:45 06/12/17 04:44 Glucagon (Glucagon Inj) 1 mg UD PRN SQ 05/13/17 04:45 06/12/17 04:44 Insulin Glargine (Lantus Solostar Pen) 5 units DAILY SC 05/14/17 09:00 06/13/17 08:59 05/17/17 08:08 5 UNITS Tramadol HCl (Ultram Tab) not relieved by tylenol @ Q6H PRN PO 05/13/17 04:45 06/12/17 04:44 Prochlorperazine Edisylate 5 mg/ Syringe 5 ml @ 5 mls/min Q6H PRN IV 05/13/17 04:45 06/12/17 04:44 05/16/17 20:50 5 MLS/MIN Hydromorphone HCl (Dilaudid Inj) 0.5 mg Q3H PRN IV 05/13/17 04:45 05/27/17 04:44 05/15/17 21:53 0.5 MG Atorvastatin Calcium (Lipitor Tab) 40 mg HS PO 05/13/17 21:00 06/12/17 20:59 05/16/17 20:51 40 MG Docusate Sodium (coLACE CAP) 100 mg QAM PO 05/13/17 09:00 06/12/17 08:59 05/17/17 07:55 100 MG Latanoprost (Xalatan Oph Soln) 1 drops HS OPR 05/13/17 21:00 06/12/17 20:59 05/16/17 20:52 1 DROPS Tamsulosin HCl (Flomax Cap) 0.4 mg HS PO 05/13/17 21:00 06/12/17 20:59 05/16/17 20:52 0.4 MG Polyethylene (Miralax Powder Packet) 17 gm DAILY PRN PO 05/13/17 06:30 06/12/17 06:29 Lorazepam (Ativan Inj) 0.25 mg Q4H PRN IV 05/13/17 04:45 06/12/17 04:44 05/17/17 01:04 0.25 MG Ipratropium [place] (Atrovent 0.02% 0.5MG/2.5ML Neb) 0.5 mg Q4H PRN INH 05/13/17 05:00 06/12/17 04:59 05/13/17 17:11 0.5 MG Levalbuterol (Xopenex 1.25MG/ 0.5ML Neb) 1.25 mg Q4H PRN INH 05/13/17 05:00 06/12/17 04:59 05/13/17 17:11 1.25 MG Doxycycline Hyclate (Vibramycin Cap) 100 mg BID PO 05/14/17 09:00 05/21/17 08:59 05/17/17 07:55 100 MG Enteral Nutritional Formula (Boost Glucose Control) 1 can TIDM PO 05/14/17 07:30 06/13/17 07:29 05/17/17 07:55 1 CAN Ferrous Sulfate (Feosol Tab) 325 mg QAM PO 05/14/17 09:00 06/13/17 08:59 05/17/17 07:55 325 MG Fentanyl (Duragesic Patch) 25 mcg Q72H TD 05/15/17 11:00 05/29/17 10:59 05/15/17 11:34 25 MCG Miscellaneous (Fentanyl Patch Remove & Waste) 1 ea Q3D@1059 N/A 05/18/17 10:59 06/17/17 10:58 Miscellaneous Information (Check Fentanyl Patch Placement) 1 ea QS N/A 05/15/17 16:00 06/14/17 15:59 05/17/17 07:55 1 EA Dronabinol (Marinol Cap) 2.5 mg TID PO 05/15/17 14:00 06/12/17 08:59 05/17/17 07:54 2.5 MG Potassium Chloride/Sodium Chloride 1,000 ml @ 75 mls/hr [id number] IV 05/15/17 11:00 06/14/17 10:14 05/17/17 03:00 75 MLS/HR Prednisone (PredniSONE TAB) 30 mg DAILY PO 05/17/17 09:00 05/18/17 08:59 05/17/17 07:55 30 MG
[2017-05-17 11:31] VITALS: BP 88/69; PULSE 108; O2SAT 91
[2017-05-17 13:34] LABS: PTT PATIENT 39.4 SECONDS (21.0-31.0)
--- NOTE | 2017-05-17 13:34 | Progress Note ---
Subjective Date of Service: May 17, 2017. Subjective Pt evaluation today including: conversation w/ patient, chart review, lab review Voiding: no voiding problems Pt denies hematuria or difficulty voiding today. H&H noted to be stable. Blood and urine cultures appear negative. Problem List Medical Problems: (1) Dehydration Status: Acute (2) Left ureteral calculus Status: Acute (3) Mass of left lung Status: Acute (4) Pulmonary embolism Status: Acute (5) Weakness Status: Acute Review of Systems Constitutional: No fever, No chills Respiratory: No shortness of breath Cardiac: No chest pain Abdomen: No pain, No nausea, No vomiting Male : No dysuria, No hematuria Heme: No abnormal bleeding/bruising Objective Vital Signs Date Time Temp Pulse Resp B/P (MAP) Pulse Ox O2 Delivery O2 Flow Rate FiO2 05/17/17 12:00 Nasal Cannula 3.0 05/17/17 11:31 108 24 88/69 (75) 91 Nasal Cannula 3.0 05/17/17 09:45 05/17/17 08:00 Nasal Cannula 3.0 05/17/17 07:30 37.0 91 18 107/61 (76) 93 Nasal Cannula 3.0 05/17/17 04:00 Nasal Cannula 3.0 05/17/17 03:45 37.4 102 25 129/72 (91) 97 Nasal Cannula 3.0 05/17/17 01:53 145 116/84 05/17/17 00:00 Nasal Cannula 3.0 05/16/17 23:29 36.6 110 22 135/67 (89) 94 Nasal Cannula 3.0 05/16/17 20:22 36.7 102 24 110/63 (79) 97 Nasal Cannula 3.0 05/16/17 20:00 Nasal Cannula 3.0 05/16/17 16:00 Nasal Cannula 3.0 05/16/17 15:36 36.7 104 22 129/74 (92) 95 Nasal Cannula 3.0 Physical Exam General Appearance: no apparent distress Eyes: normal inspection ENT: hearing grossly normal Neck: no JVD Respiratory/Chest: no respiratory distress, no accessory muscle use, + pertinent finding (nasal cannula O2 in place) Cardiovascular: no JVD Extremities: normal inspection Neurologic/Psychiatric: alert, normal mood/affect, oriented x 3 Skin: normal color Laboratory Results Last 24 Hours Test 05/16/17 16:26 05/16/17 19:32 05/16/17 20:26 05/17/17 06:07 Bedside Glucose 156 mg/dl 188 mg/dl Activated Partial Thromboplast Time 48.8 SECONDS Partial Thromboplastin Ratio 1.9 Sodium Level 135 mmol/L Potassium Level 3.6 mmol/L Chloride Level 102 mmol/L Carbon Dioxide Level 28 mmol/L Anion Gap 6.0 mmol/L Blood Urea Nitrogen 11 mg/dl Creatinine 0.56 mg/dl Est Creatinine Clear Calc Drug Dose 88.9 ml/min Estimated GFR () 118.9 Estimated GFR (Non- 102.6 BUN/Creatinine Ratio 18.7 Random Glucose 104 mg/dl Calcium Level 8.5 mg/dl Phosphorus Level 2.5 mg/dl Magnesium Level 1.8 mg/dl Test 05/17/17 06:08 05/17/17 07:04 05/17/17 11:30 05/17/17 13:15 White Blood Count 4.23 K/uL Red Blood Count 3.35 M/uL Hemoglobin 9.1 g/dL Hematocrit 27.3 % Mean Corpuscular Volume 81.5 fL Mean Corpuscular Hemoglobin 27.2 pg Mean Corpuscular Hemoglobin Concent 33.3 g/dl Platelet Count 166 K/uL Mean Platelet Volume 7.8 fL Neutrophils (%) (Auto) 81.2 % Lymphocytes (%) (Auto) 9.9 % Monocytes (%) (Auto) 8.0 % Eosinophils (%) (Auto) 0.2 % Basophils (%) (Auto) 0.2 % Neutrophils # (Auto) 3.43 K/uL Lymphocytes # (Auto) 0.42 K/uL Monocytes # (Auto) 0.34 K/uL Eosinophils # (Auto) 0.01 K/uL Basophils # (Auto) 0.01 K/uL RDW Standard Deviation 49.7 fL RDW Coefficient of Variation 17.2 % Immature Granulocyte % (Auto) 0.5 % Immature Granulocyte # (Auto) 0.02 K/uL Activated Partial Thromboplast Time 85.0 SECONDS Partial Thromboplastin Ratio 3.3 Bedside Glucose 98 mg/dl 128 mg/dl Assessment and Plan A/P: Gross hematuria s/p left ureteral stent placement for 1.4cm left ureteral stone Gross hematuria after stent placement expected. Continue anticoagulation for PE per primary service. Continue to observe hematuria and H&H. Supportive management with transfusions PRN. H&H remains stable. The pt is scheduled to f/u with Dr. Wood as an outpatient on 05/23. Will keep as scheduled. Will discuss definitive outpatient management of stone at that time. Will likely not be a candidate for ESWL unless he can stop anticoagulation for the procedure. May be a better candidate for URS which can be performed on anticoagulation. Will discuss further as an outpatient. No further management at this time. Recall PRN issues. Thanks for allowing us to participate in this pt's care.
[2017-05-17] MEDS ORDERED: HEPARIN IV BOLUS 4,000 UNIT in SYRINGE 0 ML IV ONE (14:00)
[2017-05-17 16:07] VITALS: BP 129/84; PULSE 69; TEMP 37; O2SAT 93
[2017-05-17 19:40] VITALS: BP 125/71; PULSE 74; TEMP 37; O2SAT 96
[2017-05-17] MEDS: TAMSULOSIN HCL 0.4 MG CAP PO SCH (20:16)
[2017-05-17] MEDS: ATORVASTATIN 40 MG TAB PO SCH (20:16)
[2017-05-17] MEDS: LATANOPROST 0.005% OP SOLN 2.5 ML BTL OPR SCH (20:21)
[2017-05-17] MEDS: MOMETASONE FUROATE 0.1% CR 15 GM TUBE EXT SCH (20:57)
[2017-05-17 21:22] LABS: PTT PATIENT 51.6 SECONDS (21.0-31.0)
[2017-05-17 23:40] VITALS: BP 103/62; PULSE 89; TEMP 36.7; O2SAT 91
[2017-05-18] MEDS: CHECK FENTANYL PATCH PLACEMENT SCH ×4 (00:23→23:49)
[2017-05-18] MEDS: NSS + 20MEQ KCL 1000ML 1,000 ML IV SCH ×2 (02:38→15:44)
[2017-05-18 03:45] VITALS: BP 109/66; PULSE 94; TEMP 36.6; O2SAT 97
[2017-05-18 04:57] LABS: EOS % 0.7 %; EOS ABS # 0.02 K/uL (0-0.5); HEMATOCRIT 27.6 % (42-52); HEMOGLOBIN 9.2 g/dL (14.0-18.0); IG# 0.02 K/uL (0.00-0.02); LYMPH % 15.3 %; LYMPH ABS # 0.46 K/uL (1.2-3.4); MEAN CELL VOLUME 81.9 fL (80-100); MEAN CORPUSCULAR HEMOGLOBIN 27.3 pg (25-34); MEAN CORPUSCULAR HGB CONC 33.3 g/dl (32-36); MEAN PLATELET VOLUME 7.9 fL (7.4-10.4); MONO ABS # 0.33 K/uL (0.11-0.59); NEUT % 72.3 %; NEUT ABS # 2.18 K/uL (1.4-6.5); PLATELET COUNT 140 K/uL (130-400); RED CELL DISTRIBUTION WIDTH CV 17.5 % (11.5-14.5); RED CELL DISTRIBUTION WIDTH SD 50.7 fL (36.4-46.3); WHITE BLOOD COUNT 3.01 K/uL (4.8-10.8)
[2017-05-18] MEDS: HEPARIN 25,000 UNIT/500ML D5W 500 ML IV SCH (06:13)
[2017-05-18 07:20] VITALS: BP 111/55; PULSE 87; TEMP 36.6; O2SAT 96
[2017-05-18] MEDS: BOOST GLUCOSE CONTROL PO SCH ×3 (07:30→15:49)
[2017-05-18] MEDS: DOCUSATE SODIUM 100 MG CAP PO SCH (07:47)
[2017-05-18] MEDS: MOMETASONE FUROATE 0.1% CR 15 GM TUBE EXT SCH ×2 (07:48→20:47)
[2017-05-18] MEDS: FERROUS SULFATE 325 MG TAB PO SCH (07:48)
[2017-05-18] MEDS: DOXYCYCLINE HYCLATE 100 MG CAP PO SCH ×2 (07:48→20:46)
[2017-05-18] MEDS: INSULIN ASPART 100 UNITS/ML 3 ML PEN SC SCH ×4 (07:51→20:45)
[2017-05-18] MEDS: INSULIN GLARGINE SOLOSTAR 100 UNITS/ML 3 ML PEN SC SCH (07:52)
[2017-05-18] MEDS: DRONABINOL 2.5 MG CAP PO SCH ×3 (08:31→21:05)
[2017-05-18] MEDS: FENTANYL 25 MCG/HR TDSY TD SCH (10:13)
[2017-05-18] MEDS: FENTANYL PATCH REMOVE & WASTE SCH (10:13)
[2017-05-18 11:49] VITALS: BP 110/61; PULSE 93; TEMP 36.5; O2SAT 96
[2017-05-18 12:02] LABS: CALCIUM 8.6 mg/dl (8.5-10.1); CREATININE 0.51 mg/dl (0.60-1.40); PHOSPHORUS 2.8 mg/dl (2.5-4.9); POTASSIUM 3.5 mmol/L (3.5-5.1)
[2017-05-18 14:55] VITALS: BP 103/65; PULSE 100; O2SAT 94
[2017-05-18 15:31] VITALS: BP 102/63; PULSE 91; TEMP 36.6; O2SAT 93
--- NOTE | 2017-05-18 18:50 | Progress Note ---
Medicine Progress Note Date & Time of Visit: May 18, 2017 at 18:50. Subjective Delayed entry date of service above Seen resting in bed comfortable sleeping with easily arousable States he feels okay overall No shortness of breath or cough Pain well controlled Appetite improving Still has some weakness No other symptoms Objective Last 8 Hrs Date Time Temp Pulse Resp B/P (MAP) Pulse Ox O2 Delivery O2 Flow Rate FiO2 05/18/17 16:00 Nasal Cannula 1.0 05/18/17 15:31 36.6 91 22 102/63 (76) 93 Nasal Cannula 2.0 05/18/17 14:55 100 94 05/18/17 12:00 Nasal Cannula 1.0 05/18/17 11:49 36.5 93 24 110/61 (77) 96 Nasal Cannula 1.5 Physical Exam: General- oriented x 2, not in distress, speaks in sentences with no effort Eyes- anicteric ENT- oropharynx clear Neck- no JVD Lungs- clear breath sounds bilaterally, no wheezing no rales Heart- regular rhythm; no murmur, normal rate Abdomen- normal bowel sounds, soft, nontender,non distended Extremities- no pretibial edema, no calf tenderness Neuro- alert, oriented x 3; oriented x 2, not in distress Skin- warm & dry Laboratory Results: Last 24 Hours Test 05/17/17 19:37 05/17/17 20:27 05/18/17 04:45 05/18/17 07:07 Activated Partial Thromboplast Time 51.6 SECONDS 47.0 SECONDS Partial Thromboplastin Ratio 2.0 1.8 Bedside Glucose 121 mg/dl 117 mg/dl White Blood Count 3.01 K/uL Red Blood Count 3.37 M/uL Hemoglobin 9.2 g/dL Hematocrit 27.6 % Mean Corpuscular Volume 81.9 fL Mean Corpuscular Hemoglobin 27.3 pg Mean Corpuscular Hemoglobin Concent 33.3 g/dl Platelet Count 140 K/uL Mean Platelet Volume 7.9 fL Neutrophils (%) (Auto) 72.3 % Lymphocytes (%) (Auto) 15.3 % Monocytes (%) (Auto) 11.0 % Eosinophils (%) (Auto) 0.7 % Basophils (%) (Auto) 0.0 % Neutrophils # (Auto) 2.18 K/uL Lymphocytes # (Auto) 0.46 K/uL Monocytes # (Auto) 0.33 K/uL Eosinophils # (Auto) 0.02 K/uL Basophils # (Auto) 0.00 K/uL RDW Standard Deviation 50.7 fL RDW Coefficient of Variation 17.5 % Immature Granulocyte % (Auto) 0.7 % Immature Granulocyte # (Auto) 0.02 K/uL Sodium Level 137 mmol/L Potassium Level 3.5 mmol/L Chloride Level 104 mmol/L Carbon Dioxide Level 28 mmol/L Anion Gap 5.0 mmol/L Blood Urea Nitrogen 9 mg/dl Creatinine 0.51 mg/dl Est Creatinine Clear Calc Drug Dose 95.2 ml/min Estimated GFR () 123.6 Estimated GFR (Non- 106.6 BUN/Creatinine Ratio 18.0 Random Glucose 108 mg/dl Calcium Level 8.6 mg/dl Phosphorus Level 2.8 mg/dl Magnesium Level 1.8 mg/dl Test 05/18/17 11:16 05/18/17 16:11 Bedside Glucose 155 mg/dl 168 mg/dl Assessment & Plan Acute Pulmonary Embolism: Likely due to lung malignancy Acute Hypoxic respiratory failure Possible COPD exacerbation CTA:as below suggestive of metastatic disease CXR: suggestive of emphysematous changes Masslike opacity of the medial left upper lobe redemonstrated with central cavitation. Additionally, there is a cavitary nodule of the right midlung ECHO as below Venous doppler: No DVT within the right or left lower extremity. -- at baseline 3 L NC -- no hematuria Hg stable continue Heparin drip Med Onco consulted, will need Lovenox on discharge -- blood cultures negative continue Nebs, Doxy, Prednisone taper Sinus tachycardia likely from PE Improving Hypokalemia: Hypomagnesemia: Hypophosphatemia: Poor oral intake replace and monitor as needed increased Marinol to 2.5mg TID appetite improved Non-small cell lung cancer: currently on paclitaxel, carboplatin, XRT. Last chemo dose was 05/01. Had radiation therapy during prior admission -- CT chest showing lesion encasing L pulmonary artery --Status post radiation of above Plan to continue radiation this coming week H/O AAA 40% noncalcified mural thrombus? monitor Stage II decubitus ulcer wound care consulted continue wound care H/O HTN: Relative Hypotension since admission Hold Lisinopril for now IV fluids PRN Hematuria: s/p Left Ureteral Stent placement by Dr. Wood 05/08/17 Hg stable outpatient ff up DM II: Last A1C:7.0 Hold PO meds Continue ISS, Lantus Monitor BGs Chronic Anemia: Multifactorial: Anemia of chronic disease, Iron deficiency, Secondary to Chemo, hematuria Monitor Hb Transfuse PRBCs PRN Started on Iron supplements B 12 levels normal S/P 1 unit PRBC on 05/13/17 Hemoglobin stable Chronic cancer pain on narcotics resumed Fentanyl Well-controlled Severe Protein Calorie Malnutrition: BMI:19.9 Security Sales Consultant consulted DVT Px: on IV Heparin Code Status: Full code for now Disposition: pending anticipate d/c home when medically stable Current Inpatient Medications: Current Inpatient Medications Medications (Trade) Dose Ordered Sig/Vicenta Route Start Time Stop Time Status Last Admin Dose Admin Heparin Sodium/ Dextrose 500 ml @ 20 mls/hr Q24H IV 05/13/17 03:30 06/12/17 03:29 05/18/17 06:13 20 MLS/HR Acetaminophen (Tylenol Tab) 650 mg Q4H PRN PO 05/13/17 04:45 06/12/17 04:44 Insulin Aspart (novoLOG ASPART) SLIDING SCALE If C... ACHS SC 05/13/17 11:00 06/12/17 10:59 05/18/17 16:56 5 UNITS Glucose (Glucose 40% Gel) 15-30 GRAMS 15 GRAMS... UD PRN PO 05/13/17 04:45 06/12/17 04:44 Glucose (Glucose Chew Tab) 4-8 Tablets 4 Tabl... UD PRN PO 05/13/17 04:45 06/12/17 04:44 Dextrose (Dextrose 50% 50ML Syringe) 25-50ML OF 50% DW IV FOR... UD PRN IV 05/13/17 04:45 06/12/17 04:44 Glucagon (Glucagon Inj) 1 mg UD PRN SQ 05/13/17 04:45 06/12/17 04:44 Insulin Glargine (Lantus Solostar Pen) 5 units DAILY SC 05/14/17 09:00 06/13/17 08:59 05/18/17 07:52 5 UNITS Tramadol HCl (Ultram Tab) not relieved by tylenol @ Q6H PRN PO 05/13/17 04:45 06/12/17 04:44 Prochlorperazine Edisylate 5 mg/ Syringe 5 ml @ 5 mls/min Q6H PRN IV 05/13/17 04:45 06/12/17 04:44 05/16/17 20:50 5 MLS/MIN Hydromorphone HCl (Dilaudid Inj) 0.5 mg Q3H PRN IV 05/13/17 04:45 05/27/17 04:44 05/15/17 21:53 0.5 MG Atorvastatin Calcium (Lipitor Tab) 40 mg HS PO 05/13/17 21:00 06/12/17 20:59 05/17/17 20:16 40 MG Docusate Sodium (coLACE CAP) 100 mg QAM PO 05/13/17 09:00 06/12/17 08:59 05/17/17 07:55 100 MG Latanoprost (Xalatan Oph Soln) 1 drops HS OPR 05/13/17 21:00 06/12/17 20:59 05/17/17 20:21 1 DROPS Tamsulosin HCl (Flomax Cap) 0.4 mg HS PO 05/13/17 21:00 06/12/17 20:59 05/17/17 20:16 0.4 MG Polyethylene (Miralax Powder Packet) 17 gm DAILY PRN PO 05/13/17 06:30 06/12/17 06:29 Lorazepam (Ativan Inj) 0.25 mg Q4H PRN IV 05/13/17 04:45 06/12/17 04:44 05/17/17 01:04 0.25 MG Ipratropium [place] (Atrovent 0.02% 0.5MG/2.5ML Neb) 0.5 mg Q4H PRN INH 05/13/17 05:00 06/12/17 04:59 05/13/17 17:11 0.5 MG Levalbuterol (Xopenex 1.25MG/ 0.5ML Neb) 1.25 mg Q4H PRN INH 05/13/17 05:00 06/12/17 04:59 05/13/17 17:11 1.25 MG Doxycycline Hyclate (Vibramycin Cap) 100 mg BID PO 05/14/17 09:00 05/21/17 08:59 05/18/17 07:48 100 MG Enteral Nutritional Formula (Boost Glucose Control) 1 can TIDM PO 05/14/17 07:30 06/13/17 07:29 05/18/17 15:49 1 CAN Ferrous Sulfate (Feosol Tab) 325 mg QAM PO 05/14/17 09:00 06/13/17 08:59 05/18/17 07:48 325 MG Fentanyl (Duragesic Patch) 25 mcg Q72H TD 05/15/17 11:00 05/29/17 10:59 05/18/17 10:13 25 MCG Miscellaneous (Fentanyl Patch Remove & Waste) 1 ea Q3D@1059 N/A 05/18/17 10:59 06/17/17 10:58 05/18/17 10:13 1 EA Miscellaneous Information (Check Fentanyl Patch Placement) 1 ea QS N/A 05/15/17 16:00 06/14/17 15:59 05/18/17 15:48 1 EA Dronabinol (Marinol Cap) 2.5 mg TID PO 05/15/17 14:00 06/12/17 08:59 05/18/17 13:58 2.5 MG Potassium Chloride/Sodium Chloride 1,000 ml @ 75 mls/hr [id number] IV 05/15/17 11:00 06/14/17 10:14 05/18/17 15:44 75 MLS/HR Mometasone Furoate ([place] 0.1 % Cr) 1 appln BID EXT 05/17/17 21:00 06/16/17 20:59 05/18/17 07:48 1 APPLN Prednisone (PredniSONE TAB) 30 mg DAILY PO 05/19/17 09:00 06/18/17 08:59
[2017-05-18 19:35] VITALS: BP 126/82; PULSE 88; TEMP 36.3; O2SAT 93
[2017-05-18] MEDS: TAMSULOSIN HCL 0.4 MG CAP PO SCH (20:46)
[2017-05-18] MEDS: LATANOPROST 0.005% OP SOLN 2.5 ML BTL OPR SCH (20:48)
[2017-05-18] MEDS: ATORVASTATIN 40 MG TAB PO SCH (20:48)
[2017-05-19] VITALS (8 sets, daily range): BP systolic 99–135; BP diastolic 61–79; PULSE 89–99; TEMP 36.4–37.1; O2SAT 88–98
[2017-05-19] MEDS: NSS + 20MEQ KCL 1000ML 1,000 ML IV SCH (03:55)
[2017-05-19] MEDS: HEPARIN 25,000 UNIT/500ML D5W 500 ML IV SCH ×3 (04:49→23:29)
[2017-05-19 06:02] LABS: BASO % 0.2 %; BASO ABS # 0.01 K/uL (0-0.2); EOS % 0.2 %; EOS ABS # 0.01 K/uL (0-0.5); HEMATOCRIT 30.1 % (42-52); IG# 0.02 K/uL (0.00-0.02); LYMPH % 11.8 %; LYMPH ABS # 0.52 K/uL (1.2-3.4); MEAN CELL VOLUME 82.7 fL (80-100); MEAN CORPUSCULAR HEMOGLOBIN 27.5 pg (25-34); MEAN CORPUSCULAR HGB CONC 33.2 g/dl (32-36); MEAN PLATELET VOLUME 8.4 fL (7.4-10.4); MONO % 7.9 %; MONO ABS # 0.35 K/uL (0.11-0.59); NEUT % 79.4 %; NEUT ABS # 3.51 K/uL (1.4-6.5); PLATELET COUNT 178 K/uL (130-400); RED CELL DISTRIBUTION WIDTH CV 17.5 % (11.5-14.5); RED CELL DISTRIBUTION WIDTH SD 50.8 fL (36.4-46.3); WHITE BLOOD COUNT 4.42 K/uL (4.8-10.8)
[2017-05-19 06:24] LABS: PTT PATIENT 42.3 SECONDS (21.0-31.0)
[2017-05-19] MEDS ORDERED: HEPARIN IV BOLUS 2,000 UNIT in SYRINGE 0 ML IV ONE ×3 (06:45→23:15)
[2017-05-19] MEDS: FERROUS SULFATE 325 MG TAB PO SCH (08:00)
[2017-05-19] MEDS: DOXYCYCLINE HYCLATE 100 MG CAP PO SCH ×2 (08:00→21:02)
[2017-05-19] MEDS: MOMETASONE FUROATE 0.1% CR 15 GM TUBE EXT SCH ×2 (08:01→21:03)
[2017-05-19] MEDS: DOCUSATE SODIUM 100 MG CAP PO SCH (08:02)
[2017-05-19] MEDS: BOOST GLUCOSE CONTROL PO SCH ×3 (08:02→16:45)
[2017-05-19] MEDS: CHECK FENTANYL PATCH PLACEMENT SCH ×3 (08:03→23:54)
[2017-05-19] MEDS: INSULIN ASPART 100 UNITS/ML 3 ML PEN SC SCH ×4 (08:03→20:37)
[2017-05-19] MEDS: INSULIN GLARGINE SOLOSTAR 100 UNITS/ML 3 ML PEN SC SCH (08:05)
[2017-05-19] MEDS: DRONABINOL 2.5 MG CAP PO SCH ×3 (08:05→21:02)
--- NOTE | 2017-05-19 19:49 | Progress Note ---
Medicine Progress Note Date & Time of Visit: May 19, 2017 at 19:48. Subjective Seen resting in bed comfortable States he feels fine Good spirits Still feels somewhat weak Denies shortness of breath or cough Eating well No other symptoms Objective Last 8 Hrs Date Time Temp Pulse Resp B/P (MAP) Pulse Ox O2 Delivery O2 Flow Rate FiO2 05/19/17 19:47 36.5 93 22 135/70 (91) 95 Room Air 05/19/17 16:00 Nasal Cannula 1.5 05/19/17 15:26 36.8 89 25 111/68 (82) 98 Nasal Cannula 3.0 05/19/17 12:00 Nasal Cannula 1.5 Physical Exam: General- oriented x 2, not in distress, speaks in sentences with no effort Eyes- anicteric Neck- no JVD Lungs-mild rales right base no wheezing clear on the left Heart- regular rhythm; no murmur, normal rate Abdomen- normal bowel sounds, soft, nontender,non distended Extremities- no pretibial edema, no calf tenderness Neuro- alert, oriented x 3; oriented x 2, not in distress Skin- warm & dry Laboratory Results: Last 24 Hours Test 05/18/17 20:21 05/19/17 05:40 05/19/17 06:53 05/19/17 11:07 Bedside Glucose 119 mg/dl 115 mg/dl 162 mg/dl White Blood Count 4.42 K/uL Red Blood Count 3.64 M/uL Hemoglobin 10.0 g/dL Hematocrit 30.1 % Mean Corpuscular Volume 82.7 fL Mean Corpuscular Hemoglobin 27.5 pg Mean Corpuscular Hemoglobin Concent 33.2 g/dl Platelet Count 178 K/uL Mean Platelet Volume 8.4 fL Neutrophils (%) (Auto) 79.4 % Lymphocytes (%) (Auto) 11.8 % Monocytes (%) (Auto) 7.9 % Eosinophils (%) (Auto) 0.2 % Basophils (%) (Auto) 0.2 % Neutrophils # (Auto) 3.51 K/uL Lymphocytes # (Auto) 0.52 K/uL Monocytes # (Auto) 0.35 K/uL Eosinophils # (Auto) 0.01 K/uL Basophils # (Auto) 0.01 K/uL RDW Standard Deviation 50.8 fL RDW Coefficient of Variation 17.5 % Immature Granulocyte % (Auto) 0.5 % Immature Granulocyte # (Auto) 0.02 K/uL Activated Partial Thromboplast Time 42.3 SECONDS Partial Thromboplastin Ratio 1.6 Test 05/19/17 12:54 05/19/17 16:11 Activated Partial Thromboplast Time 41.0 SECONDS Partial Thromboplastin Ratio 1.6 Bedside Glucose 181 mg/dl Assessment & Plan Acute Pulmonary Embolism: Likely due to lung malignancy Acute Hypoxic respiratory failure COPD exacerbation CTA:as below suggestive of metastatic disease CXR: suggestive of emphysematous changes Masslike opacity of the medial left upper lobe redemonstrated with central cavitation. Additionally, there is a cavitary nodule of the right midlung ECHO as below Venous doppler: No DVT within the right or left lower extremity. -- at baseline 3 L NC -- no hematuria Hg stable continue Heparin drip Med Onco consulted, will need Lovenox on discharge -- blood cultures negative continue Nebs, Doxy, Prednisone taper Improving overall Still somewhat weak Sinus tachycardia likely from PE Resolved Hypokalemia: Hypomagnesemia: Hypophosphatemia: Poor oral intake replace and monitor as needed increased Marinol to 2.5mg TID appetite improved Non-small cell lung cancer: currently on paclitaxel, carboplatin, XRT. Last chemo dose was 05/01. Had radiation therapy during prior admission -- CT chest showing lesion encasing L pulmonary artery --Status post radiation of above Plan to continue radiation this coming week H/O AAA 40% noncalcified mural thrombus? monitor Stage II decubitus ulcer wound care consulted continue wound care H/O HTN: Relative Hypotension since admission Hold Lisinopril for now IV fluids PRN Hematuria: s/p Left Ureteral Stent placement by Dr. Wood 05/08/17 Hg stable outpatient ff up DM II: Last A1C:7.0 Hold PO meds Continue ISS, Lantus Monitor BGs Chronic Anemia: Multifactorial: Anemia of chronic disease, Iron deficiency, Secondary to Chemo, hematuria Monitor Hb Transfuse PRBCs PRN Started on Iron supplements B 12 levels normal S/P 1 unit PRBC on 05/13/17 Hemoglobin stable Chronic cancer pain on narcotics resumed Fentanyl Well-controlled Severe Protein Calorie Malnutrition: BMI:19.9 Advertising Clerk consulted DVT Px: on IV Heparin Code Status: Full code for now Disposition: pending anticipate d/c home when medically stable Current Inpatient Medications: Current Inpatient Medications Medications (Trade) Dose Ordered Sig/Vicenta Route Start Time Stop Time Status Last Admin Dose Admin Heparin Sodium/ Dextrose 500 ml @ 22 mls/hr [id number] IV 05/13/17 03:30 06/12/17 03:29 05/19/17 06:46 21 MLS/HR Acetaminophen (Tylenol Tab) 650 mg Q4H PRN PO 05/13/17 04:45 06/12/17 04:44 Insulin Aspart (novoLOG ASPART) SLIDING SCALE If C... ACHS SC 05/13/17 11:00 06/12/17 10:59 05/19/17 18:33 1 UNITS Glucose (Glucose 40% Gel) 15-30 GRAMS 15 GRAMS... UD PRN PO 05/13/17 04:45 06/12/17 04:44 Glucose (Glucose Chew Tab) 4-8 Tablets 4 Tabl... UD PRN PO 05/13/17 04:45 06/12/17 04:44 Dextrose (Dextrose 50% 50ML Syringe) 25-50ML OF 50% DW IV FOR... UD PRN IV 05/13/17 04:45 06/12/17 04:44 Glucagon (Glucagon Inj) 1 mg UD PRN SQ 05/13/17 04:45 06/12/17 04:44 Insulin Glargine (Lantus Solostar Pen) 5 units DAILY SC 05/14/17 09:00 06/13/17 08:59 05/19/17 08:05 5 UNITS Tramadol HCl (Ultram Tab) not relieved by tylenol @ Q6H PRN PO 05/13/17 04:45 06/12/17 04:44 Prochlorperazine Edisylate 5 mg/ Syringe 5 ml @ 5 mls/min Q6H PRN IV 05/13/17 04:45 06/12/17 04:44 05/16/17 20:50 5 MLS/MIN Hydromorphone HCl (Dilaudid Inj) 0.5 mg Q3H PRN IV 05/13/17 04:45 05/27/17 04:44 05/15/17 21:53 0.5 MG Atorvastatin Calcium (Lipitor Tab) 40 mg HS PO 05/13/17 21:00 06/12/17 20:59 05/18/17 20:48 40 MG Docusate Sodium (coLACE CAP) 100 mg QAM PO 05/13/17 09:00 06/12/17 08:59 05/17/17 07:55 100 MG Latanoprost (Xalatan Oph Soln) 1 drops HS OPR 05/13/17 21:00 06/12/17 20:59 05/18/17 20:48 1 DROPS Tamsulosin HCl (Flomax Cap) 0.4 mg HS PO 05/13/17 21:00 06/12/17 20:59 05/18/17 20:46 0.4 MG Polyethylene (Miralax Powder Packet) 17 gm DAILY PRN PO 05/13/17 06:30 06/12/17 06:29 Lorazepam (Ativan Inj) 0.25 mg Q4H PRN IV 05/13/17 04:45 06/12/17 04:44 05/17/17 01:04 0.25 MG Ipratropium [place] (Atrovent 0.02% 0.5MG/2.5ML Neb) 0.5 mg Q4H PRN INH 05/13/17 05:00 06/12/17 04:59 05/13/17 17:11 0.5 MG Levalbuterol (Xopenex 1.25MG/ 0.5ML Neb) 1.25 mg Q4H PRN INH 05/13/17 05:00 06/12/17 04:59 05/13/17 17:11 1.25 MG Doxycycline Hyclate (Vibramycin Cap) 100 mg BID PO 05/14/17 09:00 05/21/17 08:59 05/19/17 08:00 100 MG Enteral Nutritional Formula (Boost Glucose Control) 1 can TIDM PO 05/14/17 07:30 06/13/17 07:29 05/19/17 12:18 1 CAN Ferrous Sulfate (Feosol Tab) 325 mg QAM PO 05/14/17 09:00 06/13/17 08:59 05/19/17 08:00 325 MG Fentanyl (Duragesic Patch) 25 mcg Q72H TD 05/15/17 11:00 05/29/17 10:59 05/18/17 10:13 25 MCG Miscellaneous (Fentanyl Patch Remove & Waste) 1 ea Q3D@1059 N/A 05/18/17 10:59 06/17/17 10:58 05/18/17 10:13 1 EA Miscellaneous Information (Check Fentanyl Patch Placement) 1 ea QS N/A 05/15/17 16:00 06/14/17 15:59 05/19/17 16:54 1 EA Dronabinol (Marinol Cap) 2.5 mg TID PO 05/15/17 14:00 06/12/17 08:59 05/19/17 08:05 2.5 MG Potassium Chloride/Sodium Chloride 1,000 ml @ 75 mls/hr [id number] IV 05/15/17 11:00 06/14/17 10:14 05/19/17 03:55 75 MLS/HR Mometasone Furoate ([place] 0.1 % Cr) 1 appln BID EXT 05/17/17 21:00 06/16/17 20:59 05/19/17 08:01 1 APPLN Prednisone (PredniSONE TAB) 30 mg DAILY PO 05/19/17 09:00 06/18/17 08:59 05/19/17 07:58 30 MG
[2017-05-19 20:43] LABS: PTT PATIENT 42.4 SECONDS (21.0-31.0)
[2017-05-19] MEDS: LATANOPROST 0.005% OP SOLN 2.5 ML BTL OPR SCH (21:02)
[2017-05-19] MEDS: ATORVASTATIN 40 MG TAB PO SCH (21:02)
[2017-05-19] MEDS: TAMSULOSIN HCL 0.4 MG CAP PO SCH (21:02)
[2017-05-20] VITALS (9 sets, daily range): BP systolic 93–130; BP diastolic 46–69; PULSE 79–121; TEMP 36.3–36.7; O2SAT 93–98
[2017-05-20] MEDS: ACETAMINOPHEN 325 MG TAB PO PRN ×2 (01:59→11:50)
[2017-05-20] MEDS: HEPARIN 25,000 UNIT/500ML D5W 500 ML IV SCH ×2 (03:06→22:53)
[2017-05-20] MEDS: IPRATROPIUM BROMIDE NEB SOLN 0.02% 2.5 ML VIAL INH PRN (04:16)
[2017-05-20] MEDS: LEVALBUTEROL 1.25MG/0.5ML NEB INH PRN (04:16)
[2017-05-20] MEDS: HYDROmorphone INJ 0.5 MG/0.5 ML SYR IV PRN ×2 (04:58→10:28)
[2017-05-20 06:01] LABS: BASO % 0.3 %; BASO ABS # 0.01 K/uL (0-0.2); EOS % 0.3 %; EOS ABS # 0.01 K/uL (0-0.5); HEMATOCRIT 30.5 % (42-52); HEMOGLOBIN 9.9 g/dL (14.0-18.0); IG# 0.04 K/uL (0.00-0.02); LYMPH % 11.2 %; LYMPH ABS # 0.41 K/uL (1.2-3.4); MEAN CELL VOLUME 82.9 fL (80-100); MEAN CORPUSCULAR HEMOGLOBIN 26.9 pg (25-34); MEAN CORPUSCULAR HGB CONC 32.5 g/dl (32-36); MEAN PLATELET VOLUME 8.4 fL (7.4-10.4); MONO % 7.9 %; MONO ABS # 0.29 K/uL (0.11-0.59); NEUT % 79.2 %; NEUT ABS # 2.91 K/uL (1.4-6.5); PLATELET COUNT 176 K/uL (130-400); RED CELL DISTRIBUTION WIDTH CV 17.6 % (11.5-14.5); RED CELL DISTRIBUTION WIDTH SD 51.1 fL (36.4-46.3); WHITE BLOOD COUNT 3.67 K/uL (4.8-10.8)
[2017-05-20 06:22] LABS: PTT PATIENT 59.1 SECONDS (21.0-31.0)
[2017-05-20] MEDS: BOOST GLUCOSE CONTROL PO SCH ×4 (07:30→18:13)
[2017-05-20] MEDS: MOMETASONE FUROATE 0.1% CR 15 GM TUBE EXT SCH ×2 (08:02→21:33)
[2017-05-20] MEDS: DOCUSATE SODIUM 100 MG CAP PO SCH (08:02)
[2017-05-20] MEDS: DOXYCYCLINE HYCLATE 100 MG CAP PO SCH (08:02)
[2017-05-20] MEDS: FERROUS SULFATE 325 MG TAB PO SCH (08:02)
[2017-05-20] MEDS: CHECK FENTANYL PATCH PLACEMENT SCH ×2 (08:03→15:52)
[2017-05-20] MEDS: INSULIN ASPART 100 UNITS/ML 3 ML PEN SC SCH ×4 (08:07→21:00)
[2017-05-20] MEDS: INSULIN GLARGINE SOLOSTAR 100 UNITS/ML 3 ML PEN SC SCH (08:08)
[2017-05-20] MEDS: DRONABINOL 2.5 MG CAP PO SCH ×3 (09:18→21:39)
--- NOTE | 2017-05-20 13:02 | DIAGNOSTIC IMAGING REPORT ---
CHEST ONE VIEW PORTABLE CLINICAL HISTORY: 72 years-old Male presenting with r/o volume overload. TECHNIQUE: Portable upright AP view of the chest was obtained. COMPARISON: 05/13/[address] performed on 05/13/2017. FINDINGS: Right subclavian Mediport terminates in the upper SVC and has been accessed. Redemonstration of the large left upper lung mass with central cavitation that partially obscures the upper mediastinum. Otherwise heart and mediastinal silhouette normal. Chronic elevation of the left hemidiaphragm. No new focal opacity. No large effusion or pneumothorax. Degenerative changes of the thoracic spine. Left ureteral stent noted as well as lumbar fusion hardware. IMPRESSION: 1. No evidence of volume overload or pulmonary edema. 2. Redemonstration of the left upper lung mass. Electronically signed by: Pipe Alvarado M.D. 05/20/2017 1:00 PM Dictated Date/Time: 05/20/2017 12:59 PM
[2017-05-20] MEDS ORDERED: HYDROCODONE/ACETAMIN 5/325MG TAB PO PRN (13:30)
--- NOTE | 2017-05-20 13:42 | Progress Note ---
Medicine Progress Note Date & Time of Visit: May 20, 2017 at 13:29. Subjective seen resting in bed, comfortable sisters visiting remains at 3 L NC states his breathing is fine no cough ambulates to bathroom with no shortness of breath denies any bleeding no other symptoms Objective Last 8 Hrs Date Time Temp Pulse Resp B/P (MAP) Pulse Ox O2 Delivery O2 Flow Rate FiO2 05/20/17 12:02 Nasal Cannula 3.0 05/20/17 11:30 36.7 82 24 106/57 (73) 98 Nasal Cannula 2.0 05/20/17 08:06 Room Air 05/20/17 07:42 36.5 86 22 110/62 (78) 96 Nasal Cannula 3.0 Physical Exam: General- oriented x 2, not in distress, speaks in sentences with no effort Eyes- anicteric Neck- no JVD Lungs-mild rales right base , no wheezing, clear on the left Heart- regular rhythm; no murmur, normal rate Abdomen- normal bowel sounds, soft, nontender,non distended Extremities- no pretibial edema, no calf tenderness Neuro- alert, oriented x 3; oriented x 2, not in distress Skin- warm & dry Laboratory Results: Last 24 Hours Test 05/19/17 16:11 05/19/17 19:59 05/19/17 20:20 05/20/17 05:49 Bedside Glucose 181 mg/dl 128 mg/dl Activated Partial Thromboplast Time 42.4 SECONDS 59.1 SECONDS Partial Thromboplastin Ratio 1.6 2.3 White Blood Count 3.67 K/uL Red Blood Count 3.68 M/uL Hemoglobin 9.9 g/dL Hematocrit 30.5 % Mean Corpuscular Volume 82.9 fL Mean Corpuscular Hemoglobin 26.9 pg Mean Corpuscular Hemoglobin Concent 32.5 g/dl Platelet Count 176 K/uL Mean Platelet Volume 8.4 fL Neutrophils (%) (Auto) 79.2 % Lymphocytes (%) (Auto) 11.2 % Monocytes (%) (Auto) 7.9 % Eosinophils (%) (Auto) 0.3 % Basophils (%) (Auto) 0.3 % Neutrophils # (Auto) 2.91 K/uL Lymphocytes # (Auto) 0.41 K/uL Monocytes # (Auto) 0.29 K/uL Eosinophils # (Auto) 0.01 K/uL Basophils # (Auto) 0.01 K/uL RDW Standard Deviation 51.1 fL RDW Coefficient of Variation 17.6 % Immature Granulocyte % (Auto) 1.1 % Immature Granulocyte # (Auto) 0.04 K/uL Test 05/20/17 06:22 05/20/17 11:10 05/20/17 13:18 Bedside Glucose 138 mg/dl 171 mg/dl Assessment & Plan Acute Pulmonary Embolism: Likely due to lung malignancy Acute Hypoxic respiratory failure COPD exacerbation CTA:as below suggestive of metastatic disease CXR: suggestive of emphysematous changes Masslike opacity of the medial left upper lobe redemonstrated with central cavitation. Additionally, there is a cavitary nodule of the right midlung ECHO as below Venous doppler: No DVT within the right or left lower extremity. -- remains at baseline 3 L NC -- no hematuria Hg stable continue Heparin drip Med Onco consulted, will need Lovenox on discharge -- blood cultures negative completed 7 days of Doxy continue inhaled bronchodilators continue Prednisone taper -- stable overall for radiation treatment tomorrow Sinus Tachycardia likely from PE Resolved Hypokalemia: Hypomagnesemia: Hypophosphatemia: Poor oral intake replace and monitor as needed increased Marinol to 2.5mg TID appetite improved Non-small cell lung cancer: currently on paclitaxel, carboplatin, XRT. Last chemo dose was 05/01. Had radiation therapy during prior admission -- CT chest showing lesion encasing L pulmonary artery --Status post radiation of above Plan to continue radiation this coming week H/O AAA 40% noncalcified mural thrombus? monitor Stage II decubitus ulcer wound care consulted continue wound care H/O HTN: Relative Hypotension since admission Hold Lisinopril for now IV fluids PRN Hematuria: s/p Left Ureteral Stent placement by Dr. Wood 05/08/17 Hg stable outpatient ff up DM II: Last A1C:7.0 Hold PO meds Continue ISS, Lantus Monitor BGs Chronic Anemia: Multifactorial: Anemia of chronic disease, Iron deficiency, Secondary to Chemo, hematuria Monitor Hb Transfuse PRBCs PRN Started on Iron supplements B 12 levels normal S/P 1 unit PRBC on 05/13/17 Hemoglobin stable Chronic cancer pain on narcotics resumed Fentanyl Well-controlled Severe Protein Calorie Malnutrition: BMI:19.9 Meat Washer consulted DVT Px: on IV Heparin Code Status: Full code Disposition: pending anticipate d/c home when medically stable Current Inpatient Medications: Current Inpatient Medications Medications (Trade) Dose Ordered Sig/Vicenta Route Start Time Stop Time Status Last Admin Dose Admin Heparin Sodium/ Dextrose 500 ml @ 23 mls/hr [id number] IV 05/13/17 03:30 06/12/17 03:29 05/20/17 03:06 23 MLS/HR Acetaminophen (Tylenol Tab) 650 mg Q4H PRN PO 05/13/17 04:45 06/12/17 04:44 05/20/17 11:50 650 MG Insulin Aspart (novoLOG ASPART) SLIDING SCALE If C... ACHS SC 05/13/17 11:00 06/12/17 10:59 05/20/17 11:53 1 UNITS Glucose (Glucose 40% Gel) 15-30 GRAMS 15 GRAMS... UD PRN PO 05/13/17 04:45 06/12/17 04:44 Glucose (Glucose Chew Tab) 4-8 Tablets 4 Tabl... UD PRN PO 05/13/17 04:45 06/12/17 04:44 Dextrose (Dextrose 50% 50ML Syringe) 25-50ML OF 50% DW IV FOR... UD PRN IV 05/13/17 04:45 06/12/17 04:44 Glucagon (Glucagon Inj) 1 mg UD PRN SQ 05/13/17 04:45 06/12/17 04:44 Insulin Glargine (Lantus Solostar Pen) 5 units DAILY SC 05/14/17 09:00 06/13/17 08:59 05/20/17 08:08 5 UNITS Tramadol HCl (Ultram Tab) not relieved by tylenol @ Q6H PRN PO 05/13/17 04:45 06/12/17 04:44 05/20/17 11:50 50 MG Prochlorperazine Edisylate 5 mg/ Syringe 5 ml @ 5 mls/min Q6H PRN IV 05/13/17 04:45 06/12/17 04:44 05/16/17 20:50 5 MLS/MIN Hydromorphone HCl (Dilaudid Inj) 0.5 mg Q3H PRN IV 05/13/17 04:45 05/27/17 04:44 05/20/17 10:28 0.5 MG Atorvastatin Calcium (Lipitor Tab) 40 mg HS PO 05/13/17 21:00 06/12/17 20:59 05/19/17 21:02 40 MG Docusate Sodium (coLACE CAP) 100 mg QAM PO 05/13/17 09:00 06/12/17 08:59 05/20/17 08:02 100 MG Latanoprost (Xalatan Oph Soln) 1 drops HS OPR 05/13/17 21:00 06/12/17 20:59 05/19/17 21:02 1 DROPS Tamsulosin HCl (Flomax Cap) 0.4 mg HS PO 05/13/17 21:00 06/12/17 20:59 05/19/17 21:02 0.4 MG Polyethylene (Miralax Powder Packet) 17 gm DAILY PRN PO 05/13/17 06:30 06/12/17 06:29 Lorazepam (Ativan Inj) 0.25 mg Q4H PRN IV 05/13/17 04:45 06/12/17 04:44 05/17/17 01:04 0.25 MG Ipratropium [place] (Atrovent 0.02% 0.5MG/2.5ML Neb) 0.5 mg Q4H PRN INH 05/13/17 05:00 06/12/17 04:59 05/20/17 04:16 0.5 MG Levalbuterol (Xopenex 1.25MG/ 0.5ML Neb) 1.25 mg Q4H PRN INH 05/13/17 05:00 06/12/17 04:59 05/20/17 04:16 1.25 MG Doxycycline Hyclate (Vibramycin Cap) 100 mg BID PO 05/14/17 09:00 05/21/17 08:59 05/20/17 08:02 100 MG Enteral Nutritional Formula (Boost Glucose Control) 1 can TIDM PO 05/14/17 07:30 06/13/17 07:29 05/19/17 12:18 1 CAN Ferrous Sulfate (Feosol Tab) 325 mg QAM PO 05/14/17 09:00 06/13/17 08:59 05/20/17 08:02 325 MG Fentanyl (Duragesic Patch) 25 mcg Q72H TD 05/15/17 11:00 05/29/17 10:59 05/18/17 10:13 25 MCG Miscellaneous (Fentanyl Patch Remove & Waste) 1 ea Q3D@1059 N/A 05/18/17 10:59 06/17/17 10:58 05/18/17 10:13 1 EA Miscellaneous Information (Check Fentanyl Patch Placement) 1 ea QS N/A 05/15/17 16:00 06/14/17 15:59 05/20/17 08:03 1 EA Dronabinol (Marinol Cap) 2.5 mg TID PO 05/15/17 14:00 06/12/17 08:59 05/20/17 09:18 2.5 MG Mometasone Furoate ([place] 0.1 % Cr) 1 appln BID EXT 05/17/17 21:00 06/16/17 20:59 05/20/17 08:02 1 APPLN Prednisone (PredniSONE TAB) 30 mg DAILY PO 05/19/17 09:00 06/18/17 08:59 05/20/17 08:02 30 MG Acetaminophen/ Hydrocodone Bitart (Prim 5/325 Tab) 1 tab Q4H PRN PO 05/20/17 13:30 06/03/17 13:29 UNV
[2017-05-20 14:35] LABS: CALCIUM 8.8 mg/dl (8.5-10.1); CREATININE 0.69 mg/dl (0.60-1.40)
[2017-05-20] MEDS: LATANOPROST 0.005% OP SOLN 2.5 ML BTL OPR SCH (21:00)
[2017-05-20] MEDS: TAMSULOSIN HCL 0.4 MG CAP PO SCH (21:36)
[2017-05-20] MEDS: ATORVASTATIN 40 MG TAB PO SCH (21:36)
[2017-05-21] VITALS (9 sets, daily range): BP systolic 105–128; BP diastolic 60–69; PULSE 76–112; TEMP 36.3–36.7; O2SAT 92–98
[2017-05-21] MEDS: CHECK FENTANYL PATCH PLACEMENT SCH ×4 (00:18→23:47)
[2017-05-21 07:20] LABS: PTT PATIENT 54.4 SECONDS (21.0-31.0)
[2017-05-21] MEDS: BOOST GLUCOSE CONTROL PO SCH ×3 (07:30→16:45)
[2017-05-21] MEDS: INSULIN ASPART 100 UNITS/ML 3 ML PEN SC SCH ×4 (08:01→21:00)
[2017-05-21] MEDS: FERROUS SULFATE 325 MG TAB PO SCH (08:02)
[2017-05-21] MEDS: MOMETASONE FUROATE 0.1% CR 15 GM TUBE EXT SCH ×2 (08:02→20:01)
[2017-05-21] MEDS: DOCUSATE SODIUM 100 MG CAP PO SCH (08:02)
[2017-05-21] MEDS: INSULIN GLARGINE SOLOSTAR 100 UNITS/ML 3 ML PEN SC SCH (08:06)
[2017-05-21] MEDS: DRONABINOL 2.5 MG CAP PO SCH ×3 (08:39→20:30)
[2017-05-21] MEDS: FENTANYL 25 MCG/HR TDSY TD SCH (10:41)
[2017-05-21] MEDS: FENTANYL PATCH REMOVE & WASTE SCH (10:42)
--- NOTE | 2017-05-21 14:09 | Progress Note ---
Medicine Progress Note Date & Time of Visit: May 21, 2017 at 14:09. Subjective noted to be somewhat confused this morning s/p radiation treatment Resting in bed comfortable Son Kal at bedside Patient is awake alert oriented 3 Not confused anymore No shortness of breath chest pain palpitations Appetite improving No other symptoms Objective Last 8 Hrs Date Time Temp Pulse Resp B/P (MAP) Pulse Ox O2 Delivery O2 Flow Rate FiO2 05/21/17 12:00 Nasal Cannula 2.0 05/21/17 11:43 36.4 112 26 128/69 (88) 94 Nasal Cannula 2.0 05/21/17 09:55 110 26 113/66 92 05/21/17 08:00 Nasal Cannula 2.0 05/21/17 07:25 36.4 97 26 106/63 (77) 93 Nasal Cannula 2.0 Physical Exam: General- oriented x 2, not in distress, speaks in sentences with no effort Eyes- anicteric Neck- no JVD Lungs-mild rales right base , clear breath sounds left no wheezing Heart- regular rhythm; no murmur, normal rate Abdomen- normal bowel sounds, soft, nontender,non distended Extremities- no pretibial edema, no calf tenderness Neuro- alert, oriented x 3; oriented x 2, not in distress Skin- warm & dry Laboratory Results: Last 24 Hours Test 05/20/17 16:07 05/20/17 20:49 05/21/17 06:04 05/21/17 07:00 Bedside Glucose 185 mg/dl 178 mg/dl 135 mg/dl Activated Partial Thromboplast Time 54.4 SECONDS Partial Thromboplastin Ratio 2.1 Test 05/21/17 11:09 Bedside Glucose 193 mg/dl Date/Time Source Procedure Growth Status 05/21/17 12:11 Sputum Expectorated Sputum Gram Stain Pending Received 05/21/17 12:11 Sputum Expectorated Sputum Sputum Culture Pending Received Assessment & Plan Acute Pulmonary Embolism: Likely due to lung malignancy Acute Hypoxic respiratory failure COPD exacerbation CTA:as below suggestive of metastatic disease CXR: suggestive of emphysematous changes Masslike opacity of the medial left upper lobe redemonstrated with central cavitation. Additionally, there is a cavitary nodule of the right midlung ECHO as below Venous doppler: No DVT within the right or left lower extremity. -- remains at baseline 3 L NC -- no hematuria Hg stable continue Heparin drip Med Onco consulted, will need indefinite Lovenox on discharge -- blood cultures negative completed 7 days of Doxy continue inhaled bronchodilators continue Prednisone taper -- stable overall for radiation treatment, per radiation oncology will need to finish about 5- 9 sessions Mild confusion episodes Possibly encephalopathy multifactorial Including narcotics, prednisone CT head no acute process Monitor closely Sinus Tachycardia likely from PE Improving Hypokalemia: Hypomagnesemia: Hypophosphatemia: Poor oral intake replace and monitor as needed increased Marinol to 2.5mg TID appetite improved Non-small cell lung cancer: currently on paclitaxel, carboplatin, XRT. Last chemo dose was 05/01. Had radiation therapy during prior admission -- CT chest showing left upper lobe lesion encasing L pulmonary artery -- discussed with Rad Onco Dr. Benson Wagner patient will need radiation treatment for the ENID lesion 5-9 session s/p 2nd radiation Tx for the ENID H/O AAA 40% noncalcified mural thrombus? monitor Stage II decubitus ulcer wound care consulted continue wound care H/O HTN: Relative Hypotension since admission Hold Lisinopril for now IV fluids PRN Hematuria, History of Left Ureteral Stones s/p Left Ureteral Stent placement by Dr. Wood 05/08/17 Noted to have intermittent hematuria since ureteral placement resolved Hg stable outpatient ff up with Dr. Wood DM II: Last A1C:7.0 Hold PO meds Continue ISS, Lantus Monitor BGs Chronic Anemia: Multifactorial: Anemia of chronic disease, Iron deficiency, Secondary to Chemo, hematuria Monitor Hb Transfuse PRBCs PRN Started on Iron supplements B 12 levels normal S/P 1 unit PRBC on 05/13/17 Hemoglobin stable Chronic cancer pain on narcotics resumed Fentanyl Well-controlled -- d/c Jay as patient became more confused with 1 dose -- monitor Severe Protein Calorie Malnutrition: BMI:19.9 Slot Host consulted DVT Px: on IV Heparin Code Status: Full code Disposition: pending lives at home with son PT/OT eval if rehab recommended, patient's son would like patient to go to [facility] FF up with: PCP [place] Onco Dr. Theo [place] Onco Dr. Flavia Wagner Urologist Dr. Wood Current Inpatient Medications: Current Inpatient Medications Medications (Trade) Dose Ordered Sig/Vicenta Route Start Time Stop Time Status Last Admin Dose Admin Heparin Sodium/ Dextrose 500 ml @ 23 mls/hr [id number] IV 05/13/17 03:30 06/12/17 03:29 05/20/17 22:53 23 MLS/HR Acetaminophen (Tylenol Tab) 650 mg Q4H PRN PO 05/13/17 04:45 06/12/17 04:44 05/20/17 11:50 650 MG Insulin Aspart (novoLOG ASPART) SLIDING SCALE If C... ACHS SC 05/13/17 11:00 06/12/17 10:59 05/21/17 12:12 6 UNITS Glucose (Glucose 40% Gel) 15-30 GRAMS 15 GRAMS... UD PRN PO 05/13/17 04:45 06/12/17 04:44 Glucose (Glucose Chew Tab) 4-8 Tablets 4 Tabl... UD PRN PO 05/13/17 04:45 06/12/17 04:44 Dextrose (Dextrose 50% 50ML Syringe) 25-50ML OF 50% DW IV FOR... UD PRN IV 05/13/17 04:45 06/12/17 04:44 Glucagon (Glucagon Inj) 1 mg UD PRN SQ 05/13/17 04:45 06/12/17 04:44 Insulin Glargine (Lantus Solostar Pen) 5 units DAILY SC 05/14/17 09:00 06/13/17 08:59 05/21/17 08:06 5 UNITS Tramadol HCl (Ultram Tab) not relieved by tylenol @ Q6H PRN PO 05/13/17 04:45 06/12/17 04:44 05/20/17 11:50 50 MG Prochlorperazine Edisylate 5 mg/ Syringe 5 ml @ 5 mls/min Q6H PRN IV 05/13/17 04:45 06/12/17 04:44 05/16/17 20:50 5 MLS/MIN Hydromorphone HCl (Dilaudid Inj) 0.5 mg Q3H PRN IV 05/13/17 04:45 05/27/17 04:44 05/20/17 10:28 0.5 MG Atorvastatin Calcium (Lipitor Tab) 40 mg HS PO 05/13/17 21:00 06/12/17 20:59 05/20/17 21:36 40 MG Docusate Sodium (coLACE CAP) 100 mg QAM PO 05/13/17 09:00 06/12/17 08:59 05/21/17 08:02 100 MG Latanoprost (Xalatan Oph Soln) 1 drops HS OPR 05/13/17 21:00 06/12/17 20:59 05/20/17 21:00 1 DROPS Tamsulosin HCl (Flomax Cap) 0.4 mg HS PO 05/13/17 21:00 06/12/17 20:59 05/20/17 21:36 0.4 MG Polyethylene (Miralax Powder Packet) 17 gm DAILY PRN PO 05/13/17 06:30 06/12/17 06:29 Lorazepam (Ativan Inj) 0.25 mg Q4H PRN IV 05/13/17 04:45 06/12/17 04:44 05/17/17 01:04 0.25 MG Ipratropium [place] (Atrovent 0.02% 0.5MG/2.5ML Neb) 0.5 mg Q4H PRN INH 05/13/17 05:00 06/12/17 04:59 05/20/17 04:16 0.5 MG Levalbuterol (Xopenex 1.25MG/ 0.5ML Neb) 1.25 mg Q4H PRN INH 05/13/17 05:00 06/12/17 04:59 05/20/17 04:16 1.25 MG Enteral Nutritional Formula (Boost Glucose Control) 1 can TIDM PO 05/14/17 07:30 06/13/17 07:29 05/21/17 12:13 1 CAN Ferrous Sulfate (Feosol Tab) 325 mg QAM PO 05/14/17 09:00 06/13/17 08:59 05/21/17 08:02 325 MG Fentanyl (Duragesic Patch) 25 mcg Q72H TD 05/15/17 11:00 05/29/17 10:59 05/21/17 10:41 25 MCG Miscellaneous (Fentanyl Patch Remove & Waste) 1 ea Q3D@1059 N/A 05/18/17 10:59 06/17/17 10:58 05/21/17 10:42 1 EA Miscellaneous Information (Check Fentanyl Patch Placement) 1 ea QS N/A 05/15/17 16:00 06/14/17 15:59 05/21/17 08:00 1 EA Dronabinol (Marinol Cap) 2.5 mg TID PO 05/15/17 14:00 06/12/17 08:59 05/21/17 13:37 2.5 MG Mometasone Furoate ([place] 0.1 % Cr) 1 appln BID EXT 05/17/17 21:00 06/16/17 20:59 05/21/17 08:02 1 APPLN Prednisone (PredniSONE TAB) 30 mg DAILY PO 05/19/17 09:00 06/18/17 08:59 05/21/17 08:03 30 MG Acetaminophen/ Hydrocodone Bitart (Jay 5/325 Tab) 1 tab Q4H PRN PO 05/20/17 13:30 06/03/17 13:29 05/20/17 22:49 1 TAB
--- NOTE | 2017-05-21 15:03 | DIAGNOSTIC IMAGING REPORT ---
HEAD WITHOUT CONTRAST (CT) CLINICAL HISTORY: 72 years-old Male presenting with confusion. TECHNIQUE: Multidetector CT imaging of the head was performed without the use of intravenous contrast. IV contrast: None. A dose lowering technique was used consistent with the principles of ALARA (as low as reasonably achievable). COMPARISON: MR from 03/02/2017. CT DOSE (mGy.cm): The estimated cumulative dose is 1577.26 mGycm. 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 Ventricles and sulci normal in size. Prominent perivascular space suggested in the left basal ganglia. Brain parenchyma normal in appearance with preserved rausch-white differentiation. No mass effect or midline shift. No hemorrhage or acute territorial infarct. No extra-axial fluid collection. Paranasal sinuses and mastoid air cells clear. Calvarium intact. IMPRESSION: 1. No acute intracranial abnormality. Electronically signed by: Pipe Alvarado M.D. 05/21/2017 3:01 PM Dictated Date/Time: 05/21/2017 2:57 PM
[2017-05-21] MEDS: TAMSULOSIN HCL 0.4 MG CAP PO SCH (20:04)
[2017-05-21] MEDS: LATANOPROST 0.005% OP SOLN 2.5 ML BTL OPR SCH (20:04)
[2017-05-21] MEDS: ATORVASTATIN 40 MG TAB PO SCH (20:04)
[2017-05-21] MEDS: HEPARIN 25,000 UNIT/500ML D5W 500 ML IV SCH (23:50)
[2017-05-22 03:00] VITALS: BP 127/83; PULSE 94; TEMP 36.5; O2SAT 97
[2017-05-22] MEDS: LORAZEPAM 2 MG/ML 1 ML VIAL IV PRN (03:28)
[2017-05-22 07:20] LABS: PTT PATIENT 52.8 SECONDS (21.0-31.0)
[2017-05-22] MEDS: BOOST GLUCOSE CONTROL PO SCH ×3 (07:30→16:45)
[2017-05-22] MEDS: CHECK FENTANYL PATCH PLACEMENT SCH ×3 (08:14→23:25)
[2017-05-22] MEDS: MOMETASONE FUROATE 0.1% CR 15 GM TUBE EXT SCH ×2 (08:14→21:12)
[2017-05-22] MEDS: DOCUSATE SODIUM 100 MG CAP PO SCH (08:15)
[2017-05-22] MEDS: FERROUS SULFATE 325 MG TAB PO SCH (08:15)
[2017-05-22] MEDS: INSULIN GLARGINE SOLOSTAR 100 UNITS/ML 3 ML PEN SC SCH (08:16)
[2017-05-22] MEDS: INSULIN ASPART 100 UNITS/ML 3 ML PEN SC SCH ×4 (08:16→21:00)
[2017-05-22 08:54] VITALS: BP 116/72; PULSE 104; TEMP 36.4; O2SAT 93
[2017-05-22] MEDS: DRONABINOL 2.5 MG CAP PO SCH ×3 (08:57→21:22)
--- NOTE | 2017-05-22 10:43 | Progress Note ---
Medicine Progress Note Date & Time of Visit: May 22, 2017 at 10:04. Subjective Pt was seen and examined Lying in bed with no distress Look confused and asking for his son Pt said that his breathing seems to be ok His next radiation treatment is today Denies any chest pain palpitation, dizziness and SOB Objective Last 8 Hrs Date Time Temp Pulse Resp B/P (MAP) Pulse Ox O2 Delivery O2 Flow Rate FiO2 05/22/17 08:54 36.4 104 24 116/72 (87) 93 Nasal Cannula 2.0 05/22/17 08:00 Nasal Cannula 2.0 05/22/17 04:00 Nasal Cannula 2.0 05/22/17 03:00 36.5 94 22 127/83 (98) 97 Physical Exam: General- No acute distress Head- atraumatic Eyes- PERRL, EOMI ENT- oropharynx clear Neck- supple, no JVD Lungs- Coarse breath sound Heart- regular rhythm Abdomen- normal bowel sounds Extremities- no pretibial edema Neuro- alert, confused Skin- warm & dry Laboratory Results: Last 24 Hours Test 05/21/17 11:09 05/21/17 16:19 05/21/17 20:41 05/22/17 06:32 Bedside Glucose 193 mg/dl 171 mg/dl 162 mg/dl Activated Partial Thromboplast Time 52.8 SECONDS Partial Thromboplastin Ratio 2.0 Test 05/22/17 06:41 Bedside Glucose 130 mg/dl Date/Time Source Procedure Growth Status 05/21/17 12:11 Sputum Expectorated Sputum Gram Stain - Final Resulted 05/21/17 12:11 Sputum Expectorated Sputum Sputum Culture - Preliminary MODERATE NORMAL DONNA Present, Final ... Resulted Assessment & Plan Acute Hypoxic respiratory failure Acute pulmonary embolism due to lung malignancy CTA showed masslike opacity of the medial left upper lobe redemonstrated with central cavitation. Additionally, there is a cavitary nodule of the right midlung And segmental and subsegmental branches of the left lower lobe, likely tumor emboli. Venous doppler showed no DVT within the right or left lower extremity. On IV heparin drip Continue oxygen supplement Med Onco consulted, will need indefinite Lovenox on discharge Completed 7 days of Doxy Continue inhaled bronchodilators and Prednisone taper Non-small cell lung cancer: currently on paclitaxel, carboplatin, XRT. Last chemo dose was 05/01. Had radiation therapy during prior admission CT chest showing left upper lobe lesion encasing L pulmonary artery Rad Onco Dr. Benson Wagner on board Will need radiation treatment for the ENID lesion 5-9 session S/P 3rd radiation Tx for the ENID Confusion Possibly encephalopathy multifactorial due to narcotics prednisone, hospital setting and radiation tx CT head done yesterday showed no acute intracranial abnormality Monitor closely Sinus Tachycardia likely from PE Stable Electrolytes Imbalance Due to poor oral intake replace and monitor as needed Continue Marinol to 2.5mg TID for the appetite Stable H/O AAA 40% noncalcified mural thrombus? Continue monitor Stage II decubitus ulcer Continue daily wound care Wound care on board H/O HTN BP in the low side Continue holding Lisinopril Continue monitor BP Hematuria, History of Left Ureteral Stones s/p Left Ureteral Stent placement by Dr. Wood 05/08/17 Hgb stable Follow up with Dr. 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 Med Onco Dr. Theo Wagner Rad Onco Dr. Flavia Wagner Urologist Dr. Wood Current Inpatient Medications: Current Inpatient Medications Medications (Trade) Dose Ordered Sig/Vicenta Route Start Time Stop Time Status Last Admin Dose Admin Heparin Sodium/ Dextrose 500 ml @ 23 mls/hr [id number] IV 05/13/17 03:30 06/12/17 03:29 05/21/17 23:50 23 MLS/HR Acetaminophen (Tylenol Tab) 650 mg Q4H PRN PO 05/13/17 04:45 06/12/17 04:44 05/20/17 11:50 650 MG Insulin Aspart (novoLOG ASPART) SLIDING SCALE If C... ACHS SC 05/13/17 11:00 06/12/17 10:59 05/21/17 17:19 4 UNITS Glucose (Glucose 40% Gel) 15-30 GRAMS 15 GRAMS... UD PRN PO 05/13/17 04:45 06/12/17 04:44 Glucose (Glucose Chew Tab) 4-8 Tablets 4 Tabl... UD PRN PO 05/13/17 04:45 06/12/17 04:44 Dextrose (Dextrose 50% 50ML Syringe) 25-50ML OF 50% DW IV FOR... UD PRN IV 05/13/17 04:45 06/12/17 04:44 Glucagon (Glucagon Inj) 1 mg UD PRN SQ 05/13/17 04:45 06/12/17 04:44 Insulin Glargine (Lantus Solostar Pen) 5 units DAILY SC 05/14/17 09:00 06/13/17 08:59 05/22/17 08:16 5 UNITS Tramadol HCl (Ultram Tab) not relieved by tylenol @ Q6H PRN PO 05/13/17 04:45 06/12/17 04:44 05/20/17 11:50 50 MG Prochlorperazine Edisylate 5 mg/ Syringe 5 ml @ 5 mls/min Q6H PRN IV 05/13/17 04:45 06/12/17 04:44 05/16/17 20:50 5 MLS/MIN Atorvastatin Calcium (Lipitor Tab) 40 mg HS PO 05/13/17 21:00 06/12/17 20:59 05/21/17 20:04 40 MG Docusate Sodium (coLACE CAP) 100 mg QAM PO 05/13/17 09:00 06/12/17 08:59 05/22/17 08:15 100 MG Latanoprost (Xalatan Oph Soln) 1 drops HS OPR 05/13/17 21:00 06/12/17 20:59 05/20/17 21:00 1 DROPS Tamsulosin HCl (Flomax Cap) 0.4 mg HS PO 05/13/17 21:00 06/12/17 20:59 05/21/17 20:04 0.4 MG Polyethylene (Miralax Powder Packet) 17 gm DAILY PRN PO 05/13/17 06:30 06/12/17 06:29 Lorazepam (Ativan Inj) 0.25 mg Q4H PRN IV 05/13/17 04:45 06/12/17 04:44 05/22/17 03:28 0.25 MG Ipratropium [place] (Atrovent 0.02% 0.5MG/2.5ML Neb) 0.5 mg Q4H PRN INH 05/13/17 05:00 06/12/17 04:59 05/20/17 04:16 0.5 MG Levalbuterol (Xopenex 1.25MG/ 0.5ML Neb) 1.25 mg Q4H PRN INH 05/13/17 05:00 06/12/17 04:59 05/20/17 04:16 1.25 MG Enteral Nutritional Formula (Boost Glucose Control) 1 can TIDM PO 05/14/17 07:30 06/13/17 07:29 05/22/17 07:30 1 CAN Ferrous Sulfate (Feosol Tab) 325 mg QAM PO 05/14/17 09:00 06/13/17 08:59 05/22/17 08:15 325 MG Fentanyl (Duragesic Patch) 25 mcg Q72H TD 05/15/17 11:00 05/29/17 10:59 05/21/17 10:41 25 MCG Miscellaneous (Fentanyl Patch Remove & Waste) 1 ea Q3D@1059 N/A 05/18/17 10:59 06/17/17 10:58 05/21/17 10:42 1 EA Miscellaneous Information (Check Fentanyl Patch Placement) 1 ea QS N/A 05/15/17 16:00 06/14/17 15:59 05/22/17 08:14 1 EA Dronabinol (Marinol Cap) 2.5 mg TID PO 05/15/17 14:00 06/12/17 08:59 05/22/17 08:57 2.5 MG Mometasone Furoate ([place] 0.1 % Cr) 1 appln BID EXT 05/17/17 21:00 06/16/17 20:59 05/22/17 08:14 1 APPLN Prednisone (PredniSONE TAB) 20 mg DAILY PO 05/22/17 09:00 05/24/17 08:59 05/22/17 08:15 20 MG Prednisone (PredniSONE TAB) 10 mg DAILY PO 05/24/17 09:00 05/26/17 08:59
[2017-05-22 12:25] VITALS: BP 127/62; PULSE 111; TEMP 36.3; O2SAT 93
[2017-05-22 16:09] VITALS: BP 104/58; PULSE 127
[2017-05-22 19:47] VITALS: BP 130/76; PULSE 100; TEMP 36.7; O2SAT 96
[2017-05-22] MEDS: LATANOPROST 0.005% OP SOLN 2.5 ML BTL OPR SCH (21:00)
[2017-05-22] MEDS: TAMSULOSIN HCL 0.4 MG CAP PO SCH (21:13)
[2017-05-22] MEDS: ATORVASTATIN 40 MG TAB PO SCH (21:13)
[2017-05-22] MEDS: HEPARIN 25,000 UNIT/500ML D5W 500 ML IV SCH (21:26)
[2017-05-22 23:10] VITALS: BP 124/60; PULSE 93; TEMP 36.5; O2SAT 94
[2017-05-23 03:51] VITALS: BP 130/73; PULSE 90; TEMP 36.6; O2SAT 96
[2017-05-23] MEDS: INSULIN ASPART 100 UNITS/ML 3 ML PEN SC SCH ×4 (07:37→21:00)
[2017-05-23] MEDS: INSULIN GLARGINE SOLOSTAR 100 UNITS/ML 3 ML PEN SC SCH (07:37)
[2017-05-23] MEDS: DOCUSATE SODIUM 100 MG CAP PO SCH (07:38)
[2017-05-23] MEDS: FERROUS SULFATE 325 MG TAB PO SCH (07:38)
[2017-05-23] MEDS: BOOST GLUCOSE CONTROL PO SCH ×3 (07:38→16:45)
[2017-05-23] MEDS: MOMETASONE FUROATE 0.1% CR 15 GM TUBE EXT SCH ×2 (07:38→21:00)
[2017-05-23] MEDS: CHECK FENTANYL PATCH PLACEMENT SCH ×3 (07:38→23:38)
[2017-05-23 07:39] VITALS: BP 104/69; TEMP 36.3; O2SAT 95
[2017-05-23] MEDS: DRONABINOL 2.5 MG CAP PO SCH ×3 (09:13→21:00)
[2017-05-23 12:13] VITALS: BP 83/48; PULSE 97; O2SAT 98
[2017-05-23 12:17] VITALS: BP 105/61
[2017-05-23] MEDS: FENTANYL 25 MCG/HR TDSY TD SCH (13:16)
[2017-05-23 15:41] VITALS: BP 104/69; PULSE 125; TEMP 36.7; O2SAT 94
[2017-05-23] MEDS: TAMSULOSIN HCL 0.4 MG CAP PO SCH (21:00)
[2017-05-23] MEDS: ATORVASTATIN 40 MG TAB PO SCH (21:00)
[2017-05-23] MEDS: LATANOPROST 0.005% OP SOLN 2.5 ML BTL OPR SCH (21:00)
[2017-05-23 23:36] VITALS: BP 120/75; PULSE 93; O2SAT 95
--- NOTE | 2017-05-23 23:48 | Progress Note ---
Medicine Progress Note Date & Time of Visit: May 23, 2017 at 13:48. Subjective Pt was seen and examined Lying in bed with no distress had radiation done today Denies any chest pain, palpitation and SOB Objective Last 8 Hrs Date Time Temp Pulse Resp B/P (MAP) Pulse Ox O2 Delivery O2 Flow Rate FiO2 05/23/17 23:36 93 16 120/75 (90) 95 Room Air Physical Exam: General- No acute distress Head- atraumatic Eyes- PERRL, EOMI ENT- oropharynx clear Neck- supple, no JVD Lungs- Coarse breath sound Heart- regular rhythm Abdomen- normal bowel sounds Extremities- no pretibial edema Neuro- alert, confused Skin- warm & dry Laboratory Results: Last 24 Hours Test 05/23/17 05:22 05/23/17 06:30 05/23/17 10:43 05/23/17 16:20 Activated Partial Thromboplast Time 47.0 SECONDS Partial Thromboplastin Ratio 1.8 Bedside Glucose 153 mg/dl 146 mg/dl 178 mg/dl Test 05/23/17 20:15 Bedside Glucose 157 mg/dl Assessment & Plan Acute Hypoxic respiratory failure Acute pulmonary embolism due to lung malignancy CTA showed masslike opacity of the medial left upper lobe redemonstrated with central cavitation. Additionally, there is a cavitary nodule of the right midlung And segmental and subsegmental branches of the left lower lobe, likely tumor emboli. Venous doppler showed no DVT within the right or left lower extremity. On IV heparin drip Continue oxygen supplement Med Onco consulted, will need indefinite Lovenox on discharge Completed 7 days of Doxy Continue inhaled bronchodilators and Prednisone taper Non-small cell lung cancer: currently on paclitaxel, carboplatin, XRT. Last chemo dose was 05/01. Had radiation therapy during prior admission CT chest showing left upper lobe lesion encasing L pulmonary artery Rad Onco Dr. Benson Wagner on board Will need radiation treatment for the ENID lesion 5-9 session S/P 4th radiation Tx for the ENID Confusion Possibly encephalopathy multifactorial due to narcotics prednisone, hospital setting and radiation tx CT head done showed no acute intracranial abnormality Monitor closely Sinus Tachycardia likely from PE Stable Electrolytes Imbalance Due to poor oral intake replace and monitor as needed Continue Marinol to 2.5mg TID for the appetite Stable H/O AAA 40% noncalcified mural thrombus? Continue monitor Stage II decubitus ulcer Continue daily wound care Wound care on board H/O HTN BP in the low side Continue holding Lisinopril Continue monitor BP Hematuria, History of Left Ureteral Stones s/p Left Ureteral Stent placement by Dr. Wood 05/08/17 Hgb stable Follow up with Dr. Wood as an outpatient DM II Last A1C:7.0 Hold PO meds Continue ISS, Lantus Monitor BGs Chronic Anemia: Multifactorial: Anemia of chronic disease, Iron deficiency, Secondary to Chemo, hematuria Received 1 units PRBC on 05/13/17 Hgb 9.9 Stable Chronic Pain Due to malignancy Continue Fentanyl Will watch for drowsiness and worsening mental status Protein Calorie Malnutrition: BMI:19.9 Nurse [employer] consulted DVT Px on IV Heparin Code Status Full code Disposition Will transfer to [facility] once medical stable [facility] will transfer pt for Radiation. Med Onco Dr. Theo Wagner Rad Onco Dr. Flavia Wagner Urologist Dr. Wood Current Inpatient Medications: Current Inpatient Medications Medications (Trade) Dose Ordered Sig/Vicenta Route Start Time Stop Time Status Last Admin Dose Admin Heparin Sodium/ Dextrose 500 ml @ 23 mls/hr [id number] IV 05/13/17 03:30 06/12/17 03:29 05/22/17 21:26 23 MLS/HR Acetaminophen (Tylenol Tab) 650 mg Q4H PRN PO 05/13/17 04:45 06/12/17 04:44 05/20/17 11:50 650 MG Insulin Aspart (novoLOG ASPART) SLIDING SCALE If C... ACHS SC 05/13/17 11:00 06/12/17 10:59 05/23/17 12:51 4 UNITS Glucose (Glucose 40% Gel) 15-30 GRAMS 15 GRAMS... UD PRN PO 05/13/17 04:45 06/12/17 04:44 Glucose (Glucose Chew Tab) 4-8 Tablets 4 Tabl... UD PRN PO 05/13/17 04:45 06/12/17 04:44 Dextrose (Dextrose 50% 50ML Syringe) 25-50ML OF 50% DW IV FOR... UD PRN IV 05/13/17 04:45 06/12/17 04:44 Glucagon (Glucagon Inj) 1 mg UD PRN SQ 05/13/17 04:45 06/12/17 04:44 Insulin Glargine (Lantus Solostar Pen) 5 units DAILY SC 05/14/17 09:00 06/13/17 08:59 05/23/17 07:37 5 UNITS Tramadol HCl (Ultram Tab) not relieved by tylenol @ Q6H PRN PO 05/13/17 04:45 06/12/17 04:44 05/20/17 11:50 50 MG Prochlorperazine Edisylate 5 mg/ Syringe 5 ml @ 5 mls/min Q6H PRN IV 05/13/17 04:45 06/12/17 04:44 05/16/17 20:50 5 MLS/MIN Atorvastatin Calcium (Lipitor Tab) 40 mg HS PO 05/13/17 21:00 06/12/17 20:59 05/23/17 21:00 40 MG Docusate Sodium (coLACE CAP) 100 mg QAM PO 05/13/17 09:00 06/12/17 08:59 05/23/17 07:38 100 MG Latanoprost (Xalatan Oph Soln) 1 drops HS OPR 05/13/17 21:00 06/12/17 20:59 05/23/17 21:00 1 DROPS Tamsulosin HCl (Flomax Cap) 0.4 mg HS PO 05/13/17 21:00 06/12/17 20:59 05/23/17 21:00 0.4 MG Polyethylene (Miralax Powder Packet) 17 gm DAILY PRN PO 05/13/17 06:30 06/12/17 06:29 Lorazepam (Ativan Inj) 0.25 mg Q4H PRN IV 05/13/17 04:45 06/12/17 04:44 05/22/17 03:28 0.25 MG Ipratropium [place] (Atrovent 0.02% 0.5MG/2.5ML Neb) 0.5 mg Q4H PRN INH 05/13/17 05:00 06/12/17 04:59 05/20/17 04:16 0.5 MG Levalbuterol (Xopenex 1.25MG/ 0.5ML Neb) 1.25 mg Q4H PRN INH 05/13/17 05:00 06/12/17 04:59 05/20/17 04:16 1.25 MG Enteral Nutritional Formula (Boost Glucose Control) 1 can TIDM PO 05/14/17 07:30 06/13/17 07:29 05/23/17 16:45 1 CAN Ferrous Sulfate (Feosol Tab) 325 mg QAM PO 05/14/17 09:00 06/13/17 08:59 05/23/17 07:38 325 MG Fentanyl (Duragesic Patch) 25 mcg Q72H TD 05/15/17 11:00 05/29/17 10:59 05/23/17 13:16 25 MCG Miscellaneous (Fentanyl Patch Remove & Waste) 1 ea Q3D@1059 N/A 05/18/17 10:59 06/17/17 10:58 05/21/17 10:42 1 EA Miscellaneous Information (Check Fentanyl Patch Placement) 1 ea QS N/A 05/15/17 16:00 06/14/17 15:59 05/23/17 23:38 1 EA Dronabinol (Marinol Cap) 2.5 mg TID PO 05/15/17 14:00 06/12/17 08:59 05/23/17 21:00 2.5 MG Mometasone Furoate ([place] 0.1 % Cr) 1 appln BID EXT 05/17/17 21:00 06/16/17 20:59 05/23/17 07:38 1 APPLN Prednisone (PredniSONE TAB) 20 mg DAILY PO 05/22/17 09:00 05/24/17 08:59 05/23/17 07:38 20 MG Prednisone (PredniSONE TAB) 10 mg DAILY PO 05/24/17 09:00 05/26/17 08:59
[2017-05-24] VITALS (11 sets, daily range): BP systolic 98–121; BP diastolic 50–74; PULSE 89–106; TEMP 36.4–36.9; O2SAT 94–99
[2017-05-24 06:57] LABS: PTT PATIENT 42.4 SECONDS (21.0-31.0)
[2017-05-24] MEDS ORDERED: HEPARIN IV BOLUS 2,000 UNIT in SYRINGE 0 ML IV ONE ×2 (07:15→14:30)
[2017-05-24] MEDS: HEPARIN 25,000 UNIT/500ML D5W 500 ML IV SCH ×3 (07:17→17:32)
[2017-05-24] MEDS: MOMETASONE FUROATE 0.1% CR 15 GM TUBE EXT SCH ×2 (07:53→20:52)
[2017-05-24] MEDS: FERROUS SULFATE 325 MG TAB PO SCH (07:53)
[2017-05-24] MEDS: DOCUSATE SODIUM 100 MG CAP PO SCH (07:53)
[2017-05-24] MEDS: INSULIN GLARGINE SOLOSTAR 100 UNITS/ML 3 ML PEN SC SCH (07:55)
[2017-05-24] MEDS: INSULIN ASPART 100 UNITS/ML 3 ML PEN SC SCH ×4 (07:58→20:53)
[2017-05-24] MEDS: BOOST GLUCOSE CONTROL PO SCH ×3 (07:59→16:38)
[2017-05-24] MEDS: CHECK FENTANYL PATCH PLACEMENT SCH ×3 (07:59→23:45)
[2017-05-24] MEDS: DRONABINOL 2.5 MG CAP PO SCH ×3 (09:14→22:11)
[2017-05-24] MEDS: FENTANYL PATCH REMOVE & WASTE SCH (10:59)
[2017-05-24 13:59] LABS: PTT PATIENT 45.3 SECONDS (21.0-31.0)
--- NOTE | 2017-05-24 18:55 | Progress Note ---
Medicine Progress Note Date & Time of Visit: May 24, 2017 at 18:52. Subjective Pt was seen and examined Lying in bed with no distress with son at bedside had radiation done today Pt said that he feels weak Denies any chest pain, palpitation and SOB Objective Last 8 Hrs Date Time Temp Pulse Resp B/P (MAP) Pulse Ox O2 Delivery O2 Flow Rate FiO2 05/24/17 16:19 36.4 89 20 98/55 (69) 99 Nasal Cannula 2.0 05/24/17 12:00 Nasal Cannula 2.0 05/24/17 11:56 36.6 95 18 118/65 (82) 95 Physical Exam: General- No acute distress Head- atraumatic Eyes- PERRL, EOMI ENT- oropharynx clear Neck- supple, no JVD Lungs- Coarse breath sound Heart- regular rhythm Abdomen- normal bowel sounds Extremities- no pretibial edema Neuro- alert, confused Skin- warm & dry Laboratory Results: Last 24 Hours Test 05/23/17 20:15 05/24/17 06:20 05/24/17 06:45 05/24/17 11:13 Bedside Glucose 157 mg/dl 149 mg/dl 131 mg/dl Activated Partial Thromboplast Time 42.4 SECONDS Partial Thromboplastin Ratio 1.6 Test 05/24/17 13:26 05/24/17 16:22 Activated Partial Thromboplast Time 45.3 SECONDS Partial Thromboplastin Ratio 1.7 Bedside Glucose 151 mg/dl Assessment & Plan Acute Hypoxic respiratory failure Acute pulmonary embolism due to lung malignancy CTA showed masslike opacity of the medial left upper lobe redemonstrated with central cavitation. Additionally, there is a cavitary nodule of the right midlung And segmental and subsegmental branches of the left lower lobe, likely tumor emboli. Venous doppler showed no DVT within the right or left lower extremity. On IV heparin drip Continue oxygen supplement Med Onco consulted, will need indefinite Lovenox on discharge Completed 7 days of Doxy Continue inhaled bronchodilators and Prednisone taper Non-small cell lung cancer: currently on paclitaxel, carboplatin, XRT. Last chemo dose was 05/01. Had radiation therapy during prior admission CT chest showing left upper lobe lesion encasing L pulmonary artery Rad Onco Dr. 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 Continue monitor Stage II decubitus ulcer Continue daily wound care Wound care on board H/O HTN BP in the low side Continue holding Lisinopril Continue monitor BP Hematuria, History of Left Ureteral Stones s/p Left Ureteral Stent placement by Dr. Wood 05/08/17 Hgb stable Follow up with Dr. 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 Med Onco Dr. Theo Wagner Rad Onco Dr. Flavia Wagner Urologist Dr. Wood Current Inpatient Medications: Current Inpatient Medications Medications (Trade) Dose Ordered Sig/Vicenta Route Start Time Stop Time Status Last Admin Dose Admin Heparin Sodium/ Dextrose 500 ml @ 25 mls/hr Q20H IV 05/13/17 03:30 06/12/17 03:29 05/24/17 17:32 25 MLS/HR Acetaminophen (Tylenol Tab) 650 mg Q4H PRN PO 05/13/17 04:45 06/12/17 04:44 05/20/17 11:50 650 MG Insulin Aspart (novoLOG ASPART) SLIDING SCALE If C... ACHS SC 05/13/17 11:00 06/12/17 10:59 05/24/17 17:17 4 UNITS Glucose (Glucose 40% Gel) 15-30 GRAMS 15 GRAMS... UD PRN PO 05/13/17 04:45 06/12/17 04:44 Glucose (Glucose Chew Tab) 4-8 Tablets 4 Tabl... UD PRN PO 05/13/17 04:45 4/17/18 04:44 Dextrose (Dextrose 50% 50ML Syringe) 25-50ML OF 50% DW IV FOR... UD PRN IV 05/13/17 04:45 06/12/17 04:44 Glucagon (Glucagon Inj) 1 mg UD PRN SQ 05/13/17 04:45 06/12/17 04:44 Insulin Glargine (Lantus Solostar Pen) 5 units DAILY SC 05/14/17 09:00 06/13/17 08:59 05/24/17 07:55 5 UNITS Tramadol HCl (Ultram Tab) not relieved by tylenol @ Q6H PRN PO 05/13/17 04:45 06/12/17 04:44 05/20/17 11:50 50 MG Prochlorperazine Edisylate 5 mg/ Syringe 5 ml @ 5 mls/min Q6H PRN IV 05/13/17 04:45 06/12/17 04:44 05/16/17 20:50 5 MLS/MIN Atorvastatin Calcium (Lipitor Tab) 40 mg HS PO 05/13/17 21:00 06/12/17 20:59 05/23/17 21:00 40 MG Docusate Sodium (coLACE CAP) 100 mg QAM PO 05/13/17 09:00 06/12/17 08:59 05/24/17 07:53 100 MG Latanoprost (Xalatan Oph Soln) 1 drops HS OPR 05/13/17 21:00 06/12/17 20:59 05/23/17 21:00 1 DROPS Tamsulosin HCl (Flomax Cap) 0.4 mg HS PO 05/13/17 21:00 06/12/17 20:59 05/23/17 21:00 0.4 MG Polyethylene (Miralax Powder Packet) 17 gm DAILY PRN PO 05/13/17 06:30 06/12/17 06:29 Lorazepam (Ativan Inj) 0.25 mg Q4H PRN IV 05/13/17 04:45 06/12/17 04:44 05/22/17 03:28 0.25 MG Ipratropium [place] (Atrovent 0.02% 0.5MG/2.5ML Neb) 0.5 mg Q4H PRN INH 05/13/17 05:00 06/12/17 04:59 05/20/17 04:16 0.5 MG Levalbuterol (Xopenex 1.25MG/ 0.5ML Neb) 1.25 mg Q4H PRN INH 05/13/17 05:00 06/12/17 04:59 05/20/17 04:16 1.25 MG Enteral Nutritional Formula (Boost Glucose Control) 1 can TIDM PO 05/14/17 07:30 06/13/17 07:29 05/24/17 16:38 1 CAN Ferrous Sulfate (Feosol Tab) 325 mg QAM PO 05/14/17 09:00 06/13/17 08:59 05/24/17 07:53 325 MG Fentanyl (Duragesic Patch) 25 mcg Q72H TD 05/15/17 11:00 05/29/17 10:59 05/23/17 13:16 25 MCG Miscellaneous (Fentanyl Patch Remove & Waste) 1 ea Q3D@1059 N/A 05/18/17 10:59 06/17/17 10:58 05/24/17 10:59 1 EA Miscellaneous Information (Check Fentanyl Patch Placement) 1 ea QS N/A 05/15/17 16:00 06/14/17 15:59 05/24/17 16:00 1 EA Dronabinol (Marinol Cap) 2.5 mg TID PO 05/15/17 14:00 06/12/17 08:59 05/24/17 13:50 2.5 MG Mometasone Furoate ([place] 0.1 % Cr) 1 appln BID EXT 05/17/17 21:00 06/16/17 20:59 05/24/17 07:53 1 APPLN Prednisone (PredniSONE TAB) 10 mg DAILY PO 05/24/17 09:00 05/26/17 08:59 05/24/17 07:53 10 MG
[2017-05-24] MEDS: LATANOPROST 0.005% OP SOLN 2.5 ML BTL OPR SCH (20:52)
[2017-05-24] MEDS: TAMSULOSIN HCL 0.4 MG CAP PO SCH (20:52)
[2017-05-24] MEDS: ATORVASTATIN 40 MG TAB PO SCH (20:52)
[2017-05-24] MEDS ORDERED: NURSING VERBAL MED ORDER ONE (22:15)
[2017-05-24 22:23] LABS: PTT PATIENT 63.4 SECONDS (21.0-31.0)
[2017-05-24 22:27] LABS: HEMATOCRIT 27.7 % (42-52)
[2017-05-25] VITALS (9 sets, daily range): BP systolic 102–118; BP diastolic 53–74; PULSE 84–95; TEMP 36.3–37; O2SAT 97–100
[2017-05-25 02:52] LABS: BASO % 0.2 %; BASO ABS # 0.01 K/uL (0-0.2); EOS % 0.6 %; EOS ABS # 0.03 K/uL (0-0.5); HEMATOCRIT 28.8 % (42-52); HEMOGLOBIN 9.2 g/dL (14.0-18.0); IG# 0.02 K/uL (0.00-0.02); LYMPH % 6.7 %; LYMPH ABS # 0.32 K/uL (1.2-3.4); MEAN CELL VOLUME 84.7 fL (80-100); MEAN CORPUSCULAR HEMOGLOBIN 27.1 pg (25-34); MEAN CORPUSCULAR HGB CONC 31.9 g/dl (32-36); MEAN PLATELET VOLUME 8.5 fL (7.4-10.4); MONO % 7.5 %; MONO ABS # 0.36 K/uL (0.11-0.59); NEUT % 84.6 %; NEUT ABS # 4.05 K/uL (1.4-6.5); PLATELET COUNT 173 K/uL (130-400); RED CELL DISTRIBUTION WIDTH CV 19.3 % (11.5-14.5); RED CELL DISTRIBUTION WIDTH SD 58.2 fL (36.4-46.3); WHITE BLOOD COUNT 4.79 K/uL (4.8-10.8)
[2017-05-25 03:01] LABS: PTT PATIENT 44.1 SECONDS (21.0-31.0)
[2017-05-25] MEDS: HEPARIN 25,000 UNIT/500ML D5W 500 ML IV SCH ×4 (03:07→21:02)
[2017-05-25 03:10] LABS: CALCIUM 8.6 mg/dl (8.5-10.1); CREATININE 0.61 mg/dl (0.60-1.40); POTASSIUM 3.2 mmol/L (3.5-5.1)
[2017-05-25] MEDS: BOOST GLUCOSE CONTROL PO SCH ×3 (07:58→16:45)
[2017-05-25] MEDS: INSULIN ASPART 100 UNITS/ML 3 ML PEN SC SCH ×4 (07:58→21:00)
[2017-05-25] MEDS: CHECK FENTANYL PATCH PLACEMENT SCH ×3 (07:59→23:45)
[2017-05-25] MEDS: FERROUS SULFATE 325 MG TAB PO SCH (08:00)
[2017-05-25] MEDS: DRONABINOL 2.5 MG CAP PO SCH ×3 (08:00→21:08)
[2017-05-25] MEDS: DOCUSATE SODIUM 100 MG CAP PO SCH (08:00)
[2017-05-25] MEDS: MOMETASONE FUROATE 0.1% CR 15 GM TUBE EXT SCH ×2 (08:01→20:58)
[2017-05-25] MEDS: INSULIN GLARGINE SOLOSTAR 100 UNITS/ML 3 ML PEN SC SCH (08:04)
[2017-05-25] MEDS ORDERED: POTASSIUM CHLORIDE 10 MEQ TABCR PO ONE (08:30)
[2017-05-25 09:37] LABS: HEMATOCRIT 27.6 % (42-52); HEMOGLOBIN 9.2 g/dL (14.0-18.0)
[2017-05-25 10:14] LABS: PTT PATIENT 286.6 SECONDS (21.0-31.0)
[2017-05-25 11:55] LABS: PTT PATIENT 29.8 SECONDS (21.0-31.0)
--- NOTE | 2017-05-25 18:30 | Progress Note ---
Medicine Progress Note Date & Time of Visit: May 25, 2017 at 18:22. Subjective Pt was seen and examined Lying in bed with no distress with son at bedside Pt said that he feels fine He is more alert and awake today with good appetite he said that he thinks that he saw some trace of blood in his stools early this morning Advised pt that to call the nurse after he has a BM or urinate Denies any chest pain, palpitation and SOB Objective Last 8 Hrs Date Time Temp Pulse Resp B/P (MAP) Pulse Ox O2 Delivery O2 Flow Rate FiO2 05/25/17 16:04 36.4 87 20 110/53 (72) 98 Nasal Cannula 2.0 05/25/17 16:00 98 Nasal Cannula 2.0 05/25/17 12:00 Nasal Cannula 2.0 05/25/17 11:10 36.5 87 16 114/65 (81) 99 Physical Exam: General- No acute distress Head- atraumatic Eyes- PERRL, EOMI ENT- oropharynx clear Neck- supple, no JVD Lungs- Coarse breath sound Heart- regular rhythm Abdomen- normal bowel sounds Extremities- no pretibial edema Neuro- alert, confused Skin- warm & dry Laboratory Results: Last 24 Hours Test 05/24/17 20:43 05/24/17 21:13 05/24/17 22:18 05/25/17 02:43 Bedside Glucose 159 mg/dl Activated Partial Thromboplast Time 63.4 SECONDS 44.1 SECONDS Partial Thromboplastin Ratio 2.4 1.7 Hemoglobin 9.0 g/dL 9.2 g/dL Hematocrit 27.7 % 28.8 % White Blood Count 4.79 K/uL Red Blood Count 3.40 M/uL Mean Corpuscular Volume 84.7 fL Mean Corpuscular Hemoglobin 27.1 pg Mean Corpuscular Hemoglobin Concent 31.9 g/dl Platelet Count 173 K/uL Mean Platelet Volume 8.5 fL Neutrophils (%) (Auto) 84.6 % Lymphocytes (%) (Auto) 6.7 % Monocytes (%) (Auto) 7.5 % Eosinophils (%) (Auto) 0.6 % Basophils (%) (Auto) 0.2 % Neutrophils # (Auto) 4.05 K/uL Lymphocytes # (Auto) 0.32 K/uL Monocytes # (Auto) 0.36 K/uL Eosinophils # (Auto) 0.03 K/uL Basophils # (Auto) 0.01 K/uL RDW Standard Deviation 58.2 fL RDW Coefficient of Variation 19.3 % Immature Granulocyte % (Auto) 0.4 % Immature Granulocyte # (Auto) 0.02 K/uL Sodium Level 138 mmol/L Potassium Level 3.2 mmol/L Chloride Level 103 mmol/L Carbon Dioxide Level 30 mmol/L Anion Gap 5.0 mmol/L Blood Urea Nitrogen 12 mg/dl Creatinine 0.61 mg/dl Est Creatinine Clear Calc Drug Dose 83.4 ml/min Estimated GFR () 114.8 Estimated GFR (Non- 99.1 BUN/Creatinine Ratio 19.9 Random Glucose 124 mg/dl Calcium Level 8.6 mg/dl Test 05/25/17 03:08 05/25/17 06:40 05/25/17 09:16 05/25/17 11:22 Urine Color YELLOW Urine Appearance CLOUDY Urine pH 7.5 Urine Specific [place] 1.012 Urine Protein NEG Urine Glucose (UA) NEG Urine Ketones NEG Urine Occult Blood 3+ Urine Nitrite NEG Urine Bilirubin NEG Urine Urobilinogen NEG Urine Leukocyte Esterase SMALL Urine WBC (Auto) 5-10 /hpf Urine RBC (Auto) >30 /hpf Urine Hyaline Casts (Auto) 1-5 /lpf Urine Epithelial Cells (Auto) 20-30 /lpf Urine Bacteria (Auto) NEG Bedside Glucose 129 mg/dl 150 mg/dl Hemoglobin 9.2 g/dL Hematocrit 27.6 % Activated Partial Thromboplast Time 286.6 SECONDS Partial Thromboplastin Ratio 10.8 Test 05/25/17 11:31 05/25/17 16:05 05/25/17 18:10 Activated Partial Thromboplast Time 29.8 SECONDS Partial Thromboplastin Ratio 1.1 Bedside Glucose 122 mg/dl Date/Time Source Procedure Growth Status 05/25/17 03:08 Urine , Clean Catch Urine Culture Pending Received Assessment & Plan Acute Hypoxic respiratory failure Acute pulmonary embolism due to lung malignancy CTA showed masslike opacity of the medial left upper lobe redemonstrated with central cavitation. Additionally, there is a cavitary nodule of the right midlung And segmental and subsegmental branches of the left lower lobe, likely tumor emboli. Venous doppler showed no DVT within the right or left lower extremity. Continue IV heparin drip Continue oxygen supplement Med Onco consulted, will need indefinite Lovenox on discharge Completed 7 days of Doxy Continue inhaled bronchodilators and Prednisone taper Continue monitor for hematuria and GI bleed check CBC in am But if he has any abnormal bleeding, please check h/h Hgb stable this morning Non-small cell lung cancer: currently on paclitaxel, carboplatin, XRT. Last chemo dose was 05/01. Had radiation therapy during prior admission CT chest showing left upper lobe lesion encasing L pulmonary artery Rad Onco Dr. Benson Wagner on board Will need radiation treatment for the ENID lesion 5-9 session S/P 5th radiation Tx for the ENID Confusion Possibly encephalopathy multifactorial due to narcotics prednisone, hospital setting and radiation tx CT head done showed no acute intracranial abnormality Monitor closely stable Sinus Tachycardia likely from PE Stable Electrolytes Imbalance Due to poor oral intake K 3.2 today K replaced Continue monitor BMP Continue Marinol to 2.5mg TID for the appetite Stable H/O AAA 40% noncalcified mural thrombus? Continue monitor Stage II decubitus ulcer Continue daily wound care Wound care on board H/O HTN BP in the low side Continue holding Lisinopril Continue monitor BP Hematuria, History of Left Ureteral Stones s/p Left Ureteral Stent placement by Dr. Wood 05/08/17 Hgb stable Follow up with Dr. 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 Med Onco Dr. Theo Wagner Rad Onco Dr. Flavia Wagner Urologist Dr. Wood Current Inpatient Medications: Current Inpatient Medications Medications (Trade) Dose Ordered Sig/Vicenta Route Start Time Stop Time Status Last Admin Dose Admin Heparin Sodium/ Dextrose 500 ml @ 22 mls/hr [id number] IV 05/13/17 03:30 06/12/17 03:29 Future hold 05/25/17 12:20 22 MLS/HR Acetaminophen (Tylenol Tab) 650 mg Q4H PRN PO 05/13/17 04:45 06/12/17 04:44 05/20/17 11:50 650 MG Insulin Aspart (novoLOG ASPART) SLIDING SCALE If C... ACHS SC 05/13/17 11:00 06/12/17 10:59 05/25/17 17:20 3 UNITS Glucose (Glucose 40% Gel) 15-30 GRAMS 15 GRAMS... UD PRN PO 05/13/17 04:45 06/12/17 04:44 Glucose (Glucose Chew Tab) 4-8 Tablets 4 Tabl... UD PRN PO 05/13/17 04:45 06/12/17 04:44 Dextrose (Dextrose 50% 50ML Syringe) 25-50ML OF 50% DW IV FOR... UD PRN IV 05/13/17 04:45 06/12/17 04:44 Glucagon (Glucagon Inj) 1 mg UD PRN SQ 05/13/17 04:45 06/12/17 04:44 Insulin Glargine (Lantus Solostar Pen) 5 units DAILY SC 05/14/17 09:00 06/13/17 08:59 05/25/17 08:04 5 UNITS Tramadol HCl (Ultram Tab) not relieved by tylenol @ Q6H PRN PO 05/13/17 04:45 06/12/17 04:44 05/20/17 11:50 50 MG Prochlorperazine Edisylate 5 mg/ Syringe 5 ml @ 5 mls/min Q6H PRN IV 05/13/17 04:45 06/12/17 04:44 05/16/17 20:50 5 MLS/MIN Atorvastatin Calcium (Lipitor Tab) 40 mg HS PO 05/13/17 21:00 06/12/17 20:59 05/24/17 20:52 40 MG Docusate Sodium (coLACE CAP) 100 mg QAM PO 05/13/17 09:00 06/12/17 08:59 05/25/17 08:00 100 MG Latanoprost (Xalatan Oph Soln) 1 drops HS OPR 05/13/17 21:00 06/12/17 20:59 05/24/17 20:52 1 DROPS Tamsulosin HCl (Flomax Cap) 0.4 mg HS PO 05/13/17 21:00 06/12/17 20:59 05/24/17 20:52 0.4 MG Polyethylene (Miralax Powder Packet) 17 gm DAILY PRN PO 05/13/17 06:30 06/12/17 06:29 Lorazepam (Ativan Inj) 0.25 mg Q4H PRN IV 05/13/17 04:45 06/12/17 04:44 05/22/17 03:28 0.25 MG Ipratropium [place] (Atrovent 0.02% 0.5MG/2.5ML Neb) 0.5 mg Q4H PRN INH 05/13/17 05:00 06/12/17 04:59 05/20/17 04:16 0.5 MG Levalbuterol (Xopenex 1.25MG/ 0.5ML Neb) 1.25 mg Q4H PRN INH 05/13/17 05:00 06/12/17 04:59 05/20/17 04:16 1.25 MG Enteral Nutritional Formula (Boost Glucose Control) 1 can TIDM PO 05/14/17 07:30 06/13/17 07:29 05/25/17 16:45 1 CAN Ferrous Sulfate (Feosol Tab) 325 mg QAM PO 05/14/17 09:00 06/13/17 08:59 05/25/17 08:00 325 MG Fentanyl (Duragesic Patch) 25 mcg Q72H TD 05/15/17 11:00 05/29/17 10:59 05/23/17 13:16 25 MCG Miscellaneous (Fentanyl Patch Remove & Waste) 1 ea Q3D@1059 N/A 05/18/17 10:59 06/17/17 10:58 05/24/17 10:59 1 EA Miscellaneous Information (Check Fentanyl Patch Placement) 1 ea QS N/A 05/15/17 16:00 06/14/17 15:59 05/25/17 16:11 1 EA Dronabinol (Marinol Cap) 2.5 mg TID PO 05/15/17 14:00 06/12/17 08:59 05/25/17 08:00 2.5 MG Mometasone Furoate ([place] 0.1 % Cr) 1 appln BID EXT 05/17/17 21:00 06/16/17 20:59 05/25/17 08:01 1 APPLN Prednisone (PredniSONE TAB) 10 mg DAILY PO 05/24/17 09:00 05/26/17 08:59 05/25/17 08:00 10 MG
[2017-05-25 18:33] LABS: PTT PATIENT 43.8 SECONDS (21.0-31.0)
[2017-05-25] MEDS ORDERED: HEPARIN IV BOLUS 2,000 UNIT in SYRINGE 0 ML IV ONE (19:00)
[2017-05-25] MEDS: LATANOPROST 0.005% OP SOLN 2.5 ML BTL OPR SCH (20:59)
[2017-05-25] MEDS: ATORVASTATIN 40 MG TAB PO SCH (20:59)
[2017-05-25] MEDS: TAMSULOSIN HCL 0.4 MG CAP PO SCH (20:59)
[2017-05-26] VITALS (7 sets, daily range): BP systolic 103–118; BP diastolic 58–69; PULSE 86–96; TEMP 36.4–36.9; O2SAT 93–100
[2017-05-26 02:21] LABS: PTT PATIENT 54.8 SECONDS (21.0-31.0)
[2017-05-26] MEDS: PROCHLORPERAZINE INJ 5 MG in SYRINGE 4 ML IV PRN (06:58)
[2017-05-26 07:16] LABS: BASO % 0.2 %; BASO ABS # 0.01 K/uL (0-0.2); EOS % 0.5 %; EOS ABS # 0.02 K/uL (0-0.5); HEMATOCRIT 27.4 % (42-52); HEMOGLOBIN 9.2 g/dL (14.0-18.0); IG# 0.02 K/uL (0.00-0.02); LYMPH % 8.6 %; LYMPH ABS # 0.38 K/uL (1.2-3.4); MEAN CELL VOLUME 85.4 fL (80-100); MEAN CORPUSCULAR HEMOGLOBIN 28.7 pg (25-34); MEAN CORPUSCULAR HGB CONC 33.6 g/dl (32-36); MEAN PLATELET VOLUME 8.3 fL (7.4-10.4); MONO % 7.3 %; MONO ABS # 0.32 K/uL (0.11-0.59); NEUT % 82.9 %; NEUT ABS # 3.65 K/uL (1.4-6.5); PLATELET COUNT 156 K/uL (130-400); RED CELL DISTRIBUTION WIDTH CV 19.7 % (11.5-14.5); RED CELL DISTRIBUTION WIDTH SD 59.7 fL (36.4-46.3)
[2017-05-26 07:44] LABS: CALCIUM 8.7 mg/dl (8.5-10.1); CREATININE 0.69 mg/dl (0.60-1.40); POTASSIUM 3.3 mmol/L (3.5-5.1)
[2017-05-26] MEDS: BOOST GLUCOSE CONTROL PO SCH ×3 (07:44→16:40)
[2017-05-26] MEDS: CHECK FENTANYL PATCH PLACEMENT SCH ×3 (07:44→22:58)
[2017-05-26] MEDS: DOCUSATE SODIUM 100 MG CAP PO SCH (07:45)
[2017-05-26] MEDS: DRONABINOL 2.5 MG CAP PO SCH ×3 (07:45→21:16)
[2017-05-26] MEDS: MOMETASONE FUROATE 0.1% CR 15 GM TUBE EXT SCH ×2 (07:46→21:16)
[2017-05-26] MEDS: FERROUS SULFATE 325 MG TAB PO SCH (07:46)
[2017-05-26] MEDS: INSULIN ASPART 100 UNITS/ML 3 ML PEN SC SCH ×4 (07:49→21:18)
[2017-05-26] MEDS: INSULIN GLARGINE SOLOSTAR 100 UNITS/ML 3 ML PEN SC SCH (07:50)
[2017-05-26] MEDS ORDERED: POTASSIUM CHLORIDE 10 MEQ TABCR PO ONE (08:00)
--- NOTE | 2017-05-26 16:47 | Progress Note ---
Medicine Progress Note Date & Time of Visit: May 26, 2017 at 13:41. Subjective Pt was seen and examined Sitting in bed with no distress Pt said that he feels ok Continue to feels weak No bloody stool noted as per nurse Appetite good Denies any chest pain, palpitation, dizziness and SOB Objective Last 8 Hrs Date Time Temp Pulse Resp B/P (MAP) Pulse Ox O2 Delivery O2 Flow Rate FiO2 05/26/17 16:37 36.4 89 20 114/64 (81) 100 Nasal Cannula 2.0 05/26/17 16:00 Nasal Cannula 2.0 05/26/17 12:00 Nasal Cannula 2.0 05/26/17 11:45 36.6 95 16 103/60 (74) 96 Nasal Cannula 2.0 Physical Exam: General- No acute distress Head- atraumatic Eyes- PERRL, EOMI ENT- oropharynx clear Neck- supple, no JVD Lungs- Coarse breath sound Heart- regular rhythm Abdomen- normal bowel sounds Extremities- no pretibial edema Neuro- alert, confused Skin- warm & dry Laboratory Results: Last 24 Hours Test 05/25/17 18:10 05/25/17 20:37 05/26/17 01:38 05/26/17 06:34 Activated Partial Thromboplast Time 43.8 SECONDS 54.8 SECONDS Partial Thromboplastin Ratio 1.7 2.1 Bedside Glucose 112 mg/dl 137 mg/dl Test 05/26/17 07:08 05/26/17 11:12 White Blood Count 4.40 K/uL Red Blood Count 3.21 M/uL Hemoglobin 9.2 g/dL Hematocrit 27.4 % Mean Corpuscular Volume 85.4 fL Mean Corpuscular Hemoglobin 28.7 pg Mean Corpuscular Hemoglobin Concent 33.6 g/dl Platelet Count 156 K/uL Mean Platelet Volume 8.3 fL Neutrophils (%) (Auto) 82.9 % Lymphocytes (%) (Auto) 8.6 % Monocytes (%) (Auto) 7.3 % Eosinophils (%) (Auto) 0.5 % Basophils (%) (Auto) 0.2 % Neutrophils # (Auto) 3.65 K/uL Lymphocytes # (Auto) 0.38 K/uL Monocytes # (Auto) 0.32 K/uL Eosinophils # (Auto) 0.02 K/uL Basophils # (Auto) 0.01 K/uL RDW Standard Deviation 59.7 fL RDW Coefficient of Variation 19.7 % Immature Granulocyte % (Auto) 0.5 % Immature Granulocyte # (Auto) 0.02 K/uL Sodium Level 136 mmol/L Potassium Level 3.3 mmol/L Chloride Level 102 mmol/L Carbon Dioxide Level 28 mmol/L Anion Gap 6.0 mmol/L Blood Urea Nitrogen 10 mg/dl Creatinine 0.69 mg/dl Est Creatinine Clear Calc Drug Dose 74.8 ml/min Estimated GFR () 109.2 Estimated GFR (Non- 94.2 BUN/Creatinine Ratio 15.2 Random Glucose 126 mg/dl Calcium Level 8.7 mg/dl Magnesium Level 2.3 mg/dl Bedside Glucose 121 mg/dl Assessment & Plan Acute Hypoxic respiratory failure Acute pulmonary embolism due to lung malignancy CTA showed masslike opacity of the medial left upper lobe redemonstrated with central cavitation. Additionally, there is a cavitary nodule of the right midlung And segmental and subsegmental branches of the left lower lobe, likely tumor emboli. Venous doppler showed no DVT within the right or left lower extremity. Continue IV heparin drip Continue oxygen supplement Med Onco consulted, will need indefinite Lovenox on discharge Completed 7 days of Doxy Continue inhaled bronchodilators and Prednisone taper Continue monitor for hematuria and GI bleed check CBC in am But if he has any abnormal bleeding, please check h/h Hgb stable this morning Non-small cell lung cancer: currently on paclitaxel, carboplatin, XRT. Last chemo dose was 3/. Had radiation therapy during prior admission CT chest showing left upper lobe lesion encasing L pulmonary artery Rad Onco Dr. Benson Wagner on board Will need radiation treatment for the ENID lesion 5-9 session S/P 5th radiation Tx for the ENID Confusion Possibly encephalopathy multifactorial due to narcotics prednisone, hospital setting and radiation tx CT head done showed no acute intracranial abnormality Monitor closely stable Sinus Tachycardia likely from PE Stable Electrolytes Imbalance Due to poor oral intake K 3.3 today K replaced Continue monitor BMP Continue Marinol to 2.5mg TID for the appetite Stable H/O AAA 40% noncalcified mural thrombus? Continue monitor Stage II decubitus ulcer Continue daily wound care Wound care on board H/O HTN BP in the low side Continue holding Lisinopril Continue monitor BP Hematuria, History of Left Ureteral Stones s/p Left Ureteral Stent placement by Dr. Wood 05/08/17 Hgb stable Follow up with Dr. Wood as an outpatient DM II Last A1C:7.0 Hold PO meds Continue ISS, Lantus Monitor BGs Chronic Anemia: Multifactorial: Anemia of chronic disease, Iron deficiency, Secondary to Chemo, hematuria Received 1 units PRBC on 05/13/17 Hgb 9.2 Stable Chronic Pain Due to malignancy Continue Fentanyl Will watch for drowsiness and worsening mental status Protein Calorie Malnutrition: BMI:19.7 Salesforce Business Analyst consulted DVT Px on IV Heparin Code Status Full code Disposition Will transfer to [facility] once medical stable [facility] will transfer pt for Radiation. Med Onco Dr. Theo Wagner Rad Onco Dr. Flavia Wagner Urologist Dr. Wood Current Inpatient Medications: Current Inpatient Medications Medications (Trade) Dose Ordered Sig/Vicenta Route Start Time Stop Time Status Last Admin Dose Admin Heparin Sodium/ Dextrose 500 ml @ 23 mls/hr [id number] IV 05/13/17 03:30 06/12/17 03:29 Future hold 05/25/17 21:02 23 MLS/HR Acetaminophen (Tylenol Tab) 650 mg Q4H PRN PO 05/13/17 04:45 06/12/17 04:44 05/20/17 11:50 650 MG Insulin Aspart (novoLOG ASPART) SLIDING SCALE If C... ACHS SC 05/13/17 11:00 06/12/17 10:59 05/26/17 07:49 3 UNITS Glucose (Glucose 40% Gel) 15-30 GRAMS 15 GRAMS... UD PRN PO 05/13/17 04:45 06/12/17 04:44 Glucose (Glucose Chew Tab) 4-8 Tablets 4 Tabl... UD PRN PO 05/13/17 04:45 06/12/17 04:44 Dextrose (Dextrose 50% 50ML Syringe) 25-50ML OF 50% DW IV FOR... UD PRN IV 05/13/17 04:45 06/12/17 04:44 Glucagon (Glucagon Inj) 1 mg UD PRN SQ 05/13/17 04:45 06/12/17 04:44 Insulin Glargine (Lantus Solostar Pen) 5 units DAILY SC 05/14/17 09:00 06/13/17 08:59 05/26/17 07:50 5 UNITS Tramadol HCl (Ultram Tab) not relieved by tylenol @ Q6H PRN PO 05/13/17 04:45 06/12/17 04:44 05/20/17 11:50 50 MG Prochlorperazine Edisylate 5 mg/ Syringe 5 ml @ 5 mls/min Q6H PRN IV 05/13/17 04:45 06/12/17 04:44 05/26/17 06:58 5 MLS/MIN Atorvastatin Calcium (Lipitor Tab) 40 mg HS PO 05/13/17 21:00 06/12/17 20:59 05/25/17 20:59 40 MG Docusate Sodium (coLACE CAP) 100 mg QAM PO 05/13/17 09:00 06/12/17 08:59 05/26/17 07:45 100 MG Latanoprost (Xalatan Oph Soln) 1 drops HS OPR 05/13/17 21:00 06/12/17 20:59 05/25/17 20:59 1 DROPS Tamsulosin HCl (Flomax Cap) 0.4 mg HS PO 05/13/17 21:00 06/12/17 20:59 05/25/17 20:59 0.4 MG Polyethylene (Miralax Powder Packet) 17 gm DAILY PRN PO 05/13/17 06:30 06/12/17 06:29 Lorazepam (Ativan Inj) 0.25 mg Q4H PRN IV 05/13/17 04:45 06/12/17 04:44 05/22/17 03:28 0.25 MG Ipratropium [place] (Atrovent 0.02% 0.5MG/2.5ML Neb) 0.5 mg Q4H PRN INH 05/13/17 05:00 06/12/17 04:59 05/20/17 04:16 0.5 MG Levalbuterol (Xopenex 1.25MG/ 0.5ML Neb) 1.25 mg Q4H PRN INH 05/13/17 05:00 06/12/17 04:59 05/20/17 04:16 1.25 MG Enteral Nutritional Formula (Boost Glucose Control) 1 can TIDM PO 05/14/17 07:30 06/13/17 07:29 05/26/17 07:44 1 CAN Ferrous Sulfate (Feosol Tab) 325 mg QAM PO 05/14/17 09:00 06/13/17 08:59 05/26/17 07:46 325 MG Fentanyl (Duragesic Patch) 25 mcg Q72H TD 05/15/17 11:00 05/29/17 10:59 05/23/17 13:16 25 MCG Miscellaneous (Fentanyl Patch Remove & Waste) 1 ea Q3D@1059 N/A 05/18/17 10:59 06/17/17 10:58 05/24/17 10:59 1 EA Miscellaneous Information (Check Fentanyl Patch Placement) 1 ea QS N/A 05/15/17 16:00 06/14/17 15:59 05/25/17 16:11 1 EA Dronabinol (Marinol Cap) 2.5 mg TID PO 05/15/17 14:00 06/12/17 08:59 05/26/17 07:45 2.5 MG Mometasone Furoate ([place] 0.1 % Cr) 1 appln BID EXT 05/17/17 21:00 06/16/17 20:59 05/26/17 07:46 1 APPLN
[2017-05-26] MEDS: HEPARIN 25,000 UNIT/500ML D5W 500 ML IV SCH (17:33)
[2017-05-26] MEDS: LATANOPROST 0.005% OP SOLN 2.5 ML BTL OPR SCH (21:17)
[2017-05-26] MEDS: TAMSULOSIN HCL 0.4 MG CAP PO SCH (21:17)
[2017-05-26] MEDS: ATORVASTATIN 40 MG TAB PO SCH (21:18)
[2017-05-27] MEDS: GUAIFENESIN SUGAR FREE 100 MG/5 ML UDC PO PRN ×2 (03:07→22:20)
[2017-05-27 07:02] LABS: PTT PATIENT > 300.0 SECONDS (21.0-31.0)
[2017-05-27 07:09] VITALS: BP 96/56; PULSE 81; TEMP 36.8; O2SAT 95
[2017-05-27] MEDS: CHECK FENTANYL PATCH PLACEMENT SCH ×2 (08:00→16:25)
[2017-05-27 08:23] LABS: PTT PATIENT 35.7 SECONDS (21.0-31.0)
--- NOTE | 2017-05-27 08:24 | DIAGNOSTIC IMAGING REPORT ---
SINGLE VIEW CHEST CLINICAL HISTORY: Cough. FINDINGS: An AP, portable, upright chest radiograph is compared to study dated 05/20/2017 and correlated with chest CT dated 05/13/2017. The examination is degraded by portable technique and apical lordotic positioning. A right subclavian central venous infusion port is unchanged in position. The heart is enlarged and there is atherosclerotic calcification of the thoracic aorta. The pulmonary vasculature is noncongested. Emphysema and chronic interstitial thickening are again noted. A spiculated mass lesion is again seen at the left apex. There is associated elevation of the left hemidiaphragm. No evidence of superimposed airspace consolidation or large pleural effusion is identified. Additional smaller lesions seen by CT were not visualized by x-ray. No pneumothorax is seen. The skeletal structures are osteopenic. The bony thorax is grossly intact. IMPRESSION: 1. Cardiomegaly and emphysema. 2. A left apical mass lesion is unchanged from recent prior studies. Additional smaller lesions seen by CT are not apparent by x-ray. 3. There is no evidence of superimposed airspace consolidation or large pleural effusion. Electronically signed by: Riley Wheeler M.D. 05/27/2017 8:22 AM Dictated Date/Time: 05/27/2017 8:20 AM
[2017-05-27] MEDS: FENTANYL 25 MCG/HR TDSY TD SCH (09:42)
[2017-05-27] MEDS: BOOST GLUCOSE CONTROL PO SCH ×3 (09:44→17:07)
[2017-05-27] MEDS: DOCUSATE SODIUM 100 MG CAP PO SCH (09:45)
[2017-05-27] MEDS: FERROUS SULFATE 325 MG TAB PO SCH (09:45)
[2017-05-27] MEDS: MOMETASONE FUROATE 0.1% CR 15 GM TUBE EXT SCH ×2 (09:48→20:33)
[2017-05-27] MEDS: DRONABINOL 2.5 MG CAP PO SCH ×3 (10:07→20:30)
[2017-05-27] MEDS: INSULIN ASPART 100 UNITS/ML 3 ML PEN SC SCH ×4 (10:10→20:31)
[2017-05-27] MEDS: INSULIN GLARGINE SOLOSTAR 100 UNITS/ML 3 ML PEN SC SCH (10:11)
[2017-05-27] MEDS: FENTANYL PATCH REMOVE & WASTE SCH (10:54)
[2017-05-27 15:14] VITALS: BP 104/54; PULSE 108; TEMP 36.7; O2SAT 95
[2017-05-27 16:00] LABS: PTT PATIENT 44.2 SECONDS (21.0-31.0)
[2017-05-27 16:02] VITALS: O2SAT 95
[2017-05-27] MEDS ORDERED: HEPARIN IV BOLUS 2,000 UNIT in SYRINGE 0 ML IV ONE (16:30)
--- NOTE | 2017-05-27 16:45 | Progress Note ---
Medicine Progress Note Date & Time of Visit: May 27, 2017 at 16:41. Subjective Pt was seen and examined Lying in bed with no distress Pt said that he did not sleep well last night due to the beeping noise He said that he does not see any blood in his stool and urine Denies any chest pain, palpitation, dizziness and SOB Objective Last 8 Hrs Date Time Temp Pulse Resp B/P (MAP) Pulse Ox O2 Delivery O2 Flow Rate FiO2 05/27/17 15:14 36.7 108 18 104/54 (71) 95 Room Air Physical Exam: General- No acute distress Head- atraumatic Eyes- PERRL, EOMI ENT- oropharynx clear Neck- supple, no JVD Lungs- No wheezing Heart- regular rhythm Abdomen- normal bowel sounds Extremities- no pretibial edema Neuro- alert, confused Skin- warm & dry Laboratory Results: Last 24 Hours Test 05/26/17 20:20 05/27/17 05:30 05/27/17 07:35 05/27/17 07:53 Bedside Glucose 121 mg/dl 119 mg/dl Activated Partial Thromboplast Time > 300.0 SECONDS 35.7 SECONDS Partial Thromboplastin Ratio > 11.0 1.4 Test 05/27/17 15:37 Activated Partial Thromboplast Time 44.2 SECONDS Partial Thromboplastin Ratio 1.7 Assessment & Plan Acute Hypoxic respiratory failure Acute pulmonary embolism due to lung malignancy CTA showed masslike opacity of the medial left upper lobe redemonstrated with central cavitation. Additionally, there is a cavitary nodule of the right midlung And segmental and subsegmental branches of the left lower lobe, likely tumor emboli. Venous doppler showed no DVT within the right or left lower extremity. Continue IV heparin drip Continue oxygen supplement Med Onco consulted, will need indefinite Lovenox on discharge Completed 7 days of Doxy Continue inhaled bronchodilators and Prednisone taper Continue monitor for hematuria and GI bleed check CBC in am But if he has any abnormal bleeding, please check h/h Hgb stable 05/27 Denies any hematuria and blood in stool Will change heparin drip to Lovenox Monitor CBC Non-small cell lung cancer: currently on paclitaxel, carboplatin, XRT. Last chemo dose was 05/01. Had radiation therapy during prior admission CT chest showing left upper lobe lesion encasing L pulmonary artery Rad Onco Dr. 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 Continue monitor Stage II decubitus ulcer Continue daily wound care Wound care on board H/O HTN BP in the low side Continue holding Lisinopril Continue monitor BP Hematuria, History of Left Ureteral Stones s/p Left Ureteral Stent placement by Dr. Wood 05/08/17 Hgb stable Follow up with Dr. Wood as an outpatient DM II Last A1C:7.0 Hold PO meds Continue ISS, Lantus Monitor BGs Chronic Anemia: Multifactorial: Anemia of chronic disease, Iron deficiency, Secondary to Chemo, hematuria Received 1 units PRBC on 05/13/17 Hgb 9.2 Stable Chronic Pain Due to malignancy Continue Fentanyl Will watch for drowsiness and worsening mental status Protein Calorie Malnutrition: BMI:19.7 Association Executive consulted DVT Px on IV Heparin Code Status Full code Disposition Will transfer to [facility] once medical stable [facility] will transfer pt for Radiation. Med Onco Dr. Theo Wagner Rad Onco Dr. Flavia Wagner Urologist Dr. Wood Current Inpatient Medications: Current Inpatient Medications Medications (Trade) Dose Ordered Sig/Vicenta Route Start Time Stop Time Status Last Admin Dose Admin Heparin Sodium/ Dextrose 500 ml @ 24 mls/hr [id number] IV 05/13/17 03:30 06/12/17 03:29 Future hold 05/26/17 17:33 23 MLS/HR Acetaminophen (Tylenol Tab) 650 mg Q4H PRN PO 05/13/17 04:45 06/12/17 04:44 05/20/17 11:50 650 MG Insulin Aspart (novoLOG ASPART) SLIDING SCALE If C... ACHS SC 05/13/17 11:00 06/12/17 10:59 05/27/17 13:23 5 UNITS Glucose (Glucose 40% Gel) 15-30 GRAMS 15 GRAMS... UD PRN PO 05/13/17 04:45 06/12/17 04:44 Glucose (Glucose Chew Tab) 4-8 Tablets 4 Tabl... UD PRN PO 05/13/17 04:45 06/12/17 04:44 Dextrose (Dextrose 50% 50ML Syringe) 25-50ML OF 50% DW IV FOR... UD PRN IV 05/13/17 04:45 06/12/17 04:44 Glucagon (Glucagon Inj) 1 mg UD PRN SQ 05/13/17 04:45 06/12/17 04:44 Insulin Glargine (Lantus Solostar Pen) 5 units DAILY SC 05/14/17 09:00 06/13/17 08:59 05/27/17 10:11 5 UNITS Tramadol HCl (Ultram Tab) not relieved by tylenol @ Q6H PRN PO 05/13/17 04:45 06/12/17 04:44 05/20/17 11:50 50 MG Prochlorperazine Edisylate 5 mg/ Syringe 5 ml @ 5 mls/min Q6H PRN IV 05/13/17 04:45 06/12/17 04:44 05/26/17 06:58 5 MLS/MIN Atorvastatin Calcium (Lipitor Tab) 40 mg HS PO 05/13/17 21:00 06/12/17 20:59 05/26/17 21:18 40 MG Docusate Sodium (coLACE CAP) 100 mg QAM PO 05/13/17 09:00 06/12/17 08:59 05/27/17 09:45 100 MG Latanoprost (Xalatan Oph Soln) 1 drops HS OPR 05/13/17 21:00 06/12/17 20:59 05/26/17 21:17 1 DROPS Tamsulosin HCl (Flomax Cap) 0.4 mg HS PO 05/13/17 21:00 06/12/17 20:59 05/26/17 21:17 0.4 MG Polyethylene (Miralax Powder Packet) 17 gm DAILY PRN PO 05/13/17 06:30 06/12/17 06:29 Lorazepam (Ativan Inj) 0.25 mg Q4H PRN IV 05/13/17 04:45 06/12/17 04:44 05/22/17 03:28 0.25 MG Ipratropium [place] (Atrovent 0.02% 0.5MG/2.5ML Neb) 0.5 mg Q4H PRN INH 05/13/17 05:00 06/12/17 04:59 05/20/17 04:16 0.5 MG Levalbuterol (Xopenex 1.25MG/ 0.5ML Neb) 1.25 mg Q4H PRN INH 05/13/17 05:00 06/12/17 04:59 05/20/17 04:16 1.25 MG Enteral Nutritional Formula (Boost Glucose Control) 1 can TIDM PO 05/14/17 07:30 06/13/17 07:29 05/27/17 13:02 1 CAN Ferrous Sulfate (Feosol Tab) 325 mg QAM PO 05/14/17 09:00 06/13/17 08:59 05/27/17 09:45 325 MG Fentanyl (Duragesic Patch) 25 mcg Q72H TD 05/15/17 11:00 05/29/17 10:59 05/27/17 09:42 25 MCG Miscellaneous (Fentanyl Patch Remove & Waste) 1 ea Q3D@1059 N/A 05/18/17 10:59 06/17/17 10:58 05/24/17 10:59 1 EA Miscellaneous Information (Check Fentanyl Patch Placement) 1 ea QS N/A 05/15/17 16:00 06/14/17 15:59 05/27/17 16:25 1 EA Dronabinol (Marinol Cap) 2.5 mg TID PO 05/15/17 14:00 06/12/17 08:59 05/27/17 13:15 2.5 MG Mometasone Furoate ([place] 0.1 % Cr) 1 appln BID EXT 05/17/17 21:00 06/16/17 20:59 05/27/17 09:48 1 APPLN Heparin Sodium (Porcine) (Heparin 100 Unit/ml 5ml Flush) 5 ml PRN PRN IV 05/27/17 01:30 06/26/17 01:29 Guaifenesin (Robitussin Sugar Free Syrup) 100 mg Q6H PRN PO 05/27/17 02:30 06/26/17 02:29 05/27/17 03:07 100 MG
[2017-05-27] MEDS: HEPARIN 25,000 UNIT/500ML D5W 500 ML IV SCH (17:13)
[2017-05-27] MEDS: TAMSULOSIN HCL 0.4 MG CAP PO SCH (20:32)
[2017-05-27] MEDS: ATORVASTATIN 40 MG TAB PO SCH (20:32)
[2017-05-27] MEDS: ENOXAPARIN 60 MG/0.6 ML SYR SQ SCH (20:32)
[2017-05-27] MEDS: LATANOPROST 0.005% OP SOLN 2.5 ML BTL OPR SCH (20:33)
[2017-05-27 23:34] VITALS: BP 96/58; PULSE 99; TEMP 36.8; O2SAT 96
[2017-05-28] VITALS: O2SAT 95
[2017-05-28] MEDS: CHECK FENTANYL PATCH PLACEMENT SCH ×3 (00:49→16:08)
[2017-05-28] MEDS: INSULIN ASPART 100 UNITS/ML 3 ML PEN SC SCH ×4 (06:30→20:14)
[2017-05-28 07:07] LABS: HEMATOCRIT 30.2 % (42-52); HEMOGLOBIN 9.7 g/dL (14.0-18.0); MEAN CORPUSCULAR HEMOGLOBIN 27.6 pg (25-34); MEAN CORPUSCULAR HGB CONC 32.1 g/dl (32-36); MEAN PLATELET VOLUME 8.6 fL (7.4-10.4); PLATELET COUNT 190 K/uL (130-400); RED CELL DISTRIBUTION WIDTH CV 20.4 % (11.5-14.5); RED CELL DISTRIBUTION WIDTH SD 61.9 fL (36.4-46.3); WHITE BLOOD COUNT 4.31 K/uL (4.8-10.8)
[2017-05-28 07:08] LABS: PTT PATIENT 30.5 SECONDS (21.0-31.0)
[2017-05-28 07:20] VITALS: BP 110/74; PULSE 92; TEMP 36.8; O2SAT 96
[2017-05-28 07:34] LABS: CALCIUM 8.5 mg/dl (8.5-10.1); CREATININE 0.7 mg/dl (0.60-1.40); POTASSIUM 3.4 mmol/L (3.5-5.1)
[2017-05-28 08:00] VITALS: O2SAT 96
[2017-05-28] MEDS: BOOST GLUCOSE CONTROL PO SCH ×3 (08:00→17:26)
[2017-05-28] MEDS: DRONABINOL 2.5 MG CAP PO SCH ×3 (08:00→20:33)
[2017-05-28] MEDS ORDERED: POTASSIUM CHLORIDE 20 MEQ TABCR PO ONE (09:00)
[2017-05-28] MEDS: DOCUSATE SODIUM 100 MG CAP PO SCH (09:02)
[2017-05-28] MEDS: FERROUS SULFATE 325 MG TAB PO SCH (09:02)
[2017-05-28] MEDS: ENOXAPARIN 60 MG/0.6 ML SYR SQ SCH ×2 (09:04→20:28)
[2017-05-28] MEDS: INSULIN GLARGINE SOLOSTAR 100 UNITS/ML 3 ML PEN SC SCH (09:06)
[2017-05-28] MEDS: MOMETASONE FUROATE 0.1% CR 15 GM TUBE EXT SCH ×2 (09:07→20:28)
[2017-05-28 10:12] VITALS: BP 97/65; PULSE 128; TEMP 36.5; O2SAT 97
[2017-05-28 15:56] VITALS: BP 101/64; PULSE 101; TEMP 36.7; O2SAT 96
[2017-05-28 16:00] VITALS: O2SAT 96
--- NOTE | 2017-05-28 17:24 | Progress Note ---
Medicine Progress Note Date & Time of Visit: May 28, 2017 at 17:18. Subjective Pt was seen examined Lying in bed with no distress with son at bedside Pt walked around today with son and physical therapy No hematuria and bloody stool noted Denies any chest pain, palpitation, dizziness and SOB Objective Last 8 Hrs Date Time Temp Pulse Resp B/P (MAP) Pulse Ox O2 Delivery O2 Flow Rate FiO2 05/28/17 15:56 36.7 101 18 101/64 (76) 96 Room Air 05/28/17 10:12 36.5 128 20 97/65 97 Physical Exam: General- No acute distress Head- atraumatic Eyes- PERRL, EOMI ENT- oropharynx clear Neck- supple, no JVD Lungs- No wheezing Heart- regular rhythm Abdomen- normal bowel sounds Extremities- no pretibial edema Neuro- alert, confused Skin- warm & dry Laboratory Results: Last 24 Hours Test 05/27/17 20:11 05/28/17 06:09 05/28/17 07:57 05/28/17 11:48 Bedside Glucose 166 mg/dl 111 mg/dl 139 mg/dl White Blood Count 4.31 K/uL Red Blood Count 3.51 M/uL Hemoglobin 9.7 g/dL Hematocrit 30.2 % Mean Corpuscular Volume 86.0 fL Mean Corpuscular Hemoglobin 27.6 pg Mean Corpuscular Hemoglobin Concent 32.1 g/dl RDW Standard Deviation 61.9 fL RDW Coefficient of Variation 20.4 % Platelet Count 190 K/uL Mean Platelet Volume 8.6 fL Activated Partial Thromboplast Time 30.5 SECONDS Partial Thromboplastin Ratio 1.2 Sodium Level 136 mmol/L Potassium Level 3.4 mmol/L Chloride Level 101 mmol/L Carbon Dioxide Level 28 mmol/L Anion Gap 6.0 mmol/L Blood Urea Nitrogen 11 mg/dl Creatinine 0.70 mg/dl Est Creatinine Clear Calc Drug Dose 73.8 ml/min Estimated GFR () 108.5 Estimated GFR (Non- 93.6 BUN/Creatinine Ratio 16.2 Random Glucose 122 mg/dl Calcium Level 8.5 mg/dl Assessment & Plan Acute Hypoxic respiratory failure Acute pulmonary embolism due to lung malignancy CTA showed masslike opacity of the medial left upper lobe redemonstrated with central cavitation. Additionally, there is a cavitary nodule of the right midlung And segmental and subsegmental branches of the left lower lobe, likely tumor emboli. Venous doppler showed no DVT within the right or left lower extremity. Continue IV heparin drip Continue oxygen supplement Med Onco consulted, will need indefinite Lovenox on discharge Completed 7 days of Doxy Continue inhaled bronchodilators and Prednisone taper Continue monitor for hematuria and GI bleed check CBC in am But if he has any abnormal bleeding, please check h/h Hgb stable 4/2 Denies any hematuria and blood in stool heparin drip d/c Continue Lovenox BID Monitor CBC Hgb stable Non-small cell lung cancer: currently on paclitaxel, carboplatin, XRT. Last chemo dose was 05/01. Had radiation therapy during prior admission CT chest showing left upper lobe lesion encasing L pulmonary artery Rad Onco Dr. Benson Wagner on board Will need radiation treatment for the ENID lesion 5-9 session S/P 6th radiation Tx for the ENID last radiation therapy tomorrow Case discussed with Dr. Benson Wagner and recommended follow up in 1 month Follow up with Oncology Dr. 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 Continue monitor Stage II decubitus ulcer Continue daily wound care Wound care on board H/O HTN BP in the low side Continue holding Lisinopril Continue monitor BP Hematuria, History of Left Ureteral Stones s/p Left Ureteral Stent placement by Dr. Wood 05/08/17 Hgb stable Follow up with Dr. Wood as an outpatient DM II Last A1C:7.0 Hold PO meds Continue ISS, Lantus Monitor BGs Chronic Anemia: Multifactorial: Anemia of chronic disease, Iron deficiency, Secondary to Chemo, hematuria Received 1 units PRBC on 05/13/17 Hgb 9.7 Stable Chronic Pain Due to malignancy Continue Fentanyl Will watch for drowsiness and worsening mental status Protein Calorie Malnutrition: BMI:19.7 Invoice Coder consulted DVT Px on IV Heparin Code Status Full code Disposition Will transfer to [facility] once medical stable [facility] will transfer pt for Radiation. Med Onco Dr. Theo Wagner Rad Oncclaudia Wagner Urologist Dr. Wood Current Inpatient Medications: Current Inpatient Medications Medications (Trade) Dose Ordered Sig/Vicenta Route Start Time Stop Time Status Last Admin Dose Admin Acetaminophen (Tylenol Tab) 650 mg Q4H PRN PO 05/13/17 04:45 06/12/17 04:44 05/20/17 11:50 650 MG Insulin Aspart (novoLOG ASPART) SLIDING SCALE If C... ACHS SC 05/13/17 11:00 06/12/17 10:59 05/28/17 13:55 3 UNITS Glucose (Glucose 40% Gel) 15-30 GRAMS 15 GRAMS... UD PRN PO 05/13/17 04:45 06/12/17 04:44 Glucose (Glucose Chew Tab) 4-8 Tablets 4 Tabl... UD PRN PO 05/13/17 04:45 06/12/17 04:44 Dextrose (Dextrose 50% 50ML Syringe) 25-50ML OF 50% DW IV FOR... UD PRN IV 05/13/17 04:45 06/12/17 04:44 Glucagon (Glucagon Inj) 1 mg UD PRN SQ 05/13/17 04:45 06/12/17 04:44 Insulin Glargine (Lantus Solostar Pen) 5 units DAILY SC 05/14/17 09:00 06/13/17 08:59 05/28/17 09:06 5 UNITS Tramadol HCl (Ultram Tab) not relieved by tylenol @ Q6H PRN PO 05/13/17 04:45 06/12/17 04:44 05/20/17 11:50 50 MG Prochlorperazine Edisylate 5 mg/ Syringe 5 ml @ 5 mls/min Q6H PRN IV 05/13/17 04:45 06/12/17 04:44 05/26/17 06:58 5 MLS/MIN Atorvastatin Calcium (Lipitor Tab) 40 mg HS PO 05/13/17 21:00 06/12/17 20:59 05/27/17 20:32 40 MG Docusate Sodium (coLACE CAP) 100 mg QAM PO 05/13/17 09:00 06/12/17 08:59 05/28/17 09:02 100 MG Latanoprost (Xalatan Oph Soln) 1 drops HS OPR 05/13/17 21:00 06/12/17 20:59 05/27/17 20:33 1 DROPS Tamsulosin HCl (Flomax Cap) 0.4 mg HS PO 05/13/17 21:00 06/12/17 20:59 05/27/17 20:32 0.4 MG Polyethylene (Miralax Powder Packet) 17 gm DAILY PRN PO 05/13/17 06:30 06/12/17 06:29 Lorazepam (Ativan Inj) 0.25 mg Q4H PRN IV 05/13/17 04:45 06/12/17 04:44 05/22/17 03:28 0.25 MG Ipratropium [place] (Atrovent 0.02% 0.5MG/2.5ML Neb) 0.5 mg Q4H PRN INH 05/13/17 05:00 06/12/17 04:59 05/20/17 04:16 0.5 MG Levalbuterol (Xopenex 1.25MG/ 0.5ML Neb) 1.25 mg Q4H PRN INH 05/13/17 05:00 06/12/17 04:59 05/20/17 04:16 1.25 MG Enteral Nutritional Formula (Boost Glucose Control) 1 can TIDM PO 05/14/17 07:30 06/13/17 07:29 05/27/17 17:07 1 CAN Ferrous Sulfate (Feosol Tab) 325 mg QAM PO 05/14/17 09:00 06/13/17 08:59 05/28/17 09:02 325 MG Fentanyl (Duragesic Patch) 25 mcg Q72H TD 05/15/17 11:00 05/29/17 10:59 05/27/17 09:42 25 MCG Miscellaneous (Fentanyl Patch Remove & Waste) 1 ea Q3D@1059 N/A 05/18/17 10:59 06/17/17 10:58 05/24/17 10:59 1 EA Miscellaneous Information (Check Fentanyl Patch Placement) 1 ea QS N/A 05/15/17 16:00 06/14/17 15:59 05/28/17 16:08 1 EA Dronabinol (Marinol Cap) 2.5 mg TID PO 05/15/17 14:00 06/12/17 08:59 05/28/17 13:51 2.5 MG Mometasone Furoate (Elocon 0.1 % Cr) 1 appln BID EXT 05/17/17 21:00 06/16/17 20:59 05/28/17 09:07 1 APPLN Heparin Sodium (Porcine) (Heparin 100 Unit/ml 5ml Flush) 5 ml PRN PRN IV 05/27/17 01:30 06/26/17 01:29 05/28/17 09:08 5 ML Guaifenesin (Robitussin Sugar Free Syrup) 100 mg Q6H PRN PO 05/27/17 02:30 06/26/17 02:29 05/27/17 22:20 100 MG Enoxaparin Sodium (Lovenox Inj) 60 mg Q12H SQ 05/27/17 21:00 06/26/17 20:59 05/28/17 09:04 60 MG
[2017-05-28] MEDS: TAMSULOSIN HCL 0.4 MG CAP PO SCH (20:28)
[2017-05-28] MEDS: ATORVASTATIN 40 MG TAB PO SCH (20:28)
[2017-05-28] MEDS: LATANOPROST 0.005% OP SOLN 2.5 ML BTL OPR SCH (20:29)
[2017-05-29] MEDS: CHECK FENTANYL PATCH PLACEMENT SCH ×3 (00:26→15:05)
[2017-05-29 00:35] VITALS: BP 112/69; PULSE 96; TEMP 36.8; O2SAT 95
[2017-05-29 07:23] VITALS: BP 103/59; PULSE 88; TEMP 36.4; O2SAT 94
[2017-05-29] MEDS: DRONABINOL 2.5 MG CAP PO SCH ×2 (08:36→14:00)
[2017-05-29] MEDS: MOMETASONE FUROATE 0.1% CR 15 GM TUBE EXT SCH (08:37)
[2017-05-29] MEDS: DOCUSATE SODIUM 100 MG CAP PO SCH (08:37)
[2017-05-29] MEDS: BOOST GLUCOSE CONTROL PO SCH ×3 (08:37→17:00)
[2017-05-29] MEDS: FERROUS SULFATE 325 MG TAB PO SCH (08:37)
[2017-05-29] MEDS: ENOXAPARIN 60 MG/0.6 ML SYR SQ SCH (08:37)
[2017-05-29] MEDS: INSULIN ASPART 100 UNITS/ML 3 ML PEN SC SCH ×3 (08:40→18:00)
[2017-05-29] MEDS: INSULIN GLARGINE SOLOSTAR 100 UNITS/ML 3 ML PEN SC SCH (08:41)
[2017-05-29 15:01] VITALS: BP 105/63; PULSE 105; TEMP 36.7; O2SAT 96
--- NOTE | 2017-05-29 15:15 | Progress Note ---
Medicine Progress Note Date & Time of Visit: May 29, 2017 at 15:08. Subjective Pt was seen and examined Lying in bed with no distress Pt had final radiation treatment done today Pt said that he feels weak Insurance denies SNF Peer to peer review completed and pt was approved for SNF Denies any chest pain, palpitation, dizziness and SOB Objective Last 8 Hrs Date Time Temp Pulse Resp B/P (MAP) Pulse Ox O2 Delivery O2 Flow Rate FiO2 05/29/17 15:01 36.7 105 18 105/63 (77) 96 Room Air 05/29/17 08:20 Room Air 05/29/17 07:23 36.4 88 16 103/59 (74) 94 Room Air Physical Exam: General- No acute distress Head- atraumatic Eyes- PERRL, EOMI ENT- oropharynx clear Neck- supple, no JVD Lungs- No wheezing Heart- regular rhythm Abdomen- normal bowel sounds Extremities- no pretibial edema Neuro- alert, confused Skin- warm & dry Laboratory Results: Last 24 Hours Test 05/28/17 16:51 05/28/17 20:07 Bedside Glucose 144 mg/dl 106 mg/dl Assessment & Plan Acute Hypoxic respiratory failure Acute pulmonary embolism due to lung malignancy CTA showed masslike opacity of the medial left upper lobe redemonstrated with central cavitation. Additionally, there is a cavitary nodule of the right midlung And segmental and subsegmental branches of the left lower lobe, likely tumor emboli. Venous doppler showed no DVT within the right or left lower extremity. Continue IV heparin drip Continue oxygen supplement Med Onco consulted, will need indefinite Lovenox on discharge Completed 7 days of Doxy Continue inhaled bronchodilators and Prednisone taper Continue monitor for hematuria and GI bleed check CBC in am But if he has any abnormal bleeding, please check h/h Hgb stable 05/29 Denies any hematuria and blood in stool heparin drip was discontinued Continue Lovenox BID Monitor CBC Hgb stable Non-small cell lung cancer: currently on paclitaxel, carboplatin, XRT. Last chemo dose was 05/01. Had radiation therapy during prior admission CT chest showing left upper lobe lesion encasing L pulmonary artery Rad Onco Dr. Benson Wagner on board Will need radiation treatment for the ENID lesion 5-9 session S/P 7th radiation Tx for the ENID last radiation therapy done today Case discussed with Dr. Benson Wagner and recommended follow up in 1 month Follow up with Oncology Dr. 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 Continue monitor Stage II decubitus ulcer Continue daily wound care Wound care on board H/O HTN BP in the low side Continue holding Lisinopril Continue monitor BP Hematuria, History of Left Ureteral Stones s/p Left Ureteral Stent placement by Dr. Wood 05/08/17 Hgb stable Follow up with Dr. Wood as an outpatient DM II Last A1C:7.0 Hold PO meds Continue ISS, Lantus Monitor BGs Chronic Anemia: Multifactorial: Anemia of chronic disease, Iron deficiency, Secondary to Chemo, hematuria Received 1 units PRBC on 05/13/17 Hgb 9.7 Stable Chronic Pain Due to malignancy Continue Fentanyl Will watch for drowsiness and worsening mental status Protein Calorie Malnutrition: BMI:19.7 Field Care Advocate consulted DVT Px On Lovenox subq Code Status Full code Disposition Peer to peer review done, approved for SNF Waiting for placement Med Onco Dr. Theo Wagner Rad Onco Dr. Flavia Wagner Urologist Dr. Wood Current Inpatient Medications: Current Inpatient Medications Medications (Trade) Dose Ordered Sig/Vicenta Route Start Time Stop Time Status Last Admin Dose Admin Acetaminophen (Tylenol Tab) 650 mg Q4H PRN PO 05/13/17 04:45 06/12/17 04:44 05/20/17 11:50 650 MG Insulin Aspart (novoLOG ASPART) SLIDING SCALE If C... ACHS SC 05/13/17 11:00 06/12/17 10:59 05/29/17 12:32 4 UNITS Glucose (Glucose 40% Gel) 15-30 GRAMS 15 GRAMS... UD PRN PO 05/13/17 04:45 06/12/17 04:44 Glucose (Glucose Chew Tab) 4-8 Tablets 4 Tabl... UD PRN PO 05/13/17 04:45 06/12/17 04:44 Dextrose (Dextrose 50% 50ML Syringe) 25-50ML OF 50% DW IV FOR... UD PRN IV 05/13/17 04:45 06/12/17 04:44 Glucagon (Glucagon Inj) 1 mg UD PRN SQ 05/13/17 04:45 06/12/17 04:44 Insulin Glargine (Lantus Solostar Pen) 5 units DAILY SC 05/14/17 09:00 06/13/17 08:59 05/29/17 08:41 5 UNITS Tramadol HCl (Ultram Tab) not relieved by tylenol @ Q6H PRN PO 05/13/17 04:45 06/12/17 04:44 05/20/17 11:50 50 MG Prochlorperazine Edisylate 5 mg/ Syringe 5 ml @ 5 mls/min Q6H PRN IV 05/13/17 04:45 06/12/17 04:44 05/26/17 06:58 5 MLS/MIN Atorvastatin Calcium (Lipitor Tab) 40 mg HS PO 05/13/17 21:00 06/12/17 20:59 05/28/17 20:28 40 MG Docusate Sodium (coLACE CAP) 100 mg QAM PO 05/13/17 09:00 06/12/17 08:59 05/29/17 08:37 100 MG Latanoprost (Xalatan Oph Soln) 1 drops HS OPR 05/13/17 21:00 06/12/17 20:59 05/28/17 20:29 1 DROPS Tamsulosin HCl (Flomax Cap) 0.4 mg HS PO 05/13/17 21:00 06/12/17 20:59 05/28/17 20:28 0.4 MG Polyethylene (Miralax Powder Packet) 17 gm DAILY PRN PO 05/13/17 06:30 06/12/17 06:29 Lorazepam (Ativan Inj) 0.25 mg Q4H PRN IV 05/13/17 04:45 06/12/17 04:44 05/22/17 03:28 0.25 MG Ipratropium [place] (Atrovent 0.02% 0.5MG/2.5ML Neb) 0.5 mg Q4H PRN INH 05/13/17 05:00 06/12/17 04:59 05/20/17 04:16 0.5 MG Levalbuterol (Xopenex 1.25MG/ 0.5ML Neb) 1.25 mg Q4H PRN INH 05/13/17 05:00 06/12/17 04:59 05/20/17 04:16 1.25 MG Enteral Nutritional Formula (Boost Glucose Control) 1 can TIDM PO 05/14/17 07:30 06/13/17 07:29 05/29/17 12:28 1 CAN Ferrous Sulfate (Feosol Tab) 325 mg QAM PO 05/14/17 09:00 06/13/17 08:59 05/29/17 08:37 325 MG Miscellaneous (Fentanyl Patch Remove & Waste) 1 ea Q3D@1059 N/A 05/18/17 10:59 06/17/17 10:58 05/24/17 10:59 1 EA Miscellaneous Information (Check Fentanyl Patch Placement) 1 ea QS N/A 05/15/17 16:00 06/14/17 15:59 05/29/17 15:05 1 EA Dronabinol (Marinol Cap) 2.5 mg TID PO 05/15/17 14:00 06/12/17 08:59 05/29/17 14:00 2.5 MG Mometasone Furoate ([place] 0.1 % Cr) 1 appln BID EXT 05/17/17 21:00 06/16/17 20:59 05/29/17 08:37 1 APPLN Heparin Sodium (Porcine) (Heparin 100 Unit/ml 5ml Flush) 5 ml PRN PRN IV 05/27/17 01:30 06/26/17 01:29 05/29/17 08:31 5 ML Guaifenesin (Robitussin Sugar Free Syrup) 100 mg Q6H PRN PO 05/27/17 02:30 06/26/17 02:29 05/27/17 22:20 100 MG Enoxaparin Sodium (Lovenox Inj) 60 mg Q12H SQ 05/27/17 21:00 06/26/17 20:59 05/29/17 08:37 60 MG
[2017-05-29 16:00] VITALS: O2SAT 96
[2017-05-29 16:55] VITALS: BP 105/63; PULSE 101; TEMP 36.7; O2SAT 96
[2017-05-29] MEDS ORDERED: NUTR-7 PO (17:24)
[2017-05-29] MEDS ORDERED: FNTTP25 TOP (17:24)
[2017-05-29] MEDS ORDERED: LVNIS60 SQ (17:24)
[2017-05-29] MEDS ORDERED: TRAM-10 PO (17:24)
[2017-05-29] MEDS ORDERED: FRRS300 PO (17:24)
--- NOTE | 2017-05-29 17:43 | Discharge Instructions ---
Discharge Instructions Date of Service May 29, 2017. Admission Reason for Admission: Respiratory Failure, Acute Discharge Discharge Diagnosis / Problem: Acute pulmonary embolism/Acute Hypoxic respiratory failure/Non-small cell Discharge Goals Goal(s): Decrease discomfort, Improve function, Improve disease control Activity Recommendations Activity Limitations: resume your previous activity (Fall precaution) . Instructions / Follow-Up Instructions / Follow-Up Follow up with your primary care provider once discharge from [facility] Follow up with your oncologist Dr. Marx ( Oncologist's office will call you for the appointment) Follow up with Radiation Oncology Dr. Benson Wagner in 1 month (please call to schedule for the appointment) Follow up with urology Dr. Wood (Please call to schedule for the appointment ) Continue Lovenox subq twice a day Fall precaution Continue Physical therapy Monitor blood pressure. If Blood pressure starts to elevate, resume lisinopril 5 mg. OK to discharge to [facility] with the A port catheter Before removing the A Port Catheter, please consult with your Oncologist if you will need any further chemotherapy. Medication Instructions: Lovenox Your condition is typically treated with an anticoagulant. Anticoagulants will thin your blood to help prevent new clots. * You should take her medication exactly as directed. * Never skip a dose. * Never take a double dose. If you miss a dose, take it as soon as you remember. Call your Primary Care doctor if you experience any of the following: * Swelling or Pain in your leg * Sudden, continuous pain deep in a muscle * Pain that worsens when you are active or when you stand still for a long time * Chest Pain * Sudden Shortness of Breath * Rapid or pounding heart beat * Fainting * Dizziness * Cough with blood or bloody sputum * Sweating more than normal * Bruises * Heavy or uncontrolled bleeding * Blood in your urine, stool or vomit * Black or tarry stools Follow Up: It is important for you to keep your follow up appointments with your medical provider. Current Hospital Diet Patient's current hospital diet: Diabetes Type 2 Diet Discharge Diet Recommended Diet: Diabetes Type 2 Diet Pending Studies Studies pending at discharge: no Laboratory Results Hemoglobin A1c Test 05/07/17 06:07 Range/Units Estimated Average Glucose 154 mg/dl Hemoglobin A1c 7.0 H 4.5-5.6 % Medical Emergencies . Who to Call and When: Medical Emergencies: If at any time you feel your situation is an emergency, please call 911 immediately. . Non-Emergent Contact Non-Emergency issues call your: Primary Care Provider, Oncologist, Urologist Call Non-Emergent contact if: temperature is above 100.5, your pain is not controlled, you have any medication questions . . "Provider Documentation" section prepared by Verena Ballesteros. . [place] Drug Monitoring Program Search Results: patient reviewed within database
--- NOTE | 2017-06-01 00:38 | Discharge Summary ---
Discharge Summary Date of Service Jun 01, 2017. Discharge Summary Admission Date: May 13, 2017 at 04:24 Discharge Date: May 29, 2017 [facility]charge Disposition: [facility] Principal Diagnosis: Acute Hypoxic respiratory failure Secondary Diagnoses/Problems: Acute pulmonary embolism due to lung malignancy Non-small cell lung cancer Sinus Tachycardia Confusion Electrolytes Imbalance H/O AAA Stage II decubitus ulcer H/O HTN Hematuria, History of Left Ureteral Stones DM TYPE 2 CHRONIC ANEMIA Protein Calorie Malnutrition: CHRONIC PAIN Procedures: ECHO Interpretation Summary * Name: SONIDO WATKINS Study Date: 05/13/2017 07:27 AM BP: 117/91 mmHg * Patient Location: [id number].[id number]\\[id number]\\[id number] HR: 129 * : 1945 (M/d/yyyy) Gender: Male Height: 66 in * Age: 72 yrs Ethnicity: CA Weight: 126 lb * Ordering Physician: Sina Rodriguez * Referring Physician: Self, Referred * Performed By: Sina Jesus RDCS * * Reason For Study: PE RO RV STRAIN * BSA: 1.6 m2 * The study was technically adequate. * There is no comparison study available. * -- Conclusions -- * The left ventricle is hyperdynamic. * Ejection Fraction = >70 %. * The right ventricular cavity size is normal (basal dimension <4.2 cm in right ventricular apical 4-chamber view). * The right ventricular systolic function is normal as assessed by tricuspid annular plane systolic excursion (TAPSE) (normal >1.5 cm). * There is trace tricuspid regurgitation. * The estimated systolic PAP is 38mmhg. Procedure Details * A complete two-dimensional transthoracic echocardiogram was performed (2D, M- mode, Doppler and color flow Doppler). * The study was technically adequate. Left Ventricle * The left ventricle is normal in size. * There is no thrombus. * There is normal left ventricular wall thickness. * The left ventricle is hyperdynamic. * Ejection Fraction = >70 %. * The left ventricular wall motion is normal. Right Ventricle * The right ventricular cavity size is normal (basal dimension <4.2 cm in right ventricular apical 4-chamber view). * The right ventricular systolic function is normal as assessed by tricuspid annular plane systolic excursion (TAPSE) (normal >1.5 cm). Atria * The left atrial size is normal. * Right atrial size is normal. * There is no evidence of atrial septal defect, but resolution does not allow assessment for a patent foramen ovale. Mitral Valve * The mitral valve is normal. * There is no mitral valve stenosis. * Significant mitral regurgitation is absent. Tricuspid Valve * The tricuspid valve is normal. * There is no tricuspid stenosis. * There is trace tricuspid regurgitation. * The estimated systolic PAP is 38mmhg. Aortic Valve * The aortic valve is trileaflet. * Aortic stenosis is absent. * There is no significant aortic regurgitation. Pulmonic Valve * The pulmonary valve is not well seen, but the Doppler examination is normal without significant regurgitation or stenosis. Great Vessels * The aortic root is normal size. Pericardium/Pleural * There is no pericardial effusion. Great Vessels * Normal inferior vena cava size and collapsability with sniff indicates a normal right atrial pressure of 3 mmHg Left Ventricular Diastolic Function * Pulse wave TDI of the anterior and posterior mitral annulas demonstrates normal LV relaxation (CHEST FOR PE) ANGIO WITH CT DOSE: 302.56 mGy.cm HISTORY: 72 years-old Male with presents with acute shortness of breath with history of known lung cancer. TECHNIQUE: Multiple CTA images of the chest were obtained after the intravenous administration of 92 ml Optiray 320. Coronal and sagittal MIPS were obtained from the axial data set and were submitted for review. A dose lowering technique was utilized adhering to the principles of ALARA. COMPARISON: Chest radiographs of same day, PET CT 03/07/2017, CTA chest 02/19/2017, CT abdomen and pelvis 05/07/2017 FINDINGS: Large irregular spiculated invasive mass with central cavitation involves the left upper lobe measuring up to 6.1 x 5.1 cm in AP and transverse dimension, previously measuring up to 7.2 x 5.[address] study dated 09/04/2017. This lesion may have slightly decreased in size, however the central cavitation component has progressed. The mass invades the adjacent mediastinum and encases the proximal left subclavian and left common carotid arteries which are patent. The mass also encases invades the left main pulmonary artery which is severely narrowed with only minimal contrast opacification seen within the vessel as noted on image 244 of series 4. Thrombus within the left lower lobe are, segmental and subsegmental branches noted as seen on images 241 through 196 of series 4. The mass abuts the anterior pleura there is loss of normal subpleural fat plane suggesting pleural invasion. Mass also abuts the left major fissure and there is pleural nodular thickening of the major fissure as seen on image 248 of series 4. Additionally, there is high-grade narrowing of the left upper lobe bronchus, image 235 series 4 secondary to mass invasion. Heart is normal in size with small pericardial effusion. Coronary arterial disease. Thoracic aorta is trace moderate to extensive mixed atheromatous and atherosclerotic plaquing. There is less than 50% narrowing at the origin of the left subclavian artery. No aortic aneurysm or dissection. No evidence of right-sided pulmonary thromboembolic disease. Right internal jugular [id number]-x-[id number] catheter terminates within the mid SVC. There is no pneumothorax or pleural effusion. Moderate upper lobe predominant emphysema. Cavitary pleural-based 1.8 x 1.57 m nodule of the superior segment right lower lobe is noted on image 184 series 4, new from prior PET. Evaluation of the lungs is limited secondary to respiratory motion. Additionally there is a 10 mm nodule the super segment right lower lobe. There is mild bilateral bronchial wall thickening with areas of mucoid impaction within the lung bases and right middle lobe. There are multiple nodular opacities throughout the bilateral lungs including a 12 x 9 mm irregular nodule of the right lower lobe on image 135 series 4. 8 mm nodule of the lateral right lung base on image 118 series 4. Millimeter nodule of the right upper lobe. Areas of tree-in-bud nodularity are present within the left lung base. Mildly enlarged right hilar lymph nodes are seen measuring up to 1.3 x 1.0 cm. No acute amount of the imaged upper abdomen. Soft tissues are unremarkable. No suspicious lytic or blastic bony lesions identified to suggest bony metastasis. Multilevel degenerative changes about the spine. IMPRESSION: 1. Large irregular spiculated invasive mass of the left upper lobe measuring up to 6.1 cm invades the mediastinum as above with encasement and invasion of the left main pulmonary artery resulting in severe luminal stenosis with emboli involving the lobar, segmental and subsegmental branches of the left lower lobe, likely tumor emboli. 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 These findings are compatible with progression of disease. 2. Multiple multilobar distribution of pulmonary nodules as above including a centrally cavitary 1.8 cm nodule of the superior segment right lower lobe suggesting pulmonary metastasis. 3. Emphysema with mild bilateral bronchial wall thickening and tree-in-bud nodularity of the lung bases, left greater than right suggest a superimposed infectious or inflammatory bronchiolitis with bronchitis. The above report was generated using voice recognition software. It may contain grammatical, syntax or spelling errors. Electronically signed by: Kilo Kim M.D. 05/13/2017 9:31 AM Dictated Date/Time: 05/13/2017 8:09 AM Endcc: [~ rep ct add3]] HEAD WITHOUT CONTRAST (CT) CLINICAL HISTORY: 72 years-old Male presenting with confusion. TECHNIQUE: Multidetector CT imaging of the head was performed without the use of intravenous contrast. IV contrast: None. A dose lowering technique was used consistent with the principles of ALARA (as low as reasonably achievable). COMPARISON: MR from 03/02/2017. CT DOSE (mGy.cm): The estimated cumulative dose is 1577.26 mGycm. FINDINGS: Cooker Loader topogram: Unremarkable. Ventricles and sulci normal in size. Prominent perivascular space suggested in the left basal ganglia. Brain parenchyma normal in appearance with preserved marx-white differentiation. No mass effect or midline shift. No hemorrhage or acute territorial infarct. No extra-axial fluid collection. Paranasal sinuses and mastoid air cells clear. Calvarium intact. IMPRESSION: 1. No acute intracranial abnormality. Electronically signed by: Pipe Alvarado M.D. 05/21/2017 3:01 PM Dictated Date/Time: 05/21/2017 2:57 PM Medication Reconciliation New Medications: Enoxaparin (Enoxaparin Sodium) 60 Mg/0.6 Ml Inj 60 MG SQ Q12H for 30 Days Ferrous Sulfate (Ferrous Sulfate) 325 Mg Tab 325 MG PO QAM for 30 Days, TAB Nutritional Supplements (Boost) 1 Liq Liq 1 CAN PO TIDM for 5 Days Changed Medications: Fentanyl (Fentanyl) 25 Mcg Tdsy 1 PATCH TOP Q72H for 3 Days, #1 (Changed from: PATCH) Tramadol (Ultram) 50 Mg Tab 25-50 MG PO Q8 PRN for Pain for 3 Days (Changed from: 50 MG; Q6) Continued Medications: Atorvastatin (Lipitor) 40 Mg Tab 40 MG PO HS, TAB Dexamethasone (Decadron) 4 Mg Tab 4 TAB PO UD 3 tablets night before and morning of chemo Docusate Sodium (Colace) 100 Mg Cap 100 MG PO QAM Dronabinol (Dronabinol) 2.5 Mg Cap 2.5 MG PO BID, CAP Glipizide (Glipizide) 5 Mg Tab 10 MG PO DAILY PRN for decadron use with chemo Latanoprost (Xalatan 0.005% Oph Benita) 0.005 % Benita 1 DROPS OPR HS Metformin Hcl (Glucophage) 500 Mg Tab 500 MG PO BID Ondansetron Hcl (Zofran) 8 Mg Tab 8 MG PO Q8 PRN for Nausea Polyethylene Glycol 3350 (Miralax) 1 Pow Pow 17 GM PO DAILY PRN for Constipation Prochlorperazine Maleate (Compazine) 10 Mg Tab 10 MG PO Q6H Tamsulosin Hcl (Flomax) 0.4 Mg Cap 0.4 MG PO HS Discontinued Medications: Lisinopril (Zestril) 5 Mg Tab 5 MG PO HS Admission Information HPI (per Admitting provider): CHIEF COMPLAINT: Shortness of breath. HISTORY OF PRESENT ILLNESS: History obtained from patient, son, and records. Medical history significant for nonsmall cell lung cancer stage IIIB, ongoing chemoradiation, hypertension, AAA, DM2 on oral meds, past tobacco abuse, urolithiasis, chronic anemia (baseline hemoglobin 8-12), chronic cancer pain on Fentanyl patch. Chronic hyponatremia. Recent confinement last week for L ureteral colic. CT showed moderate left hydronephrosis, 1.4 x 1 cm proximal left ureter calculus, several right lower lobe. Recent pulmonary nodules measuring 1.7 cm new since PET CT February 2017. Patient underwent cystoscopy with left ureteral stent placement by [facility] last May 08. As per operative note, stone was not well visualized under fluoroscopy although resistance was felt just above the spinal surgery implants. Since discharge, persistent hematuria, no unusual flank pain, no fever no chills. At home, blood pressure noted to be kind of low. About 2 nights ago, the patient noted increasing shortness of breath, no cough symptoms. No chest pain, no hemoptysis, no leg pain. At the Emergency Room, CT angio initial read showed left-sided pulmonary embolism, new, greater narrowing of the left main pulmonary artery associated tumor, interval multiple pulmonary nodules involving the upper right lung suspicious for metastatic disease, intraluminal tumor thrombus proximal pulmonary artery, emphysema right upper lobe, cavitary nodule right lower lobe. IV heparin started in the ER. Physical Exam (per Admitting): PHYSICAL EXAMINATION: VITAL SIGNS: Blood pressure was noted to be 71/46, later 100/70, pulse rate 125, RR 30, temperature 36.7, sats 90 on room air, later 95 on 3 liters. GENERAL: Noted to be in respiratory distress. Chronically ill. SKIN: Pallor, warm. HEENT: Alopecia. Pale palpebral conjunctiva.. No ptosis. Dry mucosa. NECK: Supple, nontender. CHEST: Expiratory wheezes. No tenderness. A-port in place on the right. HEART: Tachycardic. No murmur. ABDOMEN: Soft, nontender. EXTREMITIES: No edema, no tenderness. No gross deformity. NEUROLOGIC: Coherent. No gross focality. Hospital Course Acute Hypoxic respiratory failure Acute pulmonary embolism due to lung malignancy CTA showed masslike opacity of the medial left upper lobe redemonstrated with central cavitation. Additionally, there is a cavitary nodule of the right midlung And segmental and subsegmental branches of the left lower lobe, likely tumor emboli. Venous doppler showed no DVT within the right or left lower extremity. Continue IV heparin drip Continue oxygen supplement Med Onco consulted, will need indefinite Lovenox on discharge Completed 7 days of Doxy Continue inhaled bronchodilators and Prednisone taper Continue monitor for hematuria and GI bleed check CBC in am But if he has any abnormal bleeding, please check h/h Hgb stable 4/3 Denies any hematuria and blood in stool heparin drip was discontinued Continue Lovenox BID Monitor CBC Hgb stable Non-small cell lung cancer currently on paclitaxel, carboplatin, XRT. Last chemo dose was 3/6. Had radiation therapy during prior admission CT chest showing left upper lobe lesion encasing L pulmonary artery Rad Onco Dr. Benson Wagner on board Will need radiation treatment for the ENID lesion 5-9 session S/P 7th radiation Tx for the ENID last radiation therapy done today Case discussed with Dr. Benson Wagner and recommended follow up in 1 month Follow up with Oncology Dr. 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 Continue monitor Stage II decubitus ulcer Continue daily wound care Wound care on board H/O HTN BP in the low side Continue holding Lisinopril Continue monitor BP Hematuria, History of Left Ureteral Stones s/p Left Ureteral Stent placement by Dr. Wood 05/08/17 Hgb stable Follow up with Dr. Wood as an outpatient DM II Last A1C:7.0 Hold PO meds Continue ISS, Lantus Monitor BGs Chronic Anemia: Multifactorial: Anemia of chronic disease, Iron deficiency, Secondary to Chemo, hematuria Received 1 units PRBC on 05/13/17 Hgb 9.7 Stable Chronic Pain Due to malignancy Continue Fentanyl Will watch for drowsiness and worsening mental status Protein Calorie Malnutrition: BMI:19.7 Housekeeper Caregiver consulted DVT Px On Lovenox subq Code Status Full code Disposition Peer to peer review done, approved for SNF Waiting for placement Med Onco Dr. Theo Wagner Rad Onco Dr. Flavia Wagner Urologist Dr. Wood Total time spent on discharge = 35 MINUTES This includes examination of the patient, discharge planning, medication reconciliation, and communication with other providers. Discharge Instructions DI: Medical v5 Discharge Instructions Date of Service May 29, 2017. Admission Reason for Admission: Respiratory Failure, Acute Discharge Discharge Diagnosis / Problem: Acute pulmonary embolism/Acute Hypoxic respiratory failure/Non-small cell Discharge Goals Goal(s): Decrease discomfort, Improve function, Improve disease control Activity Recommendations Activity Limitations: resume your previous activity (Fall precaution) . Instructions / Follow-Up Instructions / Follow-Up Follow up with your primary care provider once discharge from [facility] Follow up with your oncologist Dr. Marx ( Oncologist's office will call you for the appointment) Follow up with Radiation Oncology Dr. Benson Wagner in 1 month (please call to schedule for the appointment) Follow up with urology Dr. Wood (Please call to schedule for the appointment ) Continue Lovenox subq twice a day Fall precaution Continue Physical therapy Monitor blood pressure. If Blood pressure starts to elevate, resume lisinopril 5 mg. OK to discharge to [facility] with the A port catheter Before removing the A Port Catheter, please consult with your Oncologist if you will need any further chemotherapy. Medication Instructions: Lovenox Your condition is typically treated with an anticoagulant. Anticoagulants will thin your blood to help prevent new clots. * You should take her medication exactly as directed. * Never skip a dose. * Never take a double dose. If you miss a dose, take it as soon as you remember. Call your Primary Care doctor if you experience any of the following: * Swelling or Pain in your leg * Sudden, continuous pain deep in a muscle * Pain that worsens when you are active or when you stand still for a long time * Chest Pain * Sudden Shortness of Breath * Rapid or pounding heart beat * Fainting * Dizziness * Cough with blood or bloody sputum * Sweating more than normal * Bruises * Heavy or uncontrolled bleeding * Blood in your urine, stool or vomit * Black or tarry stools Follow Up: It is important for you to keep your follow up appointments with your medical provider. Current Hospital Diet Patient's current hospital diet: Diabetes Type 2 Diet Discharge Diet Recommended Diet: Diabetes Type 2 Diet Pending Studies Studies pending at discharge: no Laboratory Results Hemoglobin A1c Test 05/07/17 06:07 Range/Units Estimated Average Glucose 154 mg/dl Hemoglobin A1c 7.0 H 4.5-5.6 % Medical Emergencies . Who to Call and When: Medical Emergencies: If at any time you feel your situation is an emergency, please call 911 immediately. . Non-Emergent Contact Non-Emergency issues call your: Primary Care Provider, Oncologist, Urologist Call Non-Emergent contact if: temperature is above 100.5, your pain is not controlled, you have any medication questions . . "Provider Documentation" section prepared by Verena Ballesteros. . [place] Drug Monitoring Program Search Results: patient reviewed within database Additional Copies To Nathaniel Dawson M.D.
== END 2017-05-29 19:45 | DRG 180 ==
LOC: C.EDB 23:04 → C.2E 05-13 04:24 → EDBEDREQ 05-13 04:26 → ENRESERV 05-13 04:31 → C.MS4W 05-26 18:56
PROVIDERS: ADMIT Internal Medicine; ATTEND Internal Medicine
DX: C34.12 Malignant neoplasm of upper lobe, left bronchus or lung (principal); I26.99 Other pulmonary embolism without acute cor pulmonale; J96.01 Acute respiratory failure with hypoxia; E43 Unspecified severe protein-calorie malnutrition; G92 Toxic encephalopathy; G93.49 Other encephalopathy; J44.1 Chronic obstructive pulmonary disease with (acute) exacerbation; C78.2 Secondary malignant neoplasm of pleura; Z68.1 Body mass index [BMI] 19.9 or less, adult; E22.2 Syndrome of inappropriate secretion of antidiuretic hormone; R31.0 Gross hematuria; Z87.442 Personal history of urinary calculi; E87.6 Hypokalemia; E83.42 Hypomagnesemia; E83.39 Other disorders of phosphorus metabolism; G89.3 Neoplasm related pain (acute) (chronic); D64.81 Anemia due to antineoplastic chemotherapy; D50.9 Iron deficiency anemia, unspecified; D70.1 Agranulocytosis secondary to cancer chemotherapy; T45.1X5A Adverse effect of antineoplastic and immunosuppressive drugs, initial encounter; T40.605A Adverse effect of unspecified narcotics, initial encounter; T38.0X5A Adverse effect of glucocorticoids and synthetic analogues, initial encounter; T66.XXXA Radiation sickness, unspecified, initial encounter; E11.9 Type 2 diabetes mellitus without complications; I71.4 Abdominal aortic aneurysm, without rupture; I51.3 Intracardiac thrombosis, not elsewhere classified; L89.152 Pressure ulcer of sacral region, stage 2; I10 Essential (primary) hypertension; I73.9 Peripheral vascular disease, unspecified; Z51.81 Encounter for therapeutic drug level monitoring; Z79.899 Other long term (current) drug therapy; Z79.84 Long term (current) use of oral hypoglycemic drugs; Z79.891 Long term (current) use of opiate analgesic; Z79.52 Long term (current) use of systemic steroids; Z87.891 Personal history of nicotine dependence; Z88.1 Allergy status to other antibiotic agents; Z83.3 Family history of diabetes mellitus

== ENCOUNTER → 2017-05-31 | Outpatient (CLI) | payer OTHER ==
[~2017-05-31] MED LIST changes: +ENOX60IN SQ; +FERR1TAB13 PO; -FLM4 PO; -FNTTP25; +FNTTP25 TOP; +FNTTP50 TD; +FRRS300 PO; -LISI-729 PO; +LVNIS60 SQ; -MRLP17X PO; +NUTR-7 PO; +POLY335019 PO; +TAMS0.4C38 PO; +fentanyl patch
[2017-05-31 09:40] LABS: ALBUMIN 2.2 gm/dl (3.4-5.0); ALT/SGPT 31 U/L (12-78); AST/SGOT 15 U/L (15-37); BLOOD UREA NITROGEN 10 mg/dl (7-18); CALCIUM 8.9 mg/dl (8.5-10.1); CARBON DIOXIDE 29 mmol/L (21-32); CREATININE 0.69 mg/dl (0.60-1.40); GLUCOSE 126 mg/dl (70-99); POTASSIUM 3.9 mmol/L (3.5-5.1); SODIUM 133 mmol/L (136-145); TOTAL PROTEIN 5.9 gm/dl (6.4-8.2)
[2017-05-31 09:47] LABS: ALKALINE PHOSPHATASE 81 U/L (45-117)
== END ==
LOC: C.LABCC 07:41
PROVIDERS: ATTEND Internal Medicine
DX: R63.4 Abnormal weight loss (principal)

== ENCOUNTER → 2017-06-06 | Outpatient (CLI) | payer OTHER ==
[2017-06-06 08:57] LABS: HEMATOCRIT 28.1 % (42-52); HEMOGLOBIN 9.3 g/dL (14.0-18.0); MEAN CELL VOLUME 87.3 fL (80-100); MEAN CORPUSCULAR HEMOGLOBIN 28.9 pg (25-34); MEAN CORPUSCULAR HGB CONC 33.1 g/dl (32-36); MEAN PLATELET VOLUME 8.3 fL (7.4-10.4); PLATELET COUNT 268 K/uL (130-400); RED CELL DISTRIBUTION WIDTH CV 18.9 % (11.5-14.5); RED CELL DISTRIBUTION WIDTH SD 60.5 fL (36.4-46.3); WHITE BLOOD COUNT 4.74 K/uL (4.8-10.8)
[2017-06-06 09:02] LABS: BLOOD UREA NITROGEN 10 mg/dl (7-18); CALCIUM 8.7 mg/dl (8.5-10.1); CARBON DIOXIDE 28 mmol/L (21-32); CREATININE 0.66 mg/dl (0.60-1.40); GLUCOSE 103 mg/dl (70-99); POTASSIUM 3.6 mmol/L (3.5-5.1); SODIUM 135 mmol/L (136-145)
== END ==
LOC: C.LABCC 08:43
PROVIDERS: ATTEND Internal Medicine
DX: D64.9 Anemia, unspecified (principal)

== ENCOUNTER 2017-06-08 23:47 | Emergency (ER) | payer OTHER ==
[~2017-06-08] VITALS: Ht 167.6 cm; Wt 55.2 kg
[~2017-06-08 23:47] MED LIST changes: -ENOX60IN SQ; -FERR1TAB13 PO; -FNTTP50 TD; -fentanyl patch
[2017-06-08 23:51] VITALS: TEMP 36.7; Ht 167.6 cm; Wt 55.2 kg
[2017-06-09] MEDS ORDERED: TRAM-10 PO (00:20)
[2017-06-09] MEDS ORDERED: ENOX60IN SQ (00:21)
[2017-06-09] MEDS ORDERED: fentanyl patch (00:24)
[2017-06-09] MEDS ORDERED: FNTTP50 TD (00:24)
[2017-06-09] MEDS ORDERED: SODIUM CHLORIDE 0.9% 1000ML 1,000 ML IV STA (00:25)
[2017-06-09] MEDS ORDERED: ONDANSETRON INJ 2 MG/ML 2 ML VIAL IV STA (00:25)
[2017-06-09] MEDS ORDERED: GI COCKTAIL PO STA (00:25)
[2017-06-09] MEDS ORDERED: FERR1TAB13 PO (00:26)
--- NOTE | 2017-06-09 00:52 | EMERGENCY ROOM VISIT NOTE ---
History Report prepared by Ruth: Eran Guzmán Under the Supervision of: Dr. Rolf Gan M.D. First contact with patient: 00:11 Chief Complaint: URINARY SYMPTOMS Stated Complaint: BLOOD IN URINE,NOT FEELING RIGHT,CANCER,KIDNEY STO History of Present Illness The patient is a 72 year old white male with a past medical history of lung CA, AAA, PE, and DM who presents to the ED with a cc of intermittent hematuria beginning this afternoon. The patient is accompanied by his son who states that the patient was normal earlier today. He reports around this afternoon, the patient started to not feel well and noticed he started to experience hematuria. Positive lack of appetite, nausea, productive cough, blood thinners. Negative blood in stool, abnormal bowel movements, fevers, chills. The patient reports he used to smoke, but reports he ceased. He reports his last chemotherapy was a month ago and his last radiation was two weeks ago. The patient states he takes Lovenox for his history of lung blood clots. Source of History: patient, family Onset: this afternoon Position: other (global) Quality: other (blood in urine) Timing: intermittent Associated Symptoms: + cough, + nausea, No fevers, No chills, No melena, No hematochezia, No diarrhea Review of Systems See HPI for pertinent positives and negatives. A total of ten systems were reviewed and were otherwise negative. Past Medical & Surgical Medical Problems: (1) AAA (abdominal aortic aneurysm) (2) Diabetes (3) Glaucoma (4) Lung cancer (5) Primary cancer of left upper lobe of lung (6) Respiratory failure, acute (7) Sacral decubitus ulcer, stage II (8) Ureteral colic Surgical Problems: (1) History of back surgery (2) History of tonsillectomy (3) Status post right knee surgery Family History Cancer Diabetes mellitus Gallbladder disease Heart disease Social History Smoking Status: Former Smoker Drug Use: none Marital Status: Housing Status: lives with friends Occupation Status: retired Current/Historical Medications Scheduled Atorvastatin (Lipitor), 40 MG PO HS Docusate Sodium (Colace), 100 MG PO QAM Dronabinol (Dronabinol), 2.5 MG PO BID Enoxaparin (Lovenox), 60 MG SQ Q12H Fentanyl (Duragesic), 25 MCG TD [id number] Ferrous Sulfate (Kp Ferrous Sulfate), 1 TAB PO DAILY Latanoprost (Xalatan 0.005% Oph Benita), 1 DROPS OPR HS Metformin Hcl (Glucophage), 500 MG PO BID Tamsulosin Hcl (Flomax), 0.4 MG PO HS Scheduled PRN Ondansetron Hcl (Zofran), 8 MG PO Q8 PRN for Nausea Polyethylene Glycol 3350 (Miralax), 17 GM PO DAILY PRN for Constipation Tramadol (Ultram), 50 MG PO DIRECTED PRN for Pain Miscellaneous Medications [fentanyl patch] Allergies Coded Allergies: Clindamycin (Verified Allergy, Intermediate, Rash all over body , 06/09/17) Physical Exam Vital Signs Date Time Temp Pulse Resp B/P (MAP) Pulse Ox O2 Delivery O2 Flow Rate FiO2 06/09/17 02:54 82 18 100/60 100 06/09/17 01:58 85 18 99/61 100 Room Air 06/08/17 23:51 36.7 106 18 98/60 94 Room Air Physical Exam GENERAL: Awake, alert, well-appearing, NAD HENT: Normocephalic, atraumatic. EYES: Normal conjunctiva. Sclera non-icteric. NECK: Supple. No nuchal rigidity. FROM. RESPIRATORY: CTAB, no rhonchi, wheezing, crackles CARDIAC: RRR, no MRG ABDOMEN: Soft, NTND, BS+ MSK: No chest wall TTP, no LE edema, no CVA TTP. NEURO: GCS 15, CN 2-12 intact, moves all 4s on command SKIN: No rash or jaundice noted. Medical Decision & Procedures Laboratory Results 06/09/17 00:40 Red Blood Count 3.60, Mean Corpuscular Volume 86.7, Mean Corpuscular Hemoglobin 28.1, Mean Corpuscular Hemoglobin Concent 32.4, Mean Platelet Volume 8.7, Neutrophils (%) (Auto) 74.5, Lymphocytes (%) (Auto) 11.8, Monocytes (%) (Auto) 11.3, Eosinophils (%) (Auto) 2.0, Basophils (%) (Auto) 0.2, Neutrophils # (Auto ) 3.28, Lymphocytes # (Auto) 0.52, Monocytes # (Auto) 0.50, Eosinophils # (Auto ) 0.09, Basophils # (Auto) 0.01 06/09/17 00:40 Test 4/14/18 00:40 06/09/17 01:20 White Blood Count 4.41 K/uL (4.8-10.8) Red Blood Count 3.60 M/uL (4.7-6.1) Hemoglobin 10.1 g/dL (14.0-18.0) Hematocrit 31.2 % (42-52) Mean Corpuscular Volume 86.7 fL (80-100) Mean Corpuscular Hemoglobin 28.1 pg (25-34) Mean Corpuscular Hemoglobin Concent 32.4 g/dl (32-36) Platelet Count 264 K/uL (130-400) Mean Platelet Volume 8.7 fL (7.4-10.4) Neutrophils (%) (Auto) 74.5 % Lymphocytes (%) (Auto) 11.8 % Monocytes (%) (Auto) 11.3 % Eosinophils (%) (Auto) 2.0 % Basophils (%) (Auto) 0.2 % Neutrophils # (Auto) 3.28 K/uL (1.4-6.5) Lymphocytes # (Auto) 0.52 K/uL (1.2-3.4) Monocytes # (Auto) 0.50 K/uL (0.11-0.59) Eosinophils # (Auto) 0.09 K/uL (0-0.5) Basophils # (Auto) 0.01 K/uL (0-0.2) RDW Standard Deviation 58.9 fL (36.4-46.3) RDW Coefficient of Variation 18.4 % (11.5-14.5) Immature Granulocyte % (Auto) 0.2 % Immature Granulocyte # (Auto) 0.01 K/uL (0.00-0.02) Prothrombin Time 11.6 SECONDS (9.0-12.0) Prothromb Time International Ratio 1.1 (0.9-1.1) Activated Partial Thromboplast Time 39.3 SECONDS (21.0-31.0) Partial Thromboplastin Ratio 1.5 Anion Gap 3.0 mmol/L (3-11) Est Creatinine Clear Calc Drug Dose 84.2 ml/min Estimated GFR () 114.8 Estimated GFR (Non- 99.1 BUN/Creatinine Ratio 14.9 (10-20) Calcium Level 8.8 mg/dl (8.5-10.1) Total Bilirubin 0.3 mg/dl (0.2-1) Direct Bilirubin < 0.1 mg/dl (0-0.2) Aspartate Amino Transf (AST/SGOT) 12 U/L (15-37) Alanine Aminotransferase (ALT/SGPT) 16 U/L (12-78) Alkaline Phosphatase 92 U/L (45-117) Total Protein 5.9 gm/dl (6.4-8.2) Albumin 2.2 gm/dl (3.4-5.0) Lipase 54 U/L (73-393) Urine Color BROWN Urine Appearance TURBID (CLEAR) Urine pH 8.0 (4.5-7.5) Urine Specific [place] 1.025 (1.000-1.030) Urine Protein 2+ (NEG) Urine Glucose (UA) NEG (NEG) Urine Ketones NEG (NEG) Urine Occult Blood 3+ (NEG) Urine Nitrite NEG (NEG) Urine Bilirubin NEG (NEG) Urine Urobilinogen NEG (NEG) Urine Leukocyte Esterase TRACE (NEG) Urine RBC >30 /hpf (0-4) Urine WBC >30 /hpf (0-5) Urine Epithelial Cells 5-10 /lpf (0-5) Urine Calcium Oxalate Crystals PRESENT (NONE PRSENT) Urine Bacteria 1+ (NEG) Laboratory results reviewed by me Medications Administered Medications (Trade) Dose Ordered Sig/Vicenta Route Start Time Stop Time Status Last Admin Dose Admin Sodium Chloride 1,000 ml @ 999 mls/hr Q1H1M STAT IV 06/09/17 00:25 06/09/17 01:25 DC 06/09/17 01:07 999 MLS/HR Ondansetron HCl (Zofran Inj) 4 mg NOW STAT IV 06/09/17 00:25 06/09/17 00:27 DC 06/09/17 01:08 4 MG Lidocaine HCl (Viscous Lidocaine 2% Soln) 20 ml STK-MED ONCE .ROUTE 06/09/17 00:57 06/09/17 00:58 DC 06/09/17 01:08 20 ML Al Hydroxide/Mg Hydroxide (Maalox Susp) 30 ml STK-MED ONCE .ROUTE 06/09/17 00:57 06/09/17 00:58 DC 06/09/17 01:08 30 ML Heparin Sodium (Porcine) (Heparin 100 Unit/ml 5ml Flush) 5 ml STK-MED ONCE .ROUTE 06/09/17 02:40 06/09/17 02:41 DC 06/09/17 02:51 5 ML ED Course 0019: The patient was evaluated in room A11B. A complete history and physical exam was performed. Medical Decision Nursing notes reviewed. Ancillary studies and prior records reviewed. The patient is a 72 year old white male with a past medical history of lung CA, AAA, PE, and DM who presents to the ED with a cc of intermittent hematuria beginning this afternoon. The patient's presentation and history were concerning for medication side effect, RCC, CA, painless hematuria renal colic, appendicitis, diverticulitis, mesenteric ischemia, aortic pathology, infections, inflammatory bowel disease, PUD, biliary pathology, UTI, as well as others were entertained. Patient was seen and evaluated the bedside. Patient does have a prior history of lung CA and known recent diagnosis of PE on Lovenox who presents with hematuria. Patient did have some hematuria during his most recent hospitalization at which point he was seen by urology. Patient does have a ureteral stent in place for a known kidney stone. Patient denies any CVA TTP does not really have any abdominal discomfort. Patient has had a lack of appetite. On exam the patient has a nonfocal neurologic exam and does not have any abdominal tenderness or CVA TTP. Patient did have blood work completed along with a urinalysis. Patient was also given IV fluids and Zofran and encouraged to tolerate p.o. which he did without issue. The patient's blood work showed a chronic but stable anemia. Patient has normal platelet count and coagulation studies. Patient did have some low protein which is chronic. Patient's urine dip was negative for nitrites and did have positive blood. I did discuss with the patient and the family member that this is likely somewhat related 1 to the possible kidney stone in the also being on the Lovenox. I did encourage patient to continue to be on Lovenox and given warning signs for which to return if he has any worsening symptoms. Patient does have bacteria and WBCs however does have a lot of red some epithelial cells. He does not complain of any dysuria. A urine culture was sent which if positive he will be called antibiotics. I did discuss the results with the patient and family member. The patient is feeling improved. Patient did have some mild lower blood pressure along with some associated tachycardia which improved with p.o. and IV fluids. Believe this is likely secondary to dehydration. Given that the patient's anemia is chronic and stable do not believe that he needs further workup or treatment nor transfusion at this time. Patient was given strict follow-up, discharge, and return precautions. All questions were answered. Patient was deemed suitable for outpatient follow-up at this time. Patient agreed with the plan of care and was safely discharged home. Medication Reconcilliation Current Medication List: was personally reviewed by me Blood Pressure Screening Patient's blood pressure: Normal blood pressure Impression Primary Impression: Hematuria Additional Impression: Anemia Scribe Attestation The scribe's documentation has been prepared under my direction and personally reviewed by me in its entirety. I confirm that the note above accurately reflects all work, treatment, procedures, and medical decision making performed by me. Departure Information Dispostion Home / Self-Care Referrals No Doctor, Assigned (PCP) aDve Garland M.D. Patient Instructions ED Hematuria, My [facility] Additional Instructions Please return to the emergency department if you have worsening or recurrent symptoms not amenable to at-home treatment. Please call for a follow-up appointment with her primary care physician. Please take your medications as prescribed. If you have other concerns and/or complaints please feel free to also call your primary care physician's office or return the ED for further evaluation, management, and treatment. Please resume your Lovenox treatment tomorrow. Our mattress spring encaser will make a phone call tomorrow to the urology office in order to help obtain a sooner follow-up appointment. Please return if you have worsening blood in your urine, clot, or are unable to urinate. Please also return if you have worsening fatigue, shortness of breath , chest pain, dizziness, lightheadedness, or pass out. Take your medications as prescribed. You have been examined and treated today on an emergency basis only. This is not a substitute for, or an effort to provide, complete comprehensive medical care. It is impossible to recognize and treat all injuries or illnesses in a single emergency department visit. It is therefore important that you follow up closely with [facility], your PCP, and/or your specialist(s). Call as soon as possible for an appointment. Thank you for your time and consideration. I look forward to speaking with you again soon. Please don't hesitate to call us if you have any questions. Problem Qualifiers Primary Impression: Hematuria Hematuria type: unspecified type Qualified Codes: R31.9 - Hematuria, unspecified Additional Impression: Anemia Anemia type: unspecified type Qualified Codes: D64.9 - Anemia, unspecified
[2017-06-09] MEDS ORDERED: ALUMINUM/MAGNESIUM SUSP 30 ML UDC ONE (00:57)
[2017-06-09] MEDS ORDERED: LIDOCAINE HCL 2% VISC SOLN 20 ML UDC ONE (00:57)
[2017-06-09 01:31] LABS: INR 1.1 (0.9-1.1); PTT PATIENT 39.3 SECONDS (21.0-31.0)
[2017-06-09 01:33] LABS: ALBUMIN 2.2 gm/dl (3.4-5.0); ALT/SGPT 16 U/L (12-78); AST/SGOT 12 U/L (15-37); BLOOD UREA NITROGEN 9 mg/dl (7-18); CALCIUM 8.8 mg/dl (8.5-10.1); CARBON DIOXIDE 28 mmol/L (21-32); CREATININE 0.61 mg/dl (0.60-1.40); GLUCOSE 90 mg/dl (70-99); LIPASE 54 U/L (73-393); POTASSIUM 3.8 mmol/L (3.5-5.1); SODIUM 133 mmol/L (136-145)
[2017-06-09 01:35] LABS: BASO % 0.2 %; BASO ABS # 0.01 K/uL (0-0.2); EOS ABS # 0.09 K/uL (0-0.5); HEMATOCRIT 31.2 % (42-52); HEMOGLOBIN 10.1 g/dL (14.0-18.0); IG# 0.01 K/uL (0.00-0.02); LYMPH % 11.8 %; LYMPH ABS # 0.52 K/uL (1.2-3.4); MEAN CELL VOLUME 86.7 fL (80-100); MEAN CORPUSCULAR HEMOGLOBIN 28.1 pg (25-34); MEAN CORPUSCULAR HGB CONC 32.4 g/dl (32-36); MEAN PLATELET VOLUME 8.7 fL (7.4-10.4); MONO % 11.3 %; NEUT % 74.5 %; NEUT ABS # 3.28 K/uL (1.4-6.5); PLATELET COUNT 264 K/uL (130-400); RED CELL DISTRIBUTION WIDTH CV 18.4 % (11.5-14.5); RED CELL DISTRIBUTION WIDTH SD 58.9 fL (36.4-46.3); WHITE BLOOD COUNT 4.41 K/uL (4.8-10.8)
[2017-06-09 01:36] LABS: ALKALINE PHOSPHATASE 92 U/L (45-117); TOTAL PROTEIN 5.9 gm/dl (6.4-8.2)
[2017-06-09 02:54] VITALS: BP 100/60; PULSE 82; O2SAT 100
== END 2017-06-09 02:57 | disposition home or self-care (01) ==
LOC: C.EDB 23:49 → C.EDA 06-09 02:57
DX: R31.9 Hematuria, unspecified (principal); D64.9 Anemia, unspecified; E11.9 Type 2 diabetes mellitus without complications; H40.9 Unspecified glaucoma; L89.152 Pressure ulcer of sacral region, stage 2; Z87.891 Personal history of nicotine dependence; Z79.899 Other long term (current) drug therapy; Z88.1 Allergy status to other antibiotic agents

== ENCOUNTER → 2017-06-20 | Outpatient (CLI) | payer OTHER ==
[~2017-06-20] MED LIST changes: -DXM/4 PO; +ENOX60IN SQ; +FERR1TAB13 PO; -FNTTP25 TOP; +FNTTP50 TD; -FRRS300 PO; -GLC5 PO; -LVNIS60 SQ; +MIRT15TA2 PO; -NUTR-7 PO; -PROC1TAB5 PO; +fentanyl patch
--- NOTE | 2017-06-20 10:34 | DIAGNOSTIC IMAGING REPORT ---
PET/CT HISTORY: NON SMALL CELL LUNG CANER TECHNIQUE: PET/CT was performed from the base of the skull through the pelvis following the intravenous administration of 15.2 mCi of F18-FDG. Non-contrast CT imaging was performed over the same range without breath-hold for attenuation correction of PET images and anatomic correlation, but not for primary interpretation as it is not of standard diagnostic quality. CT DOSE: COMPARISON: Chest CT 05/13/2017. PET CT 03/07/2017. FINDINGS: HEAD AND NECK: There is a single FDG avid supraclavicular lymph node on image 40. This demonstrates an SUV max of 11 and measures approximately 9 mm in size. CHEST: Right Port-A-Cath terminates in the SVC. Trace pericardial effusion. There are also trace bilateral pleural effusions. Emphysema. Interval increase in size and number of the multiple bilateral pulmonary nodules. There are greater than 30 nodules in total. For comparative purposes a 1.5 cm nodule within the right upper lobe previous measured 7 mm. Mild elevation the left hemidiaphragm. Dominant left upper lobe mass is again noted. The cavitation has resolved likely due to progression of tumor. This lesion currently measures up to 6.5 cm. This encases the aortic arch. The FDG uptake associated with this dominant left upper lobe lesion is primarily along the mediastinal border and measures an SUV max of 6. There are few enlarged and FDG avid AP window and subcarinal lymph nodes. Dominant subcarinal lymph node measures 1.9 cm and measures SUV max of 15. Multiple FDG avid right hilar lymph nodes. A right lower lobe nodule measures 2.5 cm and demonstrates an SUV max of 19. Multiple additional bilateral pulmonary nodules also demonstrate abnormal FDG uptake. ABDOMEN/PELVIS: There is a focal 1.5 cm focus of intense FDG uptake associated with the left adrenal gland. This demonstrates an SUV max of 9. Therefore, this is highly suspicious for metastatic focus. Mild left hydronephrosis. There is a left ureteral stent in place. There is a 7 mm stone at the proximal left ureter adjacent to the stent. No hepatic or splenic masses. There is a 4.5 cm infrarenal abdominal aortic aneurysm. MUSCULOSKELETAL: Adjacent to the right mastoid air cells there is a 1.4 cm focus of intense FDG uptake at the skull base with an SUV max of 14. This is highly suspicious for bony metastasis. IMPRESSION: 1. Overall, significant progression of FDG avid metastatic disease. 2. Increase in size and number of the multiple FDG avid bilateral pulmonary nodules and multiple FDG avid mediastinal and right hilar lymph nodes. 3. A 1.5 cm focus of FDG uptake within the left adrenal gland consistent with a metastatic deposit. 4. A 1.4 cm focus of intense FDG uptake within the right skull base adjacent to the mastoid air cells. This is highly suspicious for bony metastasis. 5. A single FDG avid left supraclavicular lymph node. 6. Mild left hydronephrosis with a 7 mm stone at the proximal left ureter. A left ureteral stent is in place. 7. Redemonstration of the 4.5 cm infrarenal abdominal aortic aneurysm. Electronically signed by: Mtichel Tellez M.D. 06/20/2017 10:33 AM Dictated Date/Time: 06/20/2017 10:13 AM
== END | disposition home or self-care (01) ==
LOC: C.PET 07:55
PROVIDERS: ATTEND Internal Medicine Hematology & Oncology
DX: C34.92 Malignant neoplasm of unspecified part of left bronchus or lung (principal)

== ENCOUNTER → 2017-06-29 | Outpatient (CLI) | payer OTHER ==
[2017-06-29 09:57] VITALS: BP 109/75; PULSE 108; TEMP 36.5; O2SAT 95
--- NOTE | 2017-06-29 11:13 | Radiation Oncology Follow-Up ---
Radiation Oncology Follow-Up Date of Visit June 29, 2017. Reason For Visit One-month follow-up Radiation Completion Date 05/29/17 Diagnosis (1) Primary cancer of left upper lobe of lung Status: Chronic Onset Date: 03/05/2017 Permanent Comment: Weakness and fatigue Finding of a left upper lobe lung mass Status post bronchoscopy and biopsy 03/05/2017 Non-small cell lung cancer Clinical stage T4 N2 M0 Status post completion of combined radiation and chemotherapy. Radiation was completed May 29, 2017. He received 6000 cGy. Chemotherapy comprised of Taxol and carboplatin. Last Edited By: Linda Hill on Jun 08, 2017 10:30 History of Present Illness The patient initially presented in January 2017 with complaints of weakness, fatigue and decreased appetite for about one month. 02/19/2017 - patient presented to [facility]. CXR revealed: IMPRESSION: 1. 8 cm masslike opacity in the left upper lung. A vascular etiology is not excluded. Further evaluation with contrast-enhanced chest CT recommended. CTA of Chest revealed: "IMPRESSION: 1. A 8.2 cm left upper lobe mass, which may invade the overlying pleura, mediastinum, and left hilum. Mediastinal and potentially bilateral hilar lymphadenopathy. No additional sites of disease in the lungs. Further details including bronchial and arterial obstruction as above.2. No evidence of pulmonary embolus." 02/27/2017 - patient seen by Dr. Sina Chris who recommended completion of the staging workup and biopsy of the left upper lobe mass as well as PFTs. 03/02/2017 - MRI of Brain - no acute intracranial pathology. No abnormal enhancement. 03/05/2017 - CT-guided FNA biopsy of left upper lobe mass - "LUNG, LEFT UPPER LOBE , FINE NEEDLE ASPIRATION: POSITIVE FOR MALIGNANT CELLS, NON-SMALL CELL CARCINOMA. SEE COMMENT. COMMENT: The appearance of the cells somewhat favors squamous cell carcinoma, however immunohistochemical staining shows equivocal results with staining for TTF-1 as well as markers of squamous cell carcinoma. Therefore definitive distinction into adenocarcinoma or squamous carcinoma is not possible." 03/07/2017 - PET/CT - "IMPRESSION: 1. There is approximately 8 cm FDG avid mass in the left suprahilar region as detailed above. This should be considered lung cancer until proven otherwise. 2. There are pathologically enlarged and minimally FDG avid prevascular lymph nodes. These are highly concerning for metastatic involvement. 3. There is no evidence of extrathoracic metastatic disease. 4. Emphysema. 5. There is a 4.2 x 4.4 cm infrarenal abdominal aortic aneurysm. 6. Left-sided nephrolithiasis. 7. Additional findings as above." 03/12/2017 - PFTs - spirometry shows mild obstruction. FEV1 2.16 L 70%, FVC 3.28 L 81%, FEV1/FVC 66% 85%, DLCO 16.98 59%. Patient has been evaluated by both Dr. Chris from thoracic surgery and Dr. Brandon Marx for medical oncology who recommended consideration of preoperative chemoradiation therapy followed by surgical resection. We are now seeing the patient in consultation discuss role of radiation therapy. Patient went forward with combined radiation and chemotherapy. Radiation was completed May 29, 2017. He received 6000 cGy. He also received chemotherapy with Taxol and carboplatin. Interim History Over the past month he has had deterioration. He has weakness and fatigue. He has had ongoing issues with constipation and then diarrhea. He is on a fentanyl patch 25 mcg/h change every 72 hours for his pain. Today he states that his pain is controlled. His son stated there were issues with the constipation. He was using one stool softener a day but once he was placed on iron he became more constipated. He was in [facility] and was on medications to help his bowels. The iron has now been discontinued and he is having more issues with diarrhea rather than constipation. He is eating breakfast well but the remainder of the day he eats minimally. He does adhere to be taking in enough fluids. Although today he did not drink as much. He is seen by home health nurses and also is having home physical therapy. He has been seen in follow-up by medical oncology and has had a PET scan. Results unfortunately have shown progression of the disease. He is following with Dr. Marx in making decisions about his continued care. He and his family are contemplating placement on hospice. Allergies Coded Allergies: Clindamycin (Verified Allergy, Intermediate, Rash all over body , 06/09/17) Home Medications Scheduled Atorvastatin (Lipitor), 40 MG PO HS Docusate Sodium (Colace), 100 MG PO QAM Dronabinol (Dronabinol), 5 MG PO BID Enoxaparin (Lovenox), 60 MG SQ Q12H Fentanyl (Duragesic), 25 MCG TD [id number] Latanoprost (Xalatan 0.005% Oph Benita), 1 DROPS OPR HS Metformin Hcl (Glucophage), 500 MG PO BID Mirtazapine Soltab (Remeron Soltab), 15 MG PO DAILY Tamsulosin Hcl (Flomax), 0.4 MG PO HS Scheduled PRN Ondansetron Hcl (Zofran), 8 MG PO Q8 PRN for Nausea Polyethylene Glycol 3350 (Miralax), 17 GM PO DAILY PRN for Constipation Tramadol (Ultram), 50 MG PO DIRECTED PRN for Pain Review of Systems Gastrointestinal: Symptoms: WNL, Constipation, Diarrhea GI Comments: Goes between the two - due to iron - does have N/V at times Oral: Symptoms: No Problems Respiratory: Symptoms: WNL, Moist Cough, SOB With Exertion Sputum Character: typically white - sometimes yellow Other Respiratory: Moist productive cough at times Urinary: Symptoms: WNL Skin: Symptoms: No Problems Other Skin Symptoms: Dry Physical Exam Vital Signs Date Time Temp Pulse Resp B/P (MAP) Pulse Ox O2 Delivery O2 Flow Rate FiO2 06/29/17 09:57 36.5 108 20 109/75 95 ECOG Performance Status: 2 Fatigue: Severe General Appearance: + mild distress Eyes: normal inspection, EOMI ENT: normal ENT inspection, + pertinent finding (Mouth is dehydrated) Neck: no adenopathy, thyroid normal Respiratory/Chest: lungs clear, no respiratory distress, no accessory muscle use, + decreased breath sounds Cardiovascular: regular rate, rhythm, no gallop, no murmur Abdomen: non tender, soft Extremities: no pedal edema Neurologic/Psychiatric: no motor/sensory deficits, alert, normal mood/affect Skin: warm/dry Pain Management Patient Reports Pain: No Initial Pain Intensity: 0.0 Pain Management Plan Pain is controlled with fentanyl patch. Laboratory Laboratory Results: pending (Having additional laboratory studies for medical oncology today.) Pathology Pathology Results: were reviewed, and pertinent findings noted in HPI Imaging Imaging Studies: were reviewed, and pertinent findings noted below Imaging Comments Patient: SONIDO WATKINS Address1: [address] [place] [address] Rec: [id number] Address2: Acct ID: [id number] [facility] Zip: [place] [address] Date: 1945 Sex: M Room/Bed: Ref Phy: SC: NhiPET Att Phy: Brandon Marx MD Report #: [id number] Kelly Phy: Nathaniel Dawson M.D. Test: PETCTST Admit Phy: Visual Designer: PRIETO Interpreting Phy: Mitchel Tellez MD Diagnosis: NON-SMALL CELL CANCER OF LT LUNG Ordering Phy: Brandon Marx MD Service Date: 06/20/17 Admit Date: 06/20/17 MNE: [id number] CONF: DICTATED BY: Mitchel Tellez M.D.]] CC: Brandon Marx MD Oesterling, Brett, M.D. Endcc: [~ rep ct add3]] PET/CT HISTORY: NON SMALL CELL LUNG CANER TECHNIQUE: PET/CT was performed from the base of the skull through the pelvis following the intravenous administration of 15.2 mCi of F18-FDG. Non-contrast CT imaging was performed over the same range without breath-hold for attenuation correction of PET images and anatomic correlation, but not for primary interpretation as it is not of standard diagnostic quality. CT DOSE: COMPARISON: Chest CT 05/13/2017. PET CT 03/07/2017. FINDINGS: HEAD AND NECK: There is a single FDG avid supraclavicular lymph node on image 40. This demonstrates an SUV max of 11 and measures approximately 9 mm in size. CHEST: Right Port-A-Cath terminates in the SVC. Trace pericardial effusion. There are also trace bilateral pleural effusions. Emphysema. Interval increase in size and number of the multiple bilateral pulmonary nodules. There are greater than 30 nodules in total. For comparative purposes a 1.5 cm nodule within the right upper lobe previous measured 7 mm. Mild elevation the left hemidiaphragm. Dominant left upper lobe mass is again noted. The cavitation has resolved likely due to progression of tumor. This lesion currently measures up to 6.5 cm. This encases the aortic arch. The FDG uptake associated with this dominant left upper lobe lesion is primarily along the mediastinal border and measures an SUV max of 6. There are few enlarged and FDG avid AP window and subcarinal lymph nodes. Dominant subcarinal lymph node measures 1.9 cm and measures SUV max of 15. Multiple FDG avid right hilar lymph nodes. A right lower lobe nodule measures 2.5 cm and demonstrates an SUV max of 19. Multiple additional bilateral pulmonary nodules also demonstrate abnormal FDG uptake. ABDOMEN/PELVIS: There is a focal 1.5 cm focus of intense FDG uptake associated with the left adrenal gland. This demonstrates an SUV max of 9. Therefore, this is highly suspicious for metastatic focus. Mild left hydronephrosis. There is a left ureteral stent in place. There is a 7 mm stone at the proximal left ureter adjacent to the stent. No hepatic or splenic masses. There is a 4.5 cm infrarenal abdominal aortic aneurysm. MUSCULOSKELETAL: Adjacent to the right mastoid air cells there is a 1.4 cm focus of intense FDG uptake at the skull base with an SUV max of 14. This is highly suspicious for bony metastasis. IMPRESSION: 1. Overall, significant progression of FDG avid metastatic disease. 2. Increase in size and number of the multiple FDG avid bilateral pulmonary nodules and multiple FDG avid mediastinal and right hilar lymph nodes. 3. A 1.5 cm focus of FDG uptake within the left adrenal gland consistent with a metastatic deposit. 4. A 1.4 cm focus of intense FDG uptake within the right skull base adjacent to the mastoid air cells. This is highly suspicious for bony metastasis. 5. A single FDG avid left supraclavicular lymph node. 6. Mild left hydronephrosis with a 7 mm stone at the proximal left ureter. A left ureteral stent is in place. 7. Redemonstration of the 4.5 cm infrarenal abdominal aortic aneurysm. Electronically signed by: Mitchel Tellez M.D. 06/20/2017 10:33 AM Dictated Date/Time: 06/20/2017 10:13 AM Assessment & Plan Plan: He will continue regular follow-up with his primary care provider and medical oncology. He and his family are aware of the progression of disease. He is having some additional laboratory studies today for medical oncology. He is off of the iron due to problems with constipation. He continues with home health care. We discussed possible transition into hospice with the current agency. His son is going to check into their abilities with hospice care. If he continues on home health nursing alone discuss the possibility of using an agency that may have helped meats. His son and [id number] have a vacation planned for July. They will be discussing final decisions with Dr. Marx. A follow-up appointment with our office was not given. They may call if they have any questions or concerns. Total Time In Follow-Up I spent 20 minutes speaking to the patient in performing examination. I spent 15 minutes reviewing information and completing this note. Copy To Brandon Marx MD; Nathaniel Dawson M.D.; Sina Chris MD
== END | disposition home or self-care (01) ==
LOC: C.ONC 09:36
PROVIDERS: ATTEND Physician Assistant Medical
DX: Z08 Encounter for follow-up examination after completed treatment for malignant neoplasm (principal); Z92.3 Personal history of irradiation; Z85.118 Personal history of other malignant neoplasm of bronchus and lung